=== PATIENT | female | born 1955 | race Caucasian/White ===

== ENCOUNTER 2018-05-25 00:37 | Emergency (ER) | payer OTHER ==
--- OUTSIDE RECORDS SUMMARY | 2018-05-25 00:40 | XMS REPORT | Clinical Summary ---
:1955 Author Organization [facility] Address [address] [place] [address] Care Team Providers Name Role Phone Marguerite Mora MD Primary Care Provider Unavailable Allergies Active Allergy Reactions Severity Noted Date Comments Adhesive Tape-Silicones Other (See Comments) 05/29/2016 Tears off skin Venlafaxine Hives 10/24/2015 Amitriptyline Anaphylaxis, Swelling High 05/30/2016 Erythromycin Base Other (See Comments) 10/24/2015 Face swells Levofloxacin Swelling 10/24/2015 Facial swelling Pregabalin 04/19/2017 Weak muscle. Gabapentin Hives 10/24/2015 Trazodone Hives 10/24/2015 Azithromycin Anaphylaxis, Hives High 10/24/2015 Medications Medication Sig Dispensed Refills Start Date End Date Status DULoxetine (CYMBALTA) Take by mouth. 1 0 Active 60 MG capsule capusle twice a day ziprasidone (GEODON) Take by mouth. 1 0 Active 80 MG capsule tablet in am and 1/2 tablet in noon albuterol (PROVENTIL) Take 2.5 mg by 0 Active 2.5 mg /3 mL (0.083 nebulization every %) nebulizer solution 6 (six) hours as needed for wheezing. dexlansoprazole Take by mouth. 1 0 Active (DEXILANT) 60 mg tablet Twice a capsule day ferrous sulfate 325 Take by mouth. 1 0 Active (65 FE) MG tablet tablet twice a day oxyCODone-acetaminoph Take by mouth. 1 0 Active en (PERCOCET) 7.5-325 tablet three times mg per tablet a day tiZANidine (ZANAFLEX) Take by mouth. 1 0 Active 4 MG tablet tablet once a day memantine-donepezil Take by mouth. 1 0 Active (NAMZARIC) 28-10 mg tablet once a day capsule,sprinkle,ER 24hr topiramate (TOPAMAX) Take by mouth. 1 0 Active 50 MG tablet tablet in am and 2 tablet in pm sodium chloride 1 Take 1 g by mouth 0 Active gram tablet 3 (three) times a day. rOPINIRole (REQUIP) Take by mouth. 1 0 Active 0.25 MG tablet tablet 3 times a day albuterol (PROAIR Inhale 2 puffs 0 Active HFA,PROVENTIL every 6 (six) HFA,VENTOLIN HFA) 90 hours as needed mcg/actuation inhaler for wheezing or shortness of breath. metoprolol succinate Take by mouth. 1 0 Active XL (TOPROL-XL) 25 mg tablet once a day 24 hr tablet levothyroxine Take by mouth. 1 0 Active (SYNTHROID, LEVOXYL) tablet once a day 112 mcg tablet VITAMIN B COMPLEX (B Take 1 capsule by 0 Active COMPLEX ORAL) mouth daily. magnesium oxide 500 Take 1 tablet by 0 Active mg tablet mouth daily. LACTOBACILLUS Take 1 capsule by 0 Active ACIDOPHILUS mouth daily. (PROBIOTIC ORAL) carBAMazepine, mood Take by mouth. 1 0 Active stabiliz, (EQUETRO) capsule 3 times a 300 mg capsule, ER day multiphase 12 hr BUMETanide (BUMEX) 1 Take by mouth 0 Active MG tablet daily. 1 tablet once a day cycloSPORINE Administer 1 drop 180 each 3 04/21/2017 (RESTASIS) 0.05 % to both eyes 2 9 ophthalmic emulsion (two) times a day. 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 IOP stable 16 (mid-teens). 3rd OCT much better timur TI OS region. HVF more unreliable, due to ptosis and dry eye. No evidence of glaucoma. Just follow annually for CE, consider OCT ON annually or less frequent, but defer HVF for now. 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 Last Assessment & Plan: BLL plugs intact. Continue Restasis OU 2-3 x/day. Okay to continue Prolensa OU QD PRN pain. Dryness much better OU. MRx done 12/29 different now, probably due to fact that PEE was much worse then. MRx updated today--N/C. Combined form of senile cataract 11/22/2015 Last Assessment & Plan: Early, not visually significant. Follow. MRx updated. Allergic conjunctivitis 11/22/2015 Last Assessment & Plan: Resume Elestat--rx given. Hypercalcemia 04/07/2011 Nontoxic uninodular goiter 04/07/2011 Primary hyperparathyroidism 04/07/2011 Sarcoidosis 04/07/2011 Encounters Date Type Specialty Care Team Description 08/26/2017 Lab Lab Jules Prince Personal history of colon MD [place] cancer (Primary Dx) 06/23/2017 Office Visit Ophthalmology Jomar Ovalle Optic nerve cupping of both eyes (Primary Dx); MD [place] Glaucoma suspect, bilateral 06/10/2017 Anesthesia Event Gastroenterology Soraya Larson MD 06/10/2017 Surgery Gastroenterology Debbie Prince. COLONOSCOPY MD [place] 06/10/2017 Hospital Encounter Gastroenterology Debbie Prince. Primary MD [place] hyperparathyroidism (Primary Dx) after 05/24/2017 Immunizations Name Dates Previously Given Next Due INFLUENZA QUAD 12/16/2015 Pneumococcal Conjugate 13-Valent 12/16/2015 Family History Medical History Relation Name Comments Heart attack Brother Cancer Father Glaucoma Mother Glaucoma Paternal Grandmother Blindness Sister Ovarian cancer Sister Breast cancer Sister Relation Name Status Comments Brother Father Maternal Grandfather Maternal Grandmother Mother Paternal Grandfather Paternal Grandmother Sister Alive Sister Social History Tobacco Use Types Packs/Day Years Used Date Former Smoker Cigarettes Quit: 1971 Smokeless Tobacco: Never Used Alcohol Use Drinks/Week oz/Week Comments Yes 1 Standard drinks or equivalent 0.6 weekly Sex Assigned at Date Recorded Not on file Job Start Date Occupation Industry Not on file Not on file Not on file Travel History Travel Start Travel End No recent travel history available. Last Filed Vital Signs Vital Sign Reading Time Taken Blood Pressure 153/76 06/10/2017 11:55 AM CDT Pulse 66 06/10/2017 11:52 AM CDT Temperature 36.5 C (97.7 F) 06/10/2017 11:52 AM CDT Respiratory Rate 18 06/10/2017 11:52 AM CDT Oxygen Saturation 97% 06/10/2017 11:52 AM CDT Inhaled Oxygen Concentration - - Weight 77.6 kg (171 lb) 06/10/2017 9:38 AM CDT Height 165.1 cm (5' 5") 06/10/2017 9:38 AM CDT Body Mass Index 28.46 06/10/2017 9:38 AM CDT Plan of Treatment Date Type Specialty Care Team Description 06/22/2018 Office Visit Ophthalmology Jomar Ovalle MD [address] [address] Health Maintenance Due Date Last Done Comments CERVICAL CANCER SCREENING 10/12/1975 SHINGLES VACCINES (#1) 2004 INFLUENZA VACCINE 10/13/2017 12/22/2016, 12/16/2015 BREAST CANCER SCREENING 04/16/2018 04/16/2016 COLON CANCER SCREENING 03/15/2026 03/15/2016 Procedures Procedure Name Priority Date/Time Associated Comments Diagnosis CARCINOEMBRYONIC ANTIGEN Routine 08/26/2017 11:49 Personal history Results for this (CEA) AM CDT of colon cancer procedure are in the results section. AUTOMATED VISUAL FIELD, Routine 06/23/2017 11:50 Glaucoma suspect, Results for this EXTENDED - OU - BOTH AM CDT bilateral procedure are in EYES the results section. OCT, OPTIC NERVE - OU - Routine 06/23/2017 11:49 Glaucoma suspect, Results for this BOTH EYES AM CDT bilateral procedure are in the results section. COLONOSCOPY 06/10/2017 10:00 Personal history AM CDT of colon cancer after 05/24/2017 Results Carcinoembryonic antigen (CEA) (08/26/2017 11:49 AM CDT) CEA 2.6 0.0 - 3.8 ng/mL [facility] DEPARTMENT OF PATHOLOGY Comment: AND GENOMIC MEDICINE Reference range for heavy smokers:0.0 - 5.5 ng/mL The ALEX Marcie 8000 CEA immunoassay was used. Results obtained with different assay methods or kits should not be used interchangeably and may be different. Specimen Serum Performing Organization Address City/State/Zipcode Phone Number [facility] DEPARTMENT OF PATHOLOGY AND [address] [place] [address] [employer] Automated Visual Field, Extended - OU - Both Eyes (06/23/2017 11:50 AM CDT) Narrative Performed At Right Eye Threshold was 24-2. Strategy was [place]. Reliability was poor. Foveal threshold was reduced. -6.5. Findings include superior altitudinal defect. Left Eye Threshold was 24-2. Strategy was [place]IL[place]. Reliability was poor. Foveal threshold was reduced. -8.64. Findings include superior altitudinal defect, inferior altitudinal defect. OCT, Optic Nerve - OU - Both Eyes (06/23/2017 11:49 AM CDT) Narrative Performed At G 88; T 52 thin T 88; T 48 thin (TI 122, much better than past low 100s) after 05/24/2017 Insurance Payer Benefit Plan / Group Subscriber ID Type Phone Address A[employer]NA MEDICARE AETNA MEDICARE HMO/PPO [facility] xxxxxxxx HMO
--- OUTSIDE RECORDS SUMMARY | 2018-05-25 00:40 | XMS REPORT | Continuity of Care Document ---
:1955 Author Organization Interface Problems Problem Status Onset Classification Date Comments Source Date Reported Discharge 09/22/19 09/23/2016 [facility] Diagnosis: Pain 17 in right wrist Fracture Active 03/15/19 Problem 09/23/2016 [facility] dislocation of 15 wrist joint Cancer of colon Resolved 03/15/19 Problem 09/23/2016 [facility] 00 Uterine Resolved 03/15/18 Problem 09/23/2016 CHEMO and [facility] cancer<sup>4</s 98 hysterectomy in up> 1997 Alzheimer Active Problem 09/23/2016 early stage- dx [facility] disease<sup>1</ x 1 year ago sup> Arthritis Active Problem 09/23/2016 [facility] Asthma Active Problem 09/23/2016 [facility] Bipolar Active Problem 09/23/2016 [facility] disorder Chronic pain Active Problem 09/23/2016 [facility] COPD - Chronic Active Problem 09/23/2016 home O2 3L [place] [facility] obstructive since 2011. pulmonary last visit with disease<sup>2</ conference planner, sup> Dec 2015 for pre op clearance. pulmonary stress test report (6 minute walk without o2) done at that time, per conference planner no need for home O2. Pt states she is able to stay off her oxygen for around 3 hours. At [facility] appt on 09-15-16 , O2 was removed for 15 minutes and O2 sats were 99% percent during that period. Hypertension Active Problem 09/23/2016 [facility] Hyponatremia Active Problem 09/23/2016 [facility] Hypothyroid Active Problem 09/23/2016 [facility] IBS - Irritable Active Problem 09/23/2016 [facility] bowel syndrome Migraine Active Problem 09/23/2016 [facility] Pain in wrist Active Problem 09/23/2016 [facility] Sarcoidosis of Inactive Problem 09/23/2016 per pulmonary [facility] lung<sup>3</sup note- CT of > chest shows no acute changes since 2008, no evidence of sarcoidosis Medications Medication Details Route Status Patient Ordering Order Source Instructions Provider Date Misc Medication 400 mL, Inactive 09/21/ [facility] Soln-IV, IV, 2017 Once, first dose 09/21/16 15:55:00 CDT, stop date 09/21/16 15:55:00 CDT fentaNYL 25 mcg=0.5 mL, Inactive 09/21/ [facility] Injection, IV, 2017 Once, first dose 09/21/16 15:30:00 CDT, stop date 09/21/16 15:30:00 CDT ondansetron 4 mg=2 mL, Inactive 09/21/ [facility] Injection, IV, 2016 Once, first dose 09/21/16 15:30:00 CDT, stop date 09/21/16 15:30:00 CDT fentaNYL 25 mcg=0.5 mL, Inactive [facility] Injection, IV, 2016 Once, first dose 09/21/16 15:06:00 CDT, stop date 09/21/16 15:06:00 CDT Levalbuterol 0.21 0.63 mg=3 mL, Inactive 09/21/ [facility] MG/ML Inhalant Soln, NEB, 2017 Solution Once, first [Xopenex] dose 09/21/16 15:00:00 CDT, stop date 09/21/16 15:00:00 CDT Levalbuterol 0.21 0.63 mg=3 mL, Inactive [facility] MG/ML Inhalant Soln, [facility], 2017 Solution Once PRN for [Xopenex] wheezing, first dose 09/21/16 14:49:00 CDT Ondansetron 4 mg=2 mL, Inactive [facility] Injection, IV 2016 Push, q15min PRN for nausea/vomitin g, order duration: 2 doses, first dose 09/21/16 14:49:00 CDT, stop date Limited # of times Promethazine 12.5 mg=0.5 Inactive 09/21/ [facility] mL, Injection, 2017 IM, Once PRN for severe nausea, first dose 09/21/16 14:49:00 CDT Dilaudid 0.5 mg=0.5 mL, Inactive 09/21/ [facility] Injection, IV 2016 Push, q10min PRN for pain severe (7-10), first dose 09/21/16 14:49:00 CDT Demerol HCl 12.5 mg=0.25 Inactive 09/21/ [facility] mL, Injection, 2017 IV Push, Once PRN for shivers, first dose 09/21/16 14:49:00 CDT Albuterol 0.83 2.5 mg=3 mL, Inactive [facility] MG/ML Inhalant Soln, NEB, 2017 Solution Once PRN for wheezing, first dose 09/21/16 14:49:00 CDT Hydralazine 10 mg=0.5 mL, Inactive [facility] Injection, IV 2017 Push, As Indicated PRN for hypertension, first dose 09/21/16 14:49:00 CDT Diphenhydramine 25 mg=0.5 mL, Inactive [facility] Injection, IV 2017 Push, Once PRN for itching, first dose 09/21/16 14:49:00 CDT Bupivacaine 0.25% 300 mL, Nerve Inactive [facility] 300 mL pump 300 Block, 5 2017 mL mL/hr, start date 09/21/16 14:49:00 CDT Saline Lock Flush 10 mL, Soln, Inactive [facility] IV Push, As 2017 Indicated PRN for flush, first dose 09/21/16 14:49:00 CDT LR 1,000 mL 1,000 mL, IV, Inactive 09/21/ [facility] 75 mL/hr, 2017 start date 09/21/16 14:49:00 CDT ceFAZolin 2 gm, Soln-IV, Inactive [facility] IV Piggyback, 2017 Once, first dose 09/21/16 14:44:00 CDT, stop date 09/21/16 14:44:00 CDT dexamethasone 8 mg=2 mL, Inactive [facility] Injection, IV, 2016 Once, first dose 09/21/16 14:42:00 CDT, stop date 09/21/16 14:42:00 CDT Misc Medication 1,000 mL, Inactive [facility] Soln-IV, IV, 2017 Once, first dose 09/21/16 14:37:00 CDT, stop date 09/21/16 14:37:00 CDT propofol 100 mg=10 mL, Inactive [facility] Emulsion, IV, 2017 Once, first dose 09/21/16 14:32:00 CDT, stop date 09/21/16 14:32:00 CDT lidocaine 3 mL, Inactive 09/21/ [facility] Injection, IV, 2016 Once, first dose 09/21/16 14:32:00 CDT, stop date 09/21/16 14:32:00 CDT fentaNYL 50 mcg=1 mL, Inactive 09/21/ [facility] Injection, IV, 2016 Once, first dose 09/21/16 14:11:00 CDT, stop date 09/21/16 14:11:00 CDT midazolam 1 mg=1 mL, Inactive [facility] Injection, IV, 2016 Once, first dose 09/21/16 14:11:00 CDT, stop date 09/21/16 14:11:00 CDT midazolam 1 mg=1 mL, Inactive 09/21/ [facility] Injection, IV, 2016 Once, first dose 09/21/16 13:55:00 CDT, stop date 09/21/16 13:55:00 CDT fentaNYL 50 mcg=1 mL, Inactive [facility] Injection, IV, 2016 Once, first dose 09/21/16 13:54:00 CDT, stop date 09/21/16 13:54:00 CDT Cefazolin 2 gm, Soln-IV, Inactive 09/21/ [facility] IV Piggyback, 2016 Once, infuse over 30 minutes, first dose 09/21/16 12:00:00 CDT, stop date 09/21/16 12:00:00 CDT, patient weight 50-120 kg, Prophylaxis Lidocaine 2% 0.2 0.2 mL, Inactive 09/21/ [facility] mL IV Start Injection, 2016 [[facility]] Subcutaneous, Once PRN for other (see comment), first dose 09/21/16 11:24:00 CDT LR 1,000 mL 1,000 mL, IV, Inactive 09/21/ [facility] 30 mL/hr, 2017 start date 09/21/16 11:24:00 CDT Breo Ellipta INH, Daily, 0 Active [facility] Refill(s), 2016 COPD magnesium 500 mg=1 tabs, Active [facility] gluconate 500 mg Oral, Daily, 0 2016 oral tablet Refill(s) cetirizine 10 mg=1 tabs, Active [facility] hydrochloride 10 Oral, Daily, 0 2017 MG Oral Tablet Refill(s) [Zyrtec] Probiotic Formula 1 caps, Oral, Active 09/16/ [facility] oral capsule Daily, 0 2016 Refill(s), supplement Super B Complex 1 tabs, Oral, Active 09/16/ [facility] oral tablet Daily, 0 2016 Refill(s), supplement Centrum Silver 1 tabs, Oral, Active 09/16/ [facility] Women's Daily, 0 2016 Refill(s), supplemetn topiramate 50 MG 50 mg=1 tabs, Active 09/16/ [facility] Oral Tablet Oral, BID, 0 2016 Refill(s), mgiraines furosemide 20 mg 20 mg=1 tabs, Active 09/16/ [facility] oral tablet Oral, BID, 0 2016 Refill(s), COPD spironolactone 25 25 mg=1 tabs, Active 05/ [facility] mg oral tablet Oral, qNoon, 0 2016 Refill(s) Acetaminophen 325 1 tabs, Oral, Active 09/16/ [facility] MG / Oxycodone q6hr, 0 2016 Hydrochloride 7.5 Refill(s), MG Oral Tablet chronic pain Omeprazole 40 MG 40 mg=1 caps, Active 09/16/ [facility] Enteric Coated Oral, BID, 0 2016 Capsule Refill(s), GERDb 24 HR Donepezil 1 caps, Oral, Active 09/16/ [facility] hydrochloride 10 Daily, 0 2017 MG / Memantine Refill(s), hydrochloride 28 alzheimer MG Extended Release Oral Capsule [Namzaric] lubiprostone 8 mcg=1 caps, No Longer 09/16/ [facility] 0.008 MG Oral Oral, qPM, # Active 2017 Capsule [Amitiza] 60 tabs, 0 Refill(s), IBS tiZANidine 4 mg 4 mg=1 tabs, Active 05/ [facility] oral tablet Oral, q8hr, 0 2016 Refill(s) ferrous sulfate 325 mg=1 tabs, No Longer 09/16/ [facility] 325 MG Oral Oral, Daily, 0 Active 2017 Tablet Refill(s), anemia ropinirole 0.25 0.25 mg=1 Active 05/ [facility] MG Oral Tablet tabs, Oral, 2017 TID, 0 Refill(s) 24 HR Metoprolol 25 mg=1 tabs, Active 09/16/ [facility] Tartrate 25 MG Oral, qPM, 0 2016 Extended Release Refill(s) Tablet raNITIdine 150 mg 150 mg=1 tabs, Active 09/16/ [facility] oral tablet Oral, BID, 0 2017 Refill(s), GERD ProAir HFA 2 puffs, INH, Active 09/16/ [facility] QID, PRN as 2017 needed for wheezing, 0 Refill(s), COPD Levothyroxine 125 mcg=1 Active 09/16/ [facility] Sodium 0.125 MG tabs, Oral, 2017 Oral Tablet Daily, 0 [Levothroid] Refill(s), hypothyroid DULoxetine 60 mg 60 mg=1 caps, Active 09/16/ [facility] oral delayed Oral, Daily, 0 2017 release capsule Refill(s), bipolar 12 HR 300 mg=1 caps, Active 09/16/ [facility] Carbamazepine 300 Oral, TID, 0 2017 MG Extended Refill(s), Release Capsule bipolar [Equetro] Dulcolax Stool 100 mg, Oral, Active 09/16/ [facility] Softener Daily, 0 2017 Refill(s) Sodium Chloride See Active 09/16/ [facility] Instructions, 2017 1 gm PO BID, 0 Refill(s), hyponatremia ziprasidone 80 mg 80 mg=1 caps, Active 09/16/ [facility] oral capsule Oral, As 2017 Indicated, 1 tab PO QAM , 1/2 tab PO Qnoon, 0 Refill(s), bipolar Allergies, Adverse Reactions, Alerts Substance Category Reaction Severity Reaction Status Date Comments Source type Reported azithromycin Assertion Hives Drug Active [facility] allergy Effexor Assertion Weal Drug Active [facility] (disorder) allergy Elavil Assertion hives Drug Active [facility] allergy erythromycin Assertion Weal Drug Active [facility] (disorder) allergy Levaquin Assertion Weal Drug Active [facility] (disorder) allergy Neurontin Assertion Weal Drug Active [facility] (disorder) allergy Tape<sup>1</hughes Assertion Drug Active use paper [facility] p> allergy tape traZODone Assertion Hives Drug Active [facility] allergy Immunizations Immunization Date Given Site Status Last Updated Comments Source Results Order Results Value Reference Date Interpretation Comments Source Name Range Vital Signs Vital Sign Value Date Comments Source Respitory Rate 18 09/21/2016 [facility] Systolic (mm Hg) 146 09/21/2016 [facility] Diastolic (mm Hg) 82 09/21/2016 [facility] Peripheral Pulse Rate 69 09/21/2016 [facility] Systolic (mm Hg) 142 09/21/2016 [facility] Diastolic (mm Hg) 78 09/21/2016 [facility] Heart Rate 78 09/21/2016 [facility] Respitory Rate 18 09/21/2016 [facility] Heart Rate 66 09/21/2016 [facility] Respitory Rate 18 09/21/2016 [facility] Systolic (mm Hg) 146 09/21/2016 [facility] Diastolic (mm Hg) 82 09/21/2016 [facility] Heart Rate 66 09/21/2016 [facility] Temperature Oral (F) 36.5 Daysi 09/21/2016 [facility] Weight Measured 78.01 09/21/2016 [facility] Height 165.10 cm 09/21/2016 [facility] Peripheral Pulse Rate 62 09/21/2016 [facility] Temperature Oral (F) 36.6 Daysi 09/21/2016 [facility] Peripheral Pulse Rate 65 09/16/2016 [facility] Weight Measured 78.01 09/16/2016 [facility] Height 165.10 cm 09/16/2016 [facility] Encounters Location Location Encounter Encounter Reason Attending ADM DC Status Source Details Type Number For Provider Date Date Visit [facility] Outpatient [id number] JESENIA 09/21 09/21 Active Surgical TITUS HAILE /2016 [facility] Outpatient [id number] JESENIA 09/21 09/21 [facility] Gerardo QURESHI [facility] Procedures Procedure Code Date Perfomer Comments Source ARTHRODESIS DISTAL 09/21/2016 auto-populated [facility] RADIOULNAR JT from documented W/SEGMENTAL RESEC. surgical case ULNA [id number] (Right)<sup>1</sup> EXCISION DISTAL 09/21/2016 auto-populated [facility] ULNA [id number] from documented (Right)<sup>2</sup> surgical case colon 05/29/2016 2nd dx- no chemo or radiation. [facility] resection<sup>3</hughes No post op complications, Did not require stay in ICU or ventilator post op. p> Corrective right 07/14/2015 [facility] hand surgery Colon 03/15/1999 DX COLON CANCER> [facility] resection<sup>4</hughes NO CHemo or p> radiation Hysterectomy [id number] 03/15/1997 [facility] tonsillectomy 03/15/1971 [facility] Back multiple; denies [facility] surgery<sup>5</sup> hardware. most recent 2008
--- OUTSIDE RECORDS SUMMARY | 2018-05-25 00:41 | XMS REPORT ---
:1955 Author Organization e[employer]Works Care Team Providers Name Role Phone Gonzalez, Na Provider Role Unavailable Allergies, Adverse Reactions, Alerts Substance Reaction Event Type erthromycin Info Not Available Drug Allergy NEUROTIN Info Not Available Drug Allergy amitriptyline Info Not Available Drug Allergy Trazodone HCl Info Not Available Drug Allergy Levaquin Info Not Available Drug Allergy Effexor Info Not Available Drug Allergy Problems Problem Type Condition Code Onset Dates Condition Status Assessment Age-related osteoporosis without M81.0 Active current pathological fracture Assessment Restless leg syndrome G25.81 Active Assessment GERD (gastroesophageal reflux K21.9 Active disease) Assessment Seasonal allergies J30.2 Active Problem Chronic back pain M54.9 Active Assessment Cough R05 Active Problem Migraine G43.909 Active Assessment Other specified bacterial agents as B96.89 Active the cause of diseases classified elsewhere Problem Hypertension, uncontrolled I10 Active Problem Hypokalemia E87.6 Active Problem Restless leg syndrome G25.81 Active Problem Right foot pain M79.671 Active Problem Other specified bacterial agents as B96.89 Active the cause of diseases classified elsewhere Assessment COPD (chronic obstructive pulmonary J44.1 Active disease) with acute bronchitis Assessment Hypothyroidism E03.9 Active Problem Hyponatremia E87.1 Active Assessment Acute sinusitis, unspecified J01.90 Active Problem Seasonal allergies J30.2 Active Problem Cough R05 Active Problem Age-related osteoporosis without M81.0 Active current pathological fracture Problem Acute sinusitis, unspecified J01.90 Active Problem GERD (gastroesophageal reflux K21.9 Active disease) Problem Hypothyroidism E03.9 Active Problem Edema R60.9 Active Problem Bipolar disorder F31.9 Active Problem Memory deficit R41.3 Active Problem COPD (chronic obstructive pulmonary J44.9 Active disease) Problem COPD (chronic obstructive pulmonary J44.1 Active disease) with acute bronchitis Medications Medication Code Code Instructions Start End Status Dosage System Date Date Klor-Con M10 [facility] 23356534752 10 MEQ Orally Active 1 tablet Twice a day with food Tessalon Perles [facility] 65888077298 100 MG Orally August 02August Active 1 capsule Three times a 2018 10, as needed day 2017 Geodon [facility] 34854244766 80 MG Orally Active 1 capsule Twice a day with food Cymbalta [facility] 14725899830 60 MG Orally Active 1 capsule Once a day Breo Ellipta [facility] 89761732963 100-25 MCG/INH Active 1 puff Inhalation Once a day Metoprolol [facility] 51938051615 25 MG Active TAKE 1 Succinate ER TABLET BY MOUTH EVERY DAY Ferrous Sulfate [facility] 40511643438 325 (65 Fe) MG Active TAKE ONE TABLET THREE TIMES DAILY Lasix [facility] 92626364661 40 MG Orally Active 1 tablet Once a day Amitiza [facility] 24727908251 24 MCG Orally Active 1 capsule Twice a day with food Flonase [facility] 08114743715 50 MCG/ACT Active 2 spray in Nasally Once a each day nostril ProAir HFA [facility] 32495972815 108 (90 Base) Active 2 puffs as MCG/ACT needed Inhalation every 6 hrs Zantac [facility] 92517530377 150 MG Orally Active 1 tablet Once a day at bedtime Requip [facility] 51851896007 0.5 MG Orally Inactive 1 tablet 1 Once a day to 3 hours before bedtime Pramipexole [facility] 04151228623 0.25 MG Orally Active 1 tablet Dihydrochloride Once a day before bedtime Topamax [facility] 24151774049 50 MG Orally Active 1 tablet Twice a day Levothyroxine [facility] 02034930848 125 MCG Orally Active 1 tablet Sodium Once a day on an empty stomach in the morning DuoNeb ND 0 Inhalation Active as every 6 hrs directed Dexilant [facility] 31186086478 60 MG Orally Inactive 1 capsule Once a day Aspirin Adult Low [facility] 26592225967 81 MG Orally Active 1 tablet Dose Once a day Equetro [facility] 74141682223 300 MG Orally Active 1 capsule Twice a day Soma [facility] 63461534049 350 MG Orally Active 1 tablet Four times a as needed day Nucynta [facility] 77821500958 50 MG Orally Active 1 tablet every 6 hrs Amlodipine [facility] 99030442576 5 MG Orally June Active 1 tablet Besylate Once a day 2017 Singulair [facility] 65519556017 10 MG Orally Active 1 tablet Once a day in the evening Milton [facility] 11856864922 10-325 MG Active 1 tablet Orally every 6 as needed hrs Augmentin [facility] 80436040268 875-125 MG July Active 1 tablet Orally every 31, 12 hrs 2017 Zyrtec Allergy [facility] 21726604315 10 MG Orally Active 1 tablet Once a day Results No Known Results Summary Purpose eClinicalWorks Submission
--- OUTSIDE RECORDS SUMMARY | 2018-05-25 00:41 | XMS REPORT ---
:1955 Author Organization [employer]Works Care Team Providers Name Role Phone Gonzalez, Na Provider Role Unavailable Allergies No Known Allergies Problems Problem Type Condition Code Onset Dates Condition Status Problem Hypertension, uncontrolled I10 Active Problem Hypokalemia E87.6 Active Problem Restless leg syndrome G25.81 Active Problem Right foot pain M79.671 Active Problem Other specified bacterial agents as B96.89 Active the cause of diseases classified elsewhere Problem Hyponatremia E87.1 Active Problem Seasonal allergies J30.2 Active Problem Cough R05 Active Problem Age-related osteoporosis without M81.0 Active current pathological fracture Problem Acute sinusitis, unspecified J01.90 Active Problem GERD (gastroesophageal reflux K21.9 Active disease) Problem Hypothyroidism E03.9 Active Problem Edema R60.9 Active Problem Bipolar disorder F31.9 Active Problem Memory deficit R41.3 Active Problem COPD (chronic obstructive pulmonary J44.9 Active disease) Problem Chronic back pain M54.9 Active Problem COPD (chronic obstructive pulmonary J44.1 Active disease) with acute bronchitis Problem Migraine G43.909 Active Medications Medication Code System Code Instructions Start End Date Status Dosage Date Metoprolol [facility] 20229517654 25 MG Active TAKE 1 Succinate ER TABLET BY MOUTH EVERY DAY Results No Known Results Summary Purpose eClinicalWorks Submission
--- OUTSIDE RECORDS SUMMARY | 2018-05-25 00:41 | XMS REPORT ---
[...] Problem Migraine G43.909 Active Medications Medication Code Code Instructions Start End Date Status Dosage System Date Metoprolol [facility] 12115290093 25 MG Orally Active TAKE 1 Succinate ER Once a day TABLET BY MOUTH EVERY DAY Results No Known Results Summary Purpose eClinicalWorks Submission
--- OUTSIDE RECORDS SUMMARY | 2018-05-25 00:41 | XMS REPORT ---
:1955 Author Organization [employer]Works Care Team Providers Name Role Phone Gonzalez, Na Provider Role Unavailable Allergies No Known Allergies Problems Problem Type Condition Code Onset Dates Condition Status Problem Hypertension, uncontrolled I10 Active Problem Hypokalemia E87.6 Active Problem Restless leg syndrome G25.81 Active Problem Right foot pain M79.671 Active Assessment COPD (chronic obstructive pulmonary J44.1 Active disease) with acute bronchitis Problem Other specified bacterial agents as B96.89 [...] acute bronchitis Problem Migraine G43.909 Active Medications No Known Medications Results No Known Results Summary Purpose eClinicalWorks Submission
--- OUTSIDE RECORDS SUMMARY | 2018-05-25 00:41 | XMS REPORT ---
[...] Active disease) Assessment Seasonal allergies J30.2 Active Assessment Urinary incontinence, unspecified R32 Active type Assessment COPD (chronic obstructive pulmonary J44.9 Active disease) Problem Restless leg syndrome G25.81 Active Assessment Hypothyroidism E03.9 Active Problem Hypokalemia E87.6 Active Assessment Hypertension, uncontrolled I10 Active Problem Cough R05 Active Problem Acute sinusitis, unspecified J01.90 Active Problem Seasonal allergies J30.2 Active Problem Urinary incontinence, unspecified R32 Active type Problem Screening mammogram, encounter for Z12.31 Active Problem GERD (gastroesophageal reflux K21.9 Active disease) Problem Edema R60.9 Active Problem Influenza vaccine needed Z23 Active Problem Other specified bacterial agents as B96.89 Active the cause of diseases classified elsewhere Problem Age-related osteoporosis without M81.0 Active current pathological fracture Problem Right foot pain M79.671 Active Problem Hyponatremia E87.1 Active Problem COPD (chronic obstructive pulmonary J44.1 Active disease) with acute bronchitis Problem Bipolar disorder F31.9 Active Problem Hypothyroidism E03.9 Active Problem COPD (chronic obstructive pulmonary J44.9 Active disease) Problem Migraine G43.909 Active Problem Hypertension, uncontrolled I10 Active Problem Memory deficit R41.3 Active Problem Chronic back pain M54.9 Active Medications Medication Code Code Instructions Start End Status Dosage System Date Date Geodon [facility] 08445146400 80 MG Orally Active 1 capsule Twice a day with food Topamax [facility] 98595816015 50 MG Orally Active 1 tablet Twice a day Bumetanide [facility] 36084886000 1 MG Active TAKE 1 TABLET BY MOUTH EVERY DAY Ferrous Sulfate [facility] 14215938030 325 (65 Fe) MG Active TAKE ONE TABLET THREE TIMES DAILY Soma [facility] 48092624369 350 MG Orally Active 1 tablet Four times a as needed day Pramipexole [facility] 48477345462 0.25 MG Orally Active 1 tablet Dihydrochloride Once a day before bedtime Levothyroxine [facility] 80126707114 125 MCG Orally Active 1 tablet Sodium Once a day on an empty stomach in the morning Cymbalta [facility] 66606315798 60 MG Orally Active 1 capsule Once a day Myrbetriq [facility] 25096452200 25 MG Orally Jan 06Mar Active 1 tablet Once a day 2017 Amlodipine [facility] 37487088862 5 MG Orally Inactive 1 tablet Besylate Once a day Singulair [facility] 70475426956 10 MG Orally Active 1 tablet Once a day in the evening ProAir HFA [facility] 24488198548 108 (90 Base) Active 2 puffs as MCG/ACT needed Inhalation every 6 hrs Flonase [facility] 39433573804 50 MCG/ACT Active 2 spray in Nasally Once a each day nostril Breo Ellipta [facility] 20774612807 100-25 MCG/INH Active 1 puff Inhalation Once a day Equetro [facility] 34965538214 300 MG Orally Active 1 capsule Twice a day Aspirin Adult Low [facility] 98998309422 81 MG Orally Active 1 tablet Dose Once a day Fosamax Plus D [facility] 34825937624 702800 Mar 24July Active 1 tablet MG-UNIT Orally 2018 12, once a week 2018 Zantac [facility] 13246797603 150 MG Orally Active 1 tablet Once a day at bedtime Amitiza [facility] 56999776112 24 MCG Orally Active 1 capsule Twice a day with food Levothyroxine [facility] 48294445511 125 MCG Orally Active 1 tablet Sodium Once a day on an empty stomach in the morning Metoprolol ND 71271476846 50 MG Orally Active take 1 Succinate ER Once a day tablet by mouth every day Klor-Con M10 [facility] 06304174873 10 MEQ Orally Active 1 tablet Twice a day with food DuoNeb NDC 0 Inhalation Active as every 6 hrs directed Zyrtec Allergy [facility] 58255911508 10 MG Orally Active 1 tablet Once a day Nucynta [facility] 00354777940 50 MG Orally Active 1 tablet every 6 hrs Lasix [facility] 66790513430 40 MG Orally Active 1 tablet Once a day [place] [facility] 30791846125 10-325 MG Active 1 tablet Orally every 6 as needed hrs Results No Known Results Summary Purpose eClinicalWorks Submission
--- OUTSIDE RECORDS SUMMARY | 2018-05-25 00:41 | XMS REPORT ---
:1955 [facility] Address [address] [place] [address] [address] [place] [address] Care Team Providers Name Role Phone Unavailable Unavailable Unavailable Problems This patient has no known problems. Allergies, Adverse Reactions, Alerts This patient has no known allergies or adverse reactions. Medications This patient has no known medications.
--- OUTSIDE RECORDS SUMMARY | 2018-05-25 00:41 | XMS REPORT ---
:1955 Author Organization eClinicalWorks Care Team Providers Name Role Phone Gonzalez, Na Provider Role Unavailable Allergies No Known Allergies Problems Problem Type Condition Code Onset Dates Condition Status Problem Cough R05 Active Problem Acute sinusitis, unspecified J01.90 Active Problem Seasonal allergies J30.2 Active Problem Urinary incontinence, unspecified R32 Active type Problem GERD (gastroesophageal reflux K21.9 Active disease) Problem Screening mammogram, encounter for Z12.31 Active Problem Edema R60.9 Active Problem Influenza vaccine [...] Active Problem Memory deficit R41.3 Active Problem Restless leg syndrome G25.81 Active Problem Chronic back pain M54.9 Active Problem Hypokalemia E87.6 Active Medications Medication Code System Code Instructions Start End Date Status Dosage Date Alendronate-Cho [facility] 05618-399 70-2800 MG-UNIT Mar 25, Active 1 tablet lecalciferol 0-44 Orally once a 2019 week Results No Known Results Summary Purpose eClinicalWorks Submission
--- OUTSIDE RECORDS SUMMARY | 2018-05-25 00:42 | XMS REPORT ---
:1955 Author Organization eClinicalWorks Care Team Providers Name Role Phone Gonzalez, Sandy Provider Role Unavailable Allergies No Known Allergies [...] M54.9 Active Problem Hypokalemia E87.6 Active Medications No Known Medications Results No Known Results Summary Purpose eClinicalWorks Submission
[2018-05-25] MEDS ORDERED: predniSONE 10 MG TAB ONE (02:18)
[2018-05-25] MEDS ORDERED: ALBUTEROL 2.5 MG/3 ML NEB SOL ONE (02:18)
[2018-05-25] MEDS ORDERED: IPRATROPIUM BROM 0.5MG/2.5ML ONE (02:18)
--- NOTE | 2018-05-25 03:01 | EDPHYS ---
Physician Documentation [facility] Name: Domitila Huertas Age: 62 yrs Sex: Female : 1955 Arrival Date: 05/25/2018 Time: 00:42 Bed 6 Private MD: Sandy Gonzalez ED Physician Jose Morin HPI: 05/25 02:52 This 62 yrs old Female presents to ER via Wheelchair with complaints of Flu gs Symptoms. 02:52 The patient or guardian reports flu symptoms, arthralgias, low-grade fever, myalgias. gs Onset: The symptoms/episode began/occurred acutely. Severity of symptoms: At their worst the symptoms were moderate, in the emergency department the symptoms are unchanged. Modifying factors: The symptoms are alleviated by nothing, the symptoms are aggravated by nothing. Associated signs and symptoms: Pertinent positives: fever. The patient has experienced similar episodes in the past, a few times. The patient has not recently seen a physician. Historical: - Allergies: 01:05 adhesive tape; ea 01:05 amitriptyline HCl; ea 01:05 Erythromycin; ea 01:05 Levofloxacin; ea 01:05 venlafaxine HCl; ea 01:05 Azithromycin; ea 01:05 GABAPENTIN; ea 01:05 Trazodone; ea 01:05 erythromycin base; ea 01:05 Demerol; ea - Home Meds: 01:05 Centrum Silver 400-250 mcg Oral chew [Active]; Dexilant 60 mg Oral CpDB 1 cap once ea daily [Active]; duloxetine 60 mg Oral cpDR 1 cap 2 times a day [Active]; Equetro 300 mg Oral CM12 1 cap 3 times per day [Active]; Zyrtec 10 mg Oral chew 1 tab once daily [Active]; ziprasidone HCl 80 mg Oral cap 1 cap 1 time per day [Active]; ziprasidone HCl 40 mg Oral cap 1 cap 1 time per day [Active]; Topamax 50 mg Oral tab 1 tab 2 times per day [Active]; tizanidine 8 mg cap Oral tab 1 tab AT NIGHT [Active]; Super B Complex-Vitamin C Oral tab [Active]; spironolactone 25 mg Oral tab 1 tab once daily [Active]; furosemide 20 mg Oral tab 1 tab 2 times per day [Active]; levothyroxine 112 mcg tab 1 tab once daily [Active]; magnesium oxide 500 mg Oral tab [Active]; metoprolol succinate 25 mg Oral Tb24 1 tab once daily [Active]; Namzaric 28-10 mg Oral CSpX 1 cap once daily [Active]; oxycodone-acetaminophen 7.5-325 mg Oral tab 1 tab every 8 hours [Active]; sodium chloride 1 gram Oral tab [Active]; ropinirole 0.25 mg Oral tab 1 tab 3 times per day [Active]; ranitidine HCl 150 mg Oral cap 1 cap 2 times per day [Active]; Probiotic 10 billion cell Oral cap [Active]; ProAir HFA 90 mcg/actuation inhalation HFAA 1 puff every 4 hours [Active]; profemin [Active]; - PMHx: 01:05 corrective hand sx; Hypertension; ea - PSHx: 01:05 Tonsillectomy; Hysterectomy; Back surgery; ea - Immunization history:: Adult Immunizations up to date. - Social history:: Smoking status: Patient/guardian denies using tobacco, but has a distant history of tobacco abuse. - Ebola Screening: : No symptoms or risks identified at this time. ROS: 02:52 All other systems are negative. gs Exam: 02:52 Head/Face: Normocephalic, atraumatic. Eyes: Pupils equal round and reactive to light, gs extra-ocular motions intact. Lids and lashes normal. Conjunctiva and sclera are non-icteric and not injected. Cornea within normal limits. Periorbital areas with no swelling, redness, or edema. ENT: Nares patent. No nasal discharge, no septal abnormalities noted. Tympanic membranes are normal and external auditory canals are clear. Oropharynx with no redness, swelling, or masses, exudates, or evidence of obstruction, uvula midline. Mucous membranes moist. Neck: Trachea midline, no thyromegaly or masses palpated, and no cervical lymphadenopathy. Supple, full range of motion without nuchal rigidity, or vertebral point tenderness. No Meningismus. Chest/axilla: Normal chest wall appearance and motion. Nontender with no deformity. No lesions are appreciated. Cardiovascular: Regular rate and rhythm with a normal S1 and S2. No gallops, murmurs, or rubs. Normal PMI, no JVD. No pulse deficits. 02:52 Abdomen/GI: Soft, non-tender, with normal bowel sounds. No distension or tympany. No guarding or rebound. No evidence of tenderness throughout. Back: No spinal tenderness. No costovertebral tenderness. Full range of motion. Skin: Warm, dry with normal turgor. Normal color with no rashes, no lesions, and no evidence of cellulitis. 02:52 Constitutional: The patient appears alert, awake. 02:52 Respiratory: the patient does not display signs of respiratory distress, Respirations: normal, symetrical, no use of accessory muscles, Breath sounds: rhonchi, that are mild, are scattered. 02:52 Musculoskeletal/extremity: Circulation is intact in all extremities. 02:52 Neuro: Exam negative for acute changes. Vital Signs: 00:58 BP 143 / 89; Pulse 84; Resp 23; Temp 100.3; Pulse Ox 95% on 3 lpm NC; Weight 89.36 kg; ea Height 5 ft. 5 in. (165.10 cm); 01:30 BP 140 / 80; Pulse 83; Resp 23; Pulse Ox 98% on Nebulizer Mask; ea 02:56 BP 123 / 70; Pulse 85; Resp 22; Pulse Ox 99% ; ea 00:58 Body Mass Index 32.78 (89.36 kg, 165.10 cm) ea MDM: 01:11 Patient medically screened. 02:52 Differential Diagnosis: Bronchitis Influenza Upper Respiratory Infection Pneumonia. Data reviewed: vital signs, nurses notes. Response to treatment: the patient's symptoms have markedly improved after treatment, and as a result, I will discharge patient. 05/25 01:12 Order name: Influenza Screen (a \T\ B); Complete Time: 02:48 05/25 01:12 Order name: XRAY Chest Pa And Lat (2 Views) Administered Medications: 02:11 Drug: Albuterol 2.5 mg Route: Inhalation; ea 02:11 Drug: AtroVENT Aerosol 0.5 mg Route: Inhalation; ea 02:11 Drug: predniSONE 20 mg Route: PO; ea 02:59 Follow up: Response: No adverse reaction ea Disposition: 05/25/18 02:59 Discharged to Home. Impression: Influenza due to identified novel influenza A virus. - Condition is Stable. - Discharge Instructions: Influenza, Adult. - Prescriptions for Tamiflu 75 mg Oral Capsule - take 1 tablet by ORAL route every 12 hours for 5 days; 10 tablet. Albuterol Sulfate 2.5 mg /3 mL (0.083 %) Inhalation Solution for Nebulization - inhale 1 unit by NEBULIZATION route every 8 hours As needed; 1 box. - Medication Reconciliation Form, Thank You Letter, Antibiotic Education, Prescription Opioid Use form. - Follow up: Private Physician; When: 1 - 2 days; Reason: Re-evaluation by your physician. Signatures: Dispatcher [employer] Miya Rogers RN RN ea Starr, Gregory, MD MD gs Corrections: (The following items were deleted from the chart) 03:16 02:59 05/25/2018 02:59 Discharged to Home. Impression: Influenza due to identified ea novel influenza A virus. Condition is Stable. Forms are Medication Reconciliation Form, Thank You Letter, Antibiotic Education, Prescription Opioid Use. Follow up: Private Physician; When: 1 - 2 days; Reason: Re-evaluation by your physician. gs
--- NOTE | 2018-05-25 03:01 | ER ---
Nurse's Notes [facility] Name: Domitila Huertas Age: 62 yrs Sex: Female : 1955 Arrival Date: 05/25/2018 Time: 00:42 Bed 6 Private MD: Sandy Gonzalez Diagnosis: Influenza due to identified novel influenza A virus Presentation: 05/25 00:55 Presenting complaint: Patient states: Reports she started having a cough three days ago ea that progressively got worse. Pt reports feeling achy and congested. Denies fever. Transition of care: patient was not received from another setting of care. Onset of symptoms was May 25, 2018. Risk Assessment: Do you want to hurt yourself or someone else? Patient reports no desire to harm self or others. Initial Sepsis Screen: Does the patient meet any 2 criteria? RR > 20 per min. Yes Does the patient have a suspected source of infection? No. Patient's initial sepsis screen is negative. Care prior to arrival: Medication(s) given: Robitussin DM and Tylenol 2 hours ago. 00:55 Method Of Arrival: Wheelchair ea 00:55 Acuity: IRENE 3 ea Triage Assessment: 01:05 General: Appears in no apparent distress. Behavior is calm, cooperative, appropriate ea for age. Pain: Complains of pain in body aches. Neuro: Level of Consciousness is awake, alert, obeys commands, Oriented to person, place. Cardiovascular: Patient's skin is warm and dry. Respiratory: Airway is patent Respiratory effort is even, unlabored, Respiratory pattern is regular, tachypnea Breath sounds are diminished bilaterally. Derm: Skin is pink, warm \T\ dry. Historical: - Allergies: 01:05 adhesive tape; ea 01:05 amitriptyline HCl; ea 01:05 Erythromycin; ea 01:05 Levofloxacin; ea 01:05 venlafaxine HCl; ea 01:05 Azithromycin; ea 01:05 GABAPENTIN; ea 01:05 Trazodone; ea 01:05 erythromycin base; ea 01:05 Demerol; ea - Home Meds: 01:05 Centrum Silver 400-250 mcg Oral chew [Active]; Dexilant 60 mg Oral CpDB 1 cap once ea daily [Active]; duloxetine 60 mg Oral cpDR 1 cap 2 times a day [Active]; Equetro 300 mg Oral CM12 1 cap 3 times per day [Active]; Zyrtec 10 mg Oral chew 1 tab once daily [Active]; ziprasidone HCl 80 mg Oral cap 1 cap 1 time per day [Active]; ziprasidone HCl 40 mg Oral cap 1 cap 1 time per day [Active]; Topamax 50 mg Oral tab 1 tab 2 times per day [Active]; tizanidine 8 mg cap Oral tab 1 tab AT NIGHT [Active]; Super B Complex-Vitamin C Oral tab [Active]; spironolactone 25 mg Oral tab 1 tab once daily [Active]; furosemide 20 mg Oral tab 1 tab 2 times per day [Active]; levothyroxine 112 mcg tab 1 tab once daily [Active]; magnesium oxide 500 mg Oral tab [Active]; metoprolol succinate 25 mg Oral Tb24 1 tab once daily [Active]; Namzaric 28-10 mg Oral CSpX 1 cap once daily [Active]; oxycodone-acetaminophen 7.5-325 mg Oral tab 1 tab every 8 hours [Active]; sodium chloride 1 gram Oral tab [Active]; ropinirole 0.25 mg Oral tab 1 tab 3 times per day [Active]; ranitidine HCl 150 mg Oral cap 1 cap 2 times per day [Active]; Probiotic 10 billion cell Oral cap [Active]; ProAir HFA 90 mcg/actuation inhalation HFAA 1 puff every 4 hours [Active]; profemin [Active]; - PMHx: 01:05 corrective hand sx; Hypertension; ea - PSHx: 01:05 Tonsillectomy; Hysterectomy; Back surgery; ea - Immunization history:: Adult Immunizations up to date. - Social history:: Smoking status: Patient/guardian denies using tobacco, but has a distant history of tobacco abuse. - Ebola Screening: : No symptoms or risks identified at this time. Screenin:59 Abuse screen: Denies threats or abuse. Nutritional screening: No deficits noted. ea Tuberculosis screening: No symptoms or risk factors identified. Fall Risk Gait- Impaired (20 pts.). Assessment: 02:58 Reassessment: Patient and/or family updated on plan of care and expected duration. Pain ea level reassessed. Patient is alert, oriented x 3, equal unlabored respirations, skin warm/dry/pink. Awaiting on flu swab results. 03:15 Reassessment: Patient and/or family updated on plan of care and expected duration. Pain ea level reassessed. Patient is alert, oriented x 3, equal unlabored respirations, skin warm/dry/pink. Discharge instructions given to patient, verbalized the understanding of instruction. Vital Signs: 00:58 BP 143 / 89; Pulse 84; Resp 23; Temp 100.3; Pulse Ox 95% on 3 lpm NC; Weight 89.36 kg; ea Height 5 ft. 5 in. (165.10 cm); 01:30 BP 140 / 80; Pulse 83; Resp 23; Pulse Ox 98% on Nebulizer Mask; ea 02:56 BP 123 / 70; Pulse 85; Resp 22; Pulse Ox 99% ; ea 00:58 Body Mass Index 32.78 (89.36 kg, 165.10 cm) ea ED Course: 00:42 Patient arrived in ED. mr 00:42 Sandy Gonzalez MD is Private Physician. mr 00:55 Arm band placed on right wrist. Patient placed in an exam room, on a stretcher, on ea pulse oximetry. 00:57 Jose Morin MD is Attending Physician. 00:58 Triage completed. ea 01:07 Patient has correct armband on for positive identification. Call light in reach. Pt ea refused to lay in bed, reports she rather sit in the wheelchair. 01:30 X-ray completed. Patient tolerated procedure well. Patient moved back from radiology. ls3 01:30 XRAY Chest Pa And Lat (2 Views) In Process Unspecified. EDMS 02:56 Miya Croft RN is Primary Nurse. ea 03:15 No provider procedures requiring assistance completed. Patient did not have IV access ea during this emergency room visit. Administered Medications: 02:11 Drug: Albuterol 2.5 mg Route: Inhalation; ea 02:11 Drug: AtroVENT Aerosol 0.5 mg Route: Inhalation; ea 02:11 Drug: predniSONE 20 mg Route: PO; ea 02:59 Follow up: Response: No adverse reaction ea Outcome: 02:59 Discharge ordered by . gs 03:15 Discharged to home via wheelchair, with family. ea 03:15 Condition: good 03:15 Discharge instructions given to patient, family, Instructed on discharge instructions, follow up and referral plans. medication usage, Demonstrated understanding of instructions, follow-up care, medications, Prescriptions given X 2. 03:16 Patient left the ED. ea Signatures: Dispatcher [employer] EDLisette Roman Elena, RN RN ea Starr, Gregory, MD MD gs Siler, Lynzie ls3
[2018-05-25 03:35] VITALS: TEMP 100.3
[2018-05-25 03:37] VITALS: BP 123/70; O2SAT 99
--- NOTE | 2018-05-25 08:10 | RAD REPORT ---
EXAM DESCRIPTION: RAD - Chest Pa And Lat (2 Views) - 05/25/2018 1:32 am CLINICAL HISTORY: COUGH Chest pain. COMPARISON: Chest Pa And Lat (2 Views) dated 10/07/2017; Chest Pa And Lat (2 Views) dated 09/08/2016; Chest Pa And Lat (2 Views) dated 11/05/2015; Chest Pa And Lat (2 Views) dated 07/31/2015 FINDINGS: The lungs are clear. The heart is mildly prominent in size. No displaced fractures. IMPRESSION: No acute infiltrate detected.
== END 2018-05-25 03:16 | disposition home or self-care (01) ==
LOC: ER 00:37
DX: J09.X2 Influenza due to identified novel influenza A virus with other respiratory manifestations (principal); Z88.6 Allergy status to analgesic agent; Z88.3 Allergy status to other anti-infective agents; I10 Essential (primary) hypertension
CPT/HCPCS: 71046; 87804; 99284; J7512

== ENCOUNTER 2018-05-27 06:52 | Emergency (ER) | payer OTHER ==
--- OUTSIDE RECORDS SUMMARY | 2018-05-27 06:54 | XMS REPORT | Clinical Summary ---
:1955 Author Organization [facility] Address [address] [place] [address] Care Team Providers Name Role Phone Marguerite [...] Primary MD Henry hyperparathyroidism (Primary Dx) after 05/26/2017 Immunizations Name Dates Previously Given Next Due [...] 06/22/2018 Office Visit Ophthalmology Jomar Ovalle MD [address] [address] Health Maintenance Due Date Last [...] history AM CDT of colon cancer after 05/26/2017 Results Carcinoembryonic antigen (CEA) (08/26/2017 11:49 AM CDT) CEA 2.6 0.0 - 3.8 ng/mL [facility] DEPARTMENT OF PATHOLOGY Comment: AND GENOMIC MEDICINE Reference range for heavy smokers:0.0 - 5.5 ng/mL The ALEX Marcie 8000 CEA immunoassay was used. Results obtained with different assay methods or kits should not be used interchangeably and may be different. Specimen Serum Performing Organization Address City/State/Zipcode Phone Number [facility] DEPARTMENT OF PATHOLOGY AND [address] [place] [address] [employer] Automated Visual Field, Extended - OU - [...] much better than past low 100s) after 05/26/2017 Insurance Payer Benefit Plan / Group Subscriber ID Type Phone Address AETNA MEDICARE AETNA MEDICARE HMO/PPO [facility] xxxxxxxx HMO
--- OUTSIDE RECORDS SUMMARY | 2018-05-27 06:55 | XMS REPORT | Continuity of Care Document ---
[...] since 2011. 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 pulmonary stress test report (6 minute walk without o2) done at that time, per commercial airplane pilot no need for home O2. Pt states she is able to stay off her oxygen for around 3 hours. At [facility] appt on 09-15-16 , O2 was removed [...] mg=3 mL, Inactive [facility] MG/ML Inhalant Soln, [facility], 2017 Solution Once PRN for [Xopenex] wheezing, [...] 09/21/ [facility] mL IV Start Injection, 2016 [[facility]] Subcutaneous, Once PRN for other (see comment), [...] For Provider Date Date Visit [facility] Outpatient [id number] JESENIA 09/21 09/21 Active Surgical TITUS HAILE /2016 [facility] Outpatient [id number] JESENIA 09/21 09/21 [facility] Gerardo QURESHI MD /[facility] Procedures Procedure Code Date Perfomer Comments Source ARTHRODESIS DISTAL 09/21/2016 auto-populated [facility] RADIOULNAR JT from documented W/SEGMENTAL RESEC. surgical case ULNA [id number] (Right)<sup>1</sup> EXCISION DISTAL 09/21/2016 auto-populated [facility] ULNA [id number] from documented (Right)<sup>2</sup> surgical case colon 05/29/2016 2nd dx- no chemo or radiation. [facility] resection<sup>3</hughes No post op complications, Did not require stay in ICU or ventilator post op. p> Corrective right 07/14/2015 [facility] hand surgery Colon 03/15/1999 DX COLON CANCER> [facility] resection<sup>4</hughes NO CHemo or p> radiation Hysterectomy [id number] 03/15/1997 [facility] tonsillectomy 03/15/1971 [facility] Back multiple; denies [facility] surgery<sup>5</sup> hardware. most recent 2008
--- OUTSIDE RECORDS SUMMARY | 2018-05-27 06:55 | XMS REPORT ---
[...] Status Dosage System Date Date Klor-Con M10 [facility] 86784262239 10 MEQ Orally Active 1 tablet Twice a day with food Tessalon Perles [facility] 92352624370 100 MG Orally August 02August Active 1 capsule Three times a 2018 10, as needed day [address] [facility] 55079022309 80 MG Orally Active 1 capsule Twice a day with food Cymbalta [facility] 27620041737 60 MG Orally Active 1 capsule Once a day Breo Ellipta [facility] 40423295408 100-25 MCG/INH Active 1 puff Inhalation Once a day Metoprolol [facility] 06754314210 25 MG Active TAKE 1 Succinate ER TABLET BY MOUTH EVERY DAY Ferrous Sulfate [facility] 38108969055 325 (65 Fe) MG Active TAKE ONE TABLET THREE TIMES DAILY Lasix [facility] 38719649082 40 MG Orally Active 1 tablet Once a day Amitiza [facility] 31146064046 24 MCG Orally Active 1 capsule Twice a day with food Flonase [facility] 93063040980 50 MCG/ACT Active 2 spray in Nasally Once a each day nostril ProAir HFA [facility] 35420451078 108 (90 Base) Active 2 puffs as MCG/ACT needed Inhalation every [address] [facility] 87532012423 150 MG Orally Active 1 tablet Once a day at bedtime Requip [facility] 96859341433 0.5 MG Orally Inactive 1 tablet 1 Once a day to 3 hours before bedtime Pramipexole [facility] 58137277477 0.25 MG Orally Active 1 tablet Dihydrochloride Once a day before bedtime Topamax [facility] 17796160944 50 MG Orally Active 1 tablet Twice a day Levothyroxine [facility] 31278995769 125 MCG Orally Active 1 tablet Sodium Once a day on an empty stomach in the morning DuoNeb ND 0 Inhalation Active as every 6 hrs directed Dexilant [facility] 43941966121 60 MG Orally Inactive 1 capsule Once a day Aspirin Adult Low [facility] 07086391224 81 MG Orally Active 1 tablet Dose Once a day Equetro [facility] 79185699186 300 MG Orally Active 1 capsule Twice a day Soma [facility] 11678256345 350 MG Orally Active 1 tablet Four times a as needed day Nucynta [facility] 61752487635 50 MG Orally Active 1 tablet every [address] [facility] 62768445066 5 MG Orally June Active 1 tablet Besylate Once a day [address] [facility] 84613687470 10 MG Orally Active 1 tablet Once a day in the evening Alliance [facility] 15600376860 10-325 MG Active 1 tablet Orally every 6 as needed hrs Augmentin [facility] 26346565658 875-125 MG July Active 1 tablet Orally every 31, 12 hrs [address] [facility] 68003073730 10 MG Orally Active 1 tablet Once a day Results No Known Results Summary Purpose eClinicalWorks Submission
--- OUTSIDE RECORDS SUMMARY | 2018-05-27 06:55 | XMS REPORT ---
:1955 [facility] Address [address] [place] [address] [address] [place] [address] Care Team Providers Name Role Phone Unavailable Unavailable Unavailable Problems This patient has no known problems. Allergies, Adverse Reactions, Alerts This patient has no known allergies or adverse reactions. Medications This patient has no known medications.
--- OUTSIDE RECORDS SUMMARY | 2018-05-27 06:56 | XMS REPORT ---
[...] End Status Dosage System Date Date Geodon [facility] 09504126112 80 MG Orally Active 1 capsule Twice a day with food Topamax [facility] 90849980121 50 MG Orally Active 1 tablet Twice a day Bumetanide [facility] 96749545041 1 MG Active TAKE 1 TABLET BY MOUTH EVERY DAY Ferrous Sulfate [facility] 58052276498 325 (65 Fe) MG Active TAKE ONE TABLET THREE TIMES DAILY Soma [facility] 05363665065 350 MG Orally Active 1 tablet Four times a as needed day Pramipexole [facility] 24853150908 0.25 MG Orally Active 1 tablet Dihydrochloride Once a day before bedtime Levothyroxine [facility] 70966428887 125 MCG Orally Active 1 tablet Sodium Once a day on an empty stomach in the morning Cymbalta [facility] 61903402480 60 MG Orally Active 1 capsule Once a day Myrbetriq [facility] 01822295682 25 MG Orally Jan 06Mar Active 1 tablet Once a day 2017 Amlodipine [facility] 63151689419 5 MG Orally Inactive 1 tablet Besylate Once a day Singulair [facility] 69917318281 10 MG Orally Active 1 tablet Once a day in the evening ProAir HFA [facility] 81388340258 108 (90 Base) Active 2 puffs as MCG/ACT needed Inhalation every 6 hrs Flonase [facility] 49876896376 50 MCG/ACT Active 2 spray in Nasally Once a each day nostril Breo Ellipta [facility] 43042133991 100-25 MCG/INH Active 1 puff Inhalation Once a day Equetro [facility] 05319488724 300 MG Orally Active 1 capsule Twice a day Aspirin Adult Low [facility] 09228837202 81 MG Orally Active 1 tablet Dose Once a day Fosamax Plus D [facility] 75724165120 702800 Mar 24July Active 1 tablet MG-UNIT Orally 2018 12, once a week 2018 Zantac [facility] 97780358490 150 MG Orally Active 1 tablet Once a day at bedtime Amitiza [facility] 92228479851 24 MCG Orally Active 1 capsule Twice a day with food Levothyroxine [facility] 19023477035 125 MCG Orally Active 1 tablet Sodium Once a day on an empty stomach in the morning Metoprolol ND 16908658919 50 MG Orally Active take 1 Succinate ER Once a day tablet by mouth every day Klor-Con M10 [facility] 67412798169 10 MEQ Orally Active 1 tablet Twice a day with food DuoNeb NDC 0 Inhalation Active as every 6 hrs directed Zyrtec Allergy [facility] 75028843545 10 MG Orally Active 1 tablet Once a day Nucynta [facility] 97814119342 50 MG Orally Active 1 tablet every 6 hrs Lasix [facility] 15193324201 40 MG Orally Active 1 tablet Once a day [employer] [facility] 85695298305 10-325 MG Active 1 tablet Orally every 6 as needed hrs Results No Known Results Summary Purpose eClinicalWorks Submission
--- OUTSIDE RECORDS SUMMARY | 2018-05-27 06:56 | XMS REPORT ---
[...] Start End Date Status Dosage Date Metoprolol [facility] 89962486779 25 MG Active TAKE 1 Succinate ER TABLET BY MOUTH EVERY DAY Results No Known Results Summary Purpose eClinicalWorks Submission
--- OUTSIDE RECORDS SUMMARY | 2018-05-27 06:56 | XMS REPORT ---
[...] Start End Date Status Dosage Date Alendronate-Cho [facility] 92263-167 70-2800 MG-UNIT Mar 25, Active 1 tablet lecalciferol 0-44 Orally once a 2019 week Results No Known Results Summary Purpose eClinicalWorks Submission
--- OUTSIDE RECORDS SUMMARY | 2018-05-27 06:56 | XMS REPORT ---
[...] End Date Status Dosage System Date Metoprolol [facility] 85309800717 25 MG Orally Active TAKE 1 Succinate ER Once a day TABLET BY MOUTH EVERY DAY Results No Known Results Summary Purpose eClinicalWorks Submission
[2018-05-27] MEDS ORDERED: IPRATROPIUM BROM 0.5MG/2.5ML ONE (07:45)
[2018-05-27] MEDS ORDERED: ALBUTEROL 2.5 MG/3 ML NEB SOL ONE (07:45)
--- NOTE | 2018-05-27 08:44 | RAD REPORT ---
EXAM DESCRIPTION: RAD - Foot Right 3 View - 05/27/2018 7:53 am CLINICAL HISTORY: Fall, right foot pain COMPARISON: June 2017 FINDINGS: No fracture, dislocation or periosteal reaction. No acute or destructive bone process. Pat ient has very minimal calcification of the Achilles tendon near the insertion. No plantar spur. No air or foreign body in the soft tissues. IMPRESSION: Negative right foot examination for fracture or acute finding.
--- NOTE | 2018-05-27 08:46 | RAD REPORT ---
EXAM DESCRIPTION: RAD - Chest Pa And Lat (2 Views) - 05/27/2018 7:53 am CLINICAL HISTORY: Cough COMPARISON: May 25 TECHNIQUE: PA and lateral views of the chest were obtained. FINDINGS: The lungs are clear of a new mass, consolidation or failure finding. Interstitial markings are prominent but not clearly different from the short interval May 25 imaging. Heart size is no rmal and central vasculature is within normal limits. No pleural effusion or pneumothorax seen. No acute bony finding noted. No aortic abnormality. IMPRESSION: No acute cardiopulmonary process. No changes from May 25 imaging.
--- NOTE | 2018-05-27 08:58 | EDPHYS ---
Physician Documentation [facility] Name: Domitila Huertas Age: 62 yrs Sex: Female : 1955 Arrival Date: 05/27/2018 Time: 06:56 Bed 13 Private MD: Sandy Gonzalez ED Physician Jose Morin HPI: 05/27 07:30 This 62 yrs old Female presents to ER via Wheelchair with complaints of Flu cp Symptoms, Diarrhea, Foot Pain. 07:30 The patient or guardian reports cough, that is constant. cp 07:30 Onset: The symptoms/episode began/occurred this week. Patient reports she was diagnosed cp with influenza 2 days ago after being seen in this ED and started on tamiflu. Patient reports she started having diarrhea yesterday so she stopped taking the tamiflu with last dose yesterday. Patient reports cough is worse. Denies fever. Reports history of COPD. 07:30 The patient presents with an injury, pain, that is acute. The complaints affect the cp right foot. Context: resulted from a mis-step by the patient, the patient can partially bear weight, the patient is able to ambulate, with moderate difficulty. Onset: The symptoms/episode began/occurred last night. Historical: - Allergies: 07:10 adhesive tape; aa5 07:10 amitriptyline HCl; aa5 07:10 Azithromycin; aa5 07:10 Demerol; aa5 07:10 Erythromycin; aa5 07:10 erythromycin base; aa5 07:10 GABAPENTIN; aa5 07:10 Levofloxacin; aa5 07:10 Trazodone; aa5 07:10 venlafaxine HCl; aa5 - Home Meds: 07:43 Equetro 300 mg Oral CM12 1 cap 3 times per day [Active]; duloxetine 60 mg Oral cpDR 1 aa5 cap 2 times a day [Active]; ziprasidone HCl 40 mg Oral cap 1 cap 1 time per day [Active]; ziprasidone HCl 80 mg Oral cap 1 cap 1 time per day [Active]; Ingrezza 80mg daily [Active]; quetiapine 25 mg oral tab daily [Active]; levothyroxine 112 mcg tab 1 tab once daily [Active]; metoprolol succinate 25 mg Oral Tb24 1 tab once daily [Active]; fosimax D every wednesday [Active]; Myrbetriq 25 mg oral Tb24 1 tab once daily [Active]; Tamiflu Oral 2 times per day [Active]; oxycodone-acetaminophen 7.5-325 mg Oral tab TID [Active]; tizanidine 4 mg oral tab nightly [Active]; gabapentin 400 mg oral cap once a day [Active]; Topamax 50 mg Oral tab in the morning and 100mg nightly [Active]; sodium chloride 1,000 mg miscellaneous TbSO twice a day [Active]; Vitamin D3 5,000 unit oral tab daily [Active]; Centrum Silver 400-250 mcg Oral chew [Active]; Super B Complex-Vitamin C Oral tab [Active]; magnesium oxide 500 mg Oral tab [Active]; profemin twice a day [Active]; - PMHx: 07:10 corrective hand sx; Hypertension; aa5 07:31 COPD; sv - PSHx: 07:10 Tonsillectomy; Hysterectomy; Back surgery; aa5 - Immunization history:: Pneumococcal vaccine is up to date, Flu vaccine is up to date. - Social history:: Smoking status: Patient/guardian denies using tobacco. - Ebola Screening: : No symptoms or risks identified at this time. ROS: 07:40 Constitutional: Negative for fever, poor PO intake. cp 07:40 Eyes: Negative for injury, pain, redness, and discharge. cp 07:40 ENT: Negative for sore throat, difficulty swallowing, difficulty handling secretions. 07:40 Cardiovascular: Negative for chest pain, edema, palpitations. 07:40 Respiratory: Positive for cough, "sounds productive", shortness of breath. 07:40 Abdomen/GI: Positive for diarrhea, Negative for abdominal pain, vomiting, constipation. 07:40 : Negative for urinary symptoms. 07:40 MS/extremity: Positive for pain, of the right foot, Negative for decreased range of motion, deformity. 07:40 Skin: Negative for rash. 07:40 Neuro: Negative for altered mental status, dizziness, headache, weakness. 07:40 All other systems are negative. Exam: 07:45 Constitutional: The patient appears in no acute distress, alert, awake, cp non-diaphoretic, non-toxic, well developed, well nourished. 07:45 Head/Face: Normocephalic, atraumatic. Eyes: Pupils equal round and reactive to light, cp extra-ocular motions intact. Lids and lashes normal. Conjunctiva and sclera are non-icteric and not injected. Cornea within normal limits. Periorbital areas with no swelling, redness, or edema. ENT: Nares patent. No nasal discharge, no septal abnormalities noted. Tympanic membranes are normal and external auditory canals are clear. Oropharynx with no redness, swelling, or masses, exudates, or evidence of obstruction, uvula midline. Mucous membranes moist. Neck: Trachea midline, no thyromegaly or masses palpated, and no cervical lymphadenopathy. Supple, full range of motion without nuchal rigidity, or vertebral point tenderness. No Meningismus. 07:45 Cardiovascular: Rate: normal, Rhythm: regular, Edema: is not appreciated, JVD: is not appreciated. 07:45 Respiratory: the patient does not display signs of respiratory distress, Respirations: labored breathing, is not present, accessory muscle usage, is absent, intercostal retractions, are absent, splinting, is not noted, tachypnea, is not appreciated, Breath sounds: bronchial sounds, that are mild, are heard diffusely, decreased breath sounds, are not appreciated, rhonchi, are not appreciated, stridor, is not appreciated, + upper airway congestion. wheezing: that is mild, is heard diffusely. 07:45 Abdomen/GI: Inspection: abdomen appears normal, Bowel sounds: active, all quadrants, Palpation: abdomen is soft and non-tender, in all quadrants. 07:45 Back: pain, is absent, ROM is normal. 07:45 Musculoskeletal/extremity: Extremities: grossly normal except: noted in the medial aspect right foot: tenderness, There is no evidence of deformity, swelling. 07:45 Skin: cellulitis, is not appreciated, no rash present. Vital Signs: 07:11 BP 134 / 92; Pulse 70; Resp 16 S; Temp 98.8(O); Pulse Ox 99% on R/A; Weight 87.54 kg aa5 (R); Height 5 ft. 5 in. (165.10 cm) (R); Pain 5/10; 09:13 BP 131 / 74; Pulse 79; Resp 18; Pulse Ox 99% on R/A; sv 07:11 Body Mass Index 32.12 (87.54 kg, 165.10 cm) aa5 MDM: 07:24 Patient medically screened. cp 08:00 Differential diagnosis: fracture, sprain, pneumonia, respiratory distress bronchitis, cp flu. 08:55 Data reviewed: vital signs, nurses notes, lab test result(s), radiologic studies, plain cp films. 08:55 Test interpretation: by ED physician or midlevel provider: plain radiologic studies. cp Counseling: I had a detailed discussion with the patient and/or guardian regarding: the historical points, exam findings, and any diagnostic results supporting the discharge/admit diagnosis, lab results, radiology results, the need for outpatient follow up, a family practitioner, to return to the emergency department if symptoms worsen or persist or if there are any questions or concerns that arise at home. Response to treatment: the patient's symptoms have markedly improved after treatment. ED course: VSS. Symptoms improved after breathing treatment. Will discharge to home for continued monitoring. 05/27 07:32 Order name: XRAY Foot RIGHT 3 View; Complete Time: 08:49 cp 05/27 07:32 Order name: XRAY Chest Pa And Lat (2 Views); Complete Time: 08:49 cp Administered Medications: 07:38 Drug: Albuterol - atroVENT (3:1) (2.5 mg - 0.5 mg) 3 ml Route: Nebulizer; sv 08:30 Follow up: Response: No adverse reaction sv Disposition: 05/27/18 08:57 Discharged to Home. Impression: Influenza due to identified novel influenza A virus with other respiratory manifestations, Pain in right foot. - Condition is Stable. - Discharge Instructions: Influenza, Adult. - Prescriptions for Ibuprofen 800 mg Oral Tablet - take 1 tablet by ORAL route every 8 hours As needed take with food; 30 tablet. Guaifenesin AC 10- 100 mg/5 mL Oral Liquid - take 10 milliliters by ORAL route every 6 hours As needed; 180 milliliter. Albuterol Sulfate 90 mcg/actuation - inhale 1-2 puff by INHALATION route every 4-6 hours; 1 Inhaler. - Medication Reconciliation Form, Thank You Letter, Antibiotic Education, Prescription Opioid Use form. - Follow up: Private Physician; When: 2 - 3 days; Reason: Worsening of condition. - Problem is new. - Symptoms have improved. Addendum: 05/29/2018 19:40 Co-signature as Attending Physician, Jose Morin MD. g s Signatures: Dispatcher [employer] Tequila Eason RN RN sv Calderon, Audri, RN RN aa5 Dallas Mace PA PA cp Starr, Gregory, MD MD gs Corrections: (The following items were deleted from the chart) 05/27 09:00 08:57 05/27/2018 08:57 Discharged to Home. Impression: Acute bronchitis. Condition is cp Stable. Forms are Medication Reconciliation Form, Thank You Letter, Antibiotic Education, Prescription Opioid Use. Follow up: Private Physician; When: 2 - 3 days; Reason: Worsening of condition. Problem is new. Symptoms have improved. cp 09:00 09:00 05/27/2018 08:57 Discharged to Home. Impression: Influenza due to identified cp novel influenza A virus with other respiratory manifestations. Condition is Stable. Discharge Instructions: Influenza, Adult. Prescriptions for Ibuprofen 800 mg Oral Tablet - take 1 tablet by ORAL route every 8 hours As needed take with food; 30 tablet, Guaifenesin AC 10-100 mg/5 mL Oral Liquid - take 10 milliliters by ORAL route every 6 hours As needed; 180 milliliter, Albuterol Sulfate 90 mcg/actuation - inhale 1-2 puff by INHALATION route every 4-6 hours; 1 Inhaler. and Forms are Medication Reconciliation Form, Thank You Letter, Antibiotic Education, Prescription Opioid Use. Follow up: Private Physician; When: 2 - 3 days; Reason: Worsening of condition. Problem is new. Symptoms have improved. cp 09:14 09:00 05/27/2018 08:57 Discharged to Home. Impression: Influenza due to identified sv novel influenza A virus with other respiratory manifestations; Pain in right foot. Condition is Stable. Discharge Instructions: Influenza, Adult. Prescriptions for Ibuprofen 800 mg Oral Tablet - take 1 tablet by ORAL route every 8 hours As needed take with food; 30 tablet, Guaifenesin AC 10-100 mg/5 mL Oral Liquid - take 10 milliliters by ORAL route every 6 hours As needed; 180 milliliter, Albuterol Sulfate 90 mcg/actuation - inhale 1-2 puff by INHALATION route every 4-6 hours; 1 Inhaler. and Forms are Medication Reconciliation Form, Thank You Letter, Antibiotic Education, Prescription Opioid Use. Follow up: Private Physician; When: 2 - 3 days; Reason: Worsening of condition. Problem is new. Symptoms have improved. cp
--- NOTE | 2018-05-27 08:58 | ER ---
Nurse's Notes [facility] Name: Domitila Huertas Age: 62 yrs Sex: Female : 1955 Arrival Date: 05/27/2018 Time: 06:56 Bed 13 Private MD: Sandy Gonzalez Diagnosis: Influenza due to identified novel influenza A virus with other respiratory manifestations;Pain in right foot Presentation: 05/27 07:09 Presenting complaint: Patient states: "I was diagnosed with the flu a couple of days aa5 ago and the cough is getting worse". Pt reports diarrhea since last night, also reports she fell out of bed last night and c/o right leg pain. Denies LOC, denies head injury. Transition of care: patient was not received from another setting of care. Onset of symptoms was May 2018. Risk Assessment: Do you want to hurt yourself or someone else? Patient reports no desire to harm self or others. Initial Sepsis Screen: Does the patient meet any 2 criteria? No. Patient's initial sepsis screen is negative. Does the patient have a suspected source of infection? No. Patient's initial sepsis screen is negative. Care prior to arrival: None. 07:09 Method Of Arrival: Wheelchair aa5 07:09 Acuity: IRENE 3 aa5 Historical: - Allergies: 07:10 adhesive tape; aa5 07:10 amitriptyline HCl; aa5 07:10 Azithromycin; aa5 07:10 Demerol; aa5 07:10 Erythromycin; aa5 07:10 erythromycin base; aa5 07:10 GABAPENTIN; aa5 07:10 Levofloxacin; aa5 07:10 Trazodone; aa5 07:10 venlafaxine HCl; aa5 - Home Meds: 07:43 Equetro 300 mg Oral CM12 1 cap 3 times per day [Active]; duloxetine 60 mg Oral cpDR 1 aa5 cap 2 times a day [Active]; ziprasidone HCl 40 mg Oral cap 1 cap 1 time per day [Active]; ziprasidone HCl 80 mg Oral cap 1 cap 1 time per day [Active]; Ingrezza 80mg daily [Active]; quetiapine 25 mg oral tab daily [Active]; levothyroxine 112 mcg tab 1 tab once daily [Active]; metoprolol succinate 25 mg Oral Tb24 1 tab once daily [Active]; fosimax D every wednesday [Active]; Myrbetriq 25 mg oral Tb24 1 tab once daily [Active]; Tamiflu Oral 2 times per day [Active]; oxycodone-acetaminophen 7.5-325 mg Oral tab TID [Active]; tizanidine 4 mg oral tab nightly [Active]; gabapentin 400 mg oral cap once a day [Active]; Topamax 50 mg Oral tab in the morning and 100mg nightly [Active]; sodium chloride 1,000 mg miscellaneous TbSO twice a day [Active]; Vitamin D3 5,000 unit oral tab daily [Active]; Centrum Silver 400-250 mcg Oral chew [Active]; Super B Complex-Vitamin C Oral tab [Active]; magnesium oxide 500 mg Oral tab [Active]; profemin twice a day [Active]; - PMHx: 07:10 corrective hand sx; Hypertension; aa5 07:31 COPD; sv - PSHx: 07:10 Tonsillectomy; Hysterectomy; Back surgery; aa5 - Immunization history:: Pneumococcal vaccine is up to date, Flu vaccine is up to date. - Social history:: Smoking status: Patient/guardian denies using tobacco. - Ebola Screening: : No symptoms or risks identified at this time. Screenin:20 Abuse screen: Denies threats or abuse. Denies injuries from another. Nutritional sv screening: No deficits noted. Tuberculosis screening: No symptoms or risk factors identified. Fall Risk None identified. Assessment: 07:20 General: Appears in no apparent distress. uncomfortable, well developed, Behavior is sv calm, cooperative, appropriate for age. Pain: Complains of pain in right leg Pain currently is 5 out of 10 on a pain scale. Pain began 1 day ago. Neuro: Level of Consciousness is awake, alert, obeys commands, Oriented to person, place, time, situation, Moves all extremities. Full function. Cardiovascular: Heart tones S1 S2 present Patient's skin is warm and dry. Respiratory: Reports cough that is non-productive, hacking, persistent Airway is patent Respiratory effort is even, unlabored, Respiratory pattern is regular, symmetrical, Breath sounds with wheezes bilaterally. GI: Reports diarrhea. Derm: Skin is pink, warm \\T\\ dry. Musculoskeletal: Range of motion: intact in all extremities. 08:00 Reassessment: Patient appears in no apparent distress at this time. Patient and/or sv family updated on plan of care and expected duration. Pain level reassessed. Patient is alert, oriented x 3, equal unlabored respirations, skin warm/dry/pink. 09:13 Reassessment: Patient appears in no apparent distress at this time. Patient and/or sv family updated on plan of care and expected duration. Pain level reassessed. Patient is alert, oriented x 3, equal unlabored respirations, skin warm/dry/pink. Vital Signs: 07:11 BP 134 / 92; Pulse 70; Resp 16 S; Temp 98.8(O); Pulse Ox 99% on R/A; Weight 87.54 kg aa5 (R); Height 5 ft. 5 in. (165.10 cm) (R); Pain 5/10; 09:13 BP 131 / 74; Pulse 79; Resp 18; Pulse Ox 99% on R/A; sv 07:11 Body Mass Index 32.12 (87.54 kg, 165.10 cm) aa5 ED Course: 06:56 Patient arrived in ED. es 06:56 Sandy Gonzalez MD is Private Physician. es 07:08 Arm band placed on. aa5 07:10 Triage completed. aa5 07:20 Patient has correct armband on for positive identification. Bed in low position. Call sv light in reach. Adult w/ patient. Pulse ox on. NIBP on. Door closed. Head of bed elevated. 07:22 Tequila Aceves, VALENTINO is Primary Nurse. sv 07:23 Dallas Mace PA is PHCP. cp 07:23 Jose Morin MD is Attending Physician. cp 07:49 X-ray completed. Patient tolerated procedure well. Patient moved to radiology via jb2 wheelchair. Patient moved back from radiology. 07:52 XRAY Foot RIGHT 3 View In Process Unspecified. EDMS 07:52 XRAY Chest Pa And Lat (2 Views) In Process Unspecified. EDMS 09:13 No provider procedures requiring assistance completed. Patient did not have IV access sv during this emergency room visit. Administered Medications: 07:38 Drug: Albuterol - atroVENT (3:1) (2.5 mg - 0.5 mg) 3 ml Route: Nebulizer; sv 08:30 Follow up: Response: No adverse reaction sv Outcome: 08:57 Discharge ordered by . cp 09:13 Discharged to home via wheelchair, with family. sv 09:13 Condition: stable 09:13 Discharge instructions given to patient, family, Instructed on discharge instructions, follow up and referral plans. medication usage, Demonstrated understanding of instructions, follow-up care, medications, Prescriptions given X 3. 09:14 Patient left the ED. sv Signatures: Dispatcher [employer] Tequila Eason RN RN sv Salyer, Edna es Buechter, Jesse jb2 Deysi Lambert RN RN aa5 Dallas Mace, PA PA cp
[2018-05-27 09:19] VITALS: TEMP 98.8; O2SAT 99
[2018-05-27 09:21] VITALS: BP 131/74
== END 2018-05-27 09:14 | disposition home or self-care (01) ==
LOC: ER 06:52
DX: J10.1 Influenza due to other identified influenza virus with other respiratory manifestations (principal); M79.671 Pain in right foot; I10 Essential (primary) hypertension; Z88.1 Allergy status to other antibiotic agents; Z88.5 Allergy status to narcotic agent; Z88.8 Allergy status to other drugs, medicaments and biological substances
CPT/HCPCS: 71046; 94640; 99284

== ENCOUNTER 2019-08-11 07:43 | Day surgery (SDC) | payer OTHER ==
[2019-08-08 17:27] LABS: Bilirubin Total 0.3 mg/dL (0.2-1.0); Potassium 4.4 mmol/L (3.5-5.1); Protein, Total 6.8 g/dL (6.4-8.2)
--- OUTSIDE RECORDS SUMMARY | 2019-08-11 07:47 | XMS REPORT | Clinical Summary ---
:1955 Author Organization [facility] Address [address] [place] [address] Care Team Providers Name Role Phone MD Abby Primary Care Provider Allergies Active Allergy Reactions Severity Noted Date Comments Adhesive Tape-Silicones Other (See Comments) 7 Tears off skin Venlafaxine Hives 10/24/2015 Amitriptyline Anaphylaxis, Swelling High 05/30/2016 Erythromycin Base Other (See Comments) 10/24/2015 Fa ce swells Levofloxacin Swelling 10/24/2015 Facial swelling Pregabalin 04/19/2017 Weak muscle. Gabapentin Hives 10/24/2015 Trazodone Hives 10/24/2015 Azithromycin Anaphylaxis, Hives High 10/24/2015 Medications Medication Sig Dispensed Refills Start End Date Status Date DULoxetine Take by mouth. 1 0 Ac tive (CYMBALTA) 60 MG capusle twice a capsule day ziprasidone (GEODON) Take by mouth. 1 0 Active 80 MG capsule tablet in am and 1/2 tablet in noon albuterol Take 2.5 mg by 0 Activ e (PROVENTIL) 2.5 mg nebulization /3 mL (0.083 %) every 6 (six) nebulizer solution hours as needed for wheezing. dexlansoprazole Take by mouth. 1 0 Active (DEXILANT) 60 mg tablet Twice a capsule day ferrous sulfate 325 Take by mouth. 1 0 Active (65 FE) MG tablet tablet twice a day oxyCODone-acetaminop Take by mouth. 1 0 Active hen (PERCOCET) tablet three 7.5-325 mg per times a day tablet tiZANidine Take by mouth. 1 0 Ac tive (ZANAFLEX) 4 MG tablet once a day tablet memantine-donepezil Take by mouth. 1 0 Active [...] HFA,VENTOLIN HFA) 90 hours as needed mcg/actuation for wheezing or inhaler shortness of breath. metoprolol succinate Take by [...] tablet daily. 1 tablet once a day Restasis 0.05 % INSTILL 1 DROP 180 mL 3 Active ophthalmic emulsion INTO BOTH EYES 0 TWICE A DAY valbenazine Take 80 mg by 0 Acti ve (Ingrezza) 40 mg mouth daily. capsule aspirin (ECOTRIN) 81 Take 81 mg by 0 Active MG enteric coated mouth daily. tablet alendronate Take 10 mg by 0 Acti ve (FOSAMAX) 10 MG mouth daily tablet before breakfast. Take in the morning with a full glass of water on an empty stomach, do NOT take anything else by mouth or lie down for the next 30 min. donepeziL (ARICEPT) Take 10 mg by 0 Active 10 MG tablet mouth nightly. bromfenac (PROLENSA) Administer 1 drop 3 mL 1 0 08/27/19 Active 0.07 % ophthalmic to both eyes 0 20 solution daily for 30 days. epinastine (Elestat) Administer 1 drop 15 mL 3 0 20 Active 0.05 % ophthalmic to both eyes 2 0 21 solution (two) times a day. cycloSPORINE Administer 1 drop 180 each 3 0520 Discontinued (RESTASIS) 0.05 % to both eyes 2 9 20 ophthalmic emulsion (two) times a day. epinastine (ELESTAT) Administer 1 drop 15 mL 3 0 06/22/19 0.05 % ophthalmic to both eyes 2 9 20 solution (two) times a day. 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 CH >10. Baseline OCT 85 OU. IOP stable low-mid teens. Continue annual exam, consider OCT ON if worsens or changes. 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 Last Assessment & Plan: BLL plugs intact. Dryness worse, possibly due to allergies . Continue Restasis OU BID+. Okay to continue Prolensa OU QD PRN pain . Combined forms of age-related cataract of both eyes Last Assessment & Plan: Progressive, causing glare, timur OD. Visu ally significant. The risks/benefits/alternatives of cataract surgery were discussed with the patient, including refractive error, need for add itional surgery, loss of vision, loss of eye. Additional risks of persistent dry eye a nd ptosis were discussed. She understands and will consider if NI. If so, OD, then OS. Allergic conjunctivitis 11/22/2015 Last Assessment & Plan: Continue Elestat OU BID. Hypercalcemia 04/07/2011 Nontoxic uninodular goiter 04/07/2011 Primary hyperparathyroidism 04/07/2011 Sarcoidosis 04/07/2011 Encounters Date Type Specialty Care Team Description 07/28/2019 Office Visit Ophthalmology Jomar Ovalle, Chat[place] ner ve cupping of both eyes (Primary Dx); Dry eye syndrom e; Combined forms of age-related cataract of both eyes; Allergic conjun ctivitis of both eyes 07/28/2019 Refill Ophthalmology Jomar Ovalle MD 07/27/2019 Travel after 08/10/2018 Immunizations Name Administration Dates Next Due FLUZONE QUAD 12/16/2015 Pneumococcal Conjugate 13-Valent 12/16/2015 Family [...] Comments Yes 1 Standard drinks or equivalent 1.0 weekly Sex Assigned at Date Recorded Not on file Job Start Date Occupation Industry Not on file Not on file Not on file Travel History Travel Start Travel End No recent travel history available. COVID-19 Exposure Response Date Recorded In the last month, have you been in contact with No / Unsure 07/27/2019 9:10 AM CDT someone who was confirmed or suspected to have Coronavirus / COVID-19? Last Filed Vital Signs Not on file Plan of Treatment Date Type Specialty Care Team Description 07/29/2020 Office Visit Ophthalmology Jomar Ovalle MD [address] [phone] Health Maintenance Due Date Last Done Comments CERVICAL CANCER SCREENING 10/12/1975 SHINGLES VACCINES (#1) 2004 BREAST CANCER SCREENING 04/16/2018 04/16/2016 INFLUENZA VACCINE 10/14/2019 12/22/2016, 12/16/2015 COLONOSCOPY SCREENING 03/15/2026 03/15/2016 Results Not on fileafter 08/10/2018
--- OUTSIDE RECORDS SUMMARY | 2019-08-11 07:51 | XMS REPORT | Continuity of Care Document ---
:1955 Author Organization [employer] [facility] Care Team Providers Name Role Phone [employer] [facility] Unavailable Un available Problems Problem Status Onset Classification Date Comments Sourc e Date Reported E83.52 - Active MH OPID HYPERCALCEMIA 019 Dimitri n E21.0 - PRIMARY H CVA Active [address] [facility] ALEXANDERBILLING/ Active [facility] FLIGHT#[id number] [facility] ACUTE EMBOLIC CVA Active [address] Pain in right 09/23/2016 [facility] wrist 017 Fracture Active Problem 09/23/2016 [facility] dislocation of 015 wrist joint (disorder) Cervico-occipital Active Problem 04/08/2019 Data migrat ed OPID neuralgia 010 from [place] (finding) [facility] on 08/14/14. 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 disease last visit with (disorder) forming machine adjuster, Dec 2015 for pre op clearance. pulmonary stress test report (6 minute walk without o2) done at that time, per forming machine adjuster no need for home O2. Pt states she is able to stay off her oxygen for around 3 hours. At [facility] appt on 09-15-16 , O2 was removed for 15 minutes and O2 sats were 99% percent during that period. Hypertensive Active Problem 09/23/2016 [facility] disorder, systemic arterial (disorder) Hyponatremia Active Problem 09/23/2016 [facility] (disorder) Irritable colon Active Problem 09/23/2016 [facility] I (disorder) Migraine Active Problem 09/23/2016 [facility] (disorder) Pain in wrist Active Problem 09/23/2016 [facility] (finding) Pulmonary Inactive Problem 09/23/2016 per pulmonary [facility] sarcoidosis note- CT of (disorder) chest shows no acute changes since 2008, no evidence of sarcoidosis CEREBRAL Active [facility] INFARCTION, Medical UNSPECIFIED Center Medications Medication Details Route Status Patient Ordering Order Source Instructions Provider Date Speech Therapy See Active 07/16/ [place] Instructions, 2019 [facility] Evaluate and Treat 3 times per week for 6 weeks Dx: tardive dyskinesia G24.01, # 1 unit, 0 Refill(s) Occupational See Active 07/16/ [place] Therapy Instructions, 2019 [facility] Evaluate and Treat 3 times per week for 6 weeks. Dx TIA G45.9, # 1 unit, 0 Refill(s) Physical Therapy See Active [place] Inst[place], [place] [facility] Evaluate and Treat 3 times per week for 6 weeks Dx TIA G45.9, # 1 unit, 0 Refill(s) Ondansetron 4 MG 4 mg = 1 tab, Active 07/16/ [facility] Oral Tablet PO, Q6H, PRN 2019 Medical [Zofran] Nausea/Vomitin Center g, # 24 tab, 1 Refill(s), Pharmacy: [facility]/pharmacy #[id number] Amoxicillin 875 875 mg = 1 [place] / Clavulanate tab, PO, Q12H, 2019 Medical 125 MG Oral X 5 day, # 10 Center Tablet [Augmentin tab, 0 875-mg] Refill(s), Pharmacy: [facility]/pharmacy #[id number] simethicone 80 mg 80 mg = 1 tab, Active [facility] oral tablet, CHEW, QID, PRN 2019 Medi dane chewable Gas, X 5 day, Center # 12 tab, 0 Refill(s), Pharmacy: [facility]/pharmacy #[id number] Acetaminophen 325 100.4 F, 0 Active [place] MG Oral Tablet Refill(s) 2019 [facility] clopidogrel 75 mg 75 mg = 1 tab, Active [place] oral tablet PO, Daily, # 2019 Medical 19 tab, 0 Center Refill(s), Pharmacy: [facility]/pharmacy #[id number] atorvastatin 10 10 mg = 1 tab, Active H [place] mg oral tablet PO, Bedtime, # 2019 Me dical 30 tab, 0 Center Refill(s), Pharmacy: [facility]/pharmacy #[id number] Aspirin 81 MG 81 mg = 1 tab, Active [facility] Chewable Tablet PO, Daily, 0 2019 Med ical Refill(s) Center Fosamax 70 mg, Route: No Longer [place] PO, Drug form: Active 2019 Medical TAB, Q7D, Center Dosing Weight 87.727, kg, Start date: 07/16/18 12:00:00 CDT, Duration: 30 day, Stop date: 08/13/18 9:00:00 CDT Simethicone Notes: (Same Inactive [place] as: Mylicon) 2019 [facility] Enoxaparin Notes: (Same No Longer [place] as: Lovenox) Active 2019 [facility] 24 HR Metoprolol Notes: (Same No Longer [place] Tartrate 50 MG as: Toprol XL) Active 2019 Nv dical Extended Release May split Cent er Tablet [Toprol] tab, but do not crush. Aspirin 81 MG Notes: Take No Longer [place] Chewable Tablet with food. Active 2019 Medic al Center Ingrezza 80 mg Ingrezza 80 mg No Longer [facility] oral capsule oral capsule, Active 2019 Medic al 80 mg, Route: Center PO, Daily, 07/15/18 9:00:00 CDT, Duration: 30 day, Stop date: 08/13/18 9:00:00 CDT Topamax Notes: (Same No Longer [facility] As: Topamax) Active 2019 Medical "Do Not Crush" Center Ibuprofen 400 MG Notes: (Same No Longer [facility] Oral Tablet as: Motrin) Active 2019 Medical "Do Not Crush" Center Take with food. Hydralazine Notes: (Same [place] Long[place] as: Active 2018 Medical Apresoline) Center Push over 5 minutes Ceftriaxone Notes: (Same [place] Longer [place] As: Rocephin). Active 2018 Medical Use with 100 Center mL NS and infuse over 30 min MEDICATION WASTE Product Size: 1000 mg Product Wasted: ___ mg quetiapine Notes: (Same No Longer [place] as: SEROquel) Active 2019 Medical 12.5 mg = 1/2 Center x 25 mg tab Magnesium Oxide Notes: (Same No Longer [facility] as: Mag-Ox Active 2018 Medical 400) Magnesium Center oxide [id number] elemental magnesium Dose=____mg magnesium oxide (___mg elemental magnesium) Topamax Notes: (Same No Longer [facility] As: Topamax) Active 2019 Medical "Do Not Crush" Center Sodium Chloride 1 gm, 1 tab, No Longer [place] [facility] 1000 MG Oral Route: PO, Active 2019 Medical Tablet Drug form: Center TAB, BID, Dosing Weight 87.727, kg, Start date: 07/14/18 17:00:00 CDT, Duration: 30 day, Stop date: 08/13/18 9:00:00 CDT Acetaminophen 325 Notes: Do not No Longer [facility] MG / Oxycodone exceed 4gm/day Active 2018 Me dical Hydrochloride 5 of Center MG Oral Tablet acetaminophen. (Same as: Percocet-5/325 ) valbenazine 80 MG 80 mg = 1 cap, Inactive [facility] Oral Capsule PO, Daily, 0 2018 Medica l [Ingrezza] Refill(s) [place] magnesium oxide 500 mg = 1 [place] mg oral tab, PO, QPM, 2019 Medica l tablet # 7 tab, 0 [place] Refill(s) ziprasidone Notes: (Same [place] Longer [place] As: Geodon) Active 2019 Medical Give with Food Center Tegretol Notes: With No Longer [facility] food. (Same Active 2019 Medical As: Tegretol) [place] Thyroxine Notes: Take 1 No Longer [place] hour before or Active 2019 Medical 2 hours after Center meal; Enteral feeds may interefere with the absorption of this medication. (Same as:Levothroid) ziprasidone Notes: (Same [place] Longer [place] As: Geodon) Active 2018 Medical Give with Food Center K-Dur 20 Notes: (Same Inactive [facility] as: K-Dur 20) 2019 Medical "Do Not Crush" Center Give with food and full glass of water For patients unable to swallow tablet, dissolve in one half glass of water. Allow about 2 minutes for the tablets to disintegrate. Stir before giving to prepare slurry and administer. Please exclude Patient’ s with feeding tube less than 14 Norwegian (Dobhoff, J-tube etc) and pediatric and patients. potassium 40 mEq, 2 tab, Inactive [place] chloride 20 mEq Route: PO, 2019 Medic al oral tablet, Drug form: [place] extended release ERTAB, Q2H, Dosing Weight 87.727, kg, Start date: 07/14/18 5:56:00 CDT, Duration: 2 doses or times, Stop date: 07/14/18 6:00:00 CDT NS (Bolus) IV 500 mL, 500 Inactive [place] ml/hr, Infuse 2019 Medical Over: 1 hr, [place] Route: IV, 500, Drug form: INJ, ONCE, Priority: STAT, kg, Start date: 07/14/18 5:12:00 CDT, Stop date: 07/14/18 5:12:00 CDT Sodium Chloride 1,000 mL, No Longer [place] 0.9% IV 1,000 mL Rate: 100 Active 2018 Medic al ml/hr, Infuse Center over: 10 hr, Route: IV, Total Volume: 1,000, Start date: 07/13/18 23:30:00 CDT, Duration: 30 day, Stop date: 08/12/18 23:29:00 CDT Tylenol Notes: Do not No Longer [place] exceed 4 Active 2019 Medical gm/day. (Same Center as: Tylenol) Roxicodone Notes: (Same No Longer [place] as: Active 2019 Medical Roxicodone) Center Docusate Sodium Notes: (Same No Longer [facility] 50 MG / as Senokot-S) Active 2019 Medical sennosides, SKILL[facility] NURSING Equiv. to Center 8.6 MG Oral Guillermina-Colace. Tablet Saline Flush 0.9% Notes: (Same No Longer [place] as: BD Active 2019 Medical Posiflush) Center atorvastatin Notes: (Same No Longer [place] As: Lipitor) Active 2019 Medical Center Saline Flush 0.9% Notes: (Same No Longer [place] as: BD Active 2019 Medical Posiflush) Center Isolyte S PH-7.4 1,000 mL, Inactive [place] (Bolus) IV Infuse Over: 2018 Medica l hr, Route: IV, Center ONCE, Priority: STAT, kg, Start date: 07/13/18 18:37:00 CDT, Stop date: 07/13/18 18:37:00 CDT Vitamin D3 5000 5,000 IntlUnit Active [facility] intl units oral = 1 tab, PO, 2019 Med ical tablet Daily Center topiramate 100 MG 100 mg = 1 Active [facility] Oral Tablet tab, PO, QPM 2019 Medical [Topamax] Center Ceftriaxone 1 gm, Route: Inactive [place] IVPB, Drug 2019 Medical form: PDR/INJ, Center ONCE, kg, Priority: STAT, Start date: 07/13/18 17:12:00 CDT, Stop date: 07/13/18 17:12:00 CDT, ABX Indication: Urinary Tract Infection Sodium Chloride 1 gm = 1 tab, Active [place] 1000 MG Oral PO, BID 2019 Medical Tablet [place] topiramate 50 MG 50 mg = 1 tab, Active [place] Oral Tablet PO, QAM [facility] [Topamax] [place] 12 HR 1 tab, PO, Active [facility] Acetaminophen 325 BID, 0 2019 Medica l MG / Oxycodone Refill(s) [place] Hydrochloride 7.5 MG Extended Release Oral Tablet Alendronic acid 70 mg = 1 tab, Active H [place] 70 MG Oral Tablet PO, Q7D, every 2019 [facility] [Fosamax] Derek [place] metoprolol 50 mg = 1 cap, Active [place] succinate 50 mg PO, Daily 2019 Medica l oral capsule, [place] extended release levothyroxine 125 125 microgram Active [facility] mcg (0.125 mg) = 1 tab, PO, 2019 [facility] dane oral tablet Daily [place] duloxetine Notes: (Same No Longer [place] as: Cymbalta) Active [facility] (Do Not Center Crush) oxyCODONE 10 mg 7.5 mg, Route: Inactive [facility] extended release PO, Drug form: 2019 Medical ERTAB, TID, Center Start date: 07/13/18 17:00:00 CDT, Duration: 30 day, Stop date: 08/12/18 13:00:00 CDT heparin sodium, Notes: porcine No Longer [facility] porcine 2500 heparin Active 2019 [facility] UNT/ML Injectable Center Solution QUEtiapine 25 mg 12.5 mg = 0.5 Active H [place] oral tablet tab, PO, QPM 2019 [facility] QUEtiapine 25 mg 25 mg = 1 tab, No Longer [place] oral tablet PO, QAM Active 2019 [facility] valbenazine 80 MG 80 mg = 1 cap, Active [place] Oral Capsule PO, Daily 2019 [facility] [Ingrezza] [place] ziprasidone 40 mg 40 mg = 1 cap, Active [place] oral capsule PO, QNoon 2019 [facility] ziprasidone 80 mg 80 mg = 1 cap, Active [place] oral capsule PO, QAM 2019 [facility] DULoxetine 60 mg 60 mg = 1 cap, Active [facility] oral delayed PO, BID 2019 Medical release capsule [place] 12 HR 300 mg = 1 Active [facility] Carbamazepine 300 cap, PO, TID 2019 M edical MG Extended Center Release Capsule [Equetro] Plavix Notes: (Same No Longer [facility] As: Plavix) Active 2019 Medical Center iodixanol 100 mL, Route: Inactive [place] IVP, Drug 2018 Medical Form: SOLN, Center kg, ONCALL, STAT, Start date: 07/13/18 15:23:00 CDT, Duration: 1 doses or times, Dose = 2.2ml/kg, Max dose = 100ml -- "To be infused by Radiology Staff ONLY" Equetro Notes: Do not Inactive [facility] open, chew or 2019 Medical crush. (Same Center As: Carbatrol) Saline Flush 0.9% Notes: (Same No Longer [facility] as: BD Active 2019 Medical Posiflush) Center Acetaminophen Notes: Do not No Longer [facility] exceed 4 Active 2019 Medical gm/day. (Same Center as: Tylenol) Sodium Chloride 1,000 mL, Inactive [place] 0.9% IV 1,000 mL Rate: 75 2019 Medica l ml/hr, Infuse Center over: 13.3 hr, Route: IV, Total Volume: 1,000, Start date: 07/13/18 15:18:00 CDT, Duration: 30 day, Stop date: 08/12/18 15:17:00 CDT Aspirin 324 mg, Route: Inactive [place] CHEW, Drug 2018 Medical form: CHEWTAB, [place] ONCE, kg, Priority: STAT, Start date: 07/13/18 15:03:00 CDT, Stop date: 07/13/18 15:03:00 CDT Saline Flush 0.9% Notes: (Same No Longer [facility] as: BD Active 2019 Medical Posiflush) Center Misc Medication 400 mL, Inactive 09/21/ [facility] Soln-IV, IV, 2016 Once, first dose 09/21/16 15:55:00 CDT, stop date 09/21/16 15:55:00 CDT fentaNYL 25 mcg = 0.5 Inactive 09/21/ [facility] mL, Injection, 2016 IV, Once, first dose 09/21/16 15:30:00 CDT, stop date 09/21/16 15:30:00 CDT ondansetron 4 mg = 2 mL, Inactive 09/21/ [facility] Injection, IV, 2017 Once, first dose 09/21/16 15:30:00 CDT, stop date 09/21/16 15:30:00 CDT fentaNYL 25 mcg = 0.5 Inactive 09/21/ [facility] mL, Injection, 2016 IV, Once, first dose 09/21/16 15:06:00 CDT, stop date 09/21/16 15:06:00 CDT Levalbuterol 0.21 0.63 mg = 3 Inactive 09/21/ [facility] MG/ML Inhalant mL, MILLY Willingham, 2016 Solution Once, first [Xopenex] dose 09/21/16 15:00:00 CDT, stop date 09/21/16 15:00:00 CDT Levalbuterol 0.21 0.63 mg = 3 Inactive 09/21/ [facility] MG/ML Inhalant mL, MILLY [place]illingham, 2016 Solution Once PRN for [Xopenex] wheezing, first dose 09/21/16 14:49:00 CDT Ondansetron 4 mg = 2 mL, Inactive 09/21/ [facility] Injection, IV 2017 Push, q15min PRN for nausea/vomitin g, order duration: 2 doses, first dose 09/21/16 14:49:00 CDT, stop date Limited # of times Promethazine 12.5 mg = 0.5 Inactive 09/21/ [facility] mL, Injection, 2016 IM, Once PRN for severe nausea, first dose 09/21/16 14:49:00 CDT Dilaudid 0.5 mg = 0.5 Inactive 09/21/ [facility] mL, Injection, 2016 IV Push, q10min PRN for pain severe (7-10), first dose 09/21/16 14:49:00 CDT Demerol HCl 12.5 mg = 0.25 Inactive 10/ [facility] mL, Injection, 2017 IV Push, Once PRN for shivers, first dose 09/21/16 14:49:00 CDT Albuterol 0.83 2.5 mg = 3 mL, Inactive 10/ [facility] MG/ML Inhalant Soln, NEB, 2017 Solution Once PRN for wheezing, first dose 09/21/16 14:49:00 CDT Hydralazine 10 mg = 0.5 Inactive 09/21/ [facility] mL, Injection, 2017 IV Push, As Indicated PRN for hypertension, first dose 09/21/16 14:49:00 CDT Diphenhydramine 25 mg = 0.5 Inactive 09/21/ SKILL[facility] NURSING I mL, Injection, 2017 IV Push, Once PRN for itching, first dose 09/21/16 14:49:00 CDT Bupivacaine 0.25% 300 mL, Nerve Inactive 09/21/ [facility] 300 mL pump 300 Block, 5 2017 mL mL/hr, start date 09/21/16 14:49:00 CDT Saline Lock Flush 10 mL, Soln, Inactive [facility] IV Push, As 2017 Indicated PRN for flush, first dose 09/21/16 14:49:00 CDT LR 1,000 mL 1,000 mL, IV, Inactive 09/21/ [facility] 75 mL/hr, 2016 start date 09/21/16 14:49:00 CDT ceFAZolin 2 gm, Soln-IV, Inactive 09/21/ [facility] IV Piggyback, 2016 Once, first dose 09/21/16 14:44:00 CDT, stop date 09/21/16 14:44:00 CDT dexamethasone 8 mg = 2 mL, Inactive [facility] Injection, IV, 2016 Once, first dose 09/21/16 14:42:00 CDT, stop date 09/21/16 14:42:00 CDT Misc Medication 1,000 mL, Inactive [facility] Soln-IV, IV, 2016 Once, first dose 09/21/16 14:37:00 CDT, stop date 09/21/16 14:37:00 CDT propofol 100 mg = 10 Inactive 09/21/ [facility] mL, Emulsion, 2016 IV, Once, first dose 09/21/16 14:32:00 CDT, stop date 09/21/16 14:32:00 CDT lidocaine 3 mL, Inactive 09/21/ [facility] Injection, IV, 2016 Once, first dose 09/21/16 14:32:00 CDT, stop date 09/21/16 14:32:00 CDT fentaNYL 50 mcg = 1 mL, Inactive 09/21/ [facility] Injection, IV, 2016 Once, first dose 09/21/16 14:11:00 CDT, stop date 09/21/16 14:11:00 CDT midazolam 1 mg = 1 mL, Inactive 09/21/ [facility] Injection, IV, 2016 Once, first dose 09/21/16 14:11:00 CDT, stop date 09/21/16 14:11:00 CDT midazolam 1 mg = 1 mL, Inactive [facility] Injection, IV, 2016 Once, first dose 09/21/16 13:55:00 CDT, stop date 09/21/16 13:55:00 CDT fentaNYL 50 mcg = 1 mL, Inactive [facility] Injection, IV, 2016 Once, first dose 09/21/16 13:54:00 CDT, stop date 09/21/16 13:54:00 CDT Cefazolin 2 gm, Soln-IV, Inactive [facility] IV Piggyback, 2016 Once, infuse over 30 minutes, first dose 09/21/16 12:00:00 CDT, stop date 09/21/16 12:00:00 CDT, patient weight 50-120 kg, Prophylaxis Lidocaine 2% 0.2 0.2 mL, Inactive 09/21/ [facility] mL IV Start Injection, 2016 [[facility]] Subcutaneous, Once PRN for other (see comment), first dose 09/21/16 11:24:00 CDT LR 1,000 mL 1,000 mL, IV, Inactive 09/21/ [facility] 30 mL/hr, 2016 start date 09/21/16 11:24:00 CDT Breo Ellipta INH, Daily, 0 Active [facility] Refill(s), 2017 COPD magnesium 500 mg = 1 Active [facility] gluconate 500 mg tabs, Oral, 2017 oral tablet Daily, 0 Refill(s) cetirizine 10 mg = 1 Active [facility] hydrochloride 10 tabs, Oral, 2017 MG Oral Tablet Daily, 0 [Zyrtec] Refill(s) Probiotic Formula 1 caps, Oral, Active [facility] oral capsule Daily, 0 2016 Refill(s), supplement Super B Complex 1 tabs, Oral, Active 09/16/ [facility] oral tablet Daily, 0 2017 Refill(s), supplement Centrum Silver 1 tabs, Oral, Active 09/16/ SKILL[facility] NURSING I Women's Daily, 0 2017 Refill(s), supplemetn topiramate 50 MG 50 mg = 1 Active 09/16/ [facility] Oral Tablet tabs, Oral, 2016 BID, 0 Refill(s), mgiraines furosemide 20 mg 20 mg = 1 Active 09/16/ [facility] oral tablet tabs, Oral, 2016 BID, 0 Refill(s), COPD spironolactone 25 25 mg = 1 Active 09/16/ [facility] mg oral tablet tabs, Oral, 2016 qNoon, 0 Refill(s) Acetaminophen 325 1 tabs, Oral, Active 09/16/ [facility] MG / Oxycodone q6hr, 0 2016 Hydrochloride 7.5 Refill(s), MG Oral Tablet chronic pain Omeprazole 40 MG 40 mg = 1 Active 09/16/ [facility] Enteric Coated caps, Oral, 2017 Capsule BID, 0 Refill(s), GERDb 24 HR Donepezil 1 caps, Oral, Active 09/16/ [facility] hydrochloride 10 Daily, 0 2017 MG / Memantine Refill(s), hydrochloride 28 alzheimer MG Extended Release Oral Capsule [Namzaric] lubiprostone 8 mcg = 1 No Longer 09/16/ [facility] 0.008 MG Oral caps, Oral, Active 2016 Capsule [Amitiza] qPM, # 60 tabs, 0 Refill(s), IBS tiZANidine 4 mg 4 mg = 1 tabs, Active 09/16/ [facility] oral tablet Oral, q8hr, 0 2016 Refill(s) ferrous sulfate 325 mg = 1 No Longer 09/16/ SKILLED NURSING I 325 MG Oral tabs, Oral, Active 2017 Tablet Daily, 0 Refill(s), anemia ropinirole 0.25 0.25 mg = 1 Active 09/16/ [facility] MG Oral Tablet tabs, Oral, 2016 TID, 0 Refill(s) 24 HR Metoprolol 25 mg = 1 Active 09/16/ [facility] Tartrate 25 MG tabs, Oral, 2017 Extended Release qPM, 0 Tablet Refill(s) raNITIdine 150 mg 150 mg = 1 Active 09/16/ SKILL[facility] NURSING I oral tablet tabs, Oral, 2016 BID, 0 Refill(s), GERD ProAir HFA 2 puffs, INH, Active [facility] QID, PRN as 2017 needed for wheezing, 0 Refill(s), COPD Levothyroxine 125 mcg = 1 Active I Sodium 0.125 MG tabs, Oral, 2017 Oral Tablet Daily, 0 [Levothroid] Refill(s), hypothyroid DULoxetine 60 mg 60 mg = 1 Active [facility] oral delayed caps, Oral, 2017 release capsule Daily, 0 Refill(s), bipolar 12 HR 300 mg = 1 Active [facility] Carbamazepine 300 caps, Oral, 2017 MG Extended TID, 0 Release Capsule Refill(s), [Equetro] bipolar Dulcolax Stool 100 mg, Oral, Active [facility]UR[facility] I Softener Daily, 0 2016 Refill(s) Sodium Chloride See Active [facility] Instructions, 2017 1 gm PO BID, 0 Refill(s), hyponatremia ziprasidone 80 mg 80 mg = 1 Active [facility] oral capsule caps, Oral, As 2017 Indicated, 1 tab PO QAM , 1/2 tab PO Qnoon, 0 Refill(s), bipolar Allergies, Adverse Reactions, Alerts Substance Category Reaction Severity Reaction Status Date Comments S ource type Reported erythromycin Assertion Drug Active Data OPID <sup>1</sup> allergy 0 migrated He rmann from [employer] on 07/12/14. Originally documented as E-MYCIN. Dermatologi dane problems, e.g., rash, hives gabapentin<s Assertion Drug Active Data OPID up>2</sup> allergy 0 migrated Herm julianna from [email or web address] on 07/12/14. Originally documented as NEURONTIN. levofloxacin Assertion Drug Active Data OPID <sup>3</sup> allergy 0 migrated He rmann from [email or web address] on 07/12/14. Originally documented as LEVAQUIN. Dermatologi dane problems, e.g., rash, hives Tape<sup>4</ Assertion Drug Active Data OPID sup> allergy 0 migrated Gerardo from [employer] on 05/15/15. Originally documented as REGULAR TAPE. Dermatologi dane problems, e.g., rash, hives azithromycin Assertion Drug Active M H OPID allergy [place] Effexor Assertion Drug Active [facility]PI D allergy [place] Levaquin Assertion Drug Active MH OP ID allergy [place] E-Mycin Assertion Drug Active [facility]PI D allergy [place] Lyrica Assertion Drug Active [facility]PI D allergy [place] Plastic Tape Assertion Allergy to Active MH OPID substance Dimitri n traZODone Assertion Drug Active [place] [facility] Neurontin Assertion Drug Active MH O PID allergy [place] Elavil Assertion Drug Active [facility] D allergy [place] Zithromax Assertion Drug Active MH O PID Z-Marcos allergy [place] traZODone<hughes Assertion Drug Active Data M H OPID p>5</sup> allergy migrated Caitlin nn from [facility] on 07/12/14. Originally documented as TRAZADONE. Dermatologi dane problems, e.g., rash, hives erythromycin Assertion Weal Drug Active [facility] (disorder allergy ) Tape<sup>1</ Assertion Drug Active use paper [facility] sup> allergy tape Immunizations No Data Provided for This Section Results Order Name Results Value Reference Date Interpretation Comments Aleida rce Range CHEM PANEL Calcium Lvl 10.3 8.5 - 10.5 07/16 [facility] CHEM PANEL eGFR 65 07/16 Result Comment: The Medical eGFR is Center calculated using the CKD-EPI formula. In most young, healthy individuals the eGFR will be >90 mL/min/1.73m2 . The eGFR declines with age. An eGFR of 60-89 may be normal in some populations, particularly the elderly, for whom the CKD-EPI formula has not been extensively validated. Use of the eGFR is not recommended in the following populations:< br/>
Deborah viduals with unstable creatinine concentration s, including patients and those with serious co-morbid conditions.<b r/>
Patie nts with extremes in muscle mass or diet.

The data above are obtained from the National Kidney Disease Education Program (NKDEP) which additionally recommends that when the eGFR is used in patients with extremes of body mass index for purposes of drug dosing, the eGFR should be multiplied by the estimated BMI. CHEM PANEL CO2 23 24 - 32 07/16 [facility] CHEM PANEL AGAP 12.6 10.0 - 07/16 [facility] 20.0 [facility] CHEM PANEL Chloride Lvl 109 95 - 109 07[facility] CHEM PANEL Creatinine 0.94 0.50 - 05 [place] Lvl 1.40 /2018 [facility] CHEM PANEL Potassium Lvl 3.6 3.5 - 5.1 07/16 [facility] CHEM PANEL Sodium Lvl 141 135 - 145 07/16 [facility] CHEM PANEL Glucose Lvl 143 70 - 99 07/16 [facility] CHEM PANEL BUN 16 7 - 22 07/16 [facility]2018 [facility] CHEM PANEL Magnesium Lvl 1.9 1.8 - 2.4 07/15 [facility] CHEM PANEL Procalcitonin 3.95 0.00 - 07/15 Result [facility] Lvl 0.10 Comment: [facility] Result(s) called to _Ken Vargas at 07/15/2018 05:35 by . Read back OK. ELECTROLYTE AGAP 8.0 10.0 - 07/15 [facility] S 20.0 [facility] ELECTROLYTE Calcium Lvl 9.3 8.5 - 10.5 07/15 [facility] ELECTROLYTE CO2 22 24 - 32 07/15 [facility] ELECTROLYTE eGFR 64 07/15 Result [facility] Comment: The Medical eGFR is Center calculated using the CKD-EPI formula. In most young, healthy individuals the eGFR will be >90 mL/min/1.73m2 . The eGFR declines with age. An eGFR of 60-89 may be normal in some populations, particularly the elderly, for whom the CKD-EPI formula has not been extensively validated. Use of the eGFR is not recommended in the following populations:< br/>
Deborah viduals with unstable creatinine concentration s, including patients and those with serious co-morbid conditions.<b r/>
Patie nts with extremes in muscle mass or diet.

The data above are obtained from the National Kidney Disease Education Program (NKDEP) which additionally recommends that when the eGFR is used in patients with extremes of body mass index for purposes of drug dosing, the eGFR should be multiplied by the estimated BMI. ELECTROLYTE Glucose Lvl 137 70 - 99 05/ [facility] S [facility] ELECTROLYTE Sodium Lvl 139 135 - 145 05 [facility] S [facility] ELECTROLYTE Creatinine 0.95 0.50 - 05 [facility] S Lvl 1.40 [facility] ELECTROLYTE BUN 14 7 - 22 05 [facility] S [facility] ELECTROLYTE Chloride Lvl 113 95 - 109 05 [facility] S [facility] ELECTROLYTE Potassium Lvl 4.0 3.5 - 5.1 07/15 [place] [facility] HEMATOLOGY Platelet 110 133 - 450 05 2018 [facility] HEMATOLOGY MCH 34.7 27.0 - 05 [facility] 31.0 2019 [facility] HEMATOLOGY MCV 100.4 80.0 - 07/15 [facility] 98.0 [facility] HEMATOLOGY RDW 13.7 11.5 - 07/15 [facility] 14.5 [facility] HEMATOLOGY MCHC 34.6 32.0 - 05 [facility] 36.0 [facility] HEMATOLOGY MPV 8.0 7.4 - 10.4 07/15 2018 [facility] HEMATOLOGY Hct 29.8 36.0 - 05 [facility] 48.0 [facility] HEMATOLOGY RBC 2.96 4.20 - 05 [facility] 5.40 [facility] HEMATOLOGY Hgb 10.3 12.0 - 07/15 [facility] 16.0 [facility] HEMATOLOGY WBC 10.0 3.7 - 10.4 07/15 [facility]2018 [facility] HEMATOLOGY Monocytes # 1.0 0.0 - 0.8 07/15 [facility] HEMATOLOGY Lymphocytes # 0.6 1.0 - 5.5 07/15 [place] [facility] HEMATOLOGY Macrocyte 1+ None Seen 07/15 [facility] *ABN* /2018 [facility]07[facility]15[facility]18 4:32 AM[facility] [place] HEMATOLOGY Lymphocytes 5.5 20.0 - 05 [facility] 40.0 2019 [facility] HEMATOLOGY Monocytes 9.6 2.0 - 12.0 07/15 [facility]2018 [facility] HEMATOLOGY Eosinophils 0.3 0.0 - 4.0 05 [facility] HEMATOLOGY Basophils 0.3 0.0 - 1.0 07/[address] HEMATOLOGY Neutrophils # 8.4 1.5 - 8.1 05 [facility]2018 [facility] HEMATOLOGY Segs 84.3 45.0 - 05 [facility] 75.0 [facility] CHEM PANEL Total Protein 5.9 6.4 - 8.4 07/[address] CHEM PANEL B/C Ratio 13 6 - 25 07/[address] CHEM PANEL Globulin 2.8 2.7 - 4.2 07/[address] CHEM PANEL Albumin Lvl 3.1 3.5 - 5.0 05 [facility]2018 [facility] CHEM PANEL A/G Ratio 1.1 0.7 - 1.6 07/[address] CHEM PANEL AST 30 0 - [address] CHEM PANEL ALT 38 0 - 65 07/[address] CHEM PANEL Bili Total 1.2 0.2 - 1.3 07/[address] CHEM PANEL Alk Phos 79 39 - [address] CHEM PANEL BUN 17 7 - [address] CHEM PANEL Glucose Lvl 106 70 - [address] CHEM PANEL Sodium Lvl 138 135 - [address] CHEM PANEL Creatinine 1.28 0.50 - 05 [facility] Lvl 1.40 [facility] CHEM PANEL CO2 20 24 - [address] CHEM PANEL Chloride Lvl 108 95 - 109 07/[address] CHEM PANEL Calcium Lvl 9.4 8.5 - 10.5 07/14 [facility] CHEM PANEL AGAP 13.2 10.0 - 05 [place] 20.0 [facility] CHEM PANEL Potassium Lvl 3.2 3.5 - 5.1 07/[address] CHEM PANEL eGFR 45 05/ [facility] Comment: The Medical eGFR is Center calculated using the CKD-EPI formula. In most young, healthy individuals the eGFR will be >90 mL/min/1.73m2 . The eGFR declines with age. An eGFR of 60-89 may be normal in some populations, particularly the elderly, for whom the CKD-EPI formula has not been extensively validated. Use of the eGFR is not recommended in the following populations:< br/>
Deborah viduals with unstable creatinine concentration s, including patients and those with serious co-morbid conditions.<b r/>
Patie nts with extremes in muscle mass or diet.

The data above are obtained from the National Kidney Disease Education Program (NKDEP) which additionally recommends that when the eGFR is used in patients with extremes of body mass index for purposes of drug dosing, the eGFR should be multiplied by the estimated BMI. HEMATOLOGY Segs 89.3 45.0 - 07/14 [facility] 75.0 [facility] HEMATOLOGY Lymphocytes 2.0 20.0 - 07/14 40.0 [facility] HEMATOLOGY Monocytes 8.5 2.0 - 12.0 07/14 [facility] HEMATOLOGY Lymphocytes # 0.4 1.0 - 5.5 07/14 [facility] HEMATOLOGY Monocytes # 1.7 0.0 - 0.8 07/14 [place] [facility] HEMATOLOGY Basophils 0.2 0.0 - 1.0 07/14 [facility] HEMATOLOGY Neutrophils # 17.7 1.5 - 8.1 07/14 [facility] HEMATOLOGY Macrocyte 1+ None Seen 07/14 [facility] *ABN* /2018 [facility] (07/14/18 3:07 AM) [place] HEMATOLOGY Hgb 11.7 12.0 - 07/14 16.0 [facility] HEMATOLOGY Hct 34.0 36.0 - 07/14 48.0 [facility] HEMATOLOGY MCH 34.6 27.0 - 05 31.0 [facility] HEMATOLOGY MCHC 34.6 32.0 - 07/14 [place] 36.0 [facility] HEMATOLOGY MCV 100.2 80.0 - 07/14 98.0 [facility] HEMATOLOGY RDW 14.0 11.5 - 05 14.5 [facility] HEMATOLOGY Platelet 128 133 - 450 05 [facility] HEMATOLOGY MPV 7.5 7.4 - 10.4 07/14 [facility] HEMATOLOGY WBC 19.9 3.7 - 10.4 07/14 [facility] HEMATOLOGY RBC 3.39 4.20 - 05 [facility] 5.40 /2019 Medical Center CHEM PANEL Lactic Acid 1.5 0.5 - 2.2 07/14 [place] [facility] CHEM PANEL Lactic Acid 1.0 0.5 - 2.2 07/14 [place] [facility] CHEM PANEL Procalcitonin 5.97 0.00 - 07/14 Result [facility] 0.10 Comment: Medical Critical Center Result(s) called to fahad godwin at 07/13/2018 22:17 by JT. Read back OK. NITROFURANT Culture: 50,000 - 07/13 [facility] OIN:SUSC:PT Urine 100,000 /2018 Medical :ISOLATE:OR CFU/mL Center DQN:YOLANDA Escherichi a coli NITROFURANT Escherichia Escherichi 07/13 [facility] OIN:SUSC:PT coli a coli /2018 Medical :ISOLATE:OR Center DQN:YOLANDA DRUG SCREEN U Negative Negative 07/13 [facility] Phencyclidine *NA Medical Scr (07/13/18 4:18 PM) Center DRUG SCREEN UDS Note See Note 07/13 [facility] (07/13/18 4:18 PM) Medical Center DRUG SCREEN U Cocaine Scr Negative Negative 07/13 [place] * Medical (07/13/18 4:18 PM) Center DRUG SCREEN U Opiate Scr Negative Negative 07/13 [facility] [place] *[place] Medical (07/13/18 4:18 PM) Center DRUG SCREEN U Cannab Scr Negative Negative 07/13 [place] *[place] Medical (07/13/18 4:18 PM) Center DRUG SCREEN U Amph [place] Negative Negative 07[place]13 [place] *[place]* Medical (07/13/18 4:18 PM) Center DRUG SCREEN U Amber Scr Negative Negative 07/13 [place] Medical (07/13/18 4:18 PM) Center DRUG SCREEN U Benzodiaz Negative Negative 07/13 [place] *NA Medical (07/13/18 4:18 PM) Center URINE AND UA Bili Negative Negative 07/13 [facility] STOOL *NA Medical (07/13/18 4:18 PM) Center URINE AND UA Ketones Negative Negative 07/13 [facility] [place] [facility] *NA* /2018 [facility] (07[facility]13/18 4:18 PM) Center URINE AND UA Protein 30 mg/dL Negative 07/13 [facility] [place] [facility] mg/dL /2018 [facility] URINE AND UA Glucose Negative Negative 07/13 [facility] [place] [facility] (07/13/18 4:18 PM) [facility] URINE AND UA pH 7.0 5.0 - 8.0 07/13 [facility] STOOL /2018 [facility] URINE AND UA 0.2 0.1 - 1.0 07/13 [facility] [place] [facility] Urobilinogen /2018 [facility] URINE AND UA Nitrite Negative Negative 07/13 [facility] [place] [facility] (07/13/18 4:18 PM) [facility] URINE AND UA Blood Small Negative 07/13 [facility] [place] [facility] *ABN* [facility] (07/13/18 4:18 PM) [place] URINE AND UA Spec Grav <=1.005 <=1.030 07/13 [facility] [place] [facility] *NA* /2018 [facility] (07/13/18 4:18 PM) [place] URINE AND UA Leuk Est Moderate Negative 07/13 [facility] *ABN* /2018 [facility] (07/13/18 4:18 PM) [place] URINE AND UA Color Yellow Yellow 07/13 [facility] [place] [facility] *NA* /2018 [facility] (07/13/18 4:18 PM) [place] URINE AND UA Turbidity Clear Clear 07/13 [facility] [place] [facility] (07/13/18 4:18 PM) [facility] URINE AND UA Bacteria Few /HPF None Seen 07/13 [facility] STOOL /HPF [facility] URINE AND UA WBC 11-20 /HPF None Seen 07/13 [facility] STOOL /HPF /2018 [facility] URINE AND UA RBC 3-5 /HPF 0 - 2 07/13 [facility] [place] [facility] URINE AND UA Sq Epi Rare /LPF Few /LPF 07/13 [facility] [place] [facility] LIPIDS CHD Risk 2.25 3.90 - 07/13 [facility] 5.80 [facility] LIPIDS LDL 74 <=99 mg/dL 07/13 [facility] (Calculated) [facility] LIPIDS VLDL 17 07/13 [facility] [address] [place] [address] LIPIDS Chol 164 <=199 07/13 [facility] mg/dL [facility] LIPIDS HDL 73 >=61 mg/dL 07/13 [facility] LIPIDS Trig 85 <=149 05/ [place] mg/dL /2019 [facility] SPECIAL Hgb A1C 4.6 <=5.6 % 05 [facility] CHEMISTRY /2018 [facility] CHEM PANEL POC 1.2 0.5 - 1.4 05 [facility] Creatinine /2019 [facility] CARDIAC Total CK 135 12 - 191 05 [facility] ENZYMES /2018 [facility] CARDIAC Troponin-I <0.02 0.00 - 05 [facility] ENZYMES 0.40 /2019 [facility] HEMATOLOGY RDW 13.7 11.5 - 05 [place] 14.5 /2019 [facility] HEMATOLOGY Platelet 140 133 - 450 05 [place] [facility] HEMATOLOGY WBC 13.9 3.7 - 10.4 05 [place] [facility] HEMATOLOGY RBC 3.76 4.20 - 05 [place] 5.40 /2019 [facility] HEMATOLOGY MPV 7.5 7.4 - 10.4 05 [place] /2018 [facility] HEMATOLOGY MCH 33.6 27.0 - 05 [place] 31.0 /2019 [facility] HEMATOLOGY MCV 98.4 80.0 - 05 [place] 98.0 /2019 [facility] HEMATOLOGY MCHC 34.1 32.0 - 05/ [place] 36.0 /2019 [facility] HEMATOLOGY Hct 37.0 36.0 - 05/ [place] 48.0 /2019 [facility] HEMATOLOGY Hgb 12.6 12.0 - 05/ [place] 16.0 /2019 [facility] HEMATOLOGY PT 13.3 12.0 - 05/ [place] 14.7 /2019 [facility] HEMATOLOGY INR 1.03 0.85 - 05 [place] 1.17 /2019 [facility] HEMATOLOGY PTT 29.9 22.9 - 05/ [place] 35.8 /2019 [facility] HEMATOLOGY Lymphocytes 2.3 20.0 - 05/ [place] 40.0 /2019 [facility] HEMATOLOGY Basophils 0.5 0.0 - 1.0 05/ [place] 2019 [facility] HEMATOLOGY Eosinophils 0.2 0.0 - 4.0 05 [place] /2019 [facility] HEMATOLOGY Monocytes 6.9 2.0 - 12.0 05/ [place] /2019 [facility] HEMATOLOGY Monocytes # 1.0 0.0 - 0.8 05 [place] /2019 [facility] HEMATOLOGY Neutrophils # 12.6 1.5 - 8.1 05 [place] [facility] HEMATOLOGY Lymphocytes # 0.3 1.0 - 5.5 07/13 [place] [facility] HEMATOLOGY Basophils # 0.1 0.0 - 0.2 07/13 [place] [facility] HEMATOLOGY Macrocyte 1+ None Seen 07/13 [facility] *ABN* [facility] (07/13/18 2:30 PM) [place] HEMATOLOGY Plt Morph Normal Normal 07/13 [facility] (07/13/18 2:30 PM) [facility] HEMATOLOGY Segs 90.1 45.0 - 07/13 [facility] 75.0 [facility] Pathology Reports No Data Provided for This Section Diagnostic Reports Report Value Date Source Neck soft tissue w 04/06/2019 JESSICA Tucker nn contrast CT EXAMINATION: CT neck with and without contrast DATE: 04/06/2019 INDICATION: Hyperparathyroidism. FINDINGS: CT images of the soft tissue s of neck are obtained without contrast, and then, subsequently, in arterial and venous phases of enhancement following intravenous administration of 100 mL Visipaque 320 con trast material. Images from a CT of the neck dated 07/13/2018 are referenced for comparison. There are no nuclear medicine studies available for reference at this time. The thyroid gland is small, and portions of the gland may be surgically absent, particularly the left lobe. There is a calcified 6 mm nodule in the right lobe of the thyroid gland. Postcontrast imaging, a 6.6 mm diameter enhancing mass can be identified just inferior to the lower pole of the left thyroid lobe, series 6 image 73. This finding is not well identified on the venous ph ase due to motion artifact. There is a 2nd smaller mass more inferiorly in the superior mediastinum measuring about 4 mm in diameter. This is more difficult to characterize. There is a 3rd mass in the l eft tracheoesophageal groove, again, along the inferior margin of the left thyroid which measures 3 mm in diameter. Best seen on series 6 image 70 .This does not exhibit the exuberant enhancement of the other mass in the a rterial phase. IMPRESSION: There are at least 3 subcent imeter masses associated with the inferior margin of the left thyroid lobe. Arterial enhancement is most prominent in the mass demonstrated on series 6 image 73. Brain wo contrast MRI EXAM: MRI BRAIN WITHOUT CONTRAST 9 [facility] DATE: 07/13/2018 1921 hours Center INDICATION: -Right-sided we akness, right facial droop and dysarthria out of proportion to weakness ADDITIONAL INFORMATION: None COMPARISON: None. TECHNIQUE: Limited Axial DWI , ADC, GRE, T2 FLAIR MRI of the brain without intravenous contrast. IV contrast: None. FINDINGS: No acute infarct, recent hemorrhage or mass lesi on. Slightly age advanced cortic al volume loss and passive enlargement of the subarachnoid spaces are present. There is no hydrocephalus midline shift or transtentorial herniation. Punctate foci of T2/FLAIR hy perintensity within the bilateral periventricular matter may represent migraine related changes. IMPRESSION: No acute infarct. Brain Stroke wo EXAM: CT BRAIN WITHOUT CONTRAST 07/13/2018 [facility] contrast CT DATE: 07/13/2018 at 1420 hours. Ce nter INDICATION: 62-year-old fema le brought in by life-flight for altered mental status, slurred speech and right-sided weakness. COMPARISON: None. TECHNIQUE: Routine axial CT images of the brain were obtained. Reformatted images in the sagittal and coronal plane were included. IV contrast: None. DLP: 767 mGy-cm FINDINGS: There are no signs of acute cortical infarct or parenchymal hemorrhage. Streak artifact in the midbrain and darius limits the assessment of these anatomical structures. The ventricles and sulci are prominent as are result of volume loss. ASPECTS: 10 Laterality: none Caudate: normal Internal capsule: normal Lenticular: normal Insula: normal M1: normal M2: normal M3: normal M4: normal M5: normal M6: normal The sinuses and skull base are unremarkable. IMPRESSION: 1. There are no signs of ac reynaldo cortical infarct infarct or parenchymal hemorrhage. 2. There is limitation in t he assessment of the brainstem. MRI is recommended for further assessment. Brain/Neck Stroke EXAM: CTA BRAIN 07/13/[address] [facility] al perfusion CTA EXAM: CTA NECK Center EXAM: CT PERFUSION BRAIN DATE: 07/13/2018 14:42 CDT INDICATION: - R sided weakness COMPARISON: Brain CT obtained the same date TECHNIQUE: - Dynamic CT perfusion image s on a limited area of the brain parenchyma are performed during bolus injection of iodinated contrast material. Color maps of relative cerebral blood flow, relative cerebral blood volume, time to peak, and mean transit time are created on an independent workstation and are submitted along with the source image data. -Rapid acquisition spiral CT images of the brain and neck were obtained between the aortic arch and the cranial vertex during intravenous infusion of iodinated contrast for the purposes of CT angiograph y. 3-D CT angiographic image s are created using MIP technique at the acquisition workstation. The source images are also presented for interpretation. IV contrast: 100 mL Visipaque DLP: 3446 mGy-cm FINDINGS: NECK CTA: Aortic arch: The great vesse ls originate from the aortic arch in the standard configuration. No origin stenosis is identified. The vertebral artery origins are patent bilaterally. Carotid arteries: There are atherosclerotic changes at the carotid siphons, without flow-limiting stenosis by NASCETcriteria. Vertebral arteries: The vert ebral arteries have a normal course, caliber and contour. The soft tissues of the neck and other incidenta l structures are normal. BRAIN CTA: Anterior circulation: Normal appearance and a standard branching pattern. No branch occlusion, vascular injury, arteritis, vascular malformation or aneurysm is identified. Posterior circulation: Ather osclerotic plaques are present in the V4 segment of the left vertebral artery. The basilar artery, cerebellar branches, and posterior cerebral arteries are patent. Irregulari ty in the P1 and P2 segments of the right posterior cerebral artery and in the P2 segment of the left posterior cerebral artery are identified, consistent with intracranial atherosclerosis. There is no major intracranial branch occlusion. Right posterior communicatin g artery is patent. The left posterior communicating artery is not visualized. Collateral score is not applicable. The deep cerebral veins and major venous sinuses are normal. The brain parenchyma and other incidental struct ures are unremarkable. CT PERFUSION: There is no regional abnorma lity in cerebral blood flow, cerebral blood volume, or transit time in the imaged areas of the brain to suggest active oligemia or infarction. RAPID Software Analysis: CBF (<30%) volume: 0 ml Perfusion (Tmax>6.0s) : 0 ml Mismatch volume: 0 ml Mismatch ratio: none IMPRESSION: 1. Atherosclerosis in the c arotid siphons, the V4 segment of the left vertebral artery and in the P1 and P2 segments of the posterior cerebral arteries. 2. No major intracranial branch occlusion. 3. No focal perfusion deficit. (All qualitative and quantit ative assessments of carotid bifurcation and proximal internal carotid artery stenosis are made referencing the distal internal carotid artery {NASCET criteria}.) Chest 1view DX EXAM: XR CHEST AP 1 VIEW 07/13/2018 [facility] [place] DATE: 07/13/2018 1513 hours CDT C enter INDICATION: - R sided weakness COMPARISON: None TECHNIQUE: Chest AP -- 1 View FINDINGS: Cardiac silhouette size is normal. Central pulmonary vascularity is within normal l imits. Mediastinal and hilar contours are normal. No airspace consolidation, pleural effusion, or pneumothorax present. Skeletal structures demonstrate no acute finding s. Diffuse osteopenia noted. IMPRESSION: No acute cardiopulmonary abnormality is observed . Consultation Notes No Data Provided for This Section Discharge Summaries No Data Provided for This Section History and Physicals No Data Provided for This Section Vital Signs Vital Sign Value Date Comments Source Systolic (mm Hg) 143 07/16/2018 [facility] Diastolic (mm Hg) 85 07/16/2018 [facility] Respitory Rate 18 07/16/2018 [facility] Heart Rate 63 07/16/2018 [facility] Temperature Oral (F) 97.3 F 07/16/2018 [facility] Respitory Rate 18 07/16/2018 [facility] Heart Rate 68 07/16/2018 [facility] Systolic (mm Hg) 142 07/16/2018 [facility] Center Diastolic (mm Hg) 86 07/16/2018 [facility] Temperature Oral (F) 98.8 F 07/16/2018 [facility] Heart Rate 73 07/16/2018 [facility] Respitory Rate 18 07/16/2018 [facility] Systolic (mm Hg) 104 07/16/2018 [facility] [place] Diastolic (mm Hg) 71 07/16/2018 [facility] [facility] Temperature Oral (F) 98.3 F 07/16/2018 [facility] BMI Calculated 32.18 07/14/2018 [facility] Weight 87.727 07/14/2018 [facility] Height 165.1 cm 07/14/2018 [facility] Respitory Rate 18 09/21/2016 [facility] Systolic (mm [...] Location Encounter Encounter Reason Attending ADM DC Stat us Source Details Type Number For Provider Date Date Visit [facility] Outpatient [id number] JESENIA 09/21 09/21 Active Surgi dane QURESHI MD /2016 [facility] Outpatient [id number] JESENIA 09/21 09/21 SKILLED NURSING I Gerardo QURESHI MD /2016 [facility] Inpatient [id number] Speedy 07/13 07/16 Jack Carrillo Mouser /2018 [facility] Outpt Diag [id number] Tequila 04/06 04/07 [facility] Saldaña /2019 [facility] Imaging [place] Procedures Procedure Code Date Perfomer Comments Source ARTHRODESIS DISTAL 09/21/2016 auto-populated [facility] RADIOULNAR JT from documented W/SEGMENTAL RESEC. surgical case ULNA [id number] (Right)<sup>1</sup> EXCISION DISTAL 09/21/2016 auto-populated [facility] ULNA [id number] from documented (Right)<sup>2</sup> surgical case colon 05/29/2016 2nd dx- no chemo or radia tion. [facility] resection<sup>3</hughes No post op complications, Did not require stay in ICU or ventilator post op. p> Corrective right 07/14/2015 [facility] hand surgery Colon 03/15/1999 DX COLON [facility] resection<sup>4</hughes CANCER> NO p> CHemo or radiation tonsillectomy 03/15/1971 [facility] Carpal tunnel [id number] [facility] release [place] Hysterectomy [id number] [facility] Gerardo Laminectomy [id number] [facility] Gerardo Partial resection [id number] [facility] of colon Gerardo Rotator cuff [id number] right [facility] repair<sup>1</sup> Dimitri n Spinal fusion [id number] [facility] Gerardo Thoracic discectomy [id number] OP ID Gerardo Transposition of [id number] [facility] ulnar nerve at [place] elbow Back multiple; [facility] surgery<sup>5</sup> denies hardware. most recent 2007 Assessment and Plan Assessment and Plan Date Source Extracted from:Title: Patient Letter 07/16/2018 [facility] Author: Speedy Alvarez MD Date: 07/16/18 July 16, 2018 To whom it may concern: Patient Odalys Orozco (date of ) was admitted to [facility] from 07/13/18 to 07/16/2018 and was under my care. She has been cleared to return to normal functi oning including physical therapy, occupa tional therapy and speech therapy as needed. She was provided a wheelchair due to fall risk and should continue to strive to ambulate with a walker and assistanc e to maintain her independence. Please contact my office if you have any questions. Sincerely, Speedy Alvarez MD Hospitalist, Internal Medicine [phone] Extracted from:Title: Hospitalist Consult Note Author: Speedy Alvarez MD Date: 07/14/18 Pt is a 62 y/o F with PMH of BP d/o c/b tardive dyskinesia, TIA, HTN, colon CA s/p resection, uterine cancer s/p hysterectomy and XRT, pulmonary sarcoidosis on 2-3L home O2 who presents with rigors and altered mental status at home 2 days ago . She was evaluated by the stroke team and not found to have an acute CVA. There is however concern for sepsis with hypotensionand a urinary tract infection. 1.Sepsis, unspecified organism(A41.9) Monitor blood pressures ContinueIMU level of care Goal maps greater than 65 If decompensationor recurrent fevers, wi ll expand antibiotic coverage to vancomycinand cefepime. Continue ceftriaxone for now If recurrent hypotension, transfer to ICU Urinary tract is the most likely source based on herevaluation thus far. However, the patient does endorse some back pain and has hadmultiple interventions and hardware placed. We will consider evaluati ng for spinal pathology if her right lower extremity weaknes scontinues Trend procal in AM ESR/CRP 2.Urinary tract infection(N39.0) Follow-up urine culture Continue ceftriaxone 3.Carotid artery syndrome (hemispheric)(G45.1) Stroke team following. No evidence ofstroke. Continue aspirin and statinwith Plavix until other recommend ations provided 4.Essential (primary) hypertension(I10) Now with hypotension Continue metoprolol withholding parameters 5.Acute hyponatremia(E87.1) Improved with IV fluid Likely hypovolemic 6.Pulmonary sarcoidosis (3L home O2)(D86.0) Continue oxygenwith 3 L as needed Follow-up final MRI report for anyneuro manifestations 7.Bipolar disorder, unspecified(F31.9) Patient is on several anti-psychotic medications. We will continue these per her home regimen Will consider serotonin syndrome as a po ssible etiology of her findings as well; however, infection is most likely 8.Dyskinesia, tardive(G24.01) Continue ingrezza 9.Chronic migraines(G43.709) Continue topiramate Proph: SQH Dispo: Home w/ family pending improvement in infxn sxs. [facility] IM hospitalist team is now primary .. Please use [employer] to contact Dr. SPEEDY ALVAREZ with any questions. Addendum by Speedy Alvarez MD on 07/14/2018 20:11 CDT Urine culture growing E. coli. We will follow-up susceptibil ities. Extracted from:Title: Stroke Team H&P Author: Lucita Yo NP Date: 07/13/18 Stroke History and Physical Chief Complaint: dysarthria History of Present Illness: 62 yo female with PMH Colon Cancer sp resection, HTN, Bipolar, migraines, TIA pw 1 week of fluctuating RSW, RFD, dysarthria. First eposide lasted about 3 days and resolved e xcept for mild dysarthria. At 1230 toda y, there was an acute worsening of her dysarthria and RSW again. In the ED, BPs 110s, dysarthria fluctuating. She is not a tPA candidate due to presentation outside the window. Review of Systems: GEN: no fever, chills, weight loss, fatigue EYES: no blurred vision, double vision CARDIO: no chest pain, palpitations PULM: no shortness of breath, cough GI: no nausea, vomiting, diarrhea, no abd pain : no frequency, dysuria, hematuria NEURO: see HPI SKIN: no rash or lesion MSK: no pain, swelling, redness, heat in muscles, no limited ROM, weakness, or atrophy, no cramps LYMPH/IMMUNO: No lymph node enlargement/tenderness, no heat/ cold intolerance Past Medical History: as above Past Surgical History: numerous orthoped ic surgeries including R wrist and back, hysterectomy, colon resection Family Medical History: unknown Social History: Denies alcohol and illicit drug use. Denies smoking. Medications: see list in chart Allergies: trazdeone, levaquin, e-mycin, neurontin, lyrica, z pac, elavil Physical Exam: GENERAL: Awake, alert in NAD HEENT: - Normocephalic and atraumatic, dry mm, no LN++, no T hyromegally LUNGS - Regular, unlabored CV - RRR, equal pulses bilaterally. ABDOMEN - Soft, nontender, nondistended NEURO: Mental Status: AA&Ox3 Language: speech is dysarthric. Naming, repitition, fluency, and comprehension intact. Cranial Nerves: PERRL mm/brisk. EOMI, vi sual panda full, mild RFD, facial sensation intact, hearing intact, tongue/uvula/soft palate midline, normal sternocleidomastoid and trapezius muscle strength. No evidence of tongue atrophy or fibrillations Motor: Drift in RU and RLE Tone: is normal and bulk is normal Sensation- Intact to light touch bilaterally Coordination: FTN intact bilaterally, no ataxia in BLE. Gait- deferred MRS 0-Completely asymptomatic and back to baseline post-stroke NIH Stroke Scale (NIHSS) 1a. Level of Consciousness; 0-alert 1-drowsy 2-stupor 3-co ma 1b. LOC Questions month and age; 0-both 1-one 2-neithe r 1c. LOC Commands open/close eyes, ice cream server /release non-paretic hand; 0-both 1-one 2-neither 2. Best Gaze; 0-nl 1-partial 2-forced gaze 3. Visual Panda; 0-No visual loss. 1-Partial hemianop ia 2-Complete 3-Bilateral 1 4. Facial Palsy; 0-none 1-minor 2-partial 3-complete 1 5. Motor - R arm; 0-No drift 1-Drift 2 -Some antigravity 3-No antigravity 4- No movement 1 6. Motor - R leg; 0-No drift 1-Drift 2 -Some antigravity 3-No antigravity 4- No movement 7. Motor - L arm; 0-No drift 1-Drift 2 -Some antigravity 3-No antigravity 4- No movement 8. Motor - L leg; 0-No drift 1-Drift 2 -Some antigravity 3-No antigravity 4- No movement 9. Limb Ataxia; 0 absent 1 - 1limb 2 - 2 limbs 10. Sensory; 0-nl 1-partial loss 2-dense loss 11. Best Language; 0-nl 1-mild/mod 2-severe 3-mute 1 12. Dysarthria; 0-nl 1-mild/mod 2-severe x-untest able 13. Extinction and Inattention (formerly Neglect); 0-none 1-partial 2-complete TOTAL SCORE 4 Labs (Last four charted values) WBC H 13.9 (JULY 13) Hgb 12.6 (JULY 13) Hct 37.0 (JULY 13) Plt 140 (JULY 13) Na L 132 (JULY 13) K 4.1 (JULY 13) CO2 24 (JULY 13) Cl 99 (JULY 13) Cr 1.13 (JULY 13) BUN 18 (JULY 13) Glucose Random H 102 (JULY 13) Ca 9.8 (JULY 13) PT 13.3 (JULY 13) INR 1.03 (JULY 13) PTT 29.9 (JULY 13) Troponin <0.02 (JULY 13) Total CK 135 (JULY 13) EKG: SR Imaging Studies (last 36 hours) Brain/Neck Stroke perfusion CTA 07/13/2018 14:59 Impression: 1. Atherosclerosis in the carotid sipho ns, the V4 segment of the left vertebral artery and in the P1 and P2 segments of the posterior cerebral arteries. 2. No major intracranial branch occlusion. 3. No focal perfusion deficit. (All qualitative and quantitative assess ments of carotid bifurcation and proximal internal carotid artery stenosis are made referencing the distal internal carotid artery ET criteria].) Brain Stroke wo contrast CT 07/13/2018 14:35 Impression: 1. There are no signs of acute cortical infarct infarct or parenchymal hemorrhage. 2. There is limitation in the assessmen t of the brainstem. MRI is recommended for further assessment. Assessment: 62 yo female with HTN, Bipo lar and hx of Colon Ca presenting with fluctuating RSW and dysarthria. Dysarthria is out of proportion to RFD, would localize this to the posterior circulation until cleared with MRI. Plan: I63.49 Cerebral infarction due to embolism of other cerebral artery I67.2 Cerebral atherosclerosis Acuity: Acute Current Suspected Etiology: likely small vessel Continue Evaluation: Pending neuroimagin g evaluations, lab tests, monitor telemetry events, follow-up neuro imaging reports. Treatments: -Admit to: -Start Aspirin/ Statin- DAP x 3 weeks -Blood pressure control, goal of SYS < 200 -MRI/ECHO/A1C/Lipid panel. -Hyperglycemia management per SSI to maintain glucose 140-18 0mg/dL. -PT/OT/ST therapies and recommendations when able -Case discussed with DR. 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 Clarence thibodeaux, I have discussed the case with and reviewed the resident's note and agree with the history, exam, assessment and plan. See note below for additi ons and/or exceptions and my findings. I have personally viewed the patient's radiographic studies and laboratory tests. Notable Exam findings: no focal findings/deficits now. Notable Labs: Coags: LDL: 74 HgbA1c: 4.6 UA: + infection. WBC: 20K Imaging: Initial CTH/A: essentially negative. No flow-limiting sten oses. MRI brain: negative. 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 Continue evaluation: TTE to evaluate c ardiac function and possible source of emboli. If negative, will order 30-d LTEM. Treatment/Plan: Antiplatelet (ASA) + (P lavix) for stroke prevention x 21 days and then ASA monotherapy. Low-dose statin, may need 30 day event monitor if no etiology elicited during admission. PT/OT/Speech therapy evaluations. I10 Essential (primary) hypertension Treatment: BP meds for goals: normalize; SBP goal: 110-14 0. UTI - with fevers cultures pending. Antibiotics started. Consult internal me dicine. Physical Therapy/Occupational Therapy Evaluation Disposition recommendation: pending evaluation Psych history (Bipolar disorder): home meds. Speech and Language Recommendations: pending evaluation DVT Prophylaxis Treatment: EVA hoses and SCDs. SQ Heparin ======== CORE MEASURES: 1) Antithrombotics have been ordered an d given before the end of hospital day 2 and continued on discharge. 2) Statins have been ordered for LDL > 100 and will be hossein nued on discharge. 3) Rehab assessment has been ordered 4) Stroke education: I have discussed wi th the patient and/or family in detail about 1. the signs and symptoms of stroke; 2. the importance of their early recognition and activation of EMS via 911; 3. s troke risk factors have been clearly shayna ntified and communicated to the patient; 4. The importance of taking prescribed medication to treat these risk factors for secondary stroke prevention; and 5. th e importance of regular follow- up appoi ntments to prevent stroke has also been emphasized. Andre Person MD MS Vascular Neurology [employer]ware Defect Repairer - [facility] Pager: [phone] Addendum by Alexia Gallegos MD on 07/14/2018 16:36 Please include the following information in the pt's dischar ge instruction: You were evaluated by stroke team in [facility] , with diagnosis of TIA. You need to take ASA and Plavix for three weeks and after that continue ASA 81 mg alone. Call to schedule an appoi ntment in stroke clinic within 2 - 4 weeks to follow up on management of your TIA. - You will need to wear an event monitor for the next 30 days to look for any signs of abnormal heart rhythm. -You also can have a follow up with [facility] movement clinic. Please call and make an appointment in 1-2 months. Stroke clinic address: [address], [address] [place] [address] Alexia Gallegos, Neurology PGY3 Plan of Care No Data Provided for This Section Social History Social History Date Source Social History TypeResponse 07/14/2018 [facility] Alcohol Current, Type Wine. Smoking Status Never smoker; Exposure to Tobacco Smoke None; Cigarette Smoking Last 365 Days No; Reg Smoking Cessation Counseling No entered on: 07/14/18 Social History TypeResponse 07/14/2018 JESSICA levine Alcohol Current, Type Wine. Smoking Status Never smoker; Exposure to Tobacco Smoke None; Cigarette Smoking Last 365 Days No; Reg Smoking Cessation Counseling No entered on: 07/14/18 No data available for this 09/21/2016 [facility] section Family History No Data Provided for This Section Advance Directives No Data Provided for This Section Functional Status No Data Provided for This Section
[2019-08-11] MEDS ORDERED: Ringers Lactate 1,000 ML IV ONE ×2 (07:55→09:48)
[2019-08-11] MEDS ORDERED: CEFAZOLIN/SWI 1gm 1 GM/10 ML SYR ONE (07:56)
--- OUTSIDE RECORDS SUMMARY | 2019-08-11 07:57 | XMS REPORT ---
[...] Problem Type Condition Code Onset Dates Condition Statu s Assessment Hyperparathyroidism E21.3 Active Problem Chronic back pain M54.9 Active Problem Memory deficit R41.3 Active Problem COPD (chronic obstructive pulmonary J44.1 Active disease) with acute bronchitis Problem Bipolar disorder F31.9 Active Problem Edema R60.9 Active Problem GERD (gastroesophageal reflux K21.9 Active disease) Problem Hypothyroidism E03.9 Active Problem COPD (chronic obstructive pulmonary J44.9 Active disease) Problem Urinary incontinence, unspecified R32 Active type Problem Screening mammogram, encounter for Z12.31 Active Problem Migraine G43.909 Active Problem Supplemental oxygen dependent Z99.81 Active Problem TIA (transient ischemic attack) G45.9 Active Problem Hospital discharge follow-up Z09 Active Problem Hypercalcemia E83.52 Active Problem Hyperparathyroidism E21.3 Active Problem Age-related osteoporosis without M81.0 Active current pathological fracture Problem Restless leg syndrome G25.81 Active Assessment Mixed hyperlipidemia E78.2 Active Problem Essential hypertension I10 Activ e Problem Hypertension, uncontrolled I10 A ctive Assessment Age-related osteoporosis without M81.0 Active current pathological fracture Problem Sarcoidosis, lung D86.0 Active Assessment CKD (chronic kidney disease), stage N18.3 Active III Problem Mixed stress and urge urinary N39.46 Active incontinence Assessment Hypoxia R09.02 Active Problem Mixed hyperlipidemia E78.2 Active Problem CKD (chronic kidney disease), stage N18.3 Active III Assessment Hypothyroidism E03.9 Active Problem Seasonal allergies J30.2 Active Assessment Essential hypertension I10 Activ e Problem Acute sinusitis, unspecified J01.90 Active Assessment Hyponatremia E87.1 Active Problem Other specified bacterial agents as B96.89 Active the cause of diseases classified elsewhere Assessment Hypercalcemia E83.52 Active Problem Hypokalemia E87.6 Active Assessment Supplemental oxygen dependent Z99.81 Active Problem Right foot pain M79.671 Active Assessment Sarcoidosis, lung D86.0 Active Problem Influenza vaccine needed Z23 Act sb Problem Cough R05 Active Problem Hyponatremia E87.1 Active Medications Medication Code Code Instructions Start End Status Dosage System Date Date Vitamin D-3 [facility] 86193061240 5000 UNIT Active as Orally directed Amitiza [facility] 77605460134 24 MCG Orally Active 1 caps ule Twice a day with food Ferrous Sulfate [facility] 31180700869 325 (65 Fe) MG Activ e TAKE ONE TABLET THREE TIMES DAILY Levothyroxine [facility] 91231740546 150 MCG Orally Active 1 tablet Sodium Once a day on an empty stomach in the morning DuoNeb ND 0 Inhalation Active as every 6 hrs directed Quetiapine [facility] 14210541101 25 MG Orally Active 1 ta blet Fumarate Once a day Geodon [facility] 63959880193 80 MG Orally Active 1 capsu le Twice a day with food Augmentin [facility] 08709537436 875-125 MG Active 1 table t Orally every 12 hrs Topamax [facility] 55916775518 50 MG Orally Active 1 table t Once a day Nucynta [facility] 57820245810 50 MG Orally Active 1 table t every 6 hrs Losartan Potassium [facility] 16855089810 50 MG Orally Acti ve 1 tablet Once a day Acetaminophen [facility] [address]-09 325 MG Orally Active 2 capsule every 6 hrs as needed Sodium Chloride ND 25436134747 1 GM Orally Active as directed Soma [facility] 07059929461 350 MG Orally Active 1 tabl et Four times a as needed day Ingrezza [facility] 09390943253 80 MG Orally Active 1 caps ule Once a day Equetro [facility] 94781488793 300 MG Orally Active 1 caps ule three times a day Topamax [facility] 87746455956 100 MG Orally Active 1 tabl et Once a day Ziprasidone HCl ND 49134604468 40 MG Orally a Activ e 1 capsule day with food Flonase [facility] 81329023591 50 MCG/ACT Active 2 spray i n Nasally Once a each day nostril Lasix [facility] 69308264441 40 MG Orally Active 1 table t Once a day Klor-Con M10 [facility] 63621944257 10 MEQ Orally Active 1 tablet Twice a day with food Zofran [facility] 89474846521 4 MG Orally Active 1 tablet Once a day Pramipexole [facility] 62364448006 0.25 MG Orally Active 1 tablet Dihydrochloride Once a day befor e bedtime Metoprolol [facility] 67892243169 50 MG Orally Active take 1 Succinate ER Once a day tablet b y mouth every day Ashby [facility] 82115819268 7.5-325 MG Active 1 tablet Orally every as needed 12 hrs Alendronate-Cholec [facility] [address]-26 70-2800 Active 1 tablet alciferol MG-UNIT Orally once a week Myrbetriq [facility] 35564028687 25 MG Orally Active 1 tab let Once a day Simethicone [facility] 34343360238 80 MG Orally Active 1 t ablet Four times a after day meals and at bedtime as needed Levothyroxine [facility] 78202454700 125 MCG Orally Active 1 tablet Sodium Once a day on an empty stomach in the morning Breo Ellipta [facility] 36580033632 100-25 MCG/INH Active 1 puff Inhalation Once a day Aspirin Adult Low [facility] 91795924347 81 MG Orally Activ e 1 tablet Dose Once a day Bumetanide [facility] 95772626518 1 MG Active TAKE 1 TABLET BY MOUTH EVERY DAY Zyrtec Allergy [facility] 27926855270 10 MG Orally Active 1 tablet Once a day Clopidogrel [facility] 46153437799 75 MG Orally Active 1 t ablet Bisulfate Once a day Fosamax Plus D [facility] 49980458315 70-2800 Active 1 tab let MG-UNIT Orally once a week Magnesium Oxide [facility] 00819868631 500 MG Orally Active as directed Alendronate Sodium [facility] 35438848953 70 MG Active T CARLA 1 TABLET BY MOUTH ONCE A WEEK Atorvastatin [facility] 23188797198 10 MG Orally Active 1 tablet Calcium Once a day Cymbalta [facility] 03798680706 60 MG Orally Active 1 caps ule Once a day ProAir HFA [facility] 49708443129 108 (90 Base) Active 2 p uffs as MCG/ACT needed Inhalation every 6 hrs Singulair [facility] 37525423688 10 MG Orally Active 1 tab let Once a day in the evening Zantac [facility] 21858690978 150 MG Orally Active 1 tabl et Once a day at bedtime Results Name Result Date Reference Range Unit Abnormali ty Flag CBC (H/H, RBC, INDICES, WBC, PLT) ----MPV 10.4 74350057 7.5-12.5 fL N ----HEMOGLOBIN 13.1 68164536 11.7-15.5 g/dL N ----HEMATOCRIT 37.2 43249287 35.0-45.0 % N ----MCV 97.9 62980407 80.0-100.0 fL N ----MCH 34.5 77675416 27.0-33.0 pg H ----MCHC 35.2 91427107 32.0-36.0 g/dL N ----RDW 12.3 60887880 11.0-15.0 % N ----PLATELET COUNT 190 28020304 140-400 Thousand/u N L ----WHITE BLOOD 7.6 48206965 3.8-10.8 Thousand/u N CELL COUNT L ----RED BLOOD CELL 3.80 27574056 3.80-5.10 Million/uL N COUNT TSH W/REFLEX TO FT4 ----TSH W/REFLEX TO 0.06 [id number] 0.40-4.50 mIU/L L FT4 ----T4, FREE 0.9 79291535 0.8-1.8 ng/dL N COMPREHENSIVE METABOLIC PANEL(CMP) ----ALBUMIN/GLOBULI 2.2 04239234 1.0-2.5 (calc) N N RATIO ----GLOBULIN 1.9 26497055 1.9-3.7 g/dL N (calc) ----ALKALINE 88 81555237 37-153 U/L N PHOSPHATASE ----BILIRUBIN, 0.4 27277009 0.2-1.2 mg/dL N TOTAL ----CHLORIDE 102 21791959 98-110 mmol/L N ----ALT 22 51812766 6-29 U/L N ----POTASSIUM 4.4 73828257 3.5-5.3 mmol/L N ----AST 26 40251282 10-35 U/L N ----SODIUM 134 71764846 135-146 mmol/L L ----BUN/CREATININE NOT APPLICABLE 20885298 6-22 (calc) RATIO ----eGFR 71 12916623 > OR = 60 mL/min/1.7 [place] [address] ----CALCIUM 10.3 60923488 8.6-10.4 mg/dL N ----CARBON DIOXIDE 23 66111860 20-32 mmol/L N ----ALBUMIN 4.2 94589632 3.6-5.1 g/dL N ----PROTEIN, TOTAL 6.1 43824560 6.1-8.1 g/dL N ----GLUCOSE 92 03876919 65-99 mg/dL N ----UREA NITROGEN 19 20190623 7-25 mg/dL N (BUN) ----CREATININE 0.98 02933704 0.50-0.99 mg/dL N ----eGFR NON-AFR. 61 11890037 > OR = 60 mL/min/1.7 [place] [address] LIPID PANEL WITH REFLEX TO DIRECT LDL ----NON HDL 109 75316433 <130 mg/dL N CHOLESTEROL (calc) ----LDL-CHOLESTEROL 85 62784872 mg/dL N (calc) ----CHOL/HDLC RATIO 2.7 99941229 <5.0 (calc) N ----HDL CHOLESTEROL 64 43222823 > OR = 50 mg/dL N ----TRIGLYCERIDES 138 33283471 <150 mg/dL N ----CHOLESTEROL, 173 08623266 <200 mg/dL N TOTAL Summary Purpose eClinicalWorks Submission
--- OUTSIDE RECORDS SUMMARY | 2019-08-11 07:57 | XMS REPORT ---
:1955 Author Organization [facility] t Address [facility] Gerardo Kaplan. [address] [place] [address] Care Team Providers Name Role Phone Abby HAILE Primary Care Physician Vasquez HAILE, T. Attending Clinician Shona Saldaña Attending Clinician DEL Attending Clinician Unavailable Arnold Alvarez Attending Clinician PAUL Attending Clinician Unavailable TITUS Attending Clinician Unavailable TITUS HAILE Attending Clinician Arnold Alvarez Admitting Clinician TITUS HAILE Admitting Clinician Payers Payer Name Policy Type Policy Number Effective Date Expiration Date S dougie AETNA xxxxxxxx 2016 [place] MEDICAREAETNA 00:00:00 Hinduism MEDICARE HMO/PPO [facility] [id number] Problems Condition Condition Condition Status Onset Resolution Last Treating Co mments Source Name Details Category Date Date Treatment Clinician Date E83.52 - Diagnosis Active 2018-032019-04-06 M H OPID HYPERCALCE 2-03 14:27:00 Herm julianna JESE E21.0 E83.52 - 00:01: - PRIMARY HYPERCALCE 00 H JESE E21.0 - PRIMARY H Active 02/14/2019 JESSICA Carrillo CVA Diagnosis Active 2018-07-13 07-13 15:40:00 [place] CVA [facility] Active 07/13/2018 [facility] ALEXANDERB Diagnosis Active 2018-07-14 ILL[place]/FLI 07-13 09:52:00 [place] T#[id number] [place] Medical ALEXANDERB [address] [place] [address] ILLING/FLI T#[id number] Active 07/13/2018 [facility] ACUTE Diagnosis Active 2018-07-15 EMBOLIC 07-13 19:45:00 [place] CVA ACUTE 00:00: Medical EMBOLIC [address] [place] [address] CVA Active 07/13/2018 [facility] Optic Optic Disease Active 2016-03 Last [place] nerve nerve 0-26 Assessmen Methodi cupping of cupping of 00:00: t & Plan: st both eyes both eyes 00 Pachy 568/557. CH >10. Baseline OCT 85 OU.IOP stable low-mid teens.Con tinue annual exam, consider OCT ON if worsens or changes. 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-02 Methodi syndrome syndrome 00:00: st 00 Hypo-osmol Hypo-osmol Disease Active [place] ality and ality and 06-02 Meth chester or or 00:00: st hyponatrem hyponatrem 00 ia ia Migraine Migraine Disease Active [place] variant variant 06-02 Methodi 00:00: st 00 Acute Acute Disease Active [place] neurolepti neurolepti 06-02 Me thodi c-induced c-induced 00:00: st akathisia akathisia 00 Transient Transient Disease Active Larissa ston ischemia ischemia 06-02 Method i 00:00: st 00 Dry eye Dry eye Disease Active Overview: [place] syndrome syndrome 11-21 BLL Method i 00:00: plugs.Las st 00 t Assessmen t & Plan: BLL plugs intact.Dr dumont worse, possibly due to allergies .Continue Restasis OU BID+.Okay to continue Prolensa OU QD PRN pain. 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 Visually significa nt. The risks/sara efits/alt ernatives of cataract surgery were discussed with the patient, including refractiv e error, need for additiona l surgery, loss of vision, loss of eye. Additiona l risks of persisten t dry eye and ptosis were discussed . She understan ds and will consider if NI. If so, OD, then OS. Allergic Allergic Disease Active Last [place] conjunctiv conjunctiv 11-21 Assessmen Methodi itis itis 00:00: t & Plan: st 00 Continue Elestat OU BID. 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 on 08/14/14. OPID Gerardo History of History of Problem Resolve Univers hyperlipid hyperlipid d it y of emia emia [place] [facility] Hypertensi Hypertensi Problem Active U nivers on on [facility]y of [place] [facility] Brain TIA Brain TIA Problem Active Uni vers [facility] [place] [facility] Hyperlipid Hyperlipid Problem Active U nivers emia emia [facility]y [facility] [place] [facility] Encounter Encounter Problem Active Uni vers for for ity of screening screening [place] examin[place] examinatio Ph ysici n for n for ans other other mental mental health and health and behavioral behavioral disorders disorders Age-relate Age-relate Problem Active [facility] - osteoporos osteoporos Me moria is without is without l current current [facility] pathologic pathologic en t al al Clinics fracture fracture Restless Restless Problem Active [facility] - syndrome syndrome Memori a l [facility] ent Clinics GERD GERD Problem Active [facility] (gastroeso (gastroeso Danielle kes - phageal phageal Memoria reflux reflux l disease) disease) Outpat i ent Clinics Seasonal Seasonal Problem Active [facility] t allergies allergies Luke s - Memoria l [facility] ent Clinics Chronic Chronic Problem Active [facility] back pain back pain Luke s - Memoria l [facility] ent Clinics Cough Cough Problem Active [facility] Mem[facility] Clinics Migraine Migraine Problem Active [facility] Mem[facility] l [facility] ent Clinics Other Other Problem Active [facility] specified specified Luke s - bacterial bacterial [place] reagan agents as agents as l the cause the cause Outp ati of of ent diseases diseases Clinic s classified classified elsewhere elsewhere Essential Essential Problem Active [facility] hypertensi hypertensi Danielle kes - on on Memoria l [facility] ent Clinics Hypokalemi Hypokalemi Problem Active [facility] - Memoria l [facility] ent Clinics Right foot Right foot Problem Active [facility] pain pain [facility] - Memoria l [facility] Clinics COPD COPD Problem Active [facility] (chronic (chronic [facility] - obstructiv obstructiv Me moria e e l pulmonary pulmonary Outp ati disease) disease) ent with acute with acute Cl inics bronchitis bronchitis Hypothyroi Hypothyroi Problem Active [facility] dism dism [facility] - Memoria l [facility] ent Clinics Hyponatrem Hyponatrem Problem Active [facility] ia ia [facility] - Memoria l [facility] ent Clinics Acute Acute Problem Active [facility] sinusitis, sinusitis, Danielle kes - unspecifie unspecifie Me moria d d l [facility] ent Clinics Edema Edema Problem Active [facility] Clinics Bipolar Bipolar Problem Active [facility] disorder disorder [facility] - Memoria l [facility] Clinics Memory Memory Problem Active [facility] deficit deficit [facility] - Memoria l [facility]ics COPD COPD Problem Active [facility] (chronic (chronic [facility] - obstructiv obstructiv Me moria e e l pulmonary pulmonary Outp ati disease) disease) ent Clinics Urinary Urinary Problem Active [facility] incontinen incontinen Danielle kes - ce, ce, Memoria unspecifie unspecifie l d type d type [facility] ent Clinics Screening Screening Problem Active [facility] mammogram, mammogram, Danielle kes - encounter encounter [place] reagan for for l [facility] ent Clinics Influenza Influenza Problem Active [facility] vaccine vaccine [facility] - needed needed Memoria l [facility] Clinics Supplement Supplement Problem Active C [facility] al oxygen al oxygen Luke s - dependent dependent [place] reagan l [facility] ent Clinics TIA TIA Problem Active [facility] (transient (transient Danielle kes - ischemic ischemic Memori a attack) attack) l [facility] ent Clinics Mixed Mixed Diagnosis Active [facility] stress and stress and Danielle kes - urge urge Memoria urinary urinary l incontinen incontinen Ou tpati ce ce ent Clinics [facility] Problem Active [facility] t discharge discharge Luke s - follow-up follow-up [place] reagan l [facility] ent Clinics Sarcoidosi Sarcoidosi Problem Active [facility] s, lung s, lung [facility] - Memoria l [facility] Clinics Hypercalce Hypercalce Problem Active [facility] jese jese [facility] - Memoria l [facility] Clinics Hyperparat Hyperparat Problem Active C [facility] hyroidism hyroidism Luke s - Memoria l [facility] Clinics Mixed Mixed Problem Active [facility] hyperlipid hyperlipid Danielle kes - emia emia Memoria l [facility] ent Clin[facility] CKD CKD Problem Active [facility] (chronic (chronic [facility] - kidney kidney Memoria disease), disease), l stage III stage III Outp ati ent Clinics Yeast Yeast Diagnosis Active [facility] vaginitis vaginitis Luke s - Memoria l [facility] Clinics Acute Acute Diagnosis Active [facility] cystitis cystitis [facility]ukes - without without Memoria hematuria hematuria l [facility] Clinics Dysuria Dysuria Problem Active [facility] Acute Problem Resolve 2019-04-08 O PID bronchitis d 23:48:09 Herm julianna (disorder) Acute bronchitis (disorder) Resolved Problem 04/08/2019 OPID [place] Asthma Problem Active 2019-04-08 [facility], (disorder) 23:48:09 O PID Asthma [place] (disorder) Active Problem 04/08/2019 [facility], OPID [place] Malignant Problem Active 2019-04-08 PI, neoplasm 23:48:09 OPI D of uterus Gerardo (disorder) Malignant neoplasm of uterus (disorder) Active Problem 04/08/2019 [facility], OPID Gerardo Malignant Problem Resolve 2019-04-08 U SPI, tumor of d 23:48:09 OPI D colon Gerardo (disorder) Malignant tumor of colon (disorder) Resolved Problem 04/08/2019 [facility], OPID Gerardo Transforme Problem Active 2019-04-08 M H OPID d migraine 23:48:09 Herm julianna (disorder) Transforme d migraine (disorder) Active Problem 04/08/2019 OPID Gerardo Dependence Problem Active 2019-04-08 M H OPID on 23:48:09 Gerardo supplement al oxygen Dependence (finding) on supplement al oxygen (finding) Active Problem 04/08/2019 OPID Gerardo Headache Problem Active 2019-04-08 OPID (finding) 23:48:09 Caitlin nn Headache (finding) Active Problem 04/08/2019 Data migrated from [facility] on 08/14/14. OPID [place] Hypothyroi Problem Active 2019-04-08 U SPI, dism 23:48:09 OPID (disorder) Dimitri n Hypothyroi dism (disorder) Active Problem 04/08/2019 [facility], OPID Gerardo Low back Problem Active 2019-04-08 OPID pain 23:48:09 [place] (disorder) Low back pain (disorder) Active Problem 04/08/2019 OPID [place] Neck pain Problem Active 2019-04-08 OPID (finding) 23:48:09 Caitlin nn Neck pain (finding) Active Problem 04/08/2019 OPID [place] Sarcoidosi Problem Resolve 2019-04-08 OPID s d 23:48:09 [place] (disorder) Sarcoidosi s (disorder) Resolved Problem 04/08/2019 OPID [place] Dyspnea on Problem Active 2019-04-08 M H OPID exertion 23:48:09 Dimitri n (finding) Dyspnea on exertion (finding) Active Problem 04/08/2019 OPID Gerardo Alzheimer' Problem Active 2016-09-23 U SPI s disease 04:01:02 (disorder) Alzheimer' s disease (disorder) Active Problem 09/23/2016 early stage- dx x 1 year ago [facility] Arthritis Problem Active 2016-09-23 PI (disorder) 04:01:02 Arthritis (disorder) Active Problem 09/23/2016 [facility] Bipolar Problem Active 2016-09-23 [facility] disorder 04:01:02 (disorder) Bipolar disorder (disorder) Active Problem 09/23/2016 [facility] Chronic Problem Active 2016-09-23 [facility] pain 04:01:02 (finding) Chronic pain (finding) Active Problem 09/23/2016 [facility] Chronic Problem Active 2016-09-23 [facility] obstructiv 04:01:02 e lung Chronic disease obstructiv (disorder) e lung disease (disorder) Active Problem 09/23/2016 home O2 3L NC since 2011. last visit with pulmonolog ist, Dec 2015 for pre op clearance. pulmonary stress test report (6 minute walk without o2) done at that time, per pulmonolog ist no need for home O2. Pt states she is able to stay off her oxygen for around 3 hours. At [facility] appt on 09-15-16 , O2 was removed for 15 minutes and O2 sats were 99% percent during that period. [facility] Hyponatrem Problem Active 2016-09-23 U SPI ia 04:01:02 (disorder) Hyponatrem ia (disorder) Active Problem 09/23/2016 [facility] Irritable Problem Active 2016-09-23 [facility] colon 04:01:02 (disorder) Irritable colon (disorder) Active Problem 09/23/2016 [facility] Migraine Problem Active 2016-09-23 [facility] I (disorder) 04:01:02 Migraine (disorder) Active Problem 09/23/2016 [facility] Pain in Problem Active 2016-09-23 [facility] wrist 04:01:02 (finding) Pain in wrist (finding) Active Problem 09/23/2016 [facility] Pulmonary Problem Inactiv 2016-09-23 U SPI sarcoidosi e 04:01:02 s (disorder) Pulmonary sarcoidosi s (disorder) Inactive Problem 09/23/2016 per pulmonary note- CT of chest shows no acute changes since 2008, no evidence of sarcoidosi s [facility] CEREBRAL Diagnosis Active 2018-07-15 M H INFARCTION 19:45:00 [place] , CEREBRAL Medica l UNSPECIFIE INFARCTION Ce nter D , UNSPECIFIE D Active [facility] Pain in Problem 2017-0 2016-09-23 2016-09-23 [facility] right 7-10 04:01:02 04:01:02 wrist Pain in 05:00: right 00 wrist 09/21/2016 09/23/2016 [facility] Allergies, Adverse Reactions, Alerts Allergy Allergy Status Severity Reaction(s) Onset Inactive Treating Comm ents Source Name Type Date Date Clinician [place] Propensi Active Weak [place] in ty to 2-05 muscle. Methodi adverse 00:00: st reaction 00 s to drug Amitript Propensi Active Anaphylaxis, Marie yline ty to Swelling 05-30 Methodi adverse 00:00: st reaction 00 s to drug Adhesive Propensi Active Other (See Tears off [place] Tape-Rosalia ty to Comments) 05-29 skin Metho di icones adverse 00:00: st reaction 00 s to drug Venlafax Propensi Active Hives [place] ine ty to 10-23 Methodi adverse 00:00: st reaction 00 s to drug Erythrom Propensi Active Other (See Face [place] ycin ty to Comments) 10-23 swells Methodi Base adverse 00:00: st reaction 00 s to drug Levoflox Propensi Active Swelling Facial [place] acin ty to 10-23 swelling Methodi adverse 00:00: st reaction 00 s to drug Gabapent Propensi Active Hives [place] in ty to 10-23 Methodi adverse 00:00: st reaction 00 s to drug Trazodon Propensi Active Hives [place] e ty to 10-23 Methodi adverse 00:00: st reaction 00 s to drug Azithrom Propensi Active Anaphylaxis, [place] ycin ty to Hives 10-23 Methodi adverse 00:00: st reaction 00 s to drug Tape<sup Tape<sup Active Memori a >4</sup> >4</sup> 2-01 l 06:00: Gerardo [address] [facility] l Adhesive drug Active Univers Tape allergy ity of [facility] Physici ans amitript drug Active Univers yline allergy ity [facility] [place] [facility] E-Mycin drug Active Univers allergy [facility] [place] [facility] Effexor drug Active Univers allergy [facility] [place] [facility] Levaquin drug Active Univers allergy [facility] [place] [facility] Lyrica drug Active Univers CAPS allergy [facility] [place] [facility] Neuronti drug Active Univers n allergy [facility] [place] [facility] trazodon drug Active Univers e allergy [facility]y [facility] [place] [facility] Zithroma drug Active Univers x PACK allergy [facility]y [place] [facility] erthromy Adverse Active Info Not [facility]I S t estella Reaction Available [facility] NEUROTIN Adverse Active Info Not [facility] t Reaction Available [facility] amitript Adverse Active Info Not CHI S t yline Reaction Available [facility] Effexor Adverse Active Info Not [facility] Reaction Available [facility] Trazodon Adverse Active Info Not [facility]I S t e HCl Reaction Available [facility] Levaquin Adverse Active Info Not CHI S t Reaction Available [facility] Effexor Effexor Active Memoria l [facility] Levaquin Levaquin Active Memori a l [facility] l Lyrica Lyrica Active Memoria l [facility] Plastic Plastic Active Memoria Tape Tape l [facility] Neuronti Neuronti Active Memori a n n l [facility] l Elavil Elavil Active Memoria l [facility] l Zithroma Zithroma Active Memori a x Z-Marcos x Z-Marcos l [facility] l traZODon traZODon Active Memori a e<sup>5< e<sup>5< l /sup> /sup> [facility] l erythrom erythrom Active Weal Memori a ycin ycin (disorder) l [facility] l Tape<sup Tape<sup Active Memori a >1</sup> >1</sup> l [facility] l Family History Family Member Diagnosis Comments Start Date Stop Date Source Natural brother Heart attack [place] Hindu[place] Natural father Cancer [place] [facility] thodist Natural mother Glaucoma [place] [facility] Paternal grandmother Glaucoma [place] Natural sister Blindness [place] [facility] Natural sister Ovarian cancer [place] Natural sister Breast cancer [place] Hindu[place] Social History Social Habit Start Date Stop Date Quantity Comments Source History of Current smoker [place] [facility] tobacco use Sex Assigned At [place] M ethodist Exposure to Not sure [place] Metho dist SARS-CoV-2 (event) Alcohol intake 2019-07-28 2019-07-28 Current drinker [place] on Hinduism 00:00:00 00:00:00 of alcohol (finding) Social History 2016-09-21 2016-09-21 Edison dang 22:15:00 22:15:00 [facility] Alcohol Comment 2016-05-22 2016-05-22 weekly Frank Zarate ethodist 00:00:00 00:00:00 Smoking Status Start Date Stop Date Source Former smoker 2019-07-28 00:00:00 2019-07-28 00:00:00 Marie Hinduism Medications Ordered Filled Start Stop Current Ordering Indication Dosage Frequency Signature Comments Components Source Medication Medication Date Date Medication? Clinician (SIG) Name Name Bactrim DS Bactrim DS 2019- 2020- Yes Na Gonzalez [address] [facility] - 00:00: 00:00 Memoria 00 :00 l [facility] Clin[facility] Fluconazole Fluconazole 2019-0 2020- Yes Na Gonzalez [address] [facility] - 00:00: 00:00 Memoria 00 :00 l [facility] ent Clinics DULoxetine 2020-0 Yes Take by Randi foster (CYMBALTA) 5-15 mouth. 1 Metho di 60 MG 14:14: capusle st capsule 50 twice a day ziprasidone 2020-0 Yes Take by Larissa bell (GEODON) 80 5-15 mouth. 1 Meth chester MG capsule 14:14: tablet in st 50 am and 1/2 tablet in noon albuterol 2020-0 Yes 2.5mg Q6H Take 2.5 Larissa penelopen (PROVENTIL) 5-15 mg by Yon 2.5 mg /3 14:14: nebulizati st mL (0.083 50 on every 6 %) (six) nebulizer hours as solution needed for wheezing. dexlansopra 2020-0 Yes Take by Larissa bell zole 5-15 mouth. 1 Methodi (DEXILANT) 14:14: tablet st 60 mg 50 Twice a capsule day ferrous 2020-0 Yes Take by Frank sulfate 325 5-15 mouth. 1 Meth [place]ster (65 FE) MG 14:14: tablet st tablet 50 twice a day oxyCODone-a 2020-0 Yes Take by Larissa bell cetaminophe 5-15 mouth. 1 Meth chester n 14:14: tablet st (PERCOCET) 50 three 7.5-325 mg times a per tablet day tiZANidine 2020-0 Yes Take by Randi ton (ZANAFLEX) 5-15 mouth. 1 Metho di 4 MG tablet 14:14: tablet st 50 once a day memantine-d 2020-0 Yes Take by Larissa bell onepezil 5-15 mouth. 1 Methodi (NAMZARIC) 14:14: tablet st 28-10 mg 50 once a day capsule,spr inkle,ER 24hr topiramate 2020-0 Yes Take by Randi ton (TOPAMAX) 5-15 mouth. 1 Method i 50 MG 14:14: tablet in st tablet 50 am and 2 tablet in pm sodium 2020-0 Yes 1g [id number] Take 1 g [place] chloride 1 5-15 [id number] by mouth 3 Methodi gram tablet 14:14: 3D (three) st 50 times a day. rOPINIRole 2020-0 Yes Take by Randi foster (REQUIP) 5-15 mouth. 1 Methodi 0.25 MG 14:14: tablet 3 st tablet 50 times a day albuterol 2020-0 Yes 2{puff} Q6H Inhale 2 [place] (PROAIR 5-15 puffs Methodi HFA,PROVENT 14:14: every 6 st [place] 50 (six) HFA,VENTOLI hours as N HFA) 90 needed for mcg/actuati wheezing on inhaler or shortness of breath. metoprolol 2020-0 Yes Take by Randi foster succinate 5-15 mouth. 1 Method i XL 14:14: tablet st (TOPROL-XL) 50 once a day 25 mg 24 hr tablet levothyroxi 2020-0 Yes Take by Larissa bell ne 5-15 mouth. 1 Methodi (SYNTHROID, 14:14: tablet st LEVOXYL) 50 once a day 112 mcg tablet VITAMIN B 2020-0 Yes 1{capsu QD Take 1 Larissa ston COMPLEX (B 5-15 le} capsule by Met hodi COMPLEX 14:14: mouth st ORAL) 50 daily. magnesium 2020-0 Yes 1{tbl} QD Take 1 Randi ton oxide 500 5-15 tablet by Metho di mg tablet 14:14: mouth st 50 daily. LACTOBACILL 2020-0 Yes 1{capsu QD Take 1 [place] 5-15 le} capsule by Methodi ACIDOPHILUS 14:14: mouth st (PROBIOTIC 50 daily. ORAL) carBAMazepi 2020-0 Yes Take by Larissa michelle, mood 5-15 mouth. 1 Methodi stabiliz, 14:14: capsule 3 st (EQUETRO) 50 times a 300 mg day capsule, ER multiphase 12 hr BUMETanide 2020-0 Yes QD Take by Randi ton (BUMEX) 1 5-15 mouth Methodi MG tablet 14:14: daily. 1 st 50 tablet once a day valbenazine 2020-0 Yes 80mg QD Take 80 mg Marie (Ingrezza) 5-15 by mouth Metho di 40 mg 14:14: daily. st capsule 50 aspirin 2020-0 Yes 81mg QD Take 81 mg Randi ton (ECOTRIN) 5-15 by mouth Method i 81 MG 14:14: daily. st enteric 50 coated tablet alendronate 2020-0 Yes 10mg QD Take 10 mg Marie (FOSAMAX) 5-15 by mouth Method i 10 MG 14:14: daily st tablet 50 before breakfast. Take in the morning with a full glass of water on an empty stomach, do NOT take anything else by mouth or lie down for the next 30 min. donepeziL 2020-0 Yes 10mg QD Take 10 mg Franklin collier (ARICEPT) 5-15 by mouth Method i 10 MG 14:14: nightly. st tablet 50 Restasis 2019-0 Yes INSTILL 1 [place] 0.05 % 5-15 DROP INTO Methodi ophthalmic 00:00: BOTH EYES st emulsion 00 TWICE A DAY epinastine 2019-0 2020- Yes 1[drp] Q.5D Administer Marie (Elestat) -15 05-15 1 drop to Meth chester 0.05 % 00:00: 23:[address] ophthalmic 00 :00 2 (two) solution times a day. bromfenac 2019-0 2019- Yes 1[drp] QD Administer Marie (PROLENSA) 5-15 06-14 1 drop to Met hodi 0.07 % 00:00: 23:[address] ophthalmic 00 :00 daily for solution 30 days. Equetro 300 Equetro 300 2018-0 Yes 1 Q0.3333D TAKE 1 Univers MG Oral MG Oral 6-07 CAPSULE 3 ity of Capsule Capsule 00:00: TIMES [place] Extended Extended 00 DAILY Physic i Release 12 Release 12 ans Hour Hour DULoxetine DULoxetine 2018- Yes 1 Q0.5D TAKE 1 Univers HCl - 60 MG HCl - 60 MG 6-07 CAPSULE ity of Oral Oral 00:00: TWICE [place] Capsule Capsule 00 DAILY. Physici Delayed Delayed ans Release Release Particles Particles Ziprasidone Ziprasidone Yes 1 QD TAKE 1 Univers HCl - 80 MG HCl - 80 MG 6-07 CAPSULE ity of Oral Oral 00:00: DAILY [place] Capsule Capsule 00 Physici ans Ziprasidone Ziprasidone Yes 1 QD TAKE 1 Univers HCl - 40 MG HCl - 40 MG 6-07 CAPSULE ity of Oral Oral 00:00: DAILY [place] Capsule Capsule 00 Physici ans Ingrezza 40 Ingrezza 40 Yes 2 QD TAKE 2 Univers MG Oral MG Oral 6-07 CAPSULE ity of Capsule Capsule 00:00: DAILY [place] Physici ans QUEtiapine QUEtiapine Yes .5 QD TAKE 0.5 Univers Fumarate 25 Fumarate 25 6-07 TABLET ity of MG Oral MG Oral 00:00: DAILY [place] Tablet Tablet 00 Physici ans Levothyroxi Levothyroxi Yes QD TAKE 1 Univers ne Sodium ne Sodium 08-19 TABLET ity of 125 MCG 125 MCG 00:00: DAILY [place] Oral Tablet Oral Tablet 00 DIRECTED. Physici ans Metoprolol Metoprolol Yes 1 QD TAKE 1 Univers Succinate Succinate 6-07 TABLET ity of ER 50 MG ER 50 MG 00:00: DAILY. [place] Oral Tablet Oral Tablet 00 P hysici Extended Extended ans Release 24 Release 24 Hour Hour oxyCODONE-A oxyCODONE-A Yes 1 Q0.3333D TAKE 1 Univers cetaminophe cetaminophe 6-07 TABLET 3 ity of n 7.5-325 n 7.5-325 00:00[place] MG Oral MG Oral 00 DAILY Physici Tablet Tablet ans Gabapentin Gabapentin 2018- Yes 1 QD TAKE 1 Univers 400 MG Oral 400 MG Oral 6-07 CAPSULE ity of Capsule Capsule 00:00: DAILY [place] Physici ans Topiramate Topiramate Yes 3 QD TAKE 3 Univers 50 MG Oral 50 MG Oral 6-07 TABLET i ty of Tablet Tablet 00:00: DAILY [place] Physici ans Sodium Sodium 2019-0 Yes 2 QD TAKE 2 Univers Chloride 1 Chloride 1 08-19 TABLET i ty of GM Oral GM Oral 00:00: DAILY [place] Tablet Tablet 00 Physici ans Vitamin D3 Vitamin D3 Yes U nivers 5000 UNIT 5000 UNIT 08-19 ity o f Oral Tablet Oral Tablet 00:00: Physici ans Centrum Centrum Yes 1 QD TAKE 1 Unive rs Silver Oral Silver Oral 08-19 TABLET ity of Tablet Tablet 00:00: DAILY. Physici ans Magnesium Magnesium Yes Uni vers 500 MG Oral 500 MG Oral 08-19 i ty of Tablet Tablet 00:00: Physici ans Aspirin 325 Aspirin 325 Yes MUNACHI 1 QD TAKE 1 Univers MG Oral MG Oral 08-19 [place]PAL[place] TABLET ity o f Tablet Tablet 00:00: N.P. DAILY. Physici ans Atorvastati Atorvastati Yes PANDA TAKE 1 Univers n Calcium n Calcium 08-19 OKPALA TABLET i ty of 10 MG Oral 10 MG Oral 00:00: N.P. DAILY [place] Tablet Tablet 00 DIRECTED Physi ci ans Speech Yes See Therapy 07-16 Instruct [place] 18:54: ns, [facility] [place] [place] [address] [facility] per week for 6 weeks Dx: tardive dyskinesia G24.01, # 1 unit, 0 Refill(s) Occupationa Yes See l Therapy 07-16 [place] 18[place], [facility] [place] [place] [address] [facility] 3 times per week for 6 weeks. Dx TIA G45.9, # 1 unit, 0 Refill(s) Physical Yes See Therapy 07-16 Instructio [place] 18:54: ns, [facility] [place] [address] [facility] times per week for 6 weeks Dx TIA G45.9, # 1 unit, 0 Refill(s) Ondansetron Yes 4 mg = 1 4 MG Oral 5-04 tab, PO, [place] Tablet 18:50: Q6H, PRN Medical [Zofran] 00 Nausea/Vom Maicole r castro, # 24 tab, 1 Refill(s), [id number] Amoxicillin Yes 875 mg = 1 MH 875 MG / 5-04 tab, PO, [place] Clavulanate 18:50: Q12H, X 5 M edical 125 MG Oral 00 day, # [address] Tablet tab, 0 [Augmentin Refill(s), 875-mg] Pharmacy: [id number] simethicone Yes 80 mg = 1 M H 80 mg oral 5-04 tab, CHEW, [place] tablet, 18:50: QID, PRN Medica l chewable 00 Gas, X 5 Center day, # 12 tab, 0 Refill(s), Pharmacy: [facility] #[id number] Acetaminoph Yes 100.4 F, M H en 325 MG 5-04 0 [place] Oral Tablet 18:50: Refill(s) edical 00 [place] clopidogrel Yes 75 mg = 1 M H 75 mg oral 5-04 tab, PO, [place] tablet 18:50: Daily, # Medical 00 19 tab, 0 Center Refill(s), Pharmacy: [facility] #[id number] atorvastati Yes 10 mg = 1 M H n 10 mg 5-04 tab, PO, [place] oral tablet 18:50: Bedtime, # Medical 00 30 tab, 0 Center Refill(s), Pharmacy: [facility] #[id number] Aspirin 81 Yes 81 mg = 1 MH MG Chewable 5-04 tab, PO, [place] Tablet 18:50: Daily, 0 Medical 00 Refill(s) [place] Fosamax No 70 mg, 07-16 Route: PO, [place] 17:00: Drug form: Medical 00 TAB, Q7D, Center Dosing Weight 87.727, kg, Start date: 07/16/18 12:00:00 CDT, Duration: 30 day, Stop date: 08/13/18 9:00:00 CDT Simethicone No Notes: 07-16 (Same as: [place] 16:32: Mylicon) Medical [address] [place] [address] Enoxaparin No Notes: 07-15 (Same as: [place] 14:00: Lovenox) Medical 00 Center 24 HR No Notes: Metoprolol 07-15 (Same as: [place] Tartrate 50 14:00: Toprol XL) Medical MG Extended 00 May split Ce nter Release tab, but Tablet do not [Toprol] crush. Aspirin 81 No Notes: MH MG Chewable 5-03 Take with [place] Tablet 14:00: food. Medical 00 Center Ingrezza 80 No [facility] MH mg oral 5-03 80 mg oral [place] capsule 14:00: capsule, Medica l 00 80 mg, Center Route: PO, Daily, 07/15/18 9:00:00 CDT, Duration: 30 day, Stop date: 08/13/18 9:00:00 CDT Topamax No Notes: MH 5-03 (Same As: [place] 14:00: Topamax) Medical 00 "Do Not Center Crush" Ibuprofen No Notes: MH 400 MG Oral - (Same as: [place] Tablet 13:57: Motrin) Medical 00 "Do Not Center Crush" Take with food. Hydralazine No Notes: - (Same as: [place] 13:55: [facility] Medical ) Push Center over 5 minutes Ceftriaxone No Notes: - (Same As: [place] 23:00: Rocephin). Medical 00 Use with Center 100 mL NS and infuse over 30 min MEDICATION WASTE Product Size: 1000 mg Product Wasted: ___ mg quetiapine No Notes: - (Same as: [place] 22:00: SEROquel) Medical 12.5 mg = Center 1/2 x 25 mg tab Magnesium No Notes: Oxide 07-14 (Same as: [place] 22:00: Mag-Ox Medical 00 400) Center Magnesium oxide 473pn=[id number] g elemental magnesium Dose=____m g magnesium oxide (___mg elemental magnesium) Topamax No Notes: MH - (Same As: [place] 22:00: Topamax) Medical 00 "Do Not Center Crush" Sodium No 1 gm, 1 Chloride 07-14 tab, [place] 1000 MG 22:00: Route: PO, Medi dane Oral Tablet 00 Drug form: Ce nter TAB, BID, Dosing Weight 87.727, kg, Start date: 07/14/18 17:00:00 CDT, Duration: 30 day, Stop date: 08/13/18 9:00:00 CDT Acetaminoph No Notes: Do M H en 325 MG / 07-14 [place] Oxycodone 17:26: 4gm/day of Me dical Hydrochlori 00 acetaminop Ce nter de 5 MG hen. Oral Tablet (Same as: Percocet-5 325) valbenazine No 80 mg = 1 M H 80 MG Oral 07-14 cap, PO, [place] Capsule 17:18: Daily, 0 Medica l [Ingrezza] 00 Refill(s) Cent er magnesium Yes 500 mg = 1 MH oxide 500 07-14 tab, PO, [place] mg oral 17:18: QPM, # 7 Medica l tablet 00 tab, 0 Center Refill(s) ziprasidone No Notes: 07-14 (Same As: [place] 17:00: [facility]) Medical 00 Give with Center Food Tegretol No Notes: 07-14 With food. [place] 14:00: (Same As: Medical 00 Tegretol) Center Thyroxine No Notes: 07-14 Take 1 [place] 14:00: hour Medical 00 before or Center 2 hours after meal; Enteral feeds may interefere with the absorption of this medication . (Same as:Levothr oid) ziprasidone No Notes: 07-14 (Same As: [place] 14:00: [facility]) Medical 00 Give with Center Food K-Dur 20 No Notes: 07-14 (Same as: [place] 13:00: K-Dur 20) Medical 00 "Do Not Center Crush" Give with food and full glass of water For patients unable to swallow tablet, dissolve in one half glass of water. Allow about 2 minutes for the tablets to disintegra te. Stir before giving to prepare slurry and administer . Please exclude Patient s with feeding tube less than 14 Omani (Dobhoff, J-tube etc) and pediatric and patients. potassium No 40 mEq, 2 MH chloride 20 02 tab, [place] mEq oral 10:56: Route: PO, Med ical tablet, 00 Drug form: [place] extended ERTAB, release Q2H, Dosing Weight 87.727, kg, Start date: 07/14/18 5:56:00 CDT, Duration: 2 doses or times, Stop date: 07/14/18 6:00:00 CDT NS (Bolus) No 500 mL, IV 5-02 500 ml/hr, [place] 10:12: Infuse Medical 00 Over: 1 Center hr, Route: IV, 500, Drug form: INJ, ONCE, Priority: STAT, kg, Start date: 07/14/18 5:12:00 CDT, Stop date: 07/14/18 5:12:00 CDT Sodium No 1,000 mL, Chloride 07-14 Rate: 100 [place] 0.9% IV 04:30: ml/hr, Medical 1,000 mL 00 Infuse Center over: 10 hr, Route: IV, Total Volume: 1,000, Start date: 07/13/18 23:30:00 CDT, Duration: 30 day, Stop date: 08/12/18 23:29:00 CDT Tylenol No Notes: Do -02 not exceed [place] 04:28: 4 gm/day. Medical 00 (Same as: [place] Tylenol) Roxicodone No Notes: 5-02 (Same as: [place] 03:30: Roxicodone Medical 00 ) [place] Docusate No Notes: Sodium 50 07-14 (Same as [place] MG / 02:00: Senokot-S) [facility] sennosides, 00 Equiv. to Ce nter PENITENTIARY 8.6 MG Guillermina-Colac Oral Tablet e. Saline No Notes: Flush 0.9% -02 (Same as: [place] 02:00: BD Medical 00 Posiflush) [place] atorvastati No Notes: n -02 (Same As: [place] 02:00: Lipitor) Medical 00 [place] Saline No Notes: Flush 0.9% -02 (Same as: [place] 00:58: BD Medical 00 Posiflush) [place] Isolyte S No 1,000 mL, PH-7.4 07-13 Infuse [place] (Bolus) IV 23:37: Over: 1 Medi dane 00 hr, Route: Center IV, ONCE, Priority: STAT, kg, Start date: 07/13/18 18:37:00 CDT, Stop date: 07/13/18 18:37:00 CDT Vitamin D3 Yes 5,000 MH 5000 intl 07-13 IntlUnit = [place] units oral 22:13: 1 tab, PO, M edical tablet 00 Daily [place] topiramate Yes 100 mg = 1 M H 100 MG Oral 07-13 tab, PO, [place] Tablet 22:12: QPM Medical [Topamax] 00 [place] Ceftriaxone No 1 gm, MH 07-13 Route: [place] 22:12: IVPB, Drug Medical 00 form: [place] PDR/INJ, ONCE, kg, Priority: STAT, Start date: 07/13/18 17:12:00 CDT, Stop date: 07/13/18 17:12:00 CDT, ABX Indication : Urinary Tract Infection Sodium Yes 1 gm = 1 MH Chloride - tab, PO, [place] 1000 MG 22:12: BID Medical Oral Tablet 00 [place] topiramate Yes 50 mg = 1 MH 50 MG Oral 07-13 tab, PO, [place] Tablet 22:11: QAM Medical [Topamax] [address] [place] [address] 12 HR Yes 1 tab, PO, MH Acetaminoph 07-13 BID, 0 [place] en 325 MG / 22:07: Refill(s) M edical Oxycodone 00 [place] Hydrochlori de 7.5 MG Extended Release Oral Tablet Alendronic Yes 70 mg = 1 acid 70 MG - tab, PO, [place] Oral Tablet 22:03: Q7D, every Medical [Fosamax] 00 Wednesday [place] metoprolol Yes 50 mg = 1 succinate 07-13 cap, PO, [place] 50 mg oral 22:02: Daily Medica l capsule, [address] [place] [address] extended release levothyroxi Yes 125 MH ne 125 mcg - microgram [place] (0.125 mg) 22:01: = 1 tab, Med ical oral tablet 00 PO, Daily Eddie ter duloxetine No Notes: MH 07-13 (Same as: [place] 22:00: Cymbalta) Medical 00 (Do Not Center Crush) oxyCODONE No 7.5 mg, MH 10 mg 07-13 Route: PO, [place] extended 22:00: Drug form: Med ical release 00 ERTAB, [place] TID, Start date: 07/13/18 17:00:00 CDT, Duration: 30 day, Stop date: 08/12/18 13:00:00 CDT heparin No Notes: sodium, 07-13 porcine [place] porcine 22:00: heparin Medical 2500 UNT/ML 00 [place] Injectable Solution QUEtiapine Yes 12.5 mg = MH 25 mg oral 5-01 0.5 tab, [place] tablet 21:53: PO, QPM Medical 00 [place] QUEtiapine No 25 mg = 1 MH 25 mg oral 5-01 tab, PO, [place] tablet 21:51: QAM Medical 00 [place] valbenazine Yes 80 mg = 1 M H 80 MG Oral 5-01 cap, PO, [place] Capsule 21:51: Daily Medical [Ingrezza] 00 [place] ziprasidone Yes 40 mg = 1 M H 40 mg oral 5-01 cap, PO, [place] capsule 21:50: QNoon Medical [place] ziprasidone Yes 80 mg = 1 M H 80 mg oral 5-01 cap, PO, [place] capsule 21:49: QAM Medical 00 [place] DULoxetine Yes 60 mg = 1 60 mg oral 5-01 cap, PO, [place] delayed 21:49: BID Medical release 00 [place] capsule 12 HR Yes 300 mg = 1 Carbamazepi 5-01 cap, PO, [place] ne 300 MG 21:43: TID Medical Extended 00 Center Release Capsule [Equetro] Plavix No Notes: 07-13 (Same As: [place] 20:36: Plavix) Medical 00 [place] iodixanol No 100 mL, 07-13 Route: [place] 20:23: IVP, Drug Medical 00 Form: [place] SOLN, kg, ONCALL, STAT, Start date: 07/13/18 15:23:00 CDT, Duration: 1 doses or times, Dose = 2.2ml/kg, Max dose = 100ml -- "To be infused by Radiology Staff ONLY" Equetro No Notes: Do 07-13 not open, [place] 20:20: chew or Medical 00 crush. [place] (Same As: Carbatrol) Saline No Notes: Flush 0.9% 07-13 (Same as: [place] 20:18: BD Medical 00 Posiflush) [place] Acetaminoph No Notes: Do M H en 07-13 not exceed [place] 20:18: 4 gm/day. Medical 00 (Same as: [place] Tylenol) Sodium No 1,000 mL, Chloride 07-13 Rate: 75 [place] 0.9% IV 20:18: ml/hr, Medical 1,000 mL 00 Infuse Center over: 13.3 hr, Route: IV, Total Volume: 1,000, Start date: 07/13/18 15:18:00 CDT, Duration: 30 day, Stop date: 08/12/18 15:17:00 CDT Aspirin No 324 mg, 07-13 Route: [place] 20:03: CHEW, Drug Medical form: [place] CHEWTAB, ONCE, kg, Priority: STAT, Start date: 07/13/18 15:03:00 CDT, Stop date: 07/13/18 15:03:00 CDT Saline No Notes: Flush 0.9% 07-13 (Same as: [place] 19:24: Medical 00 Posiflush) [place] cycloSPORIN 2020- No 1[drp] Q.5D Administer [place] E 06-2215 1 drop to Methodi (RESTASIS) 00:00: 00:00 both eyes s t 0.05 % 00 :00 2 (two) ophthalmic times a emulsion day. epinastine 2020- No 1[drp] Q.5D Administer [place] (ELESTAT) 06-22-09 1 drop to Meth [place] 0.05 % 00:00: 23:[address] ophthalmic 00 :00 2 (two) solution times a day. Misc No 400 mL, USPI Medication 7-10 Soln-IV, 20:55: IV, Once, 00 first dose 09/21/16 15:55:00 CDT, stop date 09/21/16 15:55:00 CDT fentaNYL No 25 mcg = USPI 7-10 0.5 mL, 20:30: Injection, 00 IV, Once, first dose 09/21/16 15:30:00 CDT, stop date 09/21/16 15:30:00 CDT ondansetron 2017-0 No 4 mg = 2 US PI 7-10 mL, 20:30: Injection, 00 IV, Once, first dose 09/21/16 15:30:00 CDT, stop date 09/21/16 15:30:00 CDT fentaNYL 2016- No 25 mcg = USPI 7-10 0.5 mL, 20:06: Injection, 00 IV, Once, first dose 09/21/16 15:06:00 CDT, stop date 09/21/16 15:06:00 CDT Levalbutero Yes 0.63 mg = U SPI l 0.21 7-10 3 mL, MG/ML 20:00: Soln, NEB, Inhalant 00 Once, Solution first dose [Xopenex] 09/21/16 15:00:00 CDT, stop date 09/21/16 15:00:00 CDT Levalbutero 2016- No 0.63 mg = U SPI l 0.21 7-10 3 mL, MG/ML 19:49: Soln, NEB, Inhalant 00 Once PRN Solution for [Xopenex] wheezing, first dose 09/21/16 14:49:00 CDT Ondansetron No 4 mg = 2 US PI 7-10 mL, 19:49: Injection, 00 IV Push, q15min PRN for nausea/vom iting, order duration: 2 doses, first dose 09/21/16 14:49:00 CDT, stop date Limited # of times Promethazin No 12.5 mg = U SPI e 7-10 0.5 mL, 19:49: Injection, 00 IM, Once PRN for severe nausea, first dose 09/21/16 14:49:00 CDT Dilaudid No 0.5 mg = USPI 7-10 0.5 mL, 19:49: Injection, 00 IV Push, q10min PRN for pain severe (7-10), first dose 09/21/16 14:49:00 CDT Demerol HCl No 12.5 mg = U SPI 7-10 0.25 mL, 19:49: Injection, 00 IV Push, Once PRN for shivers, first dose 09/21/16 14:49:00 CDT Albuterol No 2.5 mg = 3 US PI 0.83 MG/ML 7-10 mL, Soln, Inhalant 19:49: NEB, Once Solution 00 PRN for wheezing, first dose 09/21/16 14:49:00 CDT Hydralazine No 10 mg = PENITENTIARY I 7-10 0.5 mL, 19:49: Injection, 00 IV Push, As Indicated PRN for hypertensi on, first dose 09/21/16 14:49:00 CDT Diphenhydra No 25 mg = PENITENTIARY I mine 7-10 0.5 mL, 19:49: Injection, 00 IV Push, Once PRN for itching, first dose 09/21/16 14:49:00 CDT Bupivacaine No 300 mL, PENITENTIARY I 0.25% 300 7-10 Nerve mL pump 300 19:49: Block, 5 mL 00 mL/hr, start date 09/21/16 14:49:00 CDT Saline Lock No 10 mL, USPI Flush 7-10 Soln, IV 19:49: Push, As 00 Indicated PRN for flush, first dose 09/21/16 14:49:00 CDT LR 1,000 mL No 1,000 mL, U SPI 7-10 IV, 75 19:49: mL/hr, 00 start date 09/21/16 14:49:00 CDT ceFAZolin No 2 gm, USPI 7-10 Soln-IV, 19:44: IV 00 Piggyback, Once, first dose 09/21/16 14:44:00 CDT, stop date 09/21/16 14:44:00 CDT dexamethaso No 8 mg = 2 US PI ne 7-10 mL, 19:42: Injection, 00 IV, Once, first dose 09/21/16 14:42:00 CDT, stop date 09/21/16 14:42:00 CDT Misc No 1,000 mL, USPI Medication 7-10 Soln-IV, 19:37: IV, Once, 00 first dose 09/21/16 14:37:00 CDT, stop date 09/21/16 14:37:00 CDT propofol No 100 mg = USPI 7-10 10 mL, 19:32: Emulsion, 00 IV, Once, first dose 09/21/16 14:32:00 CDT, stop date 09/21/16 14:32:00 CDT lidocaine 2017-0 No 3 mL, USPI 7-10 Injection, 19:32: IV, Once, 00 first dose 09/21/16 14:32:00 CDT, stop date 09/21/16 14:32:00 CDT fentaNYL 2017-0 No 50 mcg = 1 PENITENTIARY I 7-10 mL, 19:11: Injection, 00 IV, Once, first dose 09/21/16 14:11:00 CDT, stop date 09/21/16 14:11:00 CDT midazolam 2017-0 No 1 mg = 1 USPI 7-10 mL, 19:11: Injection, 00 IV, Once, first dose 09/21/16 14:11:00 CDT, stop date 09/21/16 14:11:00 CDT midazolam 2016-0 No 1 mg = 1 USPI 7-10 mL, 18:55: Injection, 00 IV, Once, first dose 09/21/16 13:55:00 CDT, stop date 09/21/16 13:55:00 CDT fentaNYL 2016- No 50 mcg = 1 PENITENTIARY I 7-10 mL, 18:54: Injection, 00 IV, Once, first dose 09/21/16 13:54:00 CDT, stop date 09/21/16 13:54:00 CDT Cefazolin 2016-0 No 2 gm, USPI 7-10 Soln-IV, 17:00: IV 00 Piggyback, Once, infuse over 30 minutes, first dose 09/21/16 12:00:00 CDT, stop date 09/21/16 12:00:00 CDT, patient weight 50-120 kg, Prophylaxi s Lidocaine 2017-0 No 0.2 mL, USPI 2% 0.2 mL 7-10 Injection, IV Start 16:24: Subcutaneo [[place]] 00 us, Once PRN for other (see comment), first dose 09/21/16 11:24:00 CDT LR 1,000 mL 2017-0 No 1,000 mL, U SPI 7-10 IV, 30 16:24: mL/hr, 00 start date 09/21/16 11:24:00 CDT Breo 2017-0 Yes INH, USPI Ellipta 7-07 Daily, 0 15:21: Refill(s), 00 COPD magnesium Yes 500 mg = 1 US PI gluconate 7-05 tabs, 500 mg oral 21:58: Oral, tablet 00 Daily, 0 Refill(s) cetirizine Yes 10 mg = 1 US PI hydrochlori 7-05 tabs, de 10 MG 21:58: Oral, Oral Tablet 00 Daily, 0 [Zyrtec] Refill(s) Probiotic 2017 Yes 1 caps, USPI Formula 7-05 Oral, oral 21:58: Daily, 0 capsule 00 Refill(s), supplement Super B Yes 1 tabs, USPI Complex 7-05 Oral, oral tablet 21:58: Daily, 0 00 Refill(s), supplement Centrum Yes 1 tabs, USPI Silver 7-05 Oral, Women's 21:58: Daily, 0 00 Refill(s), supplemetn topiramate Yes 50 mg = 1 US PI 50 MG Oral 7-05 tabs, Tablet 21:58: Oral, BID, 00 0 Refill(s), mgiraines furosemide Yes 20 mg = 1 US PI 20 mg oral 7-05 tabs, tablet 21:58: Oral, BID, 00 0 Refill(s), COPD spironolact Yes 25 mg = 1 U SPI one 25 mg -05 tabs, oral tablet 21:58: Oral, 00 qNoon, 0 Refill(s) Acetaminoph 2017 Yes 1 tabs, PENITENTIARY I en 325 MG / 05 Oral, Oxycodone 21:58: q6hr, 0 Hydrochlori 00 Refill(s), de 7.5 MG chronic Oral Tablet pain Omeprazole 2017 Yes 40 mg = 1 US PI 40 MG -05 caps, Enteric 21:58: Oral, BID, Coated 00 0 Capsule Refill(s), GERDb 24 HR Yes 1 caps, USPI Donepezil -05 Oral, hydrochlori 21:58: Daily, 0 de 10 MG / 00 Refill(s), Memantine alzheimer hydrochlori de 28 MG Extended Release Oral Capsule [Namzaric] lubiproston 2017-0 No 8 mcg = 1 U SPI e 0.008 MG 7-05 caps, Oral 21:58: Oral, qPM, Capsule 00 # 60 tabs, [Amitiza] 0 Refill(s), IBS tiZANidine Yes 4 mg = 1 PENITENTIARY I 4 mg oral 7-05 tabs, tablet 21:58: Oral, 00 q8hr, 0 Refill(s) ferrous No 325 mg = 1 USPI sulfate 325 -05 tabs, MG Oral 21:58: Oral, Tablet 00 Daily, 0 Refill(s), anemia ropinirole Yes 0.25 mg = US PI 0.25 MG -05 1 tabs, Oral Tablet 21:58: Oral, TID, 00 0 Refill(s) 24 HR Yes 25 mg = 1 USPI Metoprolol 7-05 tabs, Tartrate 25 21:58: Oral, qPM, MG Extended 00 0 Release Refill(s) Tablet raNITIdine Yes 150 mg = 1 U SPI 150 mg oral 7-05 tabs, tablet 21:58: Oral, BID, 00 0 Refill(s), GERD ProAir HFA Yes 2 puffs, PENITENTIARY I -05 INH, QID, 21:58: PRN as 00 needed for wheezing, 0 Refill(s), COPD Levothyroxi Yes 125 mcg = U SPI ne Sodium 05 1 tabs, 0.125 MG 21:58: Oral, Oral Tablet 00 Daily, 0 [Levothroid Refill(s), ] hypothyroi d DULoxetine Yes 60 mg = 1 US PI 60 mg oral -05 caps, delayed 21:58: Oral, release 00 Daily, 0 capsule Refill(s), bipolar 12 HR Yes 300 mg = 1 [facility]PI Carbamazepi 05 caps, ne 300 MG 21:58: Oral, TID, Extended 00 0 Release Refill(s), Capsule bipolar [Equetro] Dulcolax Yes 100 mg, USPI Stool -05 Oral, Softener 21:51: Daily, 0 00 Refill(s) Sodium Yes See USPI Chloride 05 Instructio 21:51: ns, 1 gm 00 PO BID, 0 Refill(s), hyponatrem ia ziprasidone 2017-0 Yes 80 mg = 1 U SPI 80 mg oral 7-05 caps, capsule 21:49: Oral, As 00 Indicated, 1 tab PO QAM , 1/2 tab PO Qnoon, 0 Refill(s), bipolar Levothyroxi Levothyroxi Yes Na Gonzalez [address] [facility] ne Sodium ne Sodium on an [facility] - empty [facility] stomach in l the Outpat[facility] morning ent Clinics Vitamin D-3 Vitamin D-3 Yes Na Gonzalez as [facility] directed [facility] Amitiza Amitiza Yes Na Gonzalez [address] with food [facility]ics Ferrous Ferrous Yes Na Gonzalez TAKE ONE [facility] Sulfate Sulfate TABLET [facility] TIMES l DAILY Outpati ent Clinics DuoNeb DuoNeb Yes Na Gonzalez as [facility] directed [facility] Quetiapine Quetiapine Yes Na Gonzalez [address] [facility] Fumarate Fumarate [facility] Geodon Geodon Yes Na Gonzalez [address] [facility] with food [facility] Augmentin Augmentin Yes Na Gonzalez [address] [facility] Topamax Topamax Yes Na Gonzalez [address] [facility] Nucynta Nucynta Yes Na Gonzalez [address] [facility] Losartan Losartan Yes Na Gonzalez [address] [facility] Potassium Potassium [facility] Acetaminoph Acetaminoph Yes Na Gonzalez [address] [facility] en en as needed [facility] Sodium Sodium Yes Na Gonzalez as [facility] Chloride Chloride directed [place] Soma Soma Yes Na Gonzalez [address] [facility] as needed [facility] Ingrezza Ingrezza Yes Na Gonzalez [address] [facility] Equetro Equetro Yes Na Gonzalez [address] [facility] Topamax Topamax Yes Na Gonzalez [address] [facility] Ziprasidone Ziprasidone Yes Na Gonzalez [address] [facility] HCl HCl with food [facility] Flonase Flonase Yes Na Gonzalez [address] [facility] each [facility] nostril [facility] Lasix Lasix Yes Na Gonzalez [address] [facility] Klor-Con Klor-Con Yes Na Gonzalez [address] [facility] M10 M10 with food [facility] Zofran Zofran Yes Na Gonzalez [address] [facility] Pramipexole Pramipexole Yes Na Gonzalez [address] [facility] Dihydrochlo Dihydrochlo before [facility] ride ride bedtime [facility] Metoprolol Metoprolol Yes Na Gonzalez take [address] [facility] Succinate Succinate tablet by [facility] ER ER mouth [facility] every day [facility] [place] Yes Na Gonzalez [address] [facility] as needed [facility] Fosamax Fosamax Yes Na Gonzalez [address] Plus D Plus D [facility] Myrbetriq Myrbetriq Yes Na Gonzalez [address] [facility] Simethicone Simethicone Yes Na Gonzalez [address] [facility] after [facility] - meals and [facility] at bedtime l as needed Outpati ent Clinics Breo Breo Yes Na Gonzalez [address] [facility] Ellipta Ellipta [facility] Aspirin Aspirin Yes Na Gonzalez [address] Adult Low Adult Low [facility] Dose Dose [facility] Bumetanide Bumetanide Yes Na Gonzalez TAKE [address] [facility] TABLET BY [facility] MOUTH [facility] EVERY DAY l Outpati ent Clinics Zyrtec Zyrtec Yes Na Gonzalez [address] [facility] Allergy Allergy [facility] Clopidogrel Clopidogrel Yes Na Gonzalez [address] [facility] Bisulfate Bisulfate [facility] Magnesium Magnesium Yes Na Gonzalez as [facility] Oxide Oxide directed [facility] Alendronate Alendronate Yes Na Gonzalez TAKE [address] [facility] Sodium Sodium TABLET BY [facility] Atorvastati Atorvastati Yes Na Gonzalez [address] [facility] n Calcium n Calcium [facility] Cymbalta Cymbalta Yes Na Gonzalez [address] [facility] ProAir HFA ProAir HFA Yes Na Gonzalez [address] [facility] needed [facility] Singulair Singulair Yes Na Gonzalez [address] [facility] Zantac Zantac Yes Na Gonzalez 1 [facility] ent [facility] Macrobid Macrobid Yes Na Gonzalez [address] [facility] [facility] with food [facility] [place] [facility] [place] Immunizations Ordered Filled Immunization Date Status Comments Sourc e Immunization Name Name Afluria single dose Afluria single dose 2018-12-[address] [facility] 00[facility]00 [facility] FLUZONE QUAD 2015-12-16 Completed [place] [facility] 00:00:00 Pneumococcal 2015-12-16 Completed [place] [facility] Conjugate 13-Valent 00:00:00 Vital Signs Vital Name Observation Time Observation Value Comments Source BP Systolic 2018-08-19 146 mm[Hg] Location: [facility] 08:50:00 Position: [place] [facility] BP Diastolic 2018-08-19 91 mm[Hg] Location: [facility] 08:50:00 Position: [place] [facility] Height 2018-08-19 64 [in_us] [facility] 08:50:00 [place] [facility] Weight 2018-08-19 201 [lb_av] [facility] 08:50:00 [place] [facility] Body Mass Index 2018-08-19 34.5 kg/m2 [facility] Calculated 08:50:00 [place] [facility] Heart Rate 2018-08-19 73 /min Location: L [facility] 08:50:00 Brachial [place] [facility] Artery; Systolic (mm Hg) 2018-07-16 [facility] Me [facility] 17:12:00 Center Diastolic (mm Hg) 2018-07-16 [facility] 17:12:00 Center Respitory Rate 2018-07-16 [facility] Medi dane 17:12:00 Center Heart Rate 2018-07-16 [facility] l 17:12:00 Center Temperature Oral 2018-07-16 97.3 F [facility] [place] [facility] (F) 17:12:00 Center Respitory Rate 2018-07-16 [facility] [place] [facility] 13:39:00 Center Heart Rate 2018-07-16 [facility] [place] [facility] 13:39:00 Center Systolic (mm Hg) 2018-07-16 [facility] [place] [facility] 13:39:00 Center Diastolic (mm Hg) 2018-07-16 [facility] [place] [facility] 13:39:00 Center Temperature Oral 2018-07-16 98.8 F [facility] [place] [facility] (F) 08:34:00 Center Heart Rate 2018-07-16 [facility] [place] [facility] 08:34:00 Center Respitory Rate 2018-07-16 [facility] [place] [facility] 08:34:00 Center Systolic (mm Hg) 2018-07-16 [facility] [place] [facility] 08:34:00 Center Diastolic (mm Hg) 2018-07-16 [facility] [place] [facility] 08:34:00 Center Temperature Oral 2018-07-16 98.3 F [facility] [place] [facility] (F) 00:27:00 Center BMI Calculated 2018-07-14 [facility] [place] [facility] 10:29:00 Center Weight 2018-07-14 [facility] [place] [facility] 10:29:00 Center Height 2018-07-14 165.1 cm [facility] [place] [facility] 10:29:00 Center Respitory Rate 2016-09-21 [facility] 22:20:00 Systolic (mm Hg) 2016-09-21 [facility] 22:20:00 Diastolic (mm Hg) 2016-09-21 [facility] 22:20:00 Systolic (mm Hg) 2016-09-21 [facility] 21:20:00 Diastolic (mm Hg) 2016-09-21 [facility] 21:20:00 Heart Rate 2016-09-21 [facility] 21:20:00 Respitory Rate 2016-09-21 [facility] 21:20:00 Heart Rate 2016-09-21 [facility] 21:10:00 Respitory Rate 2016-09-21 [facility] 21:10:00 Systolic (mm Hg) 2016-09-21 [facility] 21:10:00 Diastolic (mm Hg) 2016-09-21 [facility] 21:10:00 Heart Rate 2016-09-21 [facility] 21:00:00 Temperature Oral 2016-09-21 36.5 Daysi [facility] (F) 20:50:00 Height 2016-09-21 165.10 cm [facility] 16:29:00 Temperature Oral 2016-09-21 36.6 Daysi [facility] (F) 16:29:00 Height 2016-09-16 165.10 cm [facility] 21:43:00 Procedures Procedure Date / Time Performing Clinician Source Performed [N] 30 Day Event Monitor 2018-08-19 00:00:00 [facility] Recording Physicians ARTHRODESIS DISTAL 2016-09-21 19:47:00 [facility] RADIOULNAR JT W/SEGMENTAL RESEC. ULNA 05214 (Right)<sup>1</sup> EXCISION DISTAL ULNA 2016-09-21 19:47:00 [facility] [id number] (Right)<sup>2</sup> colon 2016-05-29 05:00:00 [facility] resection<sup>3</sup> Corrective right hand 2015-07-14 00:00:00 [facility] surgery Colon 1999-03-15 00:00:00 [facility] resection<sup>4</sup> tonsillectomy 1971-03-15 00:00:00 [facility] History of Back Surgery [facility] History of Foot Surgery [facility] Carpal tunnel release OPID He rmann Hysterectomy [facility], OPID Egrardo Laminectomy OPID Gerardo Partial resection of MH OPID Her mccabe colon Rotator cuff OPID Gerardo repair<sup>1</sup> Spinal fusion OPID Gerardo Thoracic discectomy OPID Herm julianna Transposition of ulnar OPID H ermann nerve at elbow Back surgery<sup>5</sup> [facility] Plan of Care Planned Activity Planned Date Details Comments Source Future Scheduled 2026-03-15 COLONOSCOPY [place] [facility] Test 00:00:00 SCREENING [code = COLONOSCOPY SCREENING] Future Scheduled 2019-10-14 INFLUENZA VACCINE [facility] 00:00:00 [code = INFLUENZA VACCINE] Diagnostic Test 2018-08-19 [N] 30 Day Event [facility] Pending 00:00:00 Monitor Recording Physicians [code = [N] 30 Day Event Monitor Recording] Future Scheduled 2018-04-16 BREAST CANCER [facility] thodist Test 00:00:00 SCREENING [code = BREAST CANCER SCREENING] Future Scheduled 2004 SHINGLES VACCINES [facility] Test 00:00:00 (#1) [code = SHINGLES VACCINES (#1)] Future Scheduled 1975-10-12 Screening for [place] [facility] Test 00:00:00 malignant neoplasm of cervix (procedure) [code = 925696547] Encounters Start End Encounter Admission Attending Care Care Encounter Source Date/Time Date/Time Type Type Clinicians Facility Department ID 2019-08-02 2019-08-02 [facility] [id number] [facility] 13:00:00 13:00:00 activ8 Intelligence [facility] l Medicine Outpati ent Clinics 2019-07-28 2019-07-28 [facility] [id number] [facility] 12:02:00 12:02:00 t Nosopharm [facility] Medicine Outpati ent Clinics 2019-07-28 2019-07-28 Outpatient VASQUEZ, [facility] [id number] [address] [place] [address] 00:00:00 00:00:00 KEENAN [address] 2019-07-10 2019-07-10 [facility] [id number] 08:17:00 08:17:00 t Nosopharm [facility] Medicine Outpati ent Clinics 2019-07-07 2019-07-07 [facility] [id number] 16:00:00 16:00:00 t Nosopharm [facility] l Medicine Outpati ent Clinics 2019-06-28 2019-06-28 [facility] [id number] 09:00:00 09:00:00 activ8 Intelligence [facility] Medicine l Medicine Outpati ent Clinics 2019-06-13 2019-06-13 [facility] [id number] 10:36:00 10:36:00 t Nosopharm [facility] Medicine l Medicine Outpati ent Clinics 2019-05-25 2019-05-25 [facility] [id number] 09:40:00 09:40:00 t Nosopharm [facility] Medicine l Medicine Outpati ent Clinics 2019-04-27 2019-04-27 [facility] [id number] 13:17:00 13:17:00 t Nosopharm [facility] Medicine Outpati ent Clinics 2019-04-06 2019-04-07 Outpt Diag [facility] [id number] MH OPID 20:17:00 05:59:00 Services Outpatient Jose Rawls Gerardo 2019-04-06 2019-04-06 Outpatient UZMA SaldañaH [facility] [id number] 14:17:00 23:59:00 Tequila J 00 2019-01-19 2019-01-19 [facility] [id number] 17:19:00 17:19:00 t Averail s Discourse [facility] Medicine Outpati ent Clinics 2018-12-09 2018-12-09 [facility] [id number] 09:30:00 09:30:00 t Averail s Discourse [facility] Medicine Outpati ent Clinics 2018-12-08 2018-12-08 [facility] [id number] 15:00:00 15:00:00 t Nosopharm [facility] Medicine Outpati ent Clinics 2018-11-18 2018-11-18 [facility] [id number] [facility] 15:26:00 15:26:00 t Nosopharm [facility] Medicine Outpati ent Clinics 2018-08-19 2018-08-19 Appointmen JIMMIE MATHIS Neurology - [id number] [facility] 09:30:00 09:30:00 t; PANDA [facility]ATH[facility], [facility] Physici ans 2018-07-13 2018-07-16 Inpatient MHIEALT [facility] [id number] MH 19:17:00 21:11:00 Gerardo Young [facility] 2018-07-13 2018-07-16 Outpatient Mouser, [facility] [id number] 14:17:00 16:11:00 Speedy Young 2018-06-28 2018-06-28 [facility] [id number] [facility] 09:14:00 09:14:00 t Nosopharm [facility] Medicine Outpati ent Clinics 2018-06-24 2018-06-24 [facility] [id number] [facility] 13:20:00 13:20:00 t Wallace Wallace [employer] Luke s - Drive [facility] Medicine Outpati ent Clinics 2018-04-21 2018-04-21 [facility] [id number] 10:06:00 10:06:00 t Wallace Wallace [employer] LuRapt s - Drive [facility] Medicine Outpati ent Clinics 2018-03-24 2018-03-24 [facility] [id number] 16:36:00 16:36:00 t Wallace Wallace [employer] Luke s - Drive [facility] Medicine Outpati ent Clinics 2018-03-24 2018-03-24 [facility] [id number] 10:30:00 10:30:00 t Wallace Wallace [employer] LuRapt s - Drive [facility] Medicine Outpati ent Clinics 2017-12-20 2017-12-20 [facility] [id number] 16:12:00 16:12:00 t Wallace Wallace [employer] s - Drive [facility] Medicine Outpati ent Clinics 2017-12-16 2017-12-16 [facility] [id number] 15:01:00 15:01:00 t Wallace Wallace [employer] s - Drive [facility] Medicine Outpati ent Clinics 2017-10-01 2017-10-01 [facility] [id number] [facility] 10:09:00 10:09:00 t Wallace Twitter s - Drive [facility] Medicine Outpati ent Clinics 2017-08-26 2017-08-26 JIMMIE Vale UTP [id number] Univers 11:00:00 11:00:00 t; JENI MILLER [facility] [place] [facility] Physici ans 2017-08-02 2017-08-02 [facility] [id number] [facility] 09:45:00 09:45:00 t Wallace Twitter s - Drive [facility] Outpati ent Clinics 2017-06-10 2017-06-10 JIMMIE Vale [id number] Univers 10:00:00 10:00:00 t; JENI MILLER [facility] Physici ans 2017-04-01 2017-04-01 Appointmen TITUS, JIMMIE UTP [id number] Univers 10:15:00 10:15:00 t; JESENIA QURESHI it y [facility] [place] M[place]. [place] M[facility] Physic ans 2017-02-15 2017-02-15 Appointmen PAUL, JIMMIE UTP [id number] Univers 14:30:00 14:30:00 t; JENI MILLER [facility] [place] [facility] Physic ans 2016-12-17 2016-12-17 Appointmen TITUS, JIMMIE UTP [id number] Univers 10:00:00 10:00:00 t; JESENIA QURESHI it y of [place] M.D. [place] M[facility]. Physici ans 2016-10-22 2016-10-22 Appointmen TITUS, JIMMIE UTP [id number] Univers 09:00:00 09:00:00 t; JESENIA QURESHI it y [facility] [place], M.D. [place] M[facility]. Physici ans 2016-10-05 2016-10-05 Appointmen TITUS, JIMMIE UTP [id number] Univers 11:00:00 11:00:00 t; JESENIA QURESHI it y [facility] [place], M.D. [place] M[facility]. Physic ans 2016-10-01 2016-10-01 Appointina MILLER, JIMMIE UTP [id number] Univers 11:45:00 11:45:00 t; JENI MILLER [facility] 2016-09-21 2016-09-21 Outpatient [facility]ALT [facility] [id number] [facility] 15:41:22 22:15:00 [facility] 2016-09-21 2016-09-21 Outpatient [facility]ALT [facility] [id number] Surgica 10:41:22 17:15:00 [facility] 2016-09-21 2016-09-21 Outpatient TITUS HAILE, [id number] 10:41:22 17:15:00 JESENIA 8 2016-09-21 2016-09-21 Appointmen TITUS, JIMMIE UTP [id number] Univers 13:00:00 13:00:00 t; JESENIA QURESHI it y of [place] M.D. [place] M[facility]. Physici ans 2016-09-03 2016-09-03 Appointina QURESHI JIMMIE [facility] [id number] Univers 11:15:00 11:15:00 t; JESENIA QURESHI it y of [place], M.D. [place] M[facility]. Physici ans Results Test Description Test Time Test Comments Results Result Comments Source CHEM PANEL 2018-07-16 10.3 [facility] [place] [facility] 08:23:00 Center CHEM PANEL 2018-07-16 65 [facility] [place] [facility] 08:23:00 Center CHEM PANEL 2018-07-16 23 [facility] [place] [facility] 08:23:00 Center CHEM PANEL 2018-07-16 12.6 [facility] [place] [facility] 08:23:00 Center CHEM PANEL 2018-07-16 109 [facility] [place] [facility] 08:23:00 Center CHEM PANEL 2018-07-16 0.94 [facility] [place] [facility] 08:23:00 Center CHEM PANEL 2018-07-16 3.6 [facility] [place] [facility] 08:23:00 Center CHEM PANEL 2018-07-16 141 [facility] [place] [facility] 08:23:00 Center CHEM PANEL 2018-07-16 143 [facility] [place] [facility] 08:23:00 Center CHEM PANEL 2018-07-16 16 [facility] [place] [facility] 08:23:00 Center CHEM PANEL 2018-07-15 1.9 [facility] [place] [facility] 09:32:00 Center CHEM PANEL 2018-07-15 3.95 [facility] [place] [facility] 09:32:00 [place] ELECTROLYTES 2018-07-15 8.0 [facility] [place] [facility] 09:32:00 [place] ELECTROLYTES 2018-07-15 9.3 [facility] [place] [facility] 09:32:00 [place] ELECTROLYTES 2018-07-15 22 [facility] [place] [facility] 09:32:00 [place] ELECTROLYTES 2018-07-15 64 [facility] [place] [facility] 09:32:00 [place] ELECTROLYTES 2018-07-15 137 [facility] [place] [facility] 09:32:00 [place] ELECTROLYTES 2018-07-15 139 [facility] [place] [facility] 09:32:00 [place] ELECTROLYTES 2018-07-15 0.95 [facility] [place] [facility] 09:32:00 [place] ELECTROLYTES 2018-07-15 14 [facility] [place] [facility] 09:32:00 [place] ELECTROLYTES 2018-07-15 113 [facility] [place] [facility] 09:32:00 [place] ELECTROLYTES 2018-07-15 4.0 [facility] [place] [facility] 09:32:00 [place] HEMATOLOGY 2018-07-15 110 [facility] [place] [facility] 09:32:00 [place] HEMATOLOGY 2018-07-15 09:32:00 Test Item Value Reference Range Interpretation Comme nts MCH (test code = MCH) 34.7 pg 27.0-31.0 [facility] LancasterFhgbikNLJCRKSEQG5547-93-00 09:32:50010.4[facility] LQIMBZAUIF2984-96-02 09:32:0013.7[facility] LancasterQpticiTKXYNUSCLM2443-28-82 09:32:0034.6M[facility] CampusCtlrrlBVEGSOEPNP1353-17-39 09:32:008.0[facility] LancasterKqawoqIXFMXTLCCJ7056-10-82 09:32:0029.8[facility] 2018-07-15 09:32:002.96[facility] LancasterTgunpzICKGIJDVWH7582-41-30 09:32:0010.3 [facility] LancasterZzdzkeZCGOUZGHRJ3587-63-70 09:32:0010.0[facility] DRZSZUPRMY2430-68-04 09:32:001.0[facility] LancasterJoobkxVOMQGOALBG6227-51-06 09:32:000.[address] [place], [place] [address]NfxarpMKSVYNIZCJ9653-60-37 09:32:001+ *ABN*(07/15/18 4:32 AM)[facility] LancasterScnjvxVSTKRWAHFX9296-45-60 09:32:005.5[facility] LancasterTbpsepZXPVMUAEMM2570-25-99 09:32:009.[address] [place], [place] [address]ATOLOGY 2018-07-15 09:32:000.[address] [place], [place] [address]VvwnseSVWGMWYWHO0238-94-14 09:32:[address] [place], [place] [address]IfyxywQBSFRJNIHY5767-78-16 09:32:008.4[facility] WLIQAKXMCD9459-62-82 09:32:[address] [place], [place] [address]CHEM NDFNB6610-54-41 08:07:005.9[facility] LancasterCHEM XNZIG9119-89-32 08:07:00 Test Item Value Reference Range Interpretation Comments B/C Ratio (test code = B/C Ratio) 13 1 6-25 [facility] LancasterCHEM HVEJL1346-00-22 08:07:002.8[facility] CHEM MKLNP9231-75-72 08:07:003.[address] [place], [place] [address]CHEM TYQEJ7813-91-23 08:07:00 Test Item Value Reference Range Interpretation Comments A/G Ratio (test code = A/G Ratio) 1.1 1 0.7-1.6 [facility] LancasterCHEM JGTUY7517-33-46 08:07:0030[facility] CHEM REZWE8399-71-44 08:07:0038[facility] LancasterCHEM ATETN7669-23-28 08:07:001.2MThe [facility]als [facility] CampusCHEM WJALI8341-53-50 08:07:0079[facility] LancasterCHEM DDUEZ5442-79-44 08:07:0017[facility] LancasterCHEM PANEL 2018-07-14 08:07:64165QFCrescent Medical Center LancasterCHEM QDELC7337-68-26 08:07:74786NGCrescent Medical Center LancasterCHEM YGNDY5897-19-95 08:07:001.28[facility] LancasterCHEM PZIWK8523-60-77 08:07:0020[facility] LancasterCHEM TUMFY7729-22-59 08:07:00 108[facility] LancasterCHEM QYJFD9677-72-99 08:07:009.4[facility] LancasterCHEM OXKJM4674-24-32 08:07:0013[address] [place], [place] [address]CHEM PANEL 2018-07-14 08:07:003.[address] [place], [place] [address]CHEM NJAXK0984-36-22 08:07:0045[facility] LancasterAoteymOKMLXPGCZM9371-85-80 08:07:[address] [place] [address] RLKTNGYFUO7526-07-68 08:07:002.0[facility] LancasterSrktioOPXIEXOSYT4864-01-16 08:07:008.5[facility] LancasterPghsfgDTWNBLOQBY7405-84-27 08:07:000.4[facility] LancasterRvozkhYJZVYGQMKT5196-66-39 08:07:001.7[facility] LancasterHEMATOLOGY 2018-07-14 08:07:000.[address] [place], [place] [address]UeorbaXEAMGUJTCI4357-94-44 08:07:[address] [place], [place] [address]YouhlnYFMUWWWOPC2064-67-89 08:07:001+ *ABN*(07/14/18 3:07 AM)[facility] LancasterAjrbtwWIPXUVIAOV8294-41-44 08:07:0011.7[facility] ZNRZAUIJYR9317-66-26 08:07:0034.0[facility] LancasterZexsegOYOFZFUIRC6697-06-57 08:07:00 Test Item Value Reference Range Interpretation Comments MCH (test code = MCH) 34.6 pg 27.0-31.0 [facility] LancasterQlgywwJCWJCTFOHN5414-94-45 08:07:0034.6M[facility] ZPKPEGCGCE2922-84-35 08:07:53219.2MThe [facility] CampusBzalhxENOFNPLSXM8812-22-03 08:07:0014.0[facility] LancasterDwhqdnCMPEJAOVGF1298-10-31 08:07:74817ESCrescent Medical Center LancasterXzyhkoRCXVGANUZX5962-13-26 08:07:007.5[facility] LancasterHEMATOLOGY 2018-07-14 08:07:0019.9[facility] LancasterHivvmaCTEWJCZDRK9030-01-28 08:07:003.39 [facility] LancasterCHEM HOVTK1219-84-77 05:41:001.[address] [place] [address] CHEM WDUWT5561-18-54 01:17:001.0[facility] LancasterCHEM BGVNI5128-65-19 00:23:005.97[facility] LancasterNITROFURANTOIN:SUSC:PT:ISOLATE:ORDQN:YOLANDA 2018-07-13 22:10:00Escherichia coliCrescent Medical Center LancasterDRUG RVEFWG0277-43-29 21:18:00Negative *NA*(07/13/18 4:18 PM)[facility] LancasterDRUG SCREEN 2018-07-13 21:18:00See Note (07/13/18 4:18 PM)[facility] LancasterDRUG SCREEN 2018-07-13 21:18:00Negative *NA*(07/13/18 4:18 PM)[facility] LancasterDRUG VVPDIK4225-61-78 21:18:00Negative *NA*(07/13/18 4:18 PM)[facility] DRUG XVEFJS2445-69-43 21:18:00Negative *NA*(07/13/18 4:18 PM)[facility] LancasterDRUG JEYACF1345-12-28 21:18:00Negative *NA*(07/13/18 4:18 PM)[facility] LancasterDRUG TRHCVN3785-04-97 21:18:00Negative *NA*(07/13/18 4:18 PM)[facility] LancasterDRUG IZUCPD5214-61-62 21:18:00Negative *NA*(07/13/18 4:18 PM) [facility] AND JCMYC9941-98-84 21:18:00Negative *NA*(07/13/18 4:18 PM)[facility] AND FWTUQ2304-41-47 21:18:00Negative *NA*(07/13/18 4:18 PM)[facility] AND FMDSK2101-72-24 21:18:00 Negative (07/13/18 4:18 PM)[facility] AND [id number] 21:18:00 Test Item Value Reference Range Interpretation Comments UA pH (test code = UA pH) 7.0 1 5.0-8.0 [facility] AND FVDEE6960-43-38 21:18:000.2[facility] YEQOQ4893-13-77 21:18:00Negative (07/13/18 4:18 PM)[facility] AND HALDN3940-61-11 21:18:00Small *ABN*(07/13/18 4:18 PM)[facility] AND JFOTJ3219-01-80 21:18:00<=1.005 *NA*(07/13/18 4:18 PM)[facility] AND EUSZG5719-54-03 21:18:00Moderate *ABN*(07/13/18 4:18 PM)[facility] AND GMGYT6713-30-84 21:18:00 Yellow *NA*(07/13/18 4:18 PM)[facility] AND QMPSZ1031-83-06 21:18:00Clear (07/13/18 4:18 PM)[facility] 20:48:00 Test Item Value Reference Range Interpretation Comments CHD Risk (test code = CHD Risk) 2.25 1 3.90-5.80 [facility] 20:48:0074[facility] 2018-07-13 20:48:00 Test Item Value Reference Range Interpretation Comments VLDL (test code = VLDL) 17 1 [facility]IDS2019-05-01 20:48:84138NQCrescent Medical Center LancasterLIPIDS 2018-07-13 20:48:0073[facility] LancasterLIPIDS2019-05-01 20:48:0085[facility] GERCTPYDO5997-44-95 20:48:004.6MThe Hospitals [facility] CampusCHEM BIHNQ0910-58-51 19:45:001.2M[facility] Memorial CampusCARDIAC DIEWNXP9759-08-32 19:30:20800FYCrescent Medical Center LancasterCARDIAC OIBIOYW9065-71-99 19:30:00<0.02[facility] LancasterXuxldkXODAEKUFMI1703-90-14 19:30:0013.7[facility] BGFFHQZITS3899-53-20 19:30:29785RXCrescent Medical Center LancasterBnopdrTMHRUBXSPM2996-37-17 19:30:0013.9[facility] LancasterWjprumLECVDEZKAP9901-07-57 19:30:003.76[facility] LancasterIytikjUWSNXMHXFQ8769-98-14 19:30:007.5[facility] LancasterHEMATOLOGY 2018-07-13 19:30:00 Test Item Value Reference Range Interpretation Comments MCH (test code = MCH) 33.6 pg 27.0-31.0 [facility] LancasterOjhlziMJTSGQKRNB9663-85-22 19:30:0098.4[facility] MHODNRCBLT6043-83-68 19:30:[address] [place], [place] [address]LhltwhVGAHMHBVWD1603-21-20 19:30:0037.0[facility] LancasterHoyxdgIRINPDTORJ4590-60-36 19:30:[address] [place], [place] [address]CesswfPFNDRLQGXX9882-45-23 19:30:00 Test Item Value Reference Range Interpretation Comments PT (test code = PT) 13.3 s 12.0-14.7 [facility] LancasterPjnqcdCXSXRQKMNZ7395-03-54 19:30:00 Test Item Value Reference Range Interpretation Comments INR (test code = INR) 1.03 1 0.85-1.17 [facility] LancasterVvsuwnBWYKAGIJXS8580-50-26 19:30:00 Test Item Value Reference Range Interpretation Comments PTT (test code = PTT) 29.9 s 22.9-35.8 [facility] LancasterZdcchpCZYQDUKYVY2686-18-59 19:30:[address] [place] [address] FXLBMDUORD4229-45-07 19:30:000.5[facility] LancasterNyiozgBNAWMPRUTH6622-94-68 19:30:000.2MThe Hospitals [facility] Memorial CampusLslccoRTLEXXFONQ7442-25-53 19:30:006.9[facility] LancasterFgtjppNWBKSDINKK4478-68-08 19:30:001.0[facility] LancasterHEMATOLOGY 2018-07-13 19:30:0012.6MThe Hospitals Of [facility] Memorial CampusYubemfCPBQECPNPN0454-00-28 19:30:000.3MThe [facility] Memorial CampusNvqjliXCZGEZTERU7847-82-26 19:30:[address] [place] [address] GHGXVKIIAJ5847-32-99 19:30:001+ *ABN*(07/13/18 2:30 PM)[facility] NTOOTBQLTV1118-42-93 19:30:00Normal (07/13/18 2:30 PM)[facility] HDSRGLBAFK3736-43-48 19:30:[address] [place] [address]
--- OUTSIDE RECORDS SUMMARY | 2019-08-11 07:57 | XMS REPORT ---
:1955 Author Organization [employer] Care Team Providers Name Role Phone Gonzalez, Sandy Provider Role Unavailable Allergies No Known Allergies Problems Problem Type Condition Code Onset Dates Condition Statu s Problem Chronic back pain M54.9 Active Problem [...] fracture Problem Restless leg syndrome G25.81 Active Problem Essential hypertension I10 Activ e Problem Hypertension, uncontrolled I10 A ctive Problem Sarcoidosis, lung D86.0 Active Problem Mixed stress and urge urinary N39.46 Active incontinence Problem Mixed hyperlipidemia E78.2 Active Problem CKD (chronic kidney disease), stage N18.3 Active III Problem Seasonal allergies J30.2 Active Problem Acute sinusitis, unspecified J01.90 Active Problem Other specified bacterial agents as B96.89 Active the cause of diseases classified elsewhere Problem Hypokalemia E87.6 Active Problem Right foot pain M79.671 Active Problem Influenza vaccine needed Z23 Act sb Problem Cough R05 Active Problem Hyponatremia E87.1 Active Medications Medication Code Code Instructions Start End Status Dosage System Date Date Levothyroxine [facility] [id number] 150 MCG Orally Active 1 tablet Sodium Once a day on an empty stomach in the morning Results No Known Results Summary Purpose [employer]Works Submission
--- OUTSIDE RECORDS SUMMARY | 2019-08-11 07:57 | XMS REPORT ---
[...] Start End Status Dosage System Date Date Ferrous Sulfate [facility] 42202519407 325 (65 Fe) MG Activ e TAKE ONE TABLET THREE TIMES DAILY [place] 60609426706 7.5-325 MG Active 1 tablet Orally every as needed 12 hrs Ziprasidone HCl ND 70778888392 40 MG Orally a Activ e 1 capsule day with food Topamax [facility] 34577766568 50 MG Orally Active 1 table t Once a day Equetro [facility] 59591402782 300 MG Orally Active 1 caps ule three times a day Flonase [facility] 62989076395 50 MCG/ACT Active 2 spray i n Nasally Once a each day nostril Aspirin Adult Low [facility] 67444950720 81 MG Orally Activ e 1 tablet Dose Once a day Alendronate Sodium [facility] 24305939505 70 MG Active T CARLA 1 TABLET BY MOUTH ONCE A WEEK Myrbetriq [facility] 70380902624 25 MG Orally Active 1 tab let Once a day Metoprolol [facility] 80251403276 50 MG Orally Active take 1 Succinate ER Once a day tablet b y mouth every day Acetaminophen [facility] [address]-37 325 MG Orally Active 2 capsule every 6 hrs as needed Geodon [facility] 20483756276 80 MG Orally Active 1 capsu le Twice a day with food Levothyroxine [facility] 18924438155 150 MCG Orally Active 1 tablet Sodium Once a day on an empty stomach in the morning Amitiza [facility] 55321053045 24 MCG Orally Active 1 caps ule Twice a day with food Atorvastatin [facility] 47533903967 10 MG Orally Active 1 tablet Calcium Once a day Simethicone [facility] 46803431073 80 MG Orally Active 1 t ablet Four times a after day meals and at bedtime as needed Clopidogrel [facility] 18205986678 75 MG Orally Active 1 t ablet Bisulfate Once a day Levothyroxine [facility] 71804806659 150 MCG Orally Active 1 tablet Sodium Once a day on an empty stomach in the morning Alendronate-Cholec [facility] [address]-64 70-2800 Active 1 tablet alciferol MG-UNIT Orally once a week Breo Ellipta [facility] 94877026013 100-25 MCG/INH Active 1 puff Inhalation Once a day Topamax [facility] 57235136717 100 MG Orally Active 1 tabl et Once a day Bactrim DS [facility] 66594598310 800-160 MG June Active 1 tabl et Orally Twice a 27, 04, day 2019 2019 Singulair [facility] 29240756731 10 MG Orally Active 1 tab let Once a day in the evening Macrobid [facility] 04445533775 100 MG Orally Active 1 cap jimmie every 12 hrs with food Klor-Con M10 [facility] 56077754303 10 MEQ Orally Active 1 tablet Twice a day with food Losartan Potassium ND 46489797758 50 MG Orally Acti ve 1 tablet Once a day Cymbalta ND 65826496327 60 MG Orally Active 1 caps ule Once a day Quetiapine ND 27206871829 25 MG Orally Active 1 ta blet Fumarate Once a day Nucynta [facility] 14859224533 50 MG Orally Active 1 table t every 6 hrs Ingrezza [facility] 28823849897 80 MG Orally Active 1 caps ule Once a day Sodium Chloride ND 39381662221 1 GM Orally Active as directed Zyrtec Allergy [facility] 91113557092 10 MG Orally Active 1 tablet Once a day ProAir HFA [facility] 63389821868 108 (90 Base) Active 2 p uffs as MCG/ACT needed Inhalation every 6 hrs Augmentin [facility] 77135287862 875-125 MG Active 1 table t Orally every 12 hrs DuoNeb ND 0 Inhalation Active as every 6 hrs directed Soma ND 44850802067 350 MG Orally Active 1 tabl et Four times a as needed day Pramipexole [facility] 51464141178 0.25 MG Orally Active 1 tablet Dihydrochloride Once a day befor e bedtime Zantac [facility] 42500402869 150 MG Orally Active 1 tabl et Once a day at bedtime Lasix ND 49741458800 40 MG Orally Active 1 table t Once a day Zofran [facility] 26527182538 4 MG Orally Active 1 tablet Once a day Magnesium Oxide ND 34949535583 500 MG Orally Active as directed Vitamin D-3 [facility] 46179888167 5000 UNIT Active as Orally directed Bumetanide [facility] 39922045672 1 MG Active TAKE 1 TABLET BY MOUTH EVERY DAY Fosamax Plus D [facility] 38747460268 70-2800 Active 1 tab let MG-UNIT Orally once a week Results No Known Results Summary Purpose eClinicalWorks Submission
--- OUTSIDE RECORDS SUMMARY | 2019-08-11 07:59 | XMS REPORT ---
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
--- OUTSIDE RECORDS SUMMARY | 2019-08-11 07:59 | XMS REPORT ---
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 Problem Mixed hyperlipidemia E78.2 Active Problem CKD (chronic kidney disease), stage N18.3 Active III Assessment Hypothyroidism E03.9 Active Problem Seasonal allergies J30.2 Active Assessment Hyperparathyroidism E21.3 Active Problem Acute sinusitis, unspecified J01.90 Active Assessment Sarcoidosis, lung D86.0 Active Problem Other specified bacterial agents as B96.89 Active the cause of diseases classified elsewhere Assessment Hyponatremia E87.1 Active Problem Hypokalemia E87.6 Active Assessment Mixed hyperlipidemia E78.2 Active Problem Right foot pain M79.671 Active Assessment Supplemental oxygen dependent Z99.81 Active Problem Influenza vaccine needed Z23 Act sb Problem Cough R05 Active Problem Hyponatremia E87.1 Active Medications Medication Code Code Instructions Start End Status Dosage System Date Date Topamax [facility] 38441622013 50 MG Orally Active 1 table t Once a day Myrbetriq [facility] 89772814949 25 MG Orally Active 1 tab let Once a day DuoNeb NDC 0 Inhalation Active as every 6 hrs directed Metoprolol [facility] 11694096662 50 MG Orally Active take 1 Succinate ER Once a day tablet b y mouth every day Aspirin Adult Low [facility] 17297136387 81 MG Orally Activ e 1 tablet Dose Once a day Breo Ellipta [facility] 52167847769 100-25 MCG/INH Active 1 puff Inhalation Once a day Zantac [facility] 47035785819 150 MG Orally Active 1 tabl et Once a day at bedtime Cymbalta [facility] 04578261944 60 MG Orally Active 1 caps ule Once a day Levothyroxine [facility] 21747097052 150 MCG Orally Active 1 tablet Sodium Once a day on an empty stomach in the morning Bumetanide [facility] 38253270450 1 MG Active TAKE 1 TABLET BY MOUTH EVERY DAY Fosamax Plus D [facility] 06160598352 70-2800 Active 1 tab let MG-UNIT Orally once a week Ingrezza [facility] 83121846119 80 MG Orally Active 1 caps ule Once a day [place] [facility] 92640077393 7.5-325 MG Active 1 tablet Orally every as needed 12 hrs Nucynta [facility] 63991393948 50 MG Orally Active 1 table t every 6 hrs ProAir HFA [facility] 44585418571 108 (90 Base) Active 2 p uffs as MCG/ACT needed Inhalation every 6 hrs Singulair [facility] 08174674390 10 MG Orally Active 1 tab let Once a day in the evening Losartan Potassium ND 46655131327 50 MG Orally Acti ve 1 tablet Once a day Alendronate-Cholec [facility] [address]-81 70-2800 Active 1 tablet alciferol MG-UNIT Orally once a week Vitamin D-3 [facility] 61067397969 5000 UNIT Active as Orally directed Pramipexole [facility] 87516865922 0.25 MG Orally Active 1 tablet Dihydrochloride Once a day befor e bedtime Flonase [facility] 85172378794 50 MCG/ACT Active 2 spray i n Nasally Once a each day nostril Ziprasidone HCl [facility] 68570898506 40 MG Orally a Activ e 1 capsule day with food Levothyroxine [facility] 25786442900 150 MCG Orally Active 1 tablet Sodium Once a day on an empty stomach in the morning Acetaminophen [facility] [address]-72 325 MG Orally Active 2 capsule every 6 hrs as needed Alendronate Sodium [facility] 84903960538 70 MG Active T CARLA 1 TABLET BY MOUTH ONCE A WEEK Zofran [facility] 48304585333 4 MG Orally Active 1 tablet Once a day Simethicone [facility] 64182374820 80 MG Orally Active 1 t ablet Four times a after day meals and at bedtime as needed Topamax [facility] 94847667708 100 MG Orally Active 1 tabl et Once a day Clopidogrel ND 52134061100 75 MG Orally Active 1 t ablet Bisulfate Once a day Klor-Con M10 [facility] 42700376980 10 MEQ Orally Active 1 tablet Twice a day with food Magnesium Oxide [facility] 53881330400 500 MG Orally Active as directed Augmentin [facility] 93882987845 875-125 MG Active 1 table t Orally every 12 hrs Ferrous Sulfate [facility] 27314260339 325 (65 Fe) MG Activ e TAKE ONE TABLET THREE TIMES DAILY Geodon [facility] 23172261508 80 MG Orally Active 1 capsu le Twice a day with food Sodium Chloride [facility] 07004518343 1 GM Orally Active as directed Quetiapine [facility] 71189685874 25 MG Orally Active 1 ta blet Fumarate Once a day Atorvastatin [facility] 27698334252 10 MG Orally Active 1 tablet Calcium Once a day Equetro [facility] 73370788903 300 MG Orally Active 1 caps ule three times a day Zyrtec Allergy [facility] 82145138489 10 MG Orally Active 1 tablet Once a day Lasix ND 89543753485 40 MG Orally Active 1 table t Once a day Amitiza ND 98652539224 24 MCG Orally Active 1 caps ule Twice a day with food Soma [facility] 38199652292 350 MG Orally Active 1 tabl et Four times a as needed day Results No Known Results Summary Purpose eClinicalWorks Submission
--- OUTSIDE RECORDS SUMMARY | 2019-08-11 07:59 | XMS REPORT ---
[...] Code Onset Dates Condition Statu s Assessment Acute urinary tract infection N39.0 Active Problem Chronic back pain M54.9 Active [...] Start End Status Dosage System Date Date Cymbalta [facility] 71145875119 60 MG Orally Active 1 caps ule Once a day Levothyroxine [facility] 95581655151 150 MCG Orally Active 1 tablet Sodium Once a day on an empty stomach in the morning Pramipexole [facility] 12095500658 0.25 MG Orally Active 1 tablet Dihydrochloride Once a day befor e bedtime Metoprolol [facility] 55755140361 50 MG Orally Active take 1 Succinate ER Once a day tablet b y mouth every day Aspirin Adult Low [facility] 62546287790 81 MG Orally Activ e 1 tablet Dose Once a day Equetro [facility] 48838062479 300 MG Orally Active 1 caps ule three times a day Amitiza [facility] 83366618578 24 MCG Orally Active 1 caps ule Twice a day with food Zantac [facility] 40653702168 150 MG Orally Active 1 tabl et Once a day at bedtime [place] [facility] 27909990304 7.5-325 MG Active 1 tablet Orally every as needed 12 hrs Breo Ellipta [facility] 92033636984 100-25 MCG/INH Active 1 puff Inhalation Once a day Alendronate-Cholec [facility] [address]-16 70-2800 Active 1 tablet alciferol MG-UNIT Orally once a week Levothyroxine [facility] 82282305773 150 MCG Orally Active 1 tablet Sodium Once a day on an empty stomach in the morning Ingrezza [facility] 30757915422 80 MG Orally Active 1 caps ule Once a day Geodon [facility] 48609566668 80 MG Orally Active 1 capsu le Twice a day with food Ferrous Sulfate [facility] 20848586572 325 (65 Fe) MG Activ e TAKE ONE TABLET THREE TIMES DAILY Soma [facility] 14434627311 350 MG Orally Active 1 tabl et Four times a as needed day Nucynta [facility] 78765247155 50 MG Orally Active 1 table t every 6 hrs Singulair [facility] 07384885132 10 MG Orally Active 1 tab let Once a day in the evening Zyrtec Allergy [facility] 59496386120 10 MG Orally Active 1 tablet Once a day Vitamin D-3 [facility] 33283623743 5000 UNIT Active as Orally directed Losartan Potassium [facility] 88890145611 50 MG Orally Acti ve 1 tablet Once a day Alendronate Sodium [facility] 16317088764 70 MG Active T CARLA 1 TABLET BY MOUTH ONCE A WEEK Magnesium Oxide ND 89740926423 500 MG Orally Active as directed Clopidogrel ND 39276900827 75 MG Orally Active 1 t ablet Bisulfate Once a day Topamax [facility] 06817474980 100 MG Orally Active 1 tabl et Once a day ProAir HFA [facility] 73283766807 108 (90 Base) Active 2 p uffs as MCG/ACT needed Inhalation every 6 hrs Zofran ND 86268195163 4 MG Orally Active 1 tablet Once a day Fosamax Plus D [facility] 56981922567 70-2800 Active 1 tab let MG-UNIT Orally once a week Sodium Chloride ND 31041585348 1 GM Orally Active as directed Simethicone ND 78292910053 80 MG Orally Active 1 t ablet Four times a after day meals and at bedtime as needed Bumetanide [facility] 58608101841 1 MG Active TAKE 1 TABLET BY MOUTH EVERY DAY Acetaminophen [facility] [address]-97 325 MG Orally Active 2 capsule every 6 hrs as needed Augmentin [facility] 30954004053 875-125 MG Active 1 table t Orally every 12 hrs Myrbetriq ND 43982417233 25 MG Orally Active 1 tab let Once a day Ziprasidone HCl ND 93623460096 40 MG Orally a Activ e 1 capsule day with food Atorvastatin [facility] 26528676313 10 MG Orally Active 1 tablet Calcium Once a day Quetiapine [facility] 04252316582 25 MG Orally Active 1 ta blet Fumarate Once a day Macrobid [facility] 21035693239 100 MG Orally Active 1 cap ijmmie every 12 hrs with food Topamax [facility] 64985087643 50 MG Orally Active 1 table t Once a day Klor-Con M10 [facility] 11224120241 10 MEQ Orally Active 1 tablet Twice a day with food Flonase ND 17243557459 50 MCG/ACT Active 2 spray i n Nasally Once a each day nostril DuoNeb NDC 0 Inhalation Active as every 6 hrs directed Lasix ND 79855983233 40 MG Orally Active 1 table t Once a day Results Name Result Date Reference Range Unit Abnormali ty Flag Urine Culture,Comprehensi ve ----Urine Final report [id number] A Culture,Comprehensi ve ----Result 1 Serratia marcescens [id number] A URINALYSIS AUTO W/O SCOPE (91691) ----NIT neg [id number] ----PROTEIN neg [id number] ----ONE 1+ [id number] ----BLO neg [id number] ----pH 5.5 20190710 ----KETONES neg [id number] ----SPECIFIC 1.020 [id number] GRAVITY ----GLUCOSE neg [id number] Summary Purpose eClinicalWorks Submission
--- OUTSIDE RECORDS SUMMARY | 2019-08-11 08:00 | XMS REPORT ---
[...] Code Onset Dates Condition Statu s Problem COPD (chronic obstructive pulmonary J44.1 Active disease) with acute bronchitis Problem Chronic back pain M54.9 Active Problem Edema R60.9 Active Problem Bipolar disorder F31.9 Active Problem GERD (gastroesophageal reflux K21.9 Active disease) Problem Hypothyroidism E03.9 Active Problem COPD (chronic obstructive pulmonary J44.9 Active disease) Problem Migraine G43.909 Active Problem Hypertension, uncontrolled I10 A ctive Problem Restless leg syndrome G25.81 Active Problem Mixed stress and urge urinary N39.46 Active incontinence Problem Sarcoidosis, lung D86.0 Active Problem Age-related osteoporosis without M81.0 Active current pathological fracture Problem Hospital discharge follow-up Z09 Active Problem Hypercalcemia E83.52 Active Problem TIA (transient ischemic attack) G45.9 Active Problem Yeast vaginitis B37.3 Active Problem Acute cystitis without hematuria N30.00 Active Problem Seasonal allergies J30.2 Active Problem Hypokalemia E87.6 Active Problem Dysuria 788.1 Active Problem Other specified bacterial agents as B96.89 Active the cause of diseases classified elsewhere Problem CKD (chronic kidney disease), stage N18.3 Active III Problem Essential hypertension I10 Activ e Problem Hyperparathyroidism E21.3 Active Problem Mixed hyperlipidemia E78.2 Active Problem Hyponatremia E87.1 Active Problem Memory deficit R41.3 Active Problem Right foot pain M79.671 Active Assessment Yeast vaginitis B37.3 Active Problem Acute sinusitis, unspecified J01.90 Active Assessment Acute cystitis without hematuria N30.00 Active Problem Cough R05 Active Problem Influenza vaccine needed Z23 Act sb Assessment Mixed stress and urge urinary N39.46 Active incontinence Problem Supplemental oxygen dependent Z99.81 Active Problem Urinary incontinence, unspecified R32 Active type Problem Screening mammogram, encounter for Z12.31 Active Medications Medication Code Code Instructions Start End Status Dosage System Date Date Vitamin D-3 [facility] 36512212985 5000 UNIT Active as Orally directed Amitiza [facility] 79082052661 24 MCG Orally Active 1 caps ule Twice a day with food Fluconazole [facility] 15521064004 150 MG Orally August 01July Active 1 tablet 1 dose today, 2019 repeat 2019 dose in 1 week Ferrous Sulfate [facility] 83230045421 325 (65 Fe) MG Activ e TAKE ONE TABLET THREE TIMES DAILY Myrbetriq [facility] 46291736583 25 MG Orally Active 1 tab let Once a day Sodium Chloride ND 61784973077 1 GM Orally Active as directed Zantac [facility] 11461484565 150 MG Orally Active 1 tabl et Once a day at bedtime Topamax [facility] 03928366325 100 MG Orally Active 1 tabl et Once a day Simethicone [facility] 01274056626 80 MG Orally Active 1 t ablet Four times a after day meals and at bedtime as needed Ziprasidone HCl ND 15403093154 40 MG Orally a Activ e 1 capsule day with food Lasix [facility] 71716692757 40 MG Orally Active 1 table t Once a day Bactrim DS [facility] 83272353786 800-160 MG August 01July Active 1 tabl et Orally Twice a 2019 Augmentin [facility] 05404080344 875-125 MG Active 1 table t Orally every 12 hrs Aspirin Adult Low [facility] 92367990014 81 MG Orally Activ e 1 tablet Dose Once a day Zyrtec Allergy [facility] 38097162500 10 MG Orally Active 1 tablet Once a day Ingrezza [facility] 89047242325 80 MG Orally Active 1 caps ule Once a day Cymbalta [facility] 28579336847 60 MG Orally Active 1 caps ule Once a day Topamax [facility] 34200521352 50 MG Orally Active 1 table t Once a day [place] [facility] 27448102390 7.5-325 MG Active 1 tablet Orally every as needed 12 hrs Levothyroxine [facility] 20145959647 150 MCG Orally Active 1 tablet Sodium Once a day on an empty stomach in the morning Klor-Con M10 [facility] 69983043787 10 MEQ Orally Active 1 tablet Twice a day with food Nucynta [facility] 54834173617 50 MG Orally Active 1 table t every 6 hrs Levothyroxine [facility] 03137670974 150 MCG Orally Active 1 tablet Sodium Once a day on an empty stomach in the morning Pramipexole [facility] 56551335288 0.25 MG Orally Active 1 tablet Dihydrochloride Once a day befor e bedtime Acetaminophen [facility] [address]-19 325 MG Orally Active 2 capsule every 6 hrs as needed Losartan Potassium [facility] 26774218825 50 MG Orally Acti ve 1 tablet Once a day Geodon [facility] 85565148298 80 MG Orally Active 1 capsu le Twice a day with food DuoNeb ND 0 Inhalation Active as every 6 hrs directed Bumetanide [facility] 99587317872 1 MG Active TAKE 1 TABLET BY MOUTH EVERY DAY Metoprolol [facility] 36104236114 50 MG Orally Active take 1 Succinate ER Once a day tablet b y mouth every day Alendronate-Cholec [facility] [address]-35 70-2800 Active 1 tablet alciferol MG-UNIT Orally once a week Singulair [facility] 65082294185 10 MG Orally Active 1 tab let Once a day in the evening Alendronate Sodium [facility] 75544637715 70 MG Active T CARLA 1 TABLET BY MOUTH ONCE A WEEK Macrobid [facility] 90486826023 100 MG Orally Active 1 cap jimmie every 12 hrs with food Soma [facility] 93404679192 350 MG Orally Active 1 tabl et Four times a as needed day Clopidogrel [facility] 71432133257 75 MG Orally Active 1 t ablet Bisulfate Once a day Fosamax Plus D [facility] 99151814049 70-2800 Active 1 tab let MG-UNIT Orally once a week Atorvastatin [facility] 94967742088 10 MG Orally Active 1 tablet Calcium Once a day Flonase [facility] 32515652361 50 MCG/ACT Active 2 spray i n Nasally Once a each day nostril Zofran [facility] 17923081507 4 MG Orally Active 1 tablet Once a day Quetiapine [facility] 79546170111 25 MG Orally Active 1 ta blet Fumarate Once a day ProAir HFA [facility] 33784975778 108 (90 Base) Active 2 p uffs as MCG/ACT needed Inhalation every 6 hrs Breo Ellipta [facility] 10472729464 100-25 MCG/INH Active 1 puff Inhalation Once a day Magnesium Oxide [facility] 53384595185 500 MG Orally Active as directed Equetro [facility] 92210331937 300 MG Orally Active 1 caps ule three times a day Results Name Result Date Reference Range Unit Abnormali ty Flag URINALYSIS AUTO W/O SCOPE (00280) ----NOE 1+ [id number] ----NIT neg [id number] ----PROTEIN neg [id number] ----pH 6.5 20190802 ----GLUCOSE neg [id number] ----KETONES neg [id number] ----SPECIFIC GRAVITY 1.015 [id number] ----BLO neg [id number] Summary Purpose eClinicalWorks Submission
[2019-08-11] MEDS ORDERED: propofoL 200 MG/20 ML VIAL IV ONE (08:45)
[2019-08-11] MEDS ORDERED: LIDOCAINE 2% MPF 5 ML VIAL ONE (08:45)
[2019-08-11] MEDS ORDERED: MIDAZOLAM HCL 2 MG/2 ML INJ ONE (08:45)
[2019-08-11] MEDS ORDERED: FENTANYL CITR 250 MCG/5 ML ONE (08:45)
[2019-08-11] MEDS ORDERED: dexAMETHasone 10 MG/ML VIAL ONE (08:45)
[2019-08-11] MEDS ORDERED: ROCURONIUM 50 MG/5 ML VIAL IV ONE (08:45)
[2019-08-11] MEDS ORDERED: LIDOCAINE 1% W/EPI 1:100,000 MDV 20 ML VIAL ONE (08:51)
[2019-08-11] MEDS ORDERED: Phenylephrine HCl 10 MG/ML 1 ML VIAL ONE (09:31)
--- NOTE | 2019-08-11 09:48 | P.BOP ---
Preoperative diagnosis: hyperparathyroidism, hypercalcemia Postoperative diagnosis: same Primary procedure: left inferior parathyroidectomy Family Practice Medical Doctor: NONE,NONE Estimated blood loss: <5ml Specimen: parathyroid Anesthesia: General Complications: None Implants: none Fluids & blood products: 1L crystalloid Transferred to: Recovery Room Condition: Good
[2019-08-11] MEDS ORDERED: KETOROLAC 30 MG/ML INJ ONE (09:50)
[2019-08-11 12:57] VITALS: BP 150/85; TEMP 97.5; O2SAT 99
--- NOTE | 2019-08-11 22:43 | OP ---
Date of Procedure: 08/11/2019 Surgeon: Tequila Saldaña MD Preoperative Diagnoses: Hyperparathyroidism, hypercalcemia. Postoperative Diagnoses: Hyperparathyroidism, hypercalcemia. Procedure: Left inferior parathyroidectomy. Indication For Procedure: Domitila Huertas presented to the ENT clinic with hypercalcemia. She has been diagnosed with significant osteoporosis resulting in a pathologic fracture of the wrist, which required surgery. Her hypercalcemia has been present for at least 3 years. She has had elevated calciums ranging from 10.1 to 10.9 with a PTH of 133. Her initial evaluation including a sestamibi scan was negative for localization. She subsequently underwent a 4D CT scan of the neck with localization to the left side. She was scheduled for surgery earlier in the spring. The surgery was canceled and delayed due to the COVID health pandemic. She presents today for her elective surgery. Her nasopharyngeal swab prior to surgery was negative for COVID. On the day of surgery, the PTH analyzer was nonfunctional. I discussed the risks and benefits with the patient in terms of intraoperative PTH management. Due to the good localization and symptoms with prior significant delays, the patient opted to proceed with surgery accepting that preoperative, intraoperative, and postoperative PTH measurements would not be feasible. Description Of Procedure: The patient was brought to the operating room. She was placed under general anesthetic via oral endotracheal tube. The shoulder roll was placed. The neck was extended, but supported. The planned incision site on the low left neck was injected with 1% lidocaine with epinephrine to aid in postoperative pain control. The neck was prepped with Betadine and draped in a sterile fashion. A 2.5 cm incision was made through the skin and subcutaneous tissues. The platysma was identified and divided. The fatty tissue was lightly debrided and the anterior border of the left sternocleidomastoid muscle was identified. This was retracted laterally and additional fatty tissue was dissected. The strap muscles were then identified and retracted. After retraction of the strap muscle, careful dissection revealed an obvious nodular lesion, which was consistent with parathyroid tissue. The mass was completely removed and was sent to pathology for frozen section. After carefully considering the preoperative imaging with localization to this spot, the surgical bed was evaluated by visual inspection and palpation. The lesion was lying between the trachea and the carotid artery and the inferior pole of the thyroid was easily visualized in the superior portion of the surgical field. Careful inspection of this area revealed no other lesions that were felt to be likely candidates for parathyroid tissue and the decision was made to proceed with closure with the frozen section results still pending. The deep tissues were approximated using a 4-0 Vicryl suture. The skin was then closed with a subcuticular 5-0 Monocryl. Due to patient's listed allergy to adhesives, no Dermabond or other dressing was applied to the skin. The patient was then returned to care of anesthesia for awakening in the operating room, which proceeded without difficulty. The patient was extubated and transported to the recovery room without difficulty. Intravenous Fluids: 1 L crystalloid. Estimated Blood Loss: Less than 5 mm. Specimen: Left inferior parathyroid, frozen section diagnosis later confirmed a hypercellular parathyroid tissue with a small amount of adjacent thyroid tissue. Disposition: The patient will be discharged home later today in the care of her spouse. TOSHIA/JOHNNY Voice ID: [id number] Report ID: [id number]
--- NOTE | 2019-08-13 14:07 | EKG ---
Test Date: 2019-08-08 Test Time: 15:12:07 Programmer Analyst: AMAURY MEASUREMENT RESULTS: Intervals: Rate: 72 WV: 170 QRSD: 86 QT: 406 QTc: 444 Ararat: P: 58 WV: 170 QRS: -14 T: 53 INTERPRETIVE STATEMENTS: Normal sinus rhythm Normal ECG Compared to ECG 09/08/2016 13:02:29 No significant changes Electronically Signed On 08-13-19 14:06:19 CDT by Perry Guzman
== END 2019-08-11 12:29 | disposition home or self-care (01) ==
LOC: OR 07:43
PROVIDERS: ATTEND Otolaryngology
PROC: 0GBP0ZZ Excision of Left Inferior Parathyroid Gland, Open Approach (ICD-10-PCS; principal; 2019-08-11 08:45)
DX: E21.0 Primary hyperparathyroidism (principal); Z11.59 Encounter for screening for other viral diseases
CPT/HCPCS: 60500; 93005; 36415 ×2; 88331; 88305; 88333; 80053; J2704; J2370; J2250; J3010; J1100; J0690; J7120 ×2

== ENCOUNTER 2021-01-03 10:38 | Emergency (ER) | payer OTHER ==
[2021-01-03 11:51] LABS: Absolute Lymphocytes (CBC) 0.8 K/uL (0.7-4.9); Basophils % 0.8 % (0-1.3); Hematocrit 35.3 % (36.0-45.0); Lymphocytes % 14.6 % (15.3-44.8); MPV 7.6 fL (7.6-11.3); RBC Red Blood Cell Count 3.58 M/uL (3.86-4.86)
[2021-01-03] MEDS ORDERED: NA CHLORIDE 0.9% 500 ML ONE (11:56)
[2021-01-03 12:21] LABS: ALT/SGPT 40 U/L (12-78); AST/SGOT 28 U/L (15-37); Albumin 3.4 g/dL (3.4-5.0); Alkaline Phosphatase 93 U/L (45-117); BUN Blood Urea Nitrogen 22 mg/dL (7-18); Bicarbonate 28 mmol/L (21-32); Bilirubin Total 0.5 mg/dL (0.2-1.0); Glucose Level 94 mg/dL (74-106); Protein, Total 6.3 g/dL (6.4-8.2); Sodium Level 139 mmol/L (136-145); Troponin (Emerg Dept Use Only) < 0.02 ng/mL (0.0-0.045)
[2021-01-03 12:27] LABS: Urine Blood Negative (Negative); Urine Glucose Negative (Negative); Urine Protein Negative (Negative); Urine Specific Gravity 1.015 (1.005-1.030)
--- NOTE | 2021-01-03 12:44 | EDPHYS ---
Physician Documentation [facility] Name: Domitila Huertas Age: 65 yrs Sex: Female : 1955 Arrival Date: 01/03/2021 Time: 10:40 Bed 16 Private MD: Perry Guzman S; Vang, Na ED Physician Dallas Meyer HPI: 01/03 12:10 This 65 yrs old Female presents to ER via Ambulatory with complaints of took toni wrong meds. 12:10 TOOK HUSBANDS MEDS. Onset: The symptoms/episode began/occurred today. Severity of toni symptoms: At their worst the symptoms were NONE , in the emergency department the symptoms NONE , AT BASELINE. The patient has not experienced similar symptoms in the past. Historical: - Allergies: 11:02 adhesive tape; ss 11:02 amitriptyline HCl; ss 11:02 Azithromycin; ss 11:02 Demerol; ss 11:02 Erythromycin; ss 11:02 erythromycin base; ss 11:02 GABAPENTIN; ss 11:02 Levofloxacin; ss 11:02 Trazodone; ss 11:02 venlafaxine HCl; ss - PMHx: 11:02 COPD; corrective hand sx; Hypertension; ss - Immunization history:: Adult Immunizations up to date, Client reports receiving the 2nd dose of the Covid vaccine. - Social history:: Smoking status: Patient/guardian denies using tobacco, the patient reports quitting approximately 35 years ago. ROS: 12:10 Constitutional: Negative for fever, chills, and weight loss, Eyes: Negative for injury, toni pain, redness, and discharge, ENT: Negative for injury, pain, and discharge, Neck: Negative for injury, pain, and swelling, Cardiovascular: Negative for chest pain, palpitations, and edema, Respiratory: Negative for shortness of breath, cough, wheezing, and pleuritic chest pain, Abdomen/GI: Negative for abdominal pain, nausea, vomiting, diarrhea, and constipation, Back: Negative for injury and pain, : Negative for injury, bleeding, discharge, and swelling, MS/Extremity: Negative for injury and deformity, Skin: Negative for injury, rash, and discoloration, Neuro: Negative for headache, weakness, numbness, tingling, and seizure, Psych: Negative for depression, anxiety, suicide ideation, homicidal ideation, and hallucinations, Allergy/Immunology: Negative for hives, rash, and allergies, Endocrine: Negative for neck swelling, polydipsia, polyuria, polyphagia, and marked weight changes. Exam: 12:10 Constitutional: This is a well developed, well nourished patient who is awake, alert, toni and in no acute distress. Head/Face: Normocephalic, atraumatic. Eyes: Pupils equal round and reactive to light, extra-ocular motions intact. Lids and lashes normal. Conjunctiva and sclera are non-icteric and not injected. Cornea within normal limits. Periorbital areas with no swelling, redness, or edema. ENT: Nares patent. No nasal discharge, no septal abnormalities noted. Tympanic membranes are normal and external auditory canals are clear. Oropharynx with no redness, swelling, or masses, exudates, or evidence of obstruction, uvula midline. Mucous membranes moist. Neck: Trachea midline, no thyromegaly or masses palpated, and no cervical lymphadenopathy. Supple, full range of motion without nuchal rigidity, or vertebral point tenderness. No Meningismus. Chest/axilla: Normal chest wall appearance and motion. Nontender with no deformity. No lesions are appreciated. Cardiovascular: Regular rate and rhythm with a normal S1 and S2. No gallops, murmurs, or rubs. Normal PMI, no JVD. No pulse deficits. Respiratory: Lungs have equal breath sounds bilaterally, clear to auscultation and percussion. No rales, rhonchi or wheezes noted. No increased work of breathing, no retractions or nasal flaring. Abdomen/GI: Soft, non-tender, with normal bowel sounds. No distension or tympany. No guarding or rebound. No evidence of tenderness throughout. Back: No spinal tenderness. No costovertebral tenderness. Full range of motion. Skin: Warm, dry with normal turgor. Normal color with no rashes, no lesions, and no evidence of cellulitis. MS/ Extremity: Pulses equal, no cyanosis. Neurovascular intact. Full, normal range of motion. Neuro: Awake and alert, GCS 15, oriented to person, place, time, and situation. Cranial nerves II-XII grossly intact. Motor strength 5/5 in all extremities. Sensory grossly intact. Cerebellar exam normal. Normal gait. Psych: Awake, alert, with orientation to person, place and time. Behavior, mood, and affect are within normal limits. Vital Signs: 10:55 BP 131 / 97; Pulse 82; Resp 18; Temp 97.6(TE); Pulse Ox 100% on 2 lpm NC; Weight 69.85 ss kg; Height 5 ft. 4 in. (162.56 cm); Pain 0/10; 11:36 BP 137 / 77; Pulse 70; Resp 18; Pulse Ox 100% on 2 lpm NC; vg1 12:15 BP 125 / 77; Pulse 67; Resp 20; Pulse Ox 100% on 2 lpm NC; vg1 13:15 BP 134 / 79; Pulse 62; Resp 18; Pulse Ox 100% on 2 lpm NC; vg1 10:55 Body Mass Index 26.43 (69.85 kg, 162.56 cm) ss MDM: 11:10 Patient medically screened. [facility] 12:13 Data reviewed: vital signs, nurses notes, lab test result(s), EKG. Data interpreted: [facility] monitor technician: rate is 70 beats/min, rhythm is regular, Pulse oximetry: on room air is 100 %. Test interpretation: by ED physician or midlevel provider: ECG. Counseling: I had a detailed discussion with the patient and/or guardian regarding: the historical points, exam findings, and any diagnostic results supporting the discharge/admit diagnosis, lab results, radiology results, the need for outpatient follow up, for definitive care, a family practitioner. 01/03 11:11 Order name: CBC with Diff [facility] 01/03 11:11 Order name: Comprehensive Metabolic Panel [facility] 01/03 11:11 Order name: Troponin (emerg Dept Use Only); Complete Time: 12:44 [facility] 01/03 11:12 Order name: CBC with Automated Diff; Complete Time: 12:44 ED[facility] 01/03 11:12 Order name: Comprehensive Metabolic Panel; Complete Time: 12:44 ED[facility] 01/03 12:26 Order name: Urine Dipstick-Ancillary; Complete Time: 12:44 EDOR 01/03 11:11 Order name: EKG; Complete Time: 11:12 [facility] 01/03 11:11 Order name: EKG - Nurse/Tech; Complete Time: 11:37 [facility] 01/03 11:11 Order name: Urine Dipstick-Ancillary (obtain specimen); Complete Time: 12:27 toni Administered Medications: 11:40 Drug: NS 0.9% 500 ml Route: IV; Rate: bolus; Site: left antecubital; vg1 12:54 Follow up: IV Status: Completed infusion; IV Intake: 500ml vg1 Disposition Summary: 01/03/21 12:44 Discharge Ordered Location: Home toni Problem: new toni Symptoms: have improved toni Condition: Stable toni Diagnosis - Poisoning by other drugs, medicaments and biological substances, accidental toni (unintentional) Followup: toni - With: - When: 2 - 3 days - Reason: Recheck today's complaints, Continuance of care, Re-evaluation by your physician Discharge Instructions: - Discharge Summary Sheet toni - Chronic Obstructive Pulmonary Disease toni - Accidental Drug Poisoning, Adult toni - Hypertension, Adult toni - Hypertension, Adult, [id number] toni Forms: - Medication Reconciliation Form toni - Thank You Letter toni - Antibiotic Education toni - Prescription Opioid Use toni Signatures: Dispatcher [employer] Dallas Green MD MD cha Smirch, Shelby, RN RN Martha Nassar RN RN vg1
--- NOTE | 2021-01-03 12:44 | ER ---
Nurse's Notes [facility] Name: Domitila Huertas Age: 65 yrs Sex: Female : 1955 Arrival Date: 01/03/2021 Time: 10:40 Bed 16 Private MD: Perry Guzman S; Vang, Na Diagnosis: Poisoning by other drugs, medicaments and biological substances, accidental (unintentional) Presentation: 01/03 10:55 Chief complaint: Patient states: "She accidently took my morning dose of medications ss this morning and I called poison control and they said to come in and get checked out because I take a lot of heart meds." Pt states, "I just feel tired and my heart beating fast." Meds taken by accident include; Eliquis 5 mg, Entresto 49/51 mg, Amiodarone 200 mg, Carvedilol 12.5 mg, Fenofibrate 145 mg, Magnesium Oxide 400 mg, Digoxin 0.125 mcg, Furosemide 40 mg and ASA 81 mg. Chief complaint:. Coronavirus screen: Client denies travel out of the [place] in the last 14 days. Ebola Screen: Patient denies exposure to infectious person. Patient denies travel to an Ebola-affected area in the 21 days before illness onset. Initial Sepsis Screen: Does the patient meet any 2 criteria? No. Patient's initial sepsis screen is negative. Does the patient have a suspected source of infection? No. Patient's initial sepsis screen is negative. Risk Assessment: Do you want to hurt yourself or someone else? Patient reports no desire to harm self or others. Onset of symptoms was January 03, 2021. 10:55 Method Of Arrival: Ambulatory 10:55 Acuity: IRENE 2 ss Historical: - Allergies: 11:02 adhesive tape; ss 11:02 amitriptyline HCl; ss 11:02 Azithromycin; ss 11:02 Demerol; ss 11:02 Erythromycin; ss 11:02 erythromycin base; ss 11:02 GABAPENTIN; ss 11:02 Levofloxacin; ss 11:02 Trazodone; ss 11:02 venlafaxine HCl; ss - PMHx: 11:02 COPD; corrective hand sx; Hypertension; ss - Immunization history:: Adult Immunizations up to date, Client reports receiving the 2nd dose of the Covid vaccine. - Social history:: Smoking status: Patient/guardian denies using tobacco, the patient reports quitting approximately 35 years ago. Screenin:17 Abuse screen: Denies threats or abuse. Denies injuries from another. Nutritional ss screening: No deficits noted. Tuberculosis screening: Never had TB. 11:36 Fall Risk No fall in past 12 months (0 pts). No secondary diagnosis (0 pts). IV access vg1 (20 points). Ambulatory Aid- None/Bed Rest/Nurse Assist (0 pts). Gait- Normal/Bed Rest/Wheelchair (0 pts) Mental Status- Oriented to own ability (0 pts). Total Padron Fall Scale indicates No Risk (0-24 pts). Assessment: 11:17 Reassessment: Time of ingestion was 0730. Poison control recommends to monitor patient ss from 6 hours of ingestion and if patient does not have any decline in vitals signs and/or mental status than she may be discharged around 1330. 11:35 General: Appears in no apparent distress. comfortable, Behavior is calm, cooperative. vg1 Pain: Denies pain. Neuro: Level of Consciousness is awake, alert, obeys commands, Oriented to person, place, time, situation. Cardiovascular: Patient's skin is warm and dry. Respiratory: Airway is patent Respiratory effort is even, unlabored. GI: Abdomen is round non-distended, Reports nausea, Patient currently denies diarrhea, vomiting. : No signs and/or symptoms were reported regarding the genitourinary system. EENT: No signs and/or symptoms were reported regarding the EENT system. Derm: Skin is intact, is healthy with good turgor, Skin is pink, warm \\T\\ dry. Musculoskeletal: Circulation, motion, and sensation intact. 12:28 Reassessment: Patient appears in no apparent distress at this time. No changes from vg1 previously documented assessment. Patient and/or family updated on plan of care and expected duration. Pain level reassessed. Patient is alert, oriented x 3, equal unlabored respirations, skin warm/dry/pink. Vital Signs: 10:55 BP 131 / 97; Pulse 82; Resp 18; Temp 97.6(TE); Pulse Ox 100% on 2 lpm NC; Weight 69.85 ss kg; Height 5 ft. 4 in. (162.56 cm); Pain 0/10; 11:36 BP 137 / 77; Pulse 70; Resp 18; Pulse Ox 100% on 2 lpm NC; vg1 12:15 BP 125 / 77; Pulse 67; Resp 20; Pulse Ox 100% on 2 lpm NC; vg1 13:15 BP 134 / 79; Pulse 62; Resp 18; Pulse Ox 100% on 2 lpm NC; vg1 10:55 Body Mass Index 26.43 (69.85 kg, 162.56 cm) ss ED Course: 10:40 Patient arrived in ED. as 10:40 Sandy Gonzalez MD is Private Physician. as 10:40 Perry Guzman MD is Private Physician. as 11:02 Triage completed. ss 11:02 Arm band placed on right wrist. ss 11:10 Dallas Meyer MD is Attending Physician. toni 11:17 Patient has correct armband on for positive identification. Placed in gown. Bed in low ss position. Call light in reach. Side rails up X 1. 11:31 Martha Adams, RN is Primary Nurse. vg1 11:36 No provider procedures requiring assistance completed. vg1 11:37 CBC with Automated Diff Sent. 5 11:37 Comprehensive Metabolic Panel Sent. mh5 11:37 Troponin (emerg Dept Use Only) Sent. mh5 11:37 Comprehensive Metabolic Panel Sent. 5 11:37 CBC with Diff Sent. 5 11:37 Initial lab(s) drawn, by mo, sent to lab. Inserted saline lock: 20 gauge in right mh5 antecubital area, using aseptic technique. Blood collected. 11:38 Warm blanket given. panel monitor on. Pulse ox on. NIBP on. 5 11:38 EKG done, by ED staff, reviewed by Dallas Meyer MD. 5 12:44 Sandy Gonzalez MD is Referral Physician. toni 13:15 IV discontinued, intact, bleeding controlled, No redness/swelling at site. Pressure vg1 dressing applied. Administered Medications: 11:40 Drug: NS 0.9% 500 ml Route: IV; Rate: bolus; Site: left antecubital; vg1 12:54 Follow up: IV Status: Completed infusion; IV Intake: 500ml vg1 Intake: 12:54 IV: 500ml; Total: 500ml. vg1 Outcome: 12:44 Discharge ordered by . toni 13:14 Discharged to home ambulatory, with family. vg1 13:14 Condition: stable 13:14 Discharge instructions given to patient, family, Instructed on discharge instructions, follow up and referral plans. Demonstrated understanding of instructions, follow-up care. 13:15 Patient left the ED. vg1 Signatures: Dallas Meyer MD MD cha Martinez, Amelia as Smirch, Shelby, RN RN Lizzie Juan [facility] Martha Adams RN RN vg1 Corrections: (The following items were deleted from the chart) 11:17 10:55 BP 131 / 97; Pulse 82bpm; Resp 18bpm; Pulse Ox 100% RA; Temp 97.6F Temporal; ss 69.85 kg; Height 5 ft. 4 in.; BMI: 26.4; Pain 0/10; ss
[2021-01-03 13:23] VITALS: TEMP 97.6; O2SAT 100
[2021-01-03 13:27] VITALS: BP 134/79
== END 2021-01-03 13:15 | disposition home or self-care (01) ==
LOC: ER 10:38
DX: T50.991A Poisoning by other drugs, medicaments and biological substances, accidental (unintentional), initial encounter (principal); Z88.3 Allergy status to other anti-infective agents
CPT/HCPCS: 93005; 85025; 36415; 81003; 84484; 80053; 96360; 99284; J7040

== ENCOUNTER 2021-01-15 07:13 | Day surgery (SDC) | payer OTHER ==
[2021-01-15] MEDS ORDERED: Ringers Lactate 1,000 ML IV ONE (07:24)
[2021-01-15] MEDS ORDERED: LIDOCAINE 1% MPF 2 ML AMPULE ONE (08:56)
[2021-01-15] MEDS ORDERED: propofoL 200 MG/20 ML VIAL IV ONE ×4 (08:56→09:30)
--- NOTE | 2021-01-15 10:08 | ENDO RPT ---
[address], [address] EGD WITH DILATION PROCEDURE REPORT EXAM DATE: 01/15/2021 PATIENT NAME: Domitila Huertas MR#: [id number] BIRTHDATE: 1955 ATTENDING: Hayden [address] Dr STATUS: outpatient WIDE LOAD ESCORT: Kelin Paez RN and Judith Vaca CST INDICATIONS: The patient is a 65 yr old Female here for an EGD with dilation due to mid epigastric abdominal pain, periumbilical abdominal pain, nausea and vomiting, bloating, GERD, and dysphagia PROCEDURE PERFORMED: EGD with biopsy and EGD with dilatation over guidewire MEDICATIONS: Per Anesthesia. TOPICAL ANESTHETIC: none CONSENT: The patient understands the risks and benefits of the procedure and understands that these risks include, but are not limited to: sedation, allergic reaction, infection, perforation and/or bleeding. Alternative means of evaluation and treatment include, among others: physical exam, x-rays, and/or surgical intervention. The patient elects to proceed with this endoscopic procedure. DESCRIPTION OF PROCEDURE: During intra-op preparation period all mechanical medical equipment was checked for proper function. Hand hygiene and appropriate measures for infection prevention was taken. After the risks, benefits and alternatives of the procedure were thoroughly explained, Informed consent was verified, confirmed and timeout was successfully executed by the treatment team. The patient was anesthetized with topical anesthesia and the EG-[id number] ([id number]) endoscope was introduced through the mouth and advanced to the second portion of the duodenum. The instrument was slowly withdrawn as the mucosa was fully examined. LA Class A esophagitis was found in the lower esophagus. A Schatzki's ring was found in the lower esophagus. Savary dilation over a guidewire was performed subsequent esophageal biopsies to rule out eosinophilic esophagitis. A small hiatal hernia was found Moderate gastritis was found in the body of the stomach. Multiple biopsies were obtained and sent to pathology. Mild gastritis was found in the antrum. Multiple biopsies were obtained and sent to pathology. The duodenal bulb was normal in appearance, as was the postbulbar duodenum. Multiple biopsies were obtained and sent to pathology. Small bowel biopsies obtained with history of chronic unexplained diarrhea Dilation was performed at lower esophagus. DILATOR: SIZE(S): RESISTANCE: HEME: APPEARANCE: Dilator: Savary over guidewire Size(s): 14, 15 mm Heme: none Appearance: adequate COMMENT: Retroflexed views revealed a small hiatal hernia. ADVERSE EVENTS: There were no complications. IMPRESSIONS: 1. LA class A esophagitis in the lower esophagus 2. Schatzki's ring in the lower esophagus, s/p 14/15 mm Savary dilatations subsequent esophageal biopsies to rule out eosinophilic esophagitis 3. A small hiatal hernia was found 4. Moderate gastritis in the body of the stomach, s/p biopsies 5. Mild gastritis in the antrum, s/p biopsies 6. Small bowel biopsies obtained with history of chronic unexplained diarrhea RECOMMENDATIONS: 1. await biopsy results 2. acid suppression therapy REPEAT EXAM: Hayden Fleming Dr eSigned: Hayden Fleming Dr 01/15/2021 10:07 AM cc: CPT CODES: ICD9 CODES: PATIENT NAME: Domitila Huertas MR#: [id number]
--- NOTE | 2021-01-15 10:22 | ENDO RPT ---
[address], [id number] COLONOSCOPY PROCEDURE REPORT EXAM DATE: 01/15/2021 PATIENT NAME: Domitila Huertas MR #: [id number] BIRTHDATE: 1955 ATTENDING: Hayden [address] STATUS: outpatient AUTOMATIC EDGER: Kelin Paez RN and Judith Vaca CST INDICATIONS: The patient is a 65 yr old Female here for a colonoscopy due to change in bowel habits, unexplained chronic diarrhea, periumbiiical abdominal pain, history of colon cancer twice, personal history of colon polyps, family history of colon cancer - father, and family history of colon polyps - mother PROCEDURE PERFORMED: Colonoscopy with biopsy MEDICATIONS: Per Anesthesia. ESTIMATED BLOOD LOSS: None CONSENT: The patient understands the risks and benefits of the procedure and understands that these risks include, but are not limited to: sedation, allergic reaction, infection, perforation and/or bleeding. Alternative means of evaluation and treatment include, among others: physical exam, x-rays, and/or surgical intervention. The patient elects to proceed with this endoscopic procedure. DESCRIPTION OF PROCEDURE: During intra-op preparation period all mechanical medical equipment was checked for proper function. Hand hygiene and appropriate measures for infection prevention was taken. Procedure, possible complications, alternatives including, but not limited to possibility of bleeding, perforation, tear, infection, sepsis, need for surgery, need for blood transfusion, were explained to the patient. After the risks, benefits and alternatives of the procedure were thoroughly explained, Informed consent was verified, confirmed and timeout was successfully executed by the treatment team. The patient was placed in the left lateral position. A digital rectal exam was performed and revealed no abnormalities of the rectum. After appropriate level of anesthesia, the scope was passed. The EG-[id number] ([id number]) and [id number] ([id number]) endoscope was introduced through the anus and advanced to the ileum. The quality of the prep was good. The instrument was then slowly withdrawn as the colon was fully examined. Scope withdrawal time was 8 minutes. COLON FINDINGS: There was evidence of a prior ovrz-sb-[id number] surgical anastomosis in the proximal transverse colon. Diverticulum was found in the proximal transverse colon. The opening was small. Small internal hemorrhoids were found. Retroflexed views revealed small hemorrhoids. The scope was then completely withdrawn from the patient and the procedure terminated. Random biopsies of the ileum / colon / rectum obtained with history of chronic unexplained diarrhea. ADVERSE EVENTS: There were no complications. IMPRESSIONS: 1. Prior surgical anastomosis in the proximal transverse colon 2. Diverticulum in the proximal transverse colon 3. Small internal hemorrhoids 4. Intubation to terminal ileum 5. Random biopsies of the ileum / colon / rectum obtained with history of chronic unexplained diarrhea 6. History of colon cancer twice 7. Personal history of colon polyps 8. Family history of colon cancer - father 9. Family history of colon polyps - mother RECOMMENDATIONS: 1. await biopsy results 2. avoid NSAIDS RECALL: Return in 1-2 year(s) for Colonoscopy (history of colon cancer twice). Hayden Fleming Dr eSigned: Hayden Fleming Dr 01/15/2021 10:22 AM cc: CPT CODES: ICD9 CODES: 1. V45.3 Postsurgical intestinal bypass or anastomosis status 2. 562.10 Diverticulosis of colon (without mention of hemorrhage) PATIENT NAME: Domitila Huertas MR#: [id number]
[2021-01-15 11:03] VITALS: BP 145/81; TEMP 97.1; O2SAT 93
== END 2021-01-15 11:00 | disposition home or self-care (01) ==
LOC: OR 07:13
PROVIDERS: ATTEND Internal Medicine Gastroenterology
PROC: 0DBP8ZX Excision of Rectum, Via Natural or Artificial Opening Endoscopic, Diagnostic (ICD-10-PCS; 2021-01-15)
PROC: 0DB58ZX Excision of Esophagus, Via Natural or Artificial Opening Endoscopic, Diagnostic (ICD-10-PCS; 2021-01-15)
PROC: 0DB88ZX Excision of Small Intestine, Via Natural or Artificial Opening Endoscopic, Diagnostic (ICD-10-PCS; 2021-01-15)
PROC: 0DB68ZX Excision of Stomach, Via Natural or Artificial Opening Endoscopic, Diagnostic (ICD-10-PCS; 2021-01-15)
PROC: 0D758ZZ Dilation of Esophagus, Via Natural or Artificial Opening Endoscopic (ICD-10-PCS; 2021-01-15)
PROC: 0DBB8ZX Excision of Ileum, Via Natural or Artificial Opening Endoscopic, Diagnostic (ICD-10-PCS; principal; 2021-01-15 08:45)
PROC: 0DBE8ZX Excision of Large Intestine, Via Natural or Artificial Opening Endoscopic, Diagnostic (ICD-10-PCS; 2021-01-15 08:45)
DX: R15.9 Full incontinence of feces (principal); R19.4 Change in bowel habit; R19.7 Diarrhea, unspecified; Z86.010 Personal history of colon polyps; Z80.0 Family history of malignant neoplasm of digestive organs; R14.0 Abdominal distension (gaseous); R10.13 Epigastric pain; R11.2 Nausea with vomiting, unspecified; R13.10 Dysphagia, unspecified; Z20.822 Contact with and (suspected) exposure to COVID-19; K29.50 Unspecified chronic gastritis without bleeding; Z85.038 Personal history of other malignant neoplasm of large intestine; K64.8 Other hemorrhoids; K57.90 Diverticulosis of intestine, part unspecified, without perforation or abscess without bleeding; K44.9 Diaphragmatic hernia without obstruction or gangrene
CPT/HCPCS: 88312; 88313; 88305; 45380; 43239; 43248; U0003; J2704 ×4; J7120

== ENCOUNTER 2021-02-17 10:51 | Emergency (ER) | payer OTHER ==
--- OUTSIDE RECORDS SUMMARY | 2021-02-17 10:57 | XMS REPORT | Continuity of Care Document ---
:1955 Author Organization [facility] t Address [address] [place] [address] Dr. [address] [place] [address] Care Team Providers Name Role Phone SULLIAVN, LEONARD Primary Care Physician Unavailable DENISE Attending Clinician Unavailable PATRICE Attending Clinician Unavailable Noy AVELAR Attending Clinician Luigi TRAN Attending Clinician Monika HAILE Attending Clinician MONIKA Attending Clinician Unavailable DLE Attending Clinician Unavailable PAUL Attending Clinician Unavailable TITUS Attending Clinician Unavailable Monika HAILE Admitting Clinician MONIKA Admitting Clinician Unavailable Payers Payer Name Policy Type Policy Number Effective Date Expiration Date S ource Problems Condition Condition Condition Status Onset Resolution Last Treating Co mments Source Name Details Category Date Date Treatment Clinician Date Obesity Obesity Disease Active 2020-0 Univers (BMI (BMI 6-10 ity of 30-39.9) 30-39.9) 00:00: [place] [address] Medical Branch Urinary Urinary Disease Active 2020- Univers tract tract 6-10 ity of infection, [place] site [place] site not 00 Medica l specified specified Bran ch Stroke Stroke Disease Active 2020-0 Univers 6-09 ity of 00:00: [place] [address] Medical Branch Primary Primary Disease Active Univers hypothyroi hypothyroi 4-11 it y of dism dism 00:00: [place] [address] Medical Branch Distal Distal Disease Active 2014-03 Univers radius radius 1-09 ity of fracture fracture 00:00: [place] 00 [facility] Branch Acute Acute Disease Active 2014-03 Univers chest pain chest pain 0-23 it y of 00:00: [place] 00 Medical Branch Hyponatrem Hyponatrem Disease Active 2014-03 U nivers ia ia 0-23 ity of 00:00: [place] 00 Medical Branch History of History of Problem Resolve Univers hyperlipid hyperlipid d it y of [place] [facility] Hypertensi Hypertensi Problem Active U nivers on on ity of [place] [facility] Brain TIA Brain TIA Problem Active Uni vers [facility] [place] [facility] Hyperlipid Hyperlipid Problem Active U nivers emia emia ity of [place] [facility] Encounter Encounter Problem Active Uni vers for for [place] of [place] examin[place] examin[place] Ph ysici n for n for ans other other mental mental health and health and behavioral behavioral disorders disorders Allergies, Adverse Reactions, Alerts Allergy Allergy Status Severity Reaction(s) Onset Inactive Treating Comm ents Source Name Type Date Date Clinician AZITHROM DRUG Active Unknown-Cmnt 2014-03 [place] YCIN INGREDI 0-23 ity of 00:00: [place] 00 Medical Branch VENLAFAX DRUG Active Unknown-Cmnt 2014-03 [facility] INE INGREDI 0-23 ity of 00:00: [place] 00 Medical Branch ERYTHROM DRUG Active Unknown-Cmnt 2014-03 [facility] YCIN 0-23 ity of 00:00: [place] 00 Medical Branch LEVOFLOX DRUG Active Unknown-Cmnt 2014-03 [facility] ACIN INGREDI 0-23 ity of 00:00: [place] 00 Medical Branch GABAPENT DRUG Active Unknown-Cmnt 2014-03 [facility] IN INGREDI 0-23 ity of 00:00: [place] 00 Medical Branch TRAZODON DRUG Active Rash 2014-03 Univers E INGREDI 0-23 ity of 00:00: [place] 00 Medical Branch Azithrom Propensi Active Unknown - 2014-03 Uni vers ycin ty to See comments 0-23 ity of adverse 00:00: [place] reaction 00 Medical s Branch Venlafax Propensi Active Unknown - 2014-03 Uni vers ine ty to See comments 0-23 ity of adverse 00:00: [place] reaction 00 Medical s Branch Erythrom Propensi Active Unknown - 2014-03 Uni vers ycin ty to See comments 0-23 ity of adverse 00:00: [place] reaction 00 Medical s Branch Levoflox Propensi Active Unknown - 2014-03 Uni vers acin ty to See comments 0-23 ity of adverse 00:00: [place] reaction 00 Medical s Branch Gabapent Propensi Active Unknown - 2014-03 Uni vers in ty to See comments 0-23 ity of adverse 00:00: [place] reaction 00 Medical s Branch Trazodon Propensi Active Rash 2014-03 Univer s e ty to 0-23 ity of adverse 00:00: [place] reaction 00 Medical s Branch Adhesive Propensi Active Other - See 2014-03 U nivers Tape-Aníbal ty to comments 0-22 ity of icones adverse 00:00: [place] reaction 00 Medical s Branch ADHESIVE DRUG Active Other-Cmnt 2014-03 Univ ers TAPE-ANÍBAL 0-22 ity of ICONES 00:00: [place] 00 Medical Branch AMITRIPT DRUG Active Other-Cmnt 2014-03 Univ ers YLINE INGREDI 0-22 ity of HCL 00:00: [place] [facility] Amitript Propensi Active Other - See 2014-03 U nivers yline ty to comments 0-22 ity of Hcl adverse 00:00: [place] reaction 00 Medical s Branch erthromy Adverse Active Info Not [facility] Reaction Available [facility] NEUROTIN Adverse Active Info Not [facility] Reaction Available [facility] amitript Adverse Active Info Not [facility] yline Reaction Available [facility] Effexor Adverse Active Info Not [facility] Reaction Available [facility] Trazodon Adverse Active Info Not [facility] e HCl Reaction Available [facility] Levaquin Adverse Active Info Not [facility] Reaction Available [facility] Adhesive drug Active Univers Tape allergy ity of TAPE [place] [facility] amitript drug Active Univers yline allergy ity of [place] [facility] E-Mycin drug Active Univers allergy ity of [place] [facility] Effexor drug Active Univers allergy ity of [place] [facility] Levaquin drug Active Univers allergy ity of [place] [facility] Lyrica drug Active Univers CAPS allergy ity of [place] [facility] Neuronti drug Active Univers n allergy it[facility] of [place] [facility] trazodon drug Active Univers e allergy ity of [place] [facility] Zithroma drug Active Univers x PACK allergy ity of [place] [facility] Social History Social Habit Start Date Stop Date Quantity Comments Source Sex Assigned At [facility] of [facility] [place] [facility] Exposure to Unable to assess Univers ity of SARS-CoV-2 (event) [facility] [place] [facility] Cigarettes smoked 2018-01-11 2018-01-11 Univers ity of current (pack per 00:00:00 00:00:00 [facility] ) - Reported Branch Cigarette 2018-01-11 2018-01-11 University of pack-years 00:00:00 00:00:00 [facility] [place] [facility] Alcohol Comment 2015-01-04 2015-01-04 social drinker, Univ ersity of 00:00:00 00:00:00 1-2 drinks per [facility] Smoking Status Start Date Stop Date Source Former smoker 2018-01-11 00:00:00 2018-01-11 [facility]:00:[facility] [place] [facility] Medications Ordered Filled Start Stop Current Ordering Indication Dosage Frequency Signature Comments Components Source Medication Medication Date Date Medication? Clinician (SIG) Name Name Trimethopri Trimethopri 2019-0 2020- No Juliana [address] [facility] 8-06 02-01 [facility] - 00:[facility] Omeprazole Omeprazole 2019-0 Yes Juliana [address] [facility] 6-22 [facility] - 00:00: [facility] 00 l [facility] Symbicort Symbicort 2020-0 2020- No Juliana [address] [facility] 6-22 12-18 [place] [facility] - 00:00: 00:00 [facility] 00 [facility] aspirin 81 2020-0 Yes 81mg Take 81 mg U nivers mg chewable 6-12 by mouth ity of tablet 22:08: daily. [address] LACTOBACILL 2020-0 Yes Take by [facility] US 6-12 mouth. ity of ACIDOPHILUS 22:08: [place] (PROBIOTIC 40 Medical ORAL) [place] CETIRIZINE 2019-0 Yes Take by Uni vers HCL (ZYRTEC 6-12 mouth as ity of ORAL) 22:08: needed. [address] metoprolol 2019-0 Yes 25mg Take 25 mg U nivers tartrate 6-12 by mouth. ity of (LOPRESSOR) 22:08: [place] 25 mg 40 Medical tablet Branch DULoxetine 2020-0 Yes 60mg Take 60 mg U nivers (CYMBALTA) 6-12 by mouth. ity of 60 mg 22:08: [place] capsule 40 Medical Branch ferrous 2020-0 Yes 325mg Take 325 Unive rs sulfate 325 6-12 mg by ity of mg (65 mg 22:08: mouth. [place] iron) 40 Medical tablet Branch Dexlansopra 2020-0 Yes 60mg Take 60 mg Univers zole 6-12 by mouth. ity of (DEXILANT) 22:08: [place] 60 mg 40 Medical capsule Branch albuterol 2020-0 Yes 2.5mg Inhale 2.5 U nivers (PROVENTIL) 6-12 mg. ity of 2.5 mg /3 22:08: [place] mL (0.083 40 Medical %) Branch nebulizer solution carBAMazepi 2020-0 Yes 300mg Take 300 U nivers ne 6-12 mg by ity of (EQUETRO) 22:08: mouth. [place] 300 mg 12 40 Medical hr capsule Branch oxyCODONE-a 2020-0 Yes 1{tbl} Take 1 [facility] cetaminophe 6-12 tablet by ity of n 22:08: mouth. [place] (PERCOCET) 40 Medical 7.5-325 mg Branch per tablet memantine-d 2020-0 Yes Take by [facility] onepezil 6-12 mouth. ity of (NAMZARIC) 22:08: [place] 28-10 mg 40 Medical CSpX Branch Magnesium 2020-0 Yes 250mg Take 250 Uni vers Oxide 250 6-12 mg by ity of mg Tab 22:08: mouth. [place] 40 Medical Branch B 2020-0 Yes Take by Univers Complex-Fol 6-12 mouth. ity of ic Acid 22:08: [place] (BALANCED 40 Medical B-100) 0.4 Branch mg Tab aspirin 81 2020-0 Yes 81mg Take 81 mg U nivers mg chewable 6-12 by mouth ity of tablet 22:08: daily. [place] 40 Medical Branch LACTOBACILL 2020-0 Yes Take by [facility] US 6-12 mouth. ity of ACIDOPHILUS 22:08: [place] (PROBIOTIC 40 Medical ORAL) Branch CETIRIZINE 2020-0 Yes Take by Uni vers HCL (ZYRTEC 6-12 mouth as ity of ORAL) 22:08: needed. [place] 40 Medical Branch metoprolol 2020-0 Yes 25mg Take 25 mg U nivers tartrate 6-12 by mouth. ity of (LOPRESSOR) 22:08: [place] 25 mg 40 Medical tablet Branch DULoxetine 2020-0 Yes 60mg Take 60 mg U nivers (CYMBALTA) 6-12 by mouth. ity of 60 mg 22:08: [place] capsule 40 Medical Branch ferrous 2020-0 Yes 325mg Take 325 Unive rs sulfate 325 6-12 mg by ity of mg (65 mg 22:08: mouth. [place] iron) 40 Medical tablet Branch Dexlansopra 2020-0 Yes 60mg Take 60 mg Univers zole 6-12 by mouth. ity of (DEXILANT) 22:08: [place] 60 mg 40 Medical capsule Branch albuterol 2020-0 Yes 2.5mg Inhale 2.5 U nivers (PROVENTIL) 6-12 mg. ity of 2.5 mg /3 22:08: [place] mL (0.083 40 Medical %) Branch nebulizer solution carBAMazepi 2020-0 Yes 300mg Take 300 U nivers ne 6-12 mg by ity of (EQUETRO) 22:08: mouth. [place] 300 mg 12 40 Medical hr capsule Branch oxyCODONE-a 2020-0 Yes 1{tbl} Take 1 [place] cetaminophe 6-12 tablet by ity of n 22:08: mouth. [place] (PERCOCET) 40 Medical 7.5-325 mg Branch per tablet memantine-d 2020-0 Yes Take by [place] onepezil 6-12 mouth. ity of (NAMZARIC) 22:08: [place] 28-10 mg 40 Medical CSpX Branch Magnesium 2020-0 Yes 250mg Take 250 Uni vers Oxide 250 6-12 mg by ity of mg Tab 22:08: mouth. [place] 40 Medical Branch B 2020-0 Yes Take by Univers Complex-Fol 6-12 mouth. ity of ic Acid 22:08: [place] (BALANCED 40 Medical B-100) 0.4 Branch mg Tab aspirin 81 2020-0 Yes 81mg Take 81 mg U nivers mg chewable 6-12 by mouth ity of tablet 22:08: daily. [place] 40 Medical Branch LACTOBACILL 2020-0 Yes Take by [facility] US 6-12 mouth. ity of ACIDOPHILUS 22:08: [place] (PROBIOTIC 40 Medical ORAL) Branch CETIRIZINE 2020-0 Yes Take by Uni vers HCL (ZYRTEC 6-12 mouth as ity of ORAL) 22:08: needed. [place] 40 Medical Branch metoprolol 2020-0 Yes 25mg Take 25 mg U nivers tartrate 6-12 by mouth. ity of (LOPRESSOR) 22:08: [place] 25 mg 40 Medical tablet Branch DULoxetine 2020-0 Yes 60mg Take 60 mg U nivers (CYMBALTA) 6-12 by mouth. ity of 60 mg 22:08: [place] capsule 40 Medical Branch ferrous 2020-0 Yes 325mg Take 325 Unive rs sulfate 325 6-12 mg by ity of mg (65 mg 22:08: mouth. [place] iron) 40 Medical tablet Branch Dexlansopra 2020-0 Yes 60mg Take 60 mg Univers zole 6-12 by mouth. ity of (DEXILANT) 22:08: [place] 60 mg 40 Medical capsule Branch albuterol 2020-0 Yes 2.5mg Inhale 2.5 U nivers (PROVENTIL) 6-12 mg. ity of 2.5 mg /3 22:08: [place] mL (0.083 40 Medical %) Branch nebulizer solution carBAMazepi 2019-0 Yes 300mg Take 300 U nivers ne 6-12 mg by ity of (EQUETRO) 22:08: mouth. [place] 300 mg 12 40 Medical hr capsule Branch oxyCODONE-a 2020-0 Yes 1{tbl} Take 1 [place] cetaminophe 6-12 tablet by ity of n 22:08: mouth. [place] (PERCOCET) 40 Medical 7.5-325 mg Branch per tablet memantine-d 2020-0 Yes Take by [place] onepezil 6-12 mouth. ity of (NAMZARIC) 22:08: [place] 28-10 mg 40 Medical CSpX Branch Magnesium 2020-0 Yes 250mg Take 250 Uni vers Oxide 250 6-12 mg by ity of mg Tab 22:08: mouth. [place] 40 Medical Branch B 2020-0 Yes Take by Univers Complex-Fol 6-12 mouth. ity of ic Acid 22:08: [place] (BALANCED 40 Medical B-100) 0.4 Branch mg Tab FLUTICASONE 2020-0 2020- No Inhale. [facility] /SALMETEROL 08-24 ity of (ADVAIR 18:26: 00:00 [place] DISKUS 24 :00 Medical INHALE) Branch ALBUTEROL 2019-0 2020- No Inhale. Univ ers SULFATE 08-24 ity of (PROAIR HFA 18:26: 00:00 [place] INHALE) 24 :00 Medical Branch FOLIC 2019-0 2020- No Take by Univers ACID/MULTIV 08-24 mouth. ity o f IT-MIN/LUTE 18:26: 00:00 [place] IN (CENTRUM 24 :00 Medical SILVER Branch ORAL) sodium 2020-0 2020- No 1g Take 1 g Univer s chloride 1 08-24 by mouth. ity of gram tablet 18:26: 00:00 [place] 24 :00 Medical Branch ziprasidone 2019-0 Yes 80mg 80 mg, Univ ers (GEODON) - Oral, QAM, ity o f capsule 80 14:00: First dose [place] mg 00 on Wed Medical 08/25/19 at Branch 0900, Until Discontinu ed, Routine topiramate 2020-0 Yes 50mg 50 mg, Unive rs (TOPAMAX) 6-12 Oral, ity of tablet 50 14:00: DAILY, [place] mg 00 First dose Medical on Wed Branch 08/25/19 at 0900, Until Discontinu ed, Routine
film crew member approving Restricted medication : HOSBLUECLC memantine 2020-0 Yes 10mg 10 mg, Univer s (NAMENDA) 6-12 Oral, ity of tablet 10 14:00: DAILY, [place] mg 00 First dose Medical on Fri Branch 08/25/19 at 0900, Until Discontinu ed
Facu lty member approving Restricted medication : HOSBLUECLC DULoxetine 2020-0 Yes 60mg 60 mg, Unive rs (CYMBALTA) 6-12 Oral, ity of capsule 60 14:00: DAILY, [place] mg 00 First dose Medical on Fri Branch 08/25/19 at 0900, Until Discontinu ed, Routine cycloSPORIN 2020-0 Yes 1[drp] 1 Drop, U nivers E 08-24 Both Eyes, ity of (RESTASIS) 01:00: Q12H, [place] 0.05 % 00 First dose Medical drops 1 on [place] Branch Drop 08/24/19 at 1999, Until Discontinu ed, Routine carBAMazepi 2020-0 Yes 200mg 200 mg, [facility] ne 08-24 Oral, ity of (TEGRETOL) 01:00: Q12H, [place] tablet 200 00 First dose Med ical mg on [place] Branch 08/24/19 at 2000, Until Discontinu ed budesonide- 2020-0 Yes 2{puff} 2 Puff, Univers formoteroL 08-24 Inhalation ity of (SYMBICORT) 01:00: , BID, [place] 160-4.5 00 First dose Medica l mcg/actuati on [place] Branch on inhaler 08/24/19 at 2 Puff 1999, Until Discontinu ed, Routine cephALEXin 2020-0 2020- No [id number] 500mg Take 1 Univers 500 mg 08-24 capsule by ity of capsule 00:00: 04:59 mouth 4 [place] 00 :00 ([facility]) Medical times Branch daily for 7 days. cephALEXin 2020-0 2020- No [id number] 500mg Take 1 Univers 500 mg 08-24 capsule by ity of capsule 00:00: 04:59 mouth 4 [place] 00 :00 ([facility]) Medical times Branch daily for 7 days. cephALEXin 2020-0 2020- No [id number] 500mg Take 1 Univers 500 mg 08-24 capsule by ity of capsule 00:00: 04:59 mouth 4 [place] 00 :00 ([facility]) Medical times Branch daily for 7 days. ziprasidone 2020-0 Yes 40mg 40 mg, Univ ers (GEODON) 11 Oral, QPM, ity o f capsule 40 22:00: First dose [place] mg 00 on [place] Medical 08/24/19 at Branch 1700, Until Discontinu ed, Routine lidocaine 2020-0 Yes 1{patch 1 Patch, U nivers (LIDODERM) 08-23 } Topical, ity o f 5 % (700 21:30: Administer [place] mg/patch) 00 over 12 Medical patch 1 Hours, Branch Patch DAILY, First dose on [place] 08/24/19 at 1630, Until Discontinu ed, Routine cyclobenzap 2020-0 Yes 5mg 5 mg, Unive rs rine 08-23 Oral, ity of (FLEXERIL) 21:24: [facility]PRN, [facility] 47 Starting Medi dane [facility] 08/24/19 at 1624, Until Discontinu ed, Routine, Muscle Spasms, q8hrs prn spasm KCL 2020-0 2020- No 40meq 40 mEq, Univers (KLOR-CON 08-23-11 Oral, ity of M20) tablet 20:00: 20:54 ONCE, 1 [place] 40 mEq 00 :00 dose, [facility] Medical 08/24/19 at Branch 1500, Routine oxyCODONE-a 2020-0 Yes 1{tbl} 1 tablet, [facility] cetaminophe 08-23 Oral, ity of n 17:26: Q6HPRN, [place] (PERCOCET) 52 Starting Medic al 5-325 mg [facility] per tablet 08/24/19 at 1 tablet 1226, Until Discontinu ed, Routine, Pain (scale 7-10) acetaminoph 2020-0 Yes 650mg 650 mg, [facility] en 08-22 Oral, ity of (TYLENOL) 21:45: Q4HPRN, [place] tablet 650 00 Starting Medic al mg [facility] 08/23/19 at 1645, Until Discontinu ed, Routine, Pain (scale 1-3), Temp > 38.5 C ipratropium 2019-0 Yes 3mL 3 mL, Unive rs -albuterol 08-22 Inhalation ity of (DUONEB) 17:00: , QID, [place] 0.5 mg-3 00 First dose Medic al mg(2.5 mg on [facility] base)/3 mL 08/23/19 at nebulizer 1200, solution 3 Until mL Discontinu ed, Routine furosemide 2019-0 2020- No 40mg 40 mg, Univ ers (LASIX) 08-22 06-10 Slow IV ity of injection 16:30: 16:29 Push, [place] 40 mg 00 :00 ONCE, 1 Medical dose, [facility] 08/23/19 at 1130, Routine ketorolac 2020-0 2020- No 30mg 30 mg, Unive rs (TORADOL) 08-22 06-10 Intramuscu ity of injection 16:00: 15:33 lar, ONCE, [place] 30 mg 00 :00 1 dose, Medical [facility] 08/23/19 at 1100, Routine
film crew member approving Restricted medication : SAMIR RUVALCABA cefTRIAXone 2020-0 Yes 1000mg 1,000 mg, Univers (ROCEPHIN) 6-10 IV ity of 1,000 mg in 14:00: Piggyback, [place] NaCl 0.9% 00 Q24H ABX, Medic al (NS) 50 mL First dose [facility] MINI-BAG on Wed08/23/19 at 0900, Until Discontinu ed, 50 mL
R negra for Anti-Infec tive: Empiric Therapy for Suspected Infection< br>Empiric Therapy Site: Urine
D uration of therapy: 7 days enoxaparin 2020-0 Yes 40mg 40 mg, Unive rs (LOVENOX) 6-10 Subcutaneo ity of injection 14:00: [place], DAILY, [place] 40 mg 00 First dose Medical on Wed08/23/19 at 0900, Until Discontinu ed, Routine aspirin 2019-0 Yes 81mg 81 mg, Univers chewable 6-10 Oral, ity of tablet 81 14:00: DAILY, [place] mg 00 First dose Medical on Wed Branch 08/23/19 at 0900, Until Discontinu ed, Routine levothyroxi 2019-0 Yes 100ug 100 mcg, U nivers ne 6-10 Oral, ity of (SYNTHROID) 11:00: QAM-0600, [place] tablet 100 00 First dose Med ical mcg on Wed08/23/19 at 0600, Until Discontinu ed, Routine acetaminoph 2019-0 2020- No 650mg 650 mg, U nivers en 6-10 06-10 Oral, ity of (TYLENOL) 08:42: 21:41 Q6HPRN, [place] tablet 650 06 :53 Starting Medic al mg Wed08/23/19 at 0342, Until Wed08/23/19 at 1641, Routine, Pain (scale 1-3), Temp > 38.5 C atorvastati 2019-0 Yes 80mg 80 mg, Univ ers n (LIPITOR) 6-10 Oral, QHS, it y of tablet 80 02:00: First dose [place] mg 00 on [facility] 08/22/19 at Branch 2100, Until Discontinu ed, Routine NaCl 0.9% 2020-0 2020- No 1000mL at 100 Uni vers (NS) IV 08-22 06-10 mL/hr, IV ity of infusion 01:15: 12:54 Infusion, [place] 1,000 mL 00 :46 CONTINUOUS Medic al , Starting Branch [facility] 08/22/19 at 2015, Until Wed08/23/19 at 0754, Routine metoprolol 2020-0 Yes 25mg 25 mg, Unive rs tartrate 6-10 Oral, BID, ity o f (LOPRESSOR) 01:00: First dose [place] tablet 25 00 on [facility] mg 08/22/19 at [place] 1999, Until Discontinu ed, Routine enalapril 2020-0 Yes 5mg 5 mg, Univers (VASOTEC) 6-10 Oral, BID, ity of tablet 5 mg 01:00: First dose [place] 00 on [facility] 08/22/19 at [place] 1999, Until Discontinu ed, Routine aspirin 2020-0 2020- No 325mg 325 mg, Unive rs tablet 325 08-21 06-09 Oral, ity of mg 23:15: 22:31 ONCE, 1 [place] 00 :00 dose, [facility] 08/22/19 at [place] 1815, STAT iohexol 2020-0 2020- No 100mL 100 mL, Unive rs (OMNIPAQUE 08-21 06-09 Intravenou it y of 350 22:00: 21:29 s, ONCE, 1 [place] BULK-100 00 :00 dose, [facility] Medica l mL) 08/22/19 at [place] injection 1700, 100 mL Routine NaCl 0.9% 2020-0 Yes 5mL 5 mL, Slow [facility] (NS) 6-09 IV Push, ity of injection 5 21:39: PRN - SEE [place] mL 24 [facility], Branch Starting [facility] 08/22/19 at 1639, Until Discontinu ed, 10 mL NaCl 0.9% 2020-0 Yes 5mL 5 mL, Slow [facility] [place] (NS) 6-09 IV Push, ity of injection 5 21:31: PRN - SEE [place] mL 20 [facility], Branch Starting [facility] 08/22/19 at 1631, Until Discontinu ed, 10 mL Equetro 300 Equetro 300 2019-0 Yes 1 Q0.3333D TAKE 1 Univers MG Oral MG Oral 6-07 CAPSULE 3 ity of Capsule Capsule 00:00: TIMES [place] Extended Extended 00 DAILY Physic i Release 12 Release 12 ans Hour Hour DULoxetine DULoxetine 2019- Yes 1 Q0.5D TAKE 1 Univers HCl - 60 MG HCl - 60 MG 6-07 CAPSULE ity of Oral Oral 00:00: TWICE [place] Capsule Capsule 00 DAILY. Physici Delayed Delayed ans Release Release Particles Particles Ziprasidone Ziprasidone 2019-0 Yes 1 QD TAKE 1 Univers HCl - 80 MG HCl - 80 MG 6-07 CAPSULE ity of Oral Oral 00:00: DAILY [place] Capsule Capsule 00 Physici ans Ziprasidone Ziprasidone 2018-0 Yes 1 QD TAKE 1 Univers HCl - 40 MG HCl - 40 MG 6-07 CAPSULE ity of Oral Oral 00:00: DAILY [place] Capsule Capsule 00 Physici ans Ingrezza 40 Ingrezza 40 Yes 2 QD TAKE 2 Univers MG Oral MG Oral 6-07 CAPSULE ity of Capsule Capsule 00:00: DAILY [place] Physici ans QUEtiapine QUEtiapine 0 Yes .5 QD TAKE 0.5 Univers Fumarate 25 Fumarate 25 6- TABLET ity of MG Oral MG Oral 00:00: DAILY [place] Tablet Tablet 00 Physici ans Levothyroxi Levothyroxi Yes QD TAKE 1 Univers ne Sodium ne Sodium 6- TABLET ity of 125 MCG 125 MCG 00:00: DAILY [place] Oral Tablet Oral Tablet 00 DIRECTED. Physici ans Metoprolol Metoprolol Yes 1 QD TAKE 1 Univers Succinate Succinate 6-07 TABLET ity of ER 50 MG ER 50 MG 00:00: DAILY. [place] Oral Tablet Oral Tablet 00 P hysici Extended Extended ans Release 24 Release 24 Hour Hour oxyCODONE-A oxyCODONE-A 2018- Yes 1 Q0.3333D TAKE 1 Univers cetaminophe cetaminophe 6-07 TABLET 3 ity of n 7.5-325 n 7.5-325 00:00: TIMES [place] MG Oral MG Oral 00 DAILY Physici Tablet Tablet ans Gabapentin Gabapentin 2019-0 Yes 1 QD TAKE 1 Univers 400 MG Oral 400 MG Oral 6-07 CAPSULE ity of Capsule Capsule 00:00: DAILY [place] Physici ans Topiramate Topiramate 0 Yes 3 QD TAKE 3 Univers 50 MG Oral 50 MG Oral 6-07 TABLET i ty of Tablet Tablet 00:00: DAILY [place] 00 Physici ans Sodium Sodium 2018-0 Yes 2 QD TAKE 2 Univers Chloride 1 Chloride 1 08-19 TABLET i ty of GM Oral GM Oral 00:00: DAILY [place] Tablet Tablet 00 Physici ans Vitamin D3 Vitamin D3 0 Yes U nivers 5000 UNIT 5000 UNIT 08-19 ity o f Oral Tablet Oral Tablet 00:00: 00 Physici ans Centrum Centrum 2019-0 Yes 1 QD TAKE 1 Unive rs Silver Oral Silver Oral 08-19 TABLET ity of Tablet Tablet 00:00: DAILY. Physici ans Magnesium Magnesium 2018-0 Yes Uni vers 500 MG Oral 500 MG Oral 08-19 i ty of Tablet Tablet 00:00: Physici ans Aspirin 325 Aspirin 325 2018-0 Yes MUNACHI 1 QD TAKE 1 Univers MG Oral MG Oral 08-19 [place] TABLET ity o f Tablet Tablet 00:00: N.P. DAILY. Physici ans Atorvastati Atorvastati Yes MUNACHI TAKE 1 Univers n Calcium n Calcium 08-19 [place] TABLET i ty of 10 MG Oral 10 MG Oral 00:00: N.P. DAILY [place] Tablet Tablet 00 DIRECTED Physi ci ans levothyroxi 2015-03 2020- No Unive rs ne 03-23 ity of (SYNTHROID) 00:00: 00:00 [place] 112 mcg 00 :00 Medical tablet Branch ziprasidone 2015-03 Yes TAKE ONE [place] (GEODON) 80 0-27 CAPSULE BY it y of mg capsule 00:00: MOUTH EVERY Medical MORNING Branch ziprasidone 2015-03 Yes TAKE ONE [place] (GEODON) 80 0-27 CAPSULE BY it y of mg capsule 00:00: MOUTH [place] EVERY Medical MORNING Branch ziprasidone 2015-03 Yes TAKE ONE [place] (GEODON) 80 0-27 CAPSULE BY it y of mg capsule 00:00: MOUTH [place] EVERY Medical MORNING Branch oxyCODONE-a 2015-03 2020- No TK 1 T PO Univers cetaminophe 017 -12 Q 8 H ity of n 00:00: 00:00 [place] (PERCOCET) 00 :00 Medical 10-325 mg Branch per tablet EQUETRO 300 2015-03 2020- No TAKE ONE U nivers mg CM12 0-12 CAPSULE BY ity o f 00:00: 00:00 MOUTH 3 [place] 00 :00 TIMES A Medical DAY Branch levothyroxi 2015-03 Yes TAKE 1 TAB Univers ne 0-03 BY MOUTH ity of (SYNTHROID) 00:00: EVERY [place] 100 mcg 00 MORNING. Medical tablet Branch BREO 2015-03 Yes INHALE 1 Univers ELLIPTA 0-03 PUFF BY ity of 200-25 00:00: MOUTH [place] mcg/dose 00 DAILY Medical DsDv Branch levothyroxi 2015-03 Yes TAKE 1 TAB Univers ne 0-03 BY MOUTH ity of (SYNTHROID) 00:00: EVERY [place] 100 mcg 00 MORNING. Medical tablet Branch BREO 2015-03 Yes INHALE 1 Univers ELLIPTA 0-03 PUFF BY ity of 200-25 00:00: MOUTH [place] mcg/dose 00 DAILY Medical DsDv Branch levothyroxi 2015-03 Yes TAKE 1 TAB Univers ne 0-03 BY MOUTH ity of (SYNTHROID) 00:00: EVERY [place] 100 mcg 00 MORNING. Medical tablet Branch [facility] 2015-03 Yes INHALE 1 Univers ELLIPTA 0-03 PUFF BY ity of 200-25 00:00: MOUTH [place] mcg/dose 00 DAILY Medical DsDv Branch NAMZARIC 2020- No Univers 28-10 mg 9-23 06-12 ity of CSpX 00:00: 00:00 [place] 00 :00 Medical Branch topiramate Yes TAKE 2 Unive rs (TOPAMAX) 9-22 TABLETS BY ity of 50 mg 00:00: MOUTH [place] tablet 00 TWICE A Medical DAY Branch diclofenac Yes TAKE 1 Unive rs (VOLTAREN) 9-22 TABLET AT ity of 75 mg EC 00:00: ONSET OF [place] tablet 00 HEADACHE. Medical MAY REPEAT Branch IN 2 HOURS IF NO RELIEF. MAXIMUM OF 2 IN 24 HOURS. topiramate Yes TAKE 2 Unive rs (TOPAMAX) 9-22 TABLETS BY ity of 50 mg 00:00: MOUTH [place] tablet 00 TWICE A Medical DAY Branch diclofenac Yes TAKE 1 Unive rs (VOLTAREN) 9-22 TABLET AT ity of 75 mg EC 00:00: ONSET OF [place] tablet 00 HEADACHE. Medical MAY REPEAT Branch IN 2 HOURS IF NO RELIEF. MAXIMUM OF 2 IN 24 HOURS. topiramate Yes TAKE 2 Unive rs (TOPAMAX) 9-22 TABLETS BY ity of 50 mg 00:00: MOUTH [place] tablet 00 TWICE A Medical DAY Branch diclofenac Yes TAKE 1 Unive rs (VOLTAREN) 12-04 TABLET AT ity of 75 mg EC 00:00: ONSET OF [place] tablet 00 HEADACHE. Medical MAY REPEAT Branch IN 2 HOURS IF NO RELIEF. MAXIMUM OF 2 IN 24 HOURS. AMITIZA 8 Yes TK 1 C PO Uni vers mcg capsule 9-20 D ity of 00:00: 00 Medical Branch AMITIZA 8 Yes TK 1 C PO Uni vers mcg capsule -20 D ity of 00:00: Medical Branch AMITIZA 8 Yes TK 1 C PO Uni vers mcg capsule 9-20 D ity of 00:00: 00 Medical Branch tiZANidine Yes TK 1 T PO Un deisi (ZANAFLEX) - Q 6 H PRN ity of 4 mg tablet 00:00: Medical Branch tiZANidine Yes TK 1 T PO Un deisi (ZANAFLEX) 12-01 Q 6 H PRN ity of 4 mg tablet 00:00: Medical Branch tiZANidine Yes TK 1 T PO Un deisi (ZANAFLEX) 919 Q 6 H PRN ity of 4 mg tablet 00:00: Medical Branch amoxicillin 2020- No TAKE ONE U nivers (TRIMOX) 11-24 CAPSULE BY ity of 500 mg 00:00: 00:00 MOUTH [place] capsule 00 :00 THREE Medical TIMES Branch DAILY RESTASIS Yes INSTILL 1 Univ ers 0.05 % 11-21 DROP TO ity of ophthalmic 00:00: BOTH EYES [place] drops 00 2 (TWO) Medical TIMES A Branch DAY. epinastine Yes INSTILL 1 Un deisi (ELESTAT) 11-21 DROP TO ity of 0.05 % 00:00: EYE 2 [place] ophthalmic 00 (TWO) Medical drops TIMES A Branch DAY. RESTASIS Yes INSTILL 1 Univ ers 0.05 % 11-21 DROP TO ity of ophthalmic 00:00: B[place] E[place] drops 00 2 (TWO) Medical TIMES A Branch DAY. epinastine Yes INSTILL 1 Un deisi (ELESTAT) 11-21 DROP TO ity of 0.05 % 00:00: EYE 2 [place] ophthalmic 00 (TWO) Medical drops TIMES A Branch DAY. RESTASIS Yes INSTILL 1 Univ ers 0.05 % 11-21 DROP TO ity of ophthalmic 00:00: B[place] drops 00 2 (TWO) Medical TIMES A Branch DAY. epinastine Yes INSTILL 1 Un deisi (ELESTAT) 11-21 DROP TO ity of 0.05 % 00:00: EYE 2 [place] ophthalmic 00 (TWO) Medical drops TIMES A Branch DAY. bromfenac 2020- No 1[drp] 1 Drop. Un deisi (XIBROM) 11-21 ity of 0.09 % 00:00: 00:00 [place] ophthalmic 00 :00 Medical solution Branch ranitidine Yes TAKE 1 Unive rs (ZANTAC) 9-08 TABLET BY ity of 150 mg 00:00: MOUTH [place] tablet 00 TWICE A Medical DAY Branch ranitidine Yes TAKE 1 Unive rs (ZANTAC) 9-08 TABLET BY ity of 150 mg 00:00: MOUTH [place] tablet 00 TWICE A Medical DAY Branch ranitidine Yes TAKE 1 Unive rs (ZANTAC) 9-08 TABLET BY ity of 150 mg 00:00: MOUTH [place] tablet 00 TWICE A Medical DAY Branch clindamycin 2020- No TAKE ONE U nivers (CLEOCIN) 11-19 CAPSULE BY ity of 150 mg 00:00: 00:00 MOUTH 3 [place] capsule 00 :00 TIMES A Medical DAY Branch PROAIR HFA Yes INHALE 2 Uni vers 90 8-09 PUFFS BY ity of mcg/actuati 00:00: MOUTH 4 [place] as on inhaler 00 TIMES A Medica l DAY Branch NEEDED PROAIR HFA Yes INHALE 2 Uni vers 90 8-09 PUFFS BY ity of mcg/actuati 00:00: MOUTH 4 [place] on inhaler 00 TIMES A Medica l DAY Branch NEEDED PROAIR HFA Yes INHALE 2 Uni vers 90 8-09 PUFFS BY ity of mcg/actuati 00:00: MOUTH 4 [place] on inhaler 00 TIMES A Medica l DAY Branch NEEDED ziprasidone Yes TAKE ONE Un deisi (GEODON) 40 7-13 CAPSULE BY it y of mg capsule 00:00: MOUTH AT [place] as 00 NO Medical Branch ziprasidone Yes TAKE ONE Un deisi (GEODON) 40 7-13 CAPSULE BY it y of mg capsule 00:00: MOUTH AT [place] 00 NO Medical Branch ziprasidone Yes TAKE ONE Un deisi (GEODON) 40 7-13 CAPSULE BY it y of mg capsule 00:00: MOUTH AT [place] as 00 [facility] Medical Branch bromfenac 2014-03 Yes Univers (BROMDAY) 2-17 ity of 0.09 % 00:00: [place] ophthalmic 00 Medical solution Branch bromfenac 2014-03 Yes Univers (BROMDAY) 2-17 ity of 0.09 % 00:00: [place] ophthalmic 00 Medical solution Branch bromfenac 2014-03 Yes Univers (BROMDAY) 2-17 ity of 0.09 % 00:00: [place] ophthalmic 00 Medical solution Branch nystatin 2014-03 Yes Univers (NILSTAT) 1-24 ity of 100,000 00:00: [place] unit/mL 00 Medical suspension Branch nystatin 2014-03 Yes Univers (NILSTAT) 1-24 ity of 100,000 00:00: [place] unit/mL 00 Medical suspension Branch nystatin 2014-03 Yes Univers (NILSTAT) 1-24 ity of 100,000 00:00: [place] unit/mL 00 Medical suspension Branch NAMENDA XR 2014-03 2020- No 1{capsu Take 1 Cap Univers 28 mg 03-2112 le} by mouth ity of capsule 00:00: 00:00 daily. [place] 00 :00 Medical Branch enalapril 2014-03 Yes 5mg Take 1 Tab Un deisi (VASOTEC) 5 0-24 by mouth 2 it y of mg tablet 00:00: (two) [place] 00 times Medical daily. Branch budesonide- 2014-03 Yes 2{puff} Inhale 2 Univers formoterol 0-24 Puffs 2 ity of (SYMBICORT) 00:00: (two) [place] 160-4.5 00 times Medical mcg/actuati daily. Branch on inhaler furosemide 2014-03 Yes 20mg Take 1 Tab U nivers (LASIX) 20 0-24 by mouth ity o f mg tablet 00:00: every [place] 00 morning Medical and Branch evening. enalapril 2014-03 Yes 5mg Take 1 Tab Un deisi (VASOTEC) 5 0-24 by mouth 2 it y of mg tablet 00:00: (two) [place] 00 times Medical daily. Branch budesonide- 2014-03 Yes 2{puff} Inhale 2 Univers formoterol 0-24 Puffs 2 ity of (SYMBICORT) 00:00: (two) [place] 160-4.5 00 times Medical mcg/actuati daily. Branch on inhaler furosemide 2014-03 Yes 20mg Take 1 Tab U nivers (LASIX) 20 0-24 by mouth ity o f mg tablet 00:00: every [place] 00 morning Medical and Branch evening. enalapril 2014-03 Yes 5mg Take 1 Tab Un deisi (VASOTEC) 5 0-24 by mouth 2 it y of mg tablet 00:00: (two) [place] 00 times Medical daily. Branch budesonide- 2014-03 Yes 2{puff} Inhale 2 Univers formoterol 0-24 Puffs 2 ity of (SYMBICORT) 00:00: (two) [place] 160-4.5 00 times Medical mcg/actuati daily. Branch on inhaler furosemide 2014-03 Yes 20mg Take 1 Tab U nivers (LASIX) 20 0-24 by mouth ity o f mg tablet 00:00: every [place] 00 morning Medical and Branch evening. spironolact Yes Univer s one 9-21 ity of (SPIRONOLAC 00:00: [place] TONE) 25 mg 00 Medical tablet Branch spironolact Yes Univer s one 9-21 ity of (SPIRONOLAC 00:00: [place] TONE) 25 mg 00 Medical tablet Branch spironolact Yes Univer s one 9-21 ity of (SPIRONOLAC 00:00: [place] [facility]) 25 mg 00 Medical tablet Branch Levothyroxi Levothyroxi Yes Juliana [address] [facility] ne Sodium ne Sodium Frank on an [facility] empty [facility] stomach in l the Outpati morning ent Clinics Vitamin D-3 Vitamin D-3 Yes Juliana as [facility] directed [facility] Amitiza Amitiza Yes Juliana [address] [facility] [place] with food [facility] Ferrous Ferrous Yes Juliana TAKE ONE [facility] Sulfate Sulfate Frank TABLET [place] - THREE Memoria TIMES l DAILY Outpati ent Clinics DuoNeb DuoNeb Yes Juliana as [facility] [place] directed [facility] Quetiapine Quetiapine Yes Juliana [address] [facility] Fumarate Fumarate [place] - Memoria l Outpati ent Clinics Geodon Geodon Yes Juliana [facility] with food [facility] Augmentin Augmentin Yes Juliana [address] [facility] Topamax Topamax Yes Juliana [address] [facility] [place] [facility] Nucynta Nucynta Yes Juliana [address] [facility] Acetaminoph Acetaminoph Yes Juliana [address] [facility] en en Frank as needed [facility] Sodium Sodium Yes Juliana as [facility] Chloride Chloride [place] directed [facility] Soma Soma Yes Juliana [address] [facility] Frank as needed [facility]ics Ingrezza Ingrezza Yes Juliana [address] [facility] Topamax Topamax Yes Juliana [address] [facility] Ziprasidone Ziprasidone Yes Juliana [address] [facility] HCl HCl Frank with food [facility] Flonase Flonase Yes Juliana [address] [facility] each [facility] - nostril [facility]oria l Outpati ent Clinics Lasix Lasix Yes Juliana [address] [facility] Klor-Con Klor-Con Yes Juliana [address] M10 M10 Frank with food [facility] Zofran Zofran Yes Juliana [address] [facility] [place] [facility] Pramipexole Pramipexole Yes Juliana [address] [facility] [address] Dihydrochlo Dihydrochlo [place] before [facility] - ride ride bedtime Memoria l Outpati ent Clinics Metoprolol Metoprolol Yes Juliana take [address] [facility] Succinate Succinate [place] tablet by [facility] - ER ER mouth Memoria every day l Outpati ent Clinics Westside Westside Yes Juliana [address] [facility] Frank as needed [facility] Alendronate Alendronate Yes Juliana [address] [facility] -Cholecalci -Cholecalci Frank [facility] - ferol ferol Memoria l [facility] Myrbetriq Myrbetriq Yes Juliana [address] [facility] [place] [facility] Simethicone Simethicone Yes Juliana [address] [facility] [place] after [facility] - meals and Memoria at bedtime l as needed [facility] Breo Breo Yes Juliana [address] [facility] Ellipta Ellipta [place] [facility] Aspirin Aspirin Yes Juliana [address] [facility] Adult Low Adult Low [place] [facility] - Dose Dose Memoria l [facility] Bumetanide Bumetanide Yes Juliana TAKE [address] [facility] Frank TABLET BY [facility] - MOUTH Memoria EVERY DAY l [facility] Zyrtec Zyrtec Yes Juliana [address] [facility] Allergy Allergy Frank [facility] Clopidogrel Clopidogrel Yes Juliana [address] Bisulfate Bisulfate [place] [facility] - [facility] Magnesium Magnesium Yes Juliana as [facility] Oxide Oxide [place] directed [facility]ics Alendronate Alendronate Yes Juliana TAKE [address] [facility] [facility] Sodium Sodium Frank TABLET BY Danielle kes - MOUTH ONCE Memoria A WEEK l [facility] Atorvastati Atorvastati Yes Juliana [address] [facility] [facility] n Calcium n Calcium [place] [facility] Cymbalta Cymbalta Yes Juliana [address] [facility] ProAir HFA ProAir HFA Yes Juliana [address] [facility] [place] needed [facility]ics Singulair Singulair Yes Juliana [address] [facility] [place] in the [facility] evening [facility] Zantac Zantac Yes Juliana [address] [facility] Frank at bedtime [facility] Macrobid Macrobid Yes Juliana [address] [place] with food [facility] Donepezil Donepezil Yes Juliana [address] [facility] HCl HCl [place] at bedtime [facility] Tizanidine Tizanidine Yes Juliana [address] HCl HCl [place] as needed [facility] Memantine Memantine Yes Juliana [address] [facility] [address] HCl HCl [place] [facility] Equetro Equetro Yes Juliana [address] [facility] [place] [facility] Ziprasidone Ziprasidone Yes Juliana [address] HCl HCl [place] with food [facility] Losartan Losartan Yes Juliana TAKE [address] [facility] Potassium Potassium Frank TABLET BY [facility] - MOUTH Memoria EVERY DAY l Outpati ent Clinics Immunizations Ordered Filled Immunization Date Status Comments [facility] e Immunization Name Name Afluria single dose Afluria single dose 2018-12-[address] [facility] Influenza Virus 2015-01-05 Completed Universit y of Vaccine Quad IM 3+ 00:00:00 [facility] Influenza Virus 2015-01-05 Completed Universit y of Vaccine Quad IM 3+ 00:00:00 [facility] Influenza Virus 2015-01-05 Completed Universit y of Vaccine Quad IM 3+ 00:00:00 [facility] Vital Signs Vital Name Observation Time Observation Value Comments Source Heart rate 2019-08-25 78 /min [facility] 21:18:00 [facility] [place] [facility] Respiratory rate 2019-08-25 20 /min [facility] 21:18:00 [facility] [place] [facility] Oxygen saturation 2019-08-25 98 /min [facility] in Arterial blood 21:18:00 [facility] by Pulse oximetry Branch Systolic blood 2019-08-25 126 mm[Hg] University of pressure 19:58:00 [facility] [place] [facility] Diastolic blood 2019-08-25 70 mm[Hg] [place] o f pressure 19:58:00 [facility] [place] [facility] Body temperature 2019-08-25 36.72 Daysi [facility] 19:58:00 [facility] [place] [facility] Body weight 2019-08-24 83.19 kg [facility] 08:00:00 [facility] BMI 2019-08-24 30.52 kg/m2 [facility] 08:00:00 [facility] [place] [facility] Body height 2019-08-22 165.1 cm [facility] 21:30:00 [facility] [place] [facility] BP Systolic 2018-08-19 146 mm[Hg] Location: [facility] 08:50:00 Position: [place] Physician s Sitting BP Diastolic 2018-08-19 91 mm[Hg] Location: [facility] 08:50:00 Position: [place] Physician s Sitting Height 2018-08-19 64 [in_us] [facility] 08:50:00 [place] Physician s Weight 2018-08-19 201 [lb_av] [facility] 08:50:00 [place] Physician s Body Mass Index 2018-08-19 34.5 kg/m2 University o f Calculated 08:50:00 [place] Physician s Heart Rate 2018-08-19 73 /min Location: L [facility] 08:50:00 Brachial [place] Physician s Artery; Procedures Procedure Date / Time Performing Clinician Source Performed BASIC METABOLIC PANEL 2019-08-25 14:14:00 [facility] K, CL, CO2, Medical Branch GLUCOSE, BUN, CREATININE, CA) [place] MODIFIED BARIUM 2019-08-24 15:27:17 Cristiane Emerson [facility] SWALLOW [facility] Branch BASIC METABOLIC PANEL 2019-08-24 08:05:00 [facility] (NA, K, CL, CO2, Medical Branch GLUCOSE, BUN, CREATININE, CA) CBC WITH DIFFERENTIAL 2019-08-24 08:05:00 Cristiane Emerson [facility] MR BRAIN WO CONTRAST 2019-08-23 19:43:18 Samir Ruvalcaba [facility] ECHO ROUTINE W/DOPPLER 2019-08-23 13:25:51 Sara Downey [facility] COLOR [facility] BASIC METABOLIC PANEL 2019-08-23 13:14:00 Cristiane Emerson [facility] (NA, K, CL, CO2, Medical Branch GLUCOSE, BUN, CREATININE, CA) LIPID PANEL 2019-08-23 13:14:00 Sara Downey [place] [facility] ([id number])(TOTAL Medical Branch CHOLESTEROL, TRIGLYCERIDES, HDL) CBC WITH DIFFERENTIAL 2019-08-23 13:13:00 Cristiane Emerson [facility] URINALYSIS 2019-08-22 23:18:00 Taylor Meyers [facility] URINE CULTURE 2019-08-22 23:18:00 [facility] (ID NOW RAPID 2019-08-22 22:23:00 Taylor Meyers [facility] TESTING) Medical Branch XR CHEST 1 VW 2019-08-22 22:00:33 Taylor Meyers [facility] CT STROKE ANGIOGRAM 2019-08-22 21:59:17 Luigi Scchina [facility] HEAD [facility] CT STROKE ANGIOGRAM 2019-08-22 21:59:17 Luigi Scchina [facility] NECK [facility] CT STROKE HEAD WO 2019-08-22 21:49:36 Taylor Meyers [facility] CONTRAST [facility] TROPONIN I 2019-08-22 21:44:00 Taylor Meyers [facility] BASIC METABOLIC PANEL 2019-08-22 21:44:00 Taylor Meyers [facility] (NA, K, CL, CO2, Medical Branch GLUCOSE, BUN, CREATININE, CA) PROFILE / HEMOGRAM 2019-08-22 21:44:00 Taylor Meyers [facility] PROTHROMBIN TIME / INR 2019-08-22 21:44:00 Taylor Meyers [facility] ACTIVATED PARTIAL 2019-08-22 21:44:00 Taylor Meyers [facility] THRMPLAS REBECCA [facility] [N] 30 Day Event 2018-08-19 00:00:00 [facility] Monitor Recording Physicians History of Back Surgery [facility] Physicians History of Foot Surgery [facility] Physicians Plan of Care Planned Activity Planned Date Details Comments Source Diagnostic Test 2018-08-19 [N] 30 Day Event [facility] Pending 00:00:00 Monitor Recording Physicians [code = [N] 30 Day Event Monitor Recording] Encounters Start End Encounter Admission Attending Care Care Encounter Source Date/Time Date/Time Type Type Clinicians Facility Department ID 2021-02-03 2021-02-03 ambulatory [facility] [id number] [facility] 2021-01-24 2021-01-24 ambulatory [facility]ML[facility] [id number] [facility] 2021-01-21 2021-01-21 ambulatory [facility]MLC [facility] [id number] [facility] 2021-01-20 2021-01-20 ambulatory [facility]LMLC [facility] [id number] [facility] 2021-01-15 2021-01-15 ambulatory [facility]LMLC [facility] [id number] [facility] 2020-12-27 2020-12-27 Outpatient [facility]MLC [facility] [id number] [facility] 2020-12-27 2020-12-27 Outpatient [facility]MLC [facility] [id number] [facility] 2020-12-24 2020-12-24 Outpatient [facility]MLC [facility] [id number] [facility] 2020-12-19 2020-12-19 Outpatient [facility]LMLC [facility] [id number] [facility] 2020-12-06 2020-12-06 Outpatient [facility]LMLC [facility] [id number] [facility] 2020-11-28 2020-11-28 Outpatient [facility]LMLC [facility] [id number] [facility] 2020-09-06 2020-09-06 [facility] [id number] [place] 00:00:00 00:00:00 MANUEL [facility] 2020-09-06 2020-09-06 Outpatient DENISE, [facility] [id number] [place] 00:00:00 00:00:00 MANUEL [address] 2020-07-29 2020-07-29 Outpatient PATRICE, [facility] [id number] [place] 00:00:00 00:00:00 KEENAN Bill[facility] 2020-07-10 2020-07-10 Outpatient [facility]LMLC [facility] [id number] [facility] 2020-03-19 2020-03-19 Outpatient [facility]ML[facility] [id number] [facility] 2020-03-04 2020-03-04 Outpatient [facility]ML[facility] [id number] [facility] 2020-02-14 2020-02-14 Outpatient [facility]MLC [facility] [id number] [facility] 2020-02-12 2020-02-12 Outpatient [facility] [id number] [facility] 2020-01-29 2020-01-29 Outpatient [facility]MLC [facility] [id number] [facility] 2020-01-05 2020-01-05 Outpatient [facility]ML[facility] [id number] [facility] 2019-12-05 2019-12-05 Outpatient [facility]ML[facility] [id number] [facility] 2019-10-19 2019-10-19 [facility] [id number] 10:00:00 10:00:00 t Specialty/U Danielle kes - Specialty rology Memori a /Urology Clinic l Clinic Outpati ent Clinics 2019-09-21 2019-09-21 [facility] [id number] 13:30:00 13:30:00 t Specialty/U Danielle kes - Specialty rology [facility] a /Urology Clinic l Clinic Outpati ent Clinics 2019-09-04 2019-09-04 [facility] [id number] 10:00:00 10:00:00 t [email or web address] - [employer] [facility] l Medicine Outpati ent Clinics 2019-08-28 2019-08-28 Transition Daryl Villafuerte [id number] Univers 00:00:00 00:00:00 of Care Janeth Baker [id number] it y [id number] [id number] [facility] 403 Branch 2019-08-28 2019-08-28 Transition Daryl Villafuerte [id number] 00:00:00 00:00:00 of Care Janeth Baker [id number] [place] [id number] [facility] 2019-08-22 2019-08-25 [facility] Taylor Meyers [facility] [id number] Univers 16:30:44 17:08:00 Encounter Sara Downey [facility] [id number] [place]y [id number] [place] [id number] [facility] 110 Branch ([facility]) 2019-08-22 2019-08-25 Outpatient X [facility] [id number] Univers 16:30:44 17:08:00 ity of [facility] 2019-08-02 2019-08-02 [facility] [id number] 13:00:00 13:00:00 t [email or web address] [facility] l Medicine Outpati ent Clinics 2019-07-28 2019-07-28 [facility] [id number] 12:02:00 12:02:00 t [employer] - Drive [facility] l Medicine Outpati ent Clinics 2019-07-28 2019-07-28 Outpatient PATRICE [facility] [id number] [address] [place] [address] 00:00:00 00:00:[address] 2019-07-10 2019-07-10 [facility] [id number] 08:17:00 08:17:00 t Winn [employer] - [employer] [facility] Medicine Outpati ent Clinics 2019-07-07 2019-07-07 [facility] [id number] 16:00:00 16:00:00 t Winn NERI s - Drive [facility] l Medicine Outpati ent Clinics 2019-06-28 2019-06-28 [facility] [id number] 09:00:00 09:00:00 t Winn Winn [employer] [facility] l Medicine Outpati ent Clinics 2019-06-13 2019-06-13 [facility] [id number] 10:36:00 10:36:00 t Winn NERI s Tk20 [facility] l Medicine Outpati ent Clinics 2019-05-25 2019-05-25 [facility] [id number] 09:40:00 09:40:00 t Winn NERI s Tk20 [facility] Medicine Outpati ent Clinics 2019-04-27 2019-04-27 [id number] [facility] St 13:17:00 13:17:00 t Winn NERI s Tk20 [facility] Medicine Outpati ent Clinics 2019-01-19 2019-01-19 [facility] [id number] [facility] [address] 17:19:00 17:19:00 t Winn NERI s Tk20 [facility] Medicine l Medicine Outpati ent Clinics 2018-12-09 2018-12-09 [facility] [id number] 09:30:00 09:30:00 t Winn NERI s Tk20 [facility] Medicine Outpati ent Clinics 2018-12-08 2018-12-08 [facility] [id number] 15:00:00 15:00:00 t Winn NERI s [employer] [address] [facility] l Medicine Outpati ent Clinics 2018-11-18 2018-11-18 [facility] [id number] 15:26:00 15:26:00 t Winn [employer] [facility] Medicine Medicine Outpati ent Clinics 2018-08-19 2018-08-19 Appointmen MAGDIELJIMMIE NUNEZ [facility] - [id number] [facility] 09:30:00 09:30:00 t; PANDA MATHIS, [facility] 2018-06-28 2018-06-28 [facility] [id number] 09:14:00 09:14:00 t Winn NERI s - [employer] [facility] Medicine Medicine Outpati ent Clinics 2018-06-24 2018-06-24 [facility] [id number] 13:20:00 13:20:00 t Winn NERI s - [employer] [facility] l Medicine Outpati ent Clinics 2018-04-21 2018-04-21 [facility] [id number] 10:06:00 10:06:00 t Winn NERI s - [employer] [facility] Medicine l Medicine Outpati ent Clinics 2018-03-24 2018-03-24 [facility] [id number] 16:36:00 16:36:00 t Winn NERI s - [employer] [facility] Medicine l Medicine Outpati ent Clinics 2018-03-24 2018-03-24 [facility] [id number] 10:30:00 10:30:00 t Winn NERI s - [employer] [facility] Medicine l Medicine Outpati ent Clinics 2017-12-23 2017-12-23 Outpatient [facility] [id number] [facility] 00:00:00 00:00:00 [facility] 2017-12-20 2017-12-20 [facility] [id number] 16:12:00 16:12:00 t Winn NERI s - Drive [facility] Medicine l Medicine Outpati ent Clinics 2017-12-16 2017-12-16 [facility] [id number] 15:01:00 15:01:00 t Winn [employer] - Drive [facility] Medicine l Medicine Outpati ent Clinics 2017-10-01 2017-10-01 [facility] [id number] 10:09:00 10:09:00 t Winn [employer] [facility] 2017-08-26 2017-08-26 Patrick MILLER, JIMMIE UTP [id number] Univers 11:00:00 11:00:00 t; JENI MILLER [facility] 2017-08-02 2017-08-02 [facility] [id number] 09:45:00 09:45:00 t [facility] [employer] [facility] ent [facility] 2017-06-10 2017-06-10 Appointina MILLER, JIMMIE UTP [id number] Univers 10:00:00 10:00:00 t; JENI MILLER [facility] ans 2017-04-01 2017-04-01 JIMMIE Alfonso UTP [id number] Univers 10:15:00 10:15:00 t; JESENIA QURESHI it y [facility] [place] [facility] Physici ans 2017-02-15 2017-02-15 Patrick MILLER, JIMMIE UTP [id number] Univers 14:30:00 14:30:00 t; JENI MILLER [facility] ans 2016-12-17 2016-12-17 JIMMIE Alfonso UTP [id number] Univers 10:00:00 10:00:00 t; JESENIA QURESHI, it y of [place] [facility] Physici ans 2016-10-22 2016-10-22 Appointina QURESHI, JIMMIE UTP [id number] Univers 09:00:00 09:00:00 t; JESENIA QURESHI, it y of [place] M.D. Physici ans 2016-10-05 2016-10-05 Appointina QURESHI, JIMMIE UTP [id number] Univers 11:00:00 11:00:00 t; JESENIA QURESHI it y of [place] [facility] Physici ans 2016-10-01 2016-10-01 AppointJIMMIE [place] UTP [id number] Univers 11:45:00 11:45:00 t; JENI MILLER [facility] Physici ans 2016-09-21 2016-09-21 Appointmen [facility] UTP [id number] Univers 13:00:00 13:00:00 t; JESENIA QURESHI it y of [place], M.D. [place] [facility] Physici ans 2016-09-03 2016-09-03 AppointJIMMIE [place] UTP [id number] 5 Univers 11:15:00 11:15:00 t; JESENIA QURESHI it y of [place], M.D. [facility] Phys[facility] ans Results Test Description Test Time Test Comments Results Result Comments Source BASIC METABOLIC PANEL (NA, K, CL, CO2, GLUCOSE, BUN, 2019-08 14:48:00 CREATININE, CA) Test Item Value Reference Range Interpretation Comme nts NA (test code = 1064103432) 135 mmol/L 135-145 K (test code = 8070181764) 3.3 mmol/L 3.5-5 L CL (test code = 4148409654) 109 mmol/L 98-108 H CO2 TOTAL (test code = 9742206566) 17 mmol/L 23-31 L AGAP (test code = 3280686458) 2-16 BUN (test code = 1689485889) 40 mg/dL 7-23 H GLUCOSE (test code = 2375764928) 161 mg/dL 70-110 H CREATININE (test code = 2.11 mg/dL 0.5-1.04 H 6651730059) CALCIUM (test code = 5603970372) 8.5 mg/dL 8.6-10.6 L eGFR Calculation (Non- mL/min/1.73m2 Spanish) (test code = 4597287160) eGFR Calculation ( mL/min/1.73m2 Spanish) (test code = 7752030227) ELIZA (test code = ELIZA) Association of Glomerular Filtration Rate (GFR) and Staging of Kidney Disease* + +-------- + ------+| GFR (mL/min/1.73 m2) ?| With Kidney Damage ?| ?Without Kidney Damage+ +-- + +| ?>90 ?| ?Stage one ?| ? Normal ?+ +------- + -------+| ?60-89 ?| ?Stage two ?| ? Decreased GFR ? + +-------- + ------+| ?30-59 ?| ?Stage three ?| ? Stage three ? + +-------- + ------+| ?15-29 ?| ?Stage four ? | ? Stage four ?+ +------- + -------+| ?<15 (or dialysis) ? ?| ?Stage five ? | ? Stage five ?+ +------- + -------+ *Each stage assumes the associated GFR level has been in effect for at least three months. ?Stages 1 to 5, with or without kidney disease, indicate chronic kidney disease. Notes: Determination of stages one and two (with eGFR >59mL/min/1.73 m2) requires estimation of kidney damage for at least three months as defined by structural or functional abnormalities of the kidney, manifested by either:Pathological abnormalities or Markers of kidney damage (including abnormalities in the composition of the blood or urine or abnormalities in imaging tests). Lab Interpretation (test code = Abnormal 74827-4) [facility] (COOKIE)2019-08-24 16:21:54 There was no aspiration demonstrated. Minor flash penetration noted.Otherwise normal modified barium swallow. ?Please refer to the speechpathology report.MODIFIED BARIUM SWALLOW HISTORY: 63-year-old female with dysphagia TECHNIQUE and FINDINGS: Barium of varying consistencies of from thin through nectar, puree andsolid were administered to the patient during intermittent lateral and APfluoroscopy.The study was performed with the speech pathologist. Minor laryngeal flash penetration to airway demonstrated. The swallowreflex and protective mechanisms are intact. No laryngeal aspirations werenoted. [facility], Radiant Results Inft User - 08/24/2019 11:23 AM CDTMODIFIED BARIUM SWALLOW HISTORY: 63-year-old female with dysphagia TECHNIQUE and FINDINGS: Barium of varying consistencies of from thin through nectar, puree andsolid were administered to the patient during intermittent lateral and APfluoroscopy. The study was performed with the speech pathologist. Minor laryngeal flash penetration to airway demonstrated. The swallowreflex and protective mechanisms are intact. No laryngeal aspirations werenoted. IMPRESSIONThere was no aspiration demonstrated. Minor flash penetration noted.Otherwise normal modified barium swallow. Please refer to the speechpathology report.[facility] WITH DIFFERENTIAL 2019-08-24 08:53:00 Test Item Value Reference Range Interpretation Comments WBC (test code = See_Comment H [Automated 6690-2) message] The system which generated this result transmit matthew reference range : 4.30 - 11.10 10*3/?L. The reference range was not used to interpret this result as normal/abnormal . RBC (test code = See_Comment L [Automated 789-8) message] The system which generated this result transmit matthew reference range : 3.93 - 5.25 10*6/?L. The reference range was not used to interpret this result as normal/abnormal . HGB (test code = 8.8 g/dL 11.6-15 L 718-7) HCT (test code = 25.1 % 35.7-45.2 L 4544-3) MCV (test code = 100.4 fL 80.6-95.5 H 787-2) MCH (test code = 35.2 pg 25.9-32.8 H 785-6) MCHC (test code = 35.1 g/dL 31.6-35.1 786-4) RDW-SD (test code = 49.5 fL 39-49.9 36209-7) RDW-CV (test code = 13.5 % 12-15.5 788-0) PLT (test code = See_Comment L [Automated 777-3) message] The system which generated this result transmit matthew reference range : 166 - 358 10*3/ ?L. The reference range was not u sed to interpret th is result as normal/abnormal . MPV (test code = 9.9 fL 9.5-12.9 41951-0) NRBC/100 WBC (test See_Comment [Automat ed code = 6413277292) message] The system which generated this result transmit matthew reference range : 0.0 - 10.0 /100 WBCs. The reference range was not used to interpret this result as normal/abnormal . NRBC x10^3 (test code <0.01 See_Comment [Auto mated = 4836100868) message] The system which generated this result transmit matthew reference range : 10*3/?L. The reference range was not used to interpret this result as normal/abnormal . GRAN MAT (NEUT) % 90.6 % (test code = 770-8) IMM GRAN % (test code 0.80 % = 8958654034) LYMPH % (test code = 1.8 % 736-9) MONO % (test code = 6.6 % 5905-5) EOS % (test code = 0.0 % 713-8) BASO % (test code = 0.2 % 706-2) GRAN MAT x10^3(ANC) 13.15 10*3/uL 1.88-7.09 H (test code = 4617730728) IMM GRAN x10^3 (test 0.11 10*3/uL 0-0.06 H code = 4364180756) LYMPH x10^3 (test code 0.26 10*3/uL 1.32-3.29 L = 731-0) MONO x10^3 (test code 0.95 10*3/uL 0.33-0.92 H = 742-7) EOS x10^3 (test code = <0.03 0.03-0.39 L 711-2) BASO x10^3 (test code 0.03 10*3/uL 0.01-0.07 = 704-7) TOXIC CHANGES (test Present A code = 803-7) GIANT PLATELETS (test Present See_Comment A [Auto mated code = 5908-9) message] The system which generated this result transmit matthew reference range : (none). The reference range was not used to interpret this result as normal/abnormal . Lab Interpretation Abnormal (test code = 13091-1) [facility] METABOLIC PANEL (NA, K, CL, CO2, GLUCOSE, BUN, CREATININE, CA)2019-08-24 08:31:00 Test Item Value Reference Range Interpretation Comments NA (test code = 132 mmol/L 135-145 L 2959150876) K (test code = 3.4 mmol/L 3.5-5 L 1102153922) CL (test code = 104 mmol/L 98-108 3463429010) CO2 TOTAL (test code = 17 mmol/L 23-31 L 8311659351) AGAP (test code = 2-16 4578573988) BUN (test code = 41 mg/dL 7-23 H 3387548665) GLUCOSE (test code = 124 mg/dL 70-110 H 1078584357) CREATININE (test code = 2.31 mg/dL 0.5-1.04 H 0207794599) CALCIUM (test code = 8.4 mg/dL 8.6-10.6 L 9199046380) eGFR Calculation mL/min/1.73m2 (Non-) (test code = 1334057761) eGFR Calculation mL/min/1.73m2 () (test code = 5567559104) ELIZA (test code = ELIZA) Association of Glomerular Filtration Rate (GFR) and Staging of Kidney Disease* + --+ --+ ------+| GFR (mL/min/1.73 m2) ?| With Kidney Damage ?| ?Without Kidney Damage+ --------+ --------+ +| ?>90 ?| ?Stage one ?| ? Normal ?+ ---+ ---+ -------+| ?60-89 ?| ?Stage two ?| ? Decreased GFR ? + --+ --+ ------+| ?30-59 ?| ?Stage three ?| ? Stage three ? + --+ --+ ------+| ?15-29 ?| ?Stage four ? | ? Stage four ?+ ---+ ---+ -------+| ?<15 (or dialysis) ? ?| ?Stage five ? | ? Stage five ?+ ---+ ---+ -------+ *Each stage assumes the associated GFR level has been in effect for at least three months. ?Stages 1 to 5, with or without kidney disease, indicate chronic kidney disease. Notes: Determination of stages one and two (with eGFR >59mL/min/1.73 m2) requires estimation of kidney damage for at least three months as defined by structural or functional abnormalities of the kidney, manifested by either:Pathological abnormalities or Markers of kidney damage (including abnormalities in the composition of the blood or urine or abnormalities in imaging tests). Lab Interpretation Abnormal (test code = 01511-9) [facility] WO [id number] 21:07:31 No acute intracranial findings such as acute ischemia or intracranialhemorrhage. Preliminary Report Dictated by Resident: Nakul Meredith MD., have reviewed this study and agree with the abovereport.MR BRAIN WO CONTRAST HISTORY: Female 63 years right sided weakness COMPARISON: Reference to noncontrast CT head on 08/22/2019 TECHNIQUE: Multisequence multiplanar MR images the brain were obtainedwithout IV contrast. FINDINGS: The ventricles and sulci are normal in caliber and configuration. Nomidline shift, hydrocephalus or pathologic extra axial fluid collection isidentified. The basal cisterns are patent. No restricted diffusion is present to suggest acute infarct. Small T 2/FLAIRhyperintensity is noted in the deep left frontal white matter. 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 No abnormal gradient blooming. The T2 flow voids for the major intracranial vessels are unremarkable.Trace right mastoid effusion. The remainder of the renal cyst sinuses andleft mastoid air cells are clear. [facility], Radiant Results Inft User - 08/23/2019 4:08 PM CDTMR BRAIN WO CONTRASTHISTORY: Female 63 years right sided weakness COMPARISON: Reference to noncontrast CT head on 08/22/2019TECHNIQUE: Multisequence multiplanar MR images the brain were obtainedwithout IV contrast.FINDINGS:The ventricles and sulci are normal in caliber and configuration. Nomidline shift, hydrocephalus or pathologic extra axial fluid collection isidentified. The basal cisterns are patent. No restricted diffusion is present to suggest acute infarct. 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 No abnormal gradient blooming. The T2 flowvoids for the major intracranial vessels are unremarkable.Trace right mastoid effusion. The remainder of the renal cyst sinuses andleft mastoid air cells are clear.IMPRESSIONNo acute intracranial findings such as acute ischemia or intracranialhemorrhage. Preliminary Report Dictated by Resident: Nakul Snow MD., have reviewed this study and agree with the abovereport.[facility] WITH [id number] 13:56:00 Test Item Value Reference Range Interpretation Comments WBC (test code = See_Comment H [Automated 6690-2) message] The system which generated this result transmit matthew reference range : 4.30 - 11.10 10*3/?L. The reference range was not used to interpret this result as normal/abnormal . RBC (test code = See_Comment L [Automated 789-8) message] The system which generated this result transmit matthew reference range : 3.93 - 5.25 10*6/?L. The reference range was not used to interpret this result as normal/abnormal . HGB (test code = 9.4 g/dL 11.6-15 L 718-7) HCT (test code = 28.0 % 35.7-45.2 L 4544-3) MCV (test code = 104.5 fL 80.6-95.5 H 787-2) MCH (test code = 35.1 pg 25.9-32.8 H 785-6) MCHC (test code = 33.6 g/dL 31.6-35.1 786-4) RDW-SD (test code = 51.8 fL 39-49.9 H 45764-4) RDW-CV (test code = 13.4 % 12-15.5 788-0) PLT (test code = See_Comment L [Automated 777-3) message] The system which generated this result transmit matthwe reference range : 166 - 358 10*3/ ?L. The reference range was not u sed to interpret th is result as normal/abnormal . MPV (test code = 9.5 fL 9.5-12.9 49915-5) NRBC/100 WBC (test See_Comment [Automat ed code = 4739815695) message] The system which generated this result transmit matthew reference range : 0.0 - 10.0 /100 WBCs. The reference range was not used to interpret this result as normal/abnormal . NRBC x10^3 (test code <0.01 See_Comment [Auto mated = 6796767616) message] The system which generated this result transmit matthew reference range : 10*3/?L. The reference range was not used to interpret this result as normal/abnormal . GRAN MAT (NEUT) % 84.9 % (test code = 770-8) IMM GRAN % (test code 6.00 % = 5834968986) LYMPH % (test code = 2.2 % 736-9) MONO % (test code = 5.4 % 5905-5) EOS % (test code = 1.3 % 713-8) BASO % (test code = 0.2 % 706-2) GRAN MAT x10^3(ANC) 14.63 10*3/uL 1.88-7.09 H (test code = 5298663733) IMM GRAN x10^3 (test 1.03 10*3/uL 0-0.06 H code = 2804307984) LYMPH x10^3 (test code 0.38 10*3/uL 1.32-3.29 L = 731-0) MONO x10^3 (test code 0.93 10*3/uL 0.33-0.92 H = 742-7) EOS x10^3 (test code = 0.22 10*3/uL 0.03-0.39 711-2) BASO x10^3 (test code 0.04 10*3/uL 0.01-0.07 = 704-7) BANDS (test code = Increased A 6365030401) DOHLE BODIES (test Present A code = 7792-5) TOXIC CHANGES (test Present A code = 803-7) GIANT PLATELETS (test Present See_Comment A [Auto mated code = 5908-9) message] The system which generated this result transmit matthew reference range : (none). The reference range was not used to interpret this result as normal/abnormal . Lab Interpretation Abnormal (test code = 62750-8) [facility] LIPID PANEL (25520)(TOTAL CHOLESTEROL, TRIGLYCERIDES, HDL)2019-08-23 13:40:00 Test Item Value Reference Range Interpretation Comments CHOL (test code = 84 mg/dL 120-200 L 1747383697) HDL (test code = 24 mg/dL >50 L 8937197709) HDLC RATIO (test code = See_Comment [Au tomated message] 0936440610) The system ic h generated this result transmit matthew reference range : <=4.5. The refe rence range was not u sed to interpret th is result as normal/abnormal . TRIG (test code = 173 mg/dL 30-170 H 8307898986) LDL CHOL (test code = 25 mg/dL See_Comment [Auto mated message] 99968-6) The system Centrl generated this result transmit matthew reference range : <=160. The refe rence range was not u sed to interpret th is result as normal/abnormal . VLDL (test code = 35 mg/dL 5-60 1682310403) Lab Interpretation (test Abnormal code = 49308-1) [facility] METABOLIC PANEL (NA, K, CL, CO2, GLUCOSE, BUN, CREATININE, CA)2019-08-23 13:40:00 Test Item Value Reference Range Interpretation Comments NA (test code = 135 mmol/L 135-145 2303952330) K (test code = 3.6 mmol/L 3.5-5 7990087168) CL (test code = 106 mmol/L 98-108 0221415496) CO2 TOTAL (test code = 19 mmol/L 23-31 L 9259165096) AGAP (test code = 2-16 6612268742) BUN (test code = 29 mg/dL 7-23 H 6887160592) GLUCOSE (test code = 133 mg/dL 70-110 H 0849800816) CREATININE (test code = 2.25 mg/dL 0.5-1.04 H 4341806990) CALCIUM (test code = 8.1 mg/dL 8.6-10.6 L 5722382481) eGFR Calculation mL/min/1.73m2 (Non-) (test code = 9964047972) eGFR Calculation mL/min/1.73m2 () (test code = 8372521547) ELIZA (test code = ELIZA) Association of Glomerular Filtration Rate (GFR) and Staging of Kidney Disease* + --+ --+ ------+| GFR (mL/min/1.73 m2) ?| With Kidney Damage ?| ?Without Kidney Damage+ --------+ --------+ +| ?>90 ?| ?Stage one ?| ? Normal ?+ ---+ ---+ -------+| ?60-89 ?| ?Stage two ?| ? Decreased GFR ? + --+ --+ ------+| ?30-59 ?| ?Stage three ?| ? Stage three ? + --+ --+ ------+| ?15-29 ?| ?Stage four ? | ? Stage four ?+ ---+ ---+ -------+| ?<15 (or dialysis) ? ?| ?Stage five ? | ? Stage five ?+ ---+ ---+ -------+ *Each stage assumes the associated GFR level has been in effect for at least three months. ?Stages 1 to 5, with or without kidney disease, indicate chronic kidney disease. Notes: Determination of stages one and two (with eGFR >59mL/min/1.73 m2) requires estimation of kidney damage for at least three months as defined by structural or functional abnormalities of the kidney, manifested by either:Pathological abnormalities or Markers of kidney damage (including abnormalities in the composition of the blood or urine or abnormalities in imaging tests). Lab Interpretation Abnormal (test code = 27165-8) [facility] CenterUrinalysis2020-[facility] 23:39:00 Test Item Value Reference Range Interpretation Comments APPEARANCE (test code = Hazy Clear A 1449539790) COLOR (test code = Orly Yellow A 5465820396) PH (test code = 4.8-8.0 4230567448) SP GRAVITY (test code = 1.003-1.030 H 4994681339) GLU U QUAL (test code = Normal Normal 5589307000) BLOOD (test code = 2+ Negative A 9592162079) KETONES (test code = Negative Negative 4890444078) PROTEIN (test code = 100 mg/dL Negative A 2887-8) UROBILIN (test code = Normal Normal 5067749272) BILIRUBIN (test code = Negative Negative 7530531838) NITRITE (test code = Negative Negative 8357467030) LEUK NATHANIEL (test code = 500/uL Negative A 8878957848) RBC/HPF (test code = See_Comment H [Autom ated message] 3239155966) The system Centrl generated this result transmit matthew reference range : 0 - 3 HPF. The refe rence range was not u sed to interpret th is result as normal/abnormal . WBC/HPF (test code = See_Comment H [Autom ated message] 0526127007) The system Centrl generated this result transmit matthew reference range : 0 - 5 HPF. The refe rence range was not u sed to interpret th is result as normal/abnormal . BACTERIA (test code = Many Negative A 5742829049) ASCORBIC ACID (test code Negative = 4083621505) Lab Interpretation (test Abnormal code = 94757-1) [facility] Center[facility] ([facility] NOW RAPID TESTING)2019-08-22 22:58:00 Test Item Value Reference Range Interpretation Comments SARS-CoV-2 Rapid ID NOW Not Detected Not Detected (test code = 33585-8) ELIZA (test code = ELIZA) ID NOW COVID-19 Assay is an isothermal nucleic acid amplification test intended for the qualitative detection of nucleic acid from SARS-CoV-2 viral RNA in nasopharyngeal (MARINE GEOLOGIST) specimens. It is used under Emergency Use Authorization (EUA) by FDA. The limit of detection (LOD) of the assay is 125 Genome Equivalents/mL. A positive result is indicative of the presence of SARS-CoV-2 RNA. ?Clinical correlation with patient history and other diagnostic information is necessary to determine patient infection status. A negative (Not Detected) result does not preclude SARS-CoV-2 infection. In patients with clinical symptoms and other tests that are consistent with SARS-CoV-2 infection, negative results should be treated as presumptive negative and a new specimen should be tested with alternative PCR molecular test. Invalid: Please collect a new specimen for repeat patient testing if clinically indicated. Lab Interpretation Normal (test code = 54344-7) [facility] Center[facility] [id number] 22:33:37 No intracranial proximal large vessel occlusion. No significant extracranial stenosis. EXAMINATION: ?CT STROKE ANGIOGRAM HEAD, CT STROKE ANGIOGRAM NECK HISTORY: Acute Stroke Rad: please obtain POCT creatinine prior to CTAhead/neck TECHNIQUE: CT angiography of the brain was performed and reviewed in multiple planes.Two dimensional multiplanar reformatted images were generated and submittedto PACS. ?3-D rendering was performed with physician participation andsupervision.CT angiography of the neck was performed using 1.25 mm thick axial slicesand reviewed in multiple planes. Two and three dimensional multiplanarreformatted images were generated and submitted to PACS. ?3-D rendering wasperformed with physician participation and supervision. ? A total of 100 mL Omnipaque ?was injected intravenously. ? COMPARISON: None. FINDINGS: CTA of the [facility] reveals no intracranial proximal large vesselocclusion. Atherosclerosis of the intracranial internal carotid arteriesand left V4 segment with mild narrowing. No CT-identifiable aneurysm ispresent. ?Conventional angiography is more sensitive for the detection ofsmall aneurysms. CTA of the neck demonstrates that the origins of the great vessels arewidely ?patent. Conventional arch anatomy. There is no significantextracranial stenosis. ?0%stenosis of the cervical internal carotidarteries by NASCET criteria. ?No aneurysm is seen. Mild degenerative changes of the spine. 7 mm calcified right thyroid lobenodule. Temporomandibular joint degeneration. [facility], Radiant Results Inft User - 08/22/2019 5:34 PM CDTEXAMINATION: CT STROKE ANGIOGRAM HEAD, CT STROKE ANGIOGRAM NECKHISTORY: Acute Stroke Rad: please obtain POCT creatinine prior to CTAhea d/neckTECHNIQUE:CT angiography of the brain was performed and reviewed in multiple planes.Two dimensional multiplanar reformatted images were generated and submittedto PACS. 3-D rendering was performed with physician participation andsupervision.CT angiography of the neck was performed using 1.25 mm thick axial slicesand reviewed in multiple planes. Two and three dimensional multiplanarreformatted images were generated and submitted to PACS. 3-D rendering wasperformed with physician participation and supervision. A total of 100 mL Omnipaque was injected intravenously. COMPARISON: None.FINDINGS: CTA of the [facility] reveals no intracranial proximal large vesselocclusion. Atherosclerosisof the intracranial internal carotid arteriesand left V4 segment with mild narrowing. No CT-identifiable aneurysm ispresent. Conventional angiography is more sensitive for the detection ofsmall aneurysms.CTA of the neck demonstrates that the origins of the great vessels arewidely patent. Conventional arch anatomy. There is no significantextracranial stenosis. 0% stenosis of the cervical internal carotidarteries by NASCET criteria. No aneurysm is seen.Mild degenerative changes of the spine. 7 mm calcified right thyroid lobenodule. Temporomandibular joint degeneration.IMPRESSIONNo intracranial proximal large vessel occlusion.No significant extracranial stenosis.[facility] [id number] 22:33:37 No intracranial proximal large vessel occlusion. No significant extracranial stenosis. EXAMINATION: ?CT STROKE ANGIOGRAM HEAD, CT STROKE ANGIOGRAM NECK HISTORY: Acute Stroke Rad: please obtain POCT creatinine prior to CTAhead/neck TECHNIQUE: CT angiography of the brain was performed and reviewed in multiple planes.Two dimensional multiplanar reformatted images were generated and submittedto PACS. ?3-D rendering was performed with physician participation andsupervision.CT angiography of the neck was performed using 1.25 mm thick axial slicesand reviewed in multiple planes. Two and three dimensional multiplanarreformatted images were generated and submitted to PACS. ?3-D rendering wasperformed with physician participation and supervision. ? A total of 100 mL Omnipaque ?was injected intravenously. ? COMPARISON: None. FINDINGS: CTA of the [facility] reveals no intracranial proximal large vesselocclusion. Atherosclerosis of the intracranial internal carotid arteriesand left V4 segment with mild narrowing. No CT-identifiable aneurysm ispresent. ?Conventional angiography is more sensitive for the detection ofsmall aneurysms. CTA of the neck demonstrates that the origins of the great vessels arewidely ?patent. Conventional arch anatomy. There is no significantextracranial stenosis. ?0%stenosis of the cervical internal carotidarteries by NASCET criteria. ?No aneurysm is seen. Mild degenerative changes of the spine. 7 mm calcified right thyroid lobenodule. Temporomandibular joint degeneration. [facility], Radiant Results Inft User - 08/22/2019 5:34 PM CDTEXAMINATION: CT STROKE ANGIOGRAM HEAD, CT STROKE ANGIOGRAM NECKHISTORY: Acute Stroke Rad: please obtain POCT creatinine prior to CTAhea d/neckTECHNIQUE:CT angiography of the brain was performed and reviewed in multiple planes.Two dimensional multiplanar reformatted images were generated and submittedto PACS. 3-D rendering was performed with physician participation andsupervision.CT angiography of the neck was performed using 1.25 mm thick axial slicesand reviewed in multiple planes. Two and three dimensional multiplanarreformatted images were generated and submitted to PACS. 3-D rendering wasperformed with physician participation and supervision. A total of 100 mL Omnipaque was injected intravenously. COMPARISON: None.FINDINGS: CTA of the [facility] reveals no intracranial proximal large vesselocclusion. Atherosclerosisof the intracranial internal carotid arteriesand left V4 segment with mild narrowing. No CT-identifiable aneurysm ispresent. Conventional angiography is more sensitive for the detection ofsmall aneurysms.CTA of the neck demonstrates that the origins of the great vessels arewidely patent. Conventional arch anatomy. There is no significantextracranial stenosis. 0% stenosis of the cervical internal carotidarteries by NASCET criteria. No aneurysm is seen.Mild degenerative changes of the spine. 7 mm calcified right thyroid lobenodule. Temporomandibular joint degeneration.IMPRESSIONNo intracranial proximal large vessel occlusion.No significant extracranial stenosis.[facility] CenterC[facility] 1 [id number] 22:24:51 Findings and Impression: Suboptimal inspiratory volumes resulting inbronchovascular crowding and subsegmental atelectasis. Lungs are otherwiseclear. No pleural effusion or pneumothorax. Heart size is normal. No acuteosseous abnormality.PORTABLE CHEST RADIOGRAPH History: stroke Comparison: 01/03/2015 TECHNIQUE: AP view of the chest. [facility], Radiant Results Inft User - 08/22/2019 5:25 PM CDTPORTABLE CHEST RADIOGRAPHHistory: stroke Comparison: 01/03/2015TECHNIQUE: AP view of the chest.IMPRESSIONFindings and Impression: Suboptimal inspiratory volumes resulting inbronchovascular crowding and subsegmental atelectasis. Lungs are otherwiseclear. No pleural effusion or pneumothorax. Heart size is normal. No acuteosseous abnormality.[facility] Stroke [id number] 22:11:00 Test Item Value Reference Range Interpretation Comments TROPONIN I (test 0.010 ng/mL See_Comment [Automated code = 3872576410) message] The system which generated this result transmitted reference range : <=0.034. The reference range was not used to interpret this result as normal/abnormal . ELIZA (test code = Equal or Less than ELIZA) 0.034 ng/ml---Normal ?Note: Cardiac troponin begins to rise 3-4 hours after the onset of ischemia. Repeat in 4-6 hours if the sample was drawn within 3-4 hours of the onset of the symptom and found normal. Between 0.035 and 0.120 ng/mL--- Borderline. Questionable myocardial injury or necrosis ? ?Note: Serial measurement may be necessary to confirm or exclude the diagnosis of myocardial injury or necrosis; Clinical correlation (symptoms, EKGs, imaging studies, and others) required; Repeat in 4-6 hours if clinically indicated. ? Equal or Higher than 0.121 ng/mL---Abnormal. Myocardial Injury or Necrosis Likely ? Biotin has been reported to cause a negative bias, interpret results relative to patient's use of biotin. ? Lab Interpretation Normal (test code = 39646-2) [facility] (NA, K, CL, CO2, Glucose, BUN, Creatinine, CA) - ED Stroke [id number] 21:59:00 Test Item Value Reference Range Interpretation Comments NA (test code = 133 mmol/L 135-145 L 3689699589) K (test code = 3.6 mmol/L 3.5-5 8623660081) CL (test code = 102 mmol/L 98-108 1852592819) CO2 TOTAL (test code = 17 mmol/L 23-31 L 9534482738) AGAP (test code = 2-16 0909642300) BUN (test code = 24 mg/dL 7-23 H 0476026551) GLUCOSE (test code = 117 mg/dL 70-110 H 5048611115) CREATININE (test code = 1.91 mg/dL 0.5-1.04 H 0839939107) CALCIUM (test code = 8.8 mg/dL 8.6-10.6 3624829755) eGFR Calculation mL/min/1.73m2 (Non-) (test code = 8847126144) eGFR Calculation mL/min/1.73m2 () (test code = 7579099746) ELIZA (test code = ELIZA) Association of Glomerular Filtration Rate (GFR) and Staging of Kidney Disease* + --+ --+ ------+| GFR (mL/min/1.73 m2) ?| With Kidney Damage ?| ?Without Kidney Damage+ --------+ --------+ +| ?>90 ?| ?Stage one ?| ? Normal ?+ ---+ ---+ -------+| ?60-89 ?| ?Stage two ?| ? Decreased GFR ? + --+ --+ ------+| ?30-59 ?| ?Stage three ?| ? Stage three ? + --+ --+ ------+| ?15-29 ?| ?Stage four ? | ? Stage four ?+ ---+ ---+ -------+| ?<15 (or dialysis) ? ?| ?Stage five ? | ? Stage five ?+ ---+ ---+ -------+ *Each stage assumes the associated GFR level has been in effect for at least three months. ?Stages 1 to 5, with or without kidney disease, indicate chronic kidney disease. Notes: Determination of stages one and two (with eGFR >59mL/min/1.73 m2) requires estimation of kidney damage for at least three months as defined by structural or functional abnormalities of the kidney, manifested by either:Pathological abnormalities or Markers of kidney damage (including abnormalities in the composition of the blood or urine or abnormalities in imaging tests). Lab Interpretation Abnormal (test code = 84608-9) [facility] CenterCT [facility] WO [id number] 21:58:[address]CT STROKE HEAD WO CONTRAST HISTORY: Female 63 years Stroke suspected, focal neuro deficit, < 6 hrs COMPARISON: None TECHNIQUE: Routine CT head without contrast FINDINGS: The ventricles and cerebral sulci are normal in caliber and configuration.No hydrocephalus, midline shift or pathological extra-axial fluidcollection is present. The basal cisterns are unremarkable. No acute intracranial hemorrhage or mass effect is present. The galdamez-whitematter differentiation is preserved. No parenchymal attenuation abnormalityis present. The calvarium and skull base are unremarkable. The mastoid air cells andvisualized paranasal air sinuses are clear. [facility], Radiant Results Inft User - 08/22/2019 4:59 PM CDTCT STROKE HEAD WO CONTRASTHISTORY: Female 63 years Stroke suspected, focal neuro deficit, < 6 hrs COMPARISON: NoneTECHNIQUE: Routine CT head without contrastFINDINGS:The ventricles and cerebral sulci are normal in caliber and configuration.No hydrocephalus, midline shift or pathological extra- axial fluidcollection is present. The basal cisterns are unremarkable.No acute intracranialhemorrhage or mass effect is present. The galdamez-whitematter differentiation is preserved. No parenchymal attenuation abnormalityis present.The calvarium and skull base are unremarkable. The mastoid air cells andvisualized paranasal air sinuses are clear.IMPRESSIONNormal CT headUnThe [facility] Health [facility] CampusProthrombin Time / INR - ED Stroke [id number] 21:57:00 Test Item Value Reference Range Interpretation Comments PROTIME PATIENT (test See_Comment H [Auto mated message] code = 5964-2) The system [employer] generated this result transmitted ref erence range: 10.1 - 1 2.6 Seconds. The reference range was not used to int erpret this result as normal/abnormal . INR (test code = 6301-6) Nor mal INR <1.1; Warfarin Therap eutic range 2.0 to 3. 0 or 2.5 to 3.5, dep ending upon the indica tions. Lab Interpretation (test Abnormal code = 65035-4) [facility] CenteraPTT - [facility] Stroke [id number] 21:57:00 Test Item Value Reference Range Interpretation Comments APTT Patient (test code = See_Comment [ Automated message] 3173-2) The system [employer] generated this result transmitted ref erence range: 26 - 36 Seconds. The re ference range was not u sed to interpret this result as normal/abnor mal. Lab Interpretation (test Normal code = 66912-5) [facility] CenterProfile / Hemogram - ED Stroke [id number] 21:50:00 Test Item Value Reference Range Interpretation Comments WBC (test code = 6690-2) See_Comment H [A utomated message] The system [employer] generated this result transmit matthew reference range : 4.30 - 11.10 10*3/?L. The reference range was not used to interpret this result as normal/abnormal . RBC (test code = 789-8) See_Comment L [Au tomated message] The system [employer] generated this result transmit matthew reference range : 3.93 - 5.25 10* 6/?L. The reference r marietta was not used to interpret this result as normal/abnormal . HGB (test code = 718-7) 11.4 g/dL 11.6-15 L HCT (test code = 4544-3) 33.2 % 35.7-45.2 L MCH (test code = 785-6) 35.1 pg 25.9-32.8 H MCV (test code = 787-2) 102.2 fL 80.6-95.5 H MCHC (test code = 786-4) 34.3 g/dL 31.6-35.1 PLT (test code = 777-3) See_Comment L [Au tomated message] The system [employer] generated this result transmit matthew reference range : 166 - 358 10*3/?L. The reference range was not used to interpret this result as normal/abnormal . MPV (test code = 9.5 fL 9.5-12.9 96050-9) RDW-CV (test code = 13.2 % 12-15.5 788-0) RDW-SD (test code = 49.5 fL 39-49.9 64436-2) NRBC x10^3 (test code = <0.01 See_Comment [Au tomated message] [id number]) The system [employer] generated this result transmit matthew reference range : 10*3/?L. The reference range was not used to interpret this result as normal/abnormal . NRBC/100 WBC (test code See_Comment [Au tomated message] = [id number]) The system [employer] generated this result transmit matthew reference range : 0.0 - 10.0 /100 WBC s. The reference r marietta was not used to interpret this result as normal/abnormal . IPF % (test code = 5613762109) Lab Interpretation (test Abnormal code = 24935-6) [facility]"
[2021-02-17] MEDS ORDERED: FLUORESCEIN SODIUM 1 MG/WRAP ONE (11:58)
[2021-02-17] MEDS ORDERED: TETRACAINE HCL 0.5% 4ML OPTH ONE (11:59)
[2021-02-17] MEDS ORDERED: TOBRAMYCIN SULF 0.3% OPTH OINT ONE (12:27)
--- NOTE | 2021-02-17 12:40 | RAD REPORT ---
EXAM DESCRIPTION: CT - CTHCSPWOC - 02/17/2021 12:25 pm CLINICAL HISTORY: Trauma, head and neck injury. PAIN COMPARISON: [id number]-[id number] dated 04/17/2013; [id number]-WO dated 12/18/2010; CP-WDYMT-NAAH ICAL-WO dated 05/18/2008 TECHNIQUE: Axial 5 mm thick images of the head were obtained. Axial 2 mm thick images of the cervical spine were obtained with sagittal and coronal reconstruction images generated and reviewed. All CT scans are performed using dose optimization technique as appropriate and may include automated exposure control or mA/KV adjustment according to patient size. FINDINGS: CT HEAD WITHOUT CONTRAST: No acute hemorrhage, hydrocephalus or extra-axial collection is identified.No areas of brain edema or midline shift. The paranasal sinuses and mastoids are clear.The calvarium is intact. CT CERVICAL SPINE WITHOUT CONTRAST: Approximately 3 millimeters of anterolisthesis of C3 on C4 which is new since 12/18/2010 but favored chronic and related to underlying degenerative changes. Trace retrolisthesis of C4 on C5.No preverteb ral soft tissues swelling is identified. IMPRESSION: No acute intracranial or cervical spine findings.
--- NOTE | 2021-02-17 12:43 | RAD REPORT ---
EXAM DESCRIPTION: CT - CTFB CLINICAL HISTORY: Trauma;Swelling;Pain COMPARISON: CT HEAD BRAIN WWO CONTRAST dated 01/05/2011; Head C Spine Mpr Wo Con dated 02/17/2021 TECHNIQUE: Axial 2 mm thick images of the face were obtained with sagittal and coronal reconstructio n images. All CT scans are performed using dose optimization technique as appropriate and may include automated exposure control or mA/KV adjustment according to patient size. FINDINGS: No acute facial bone fracture is seen.The mandible is intact. The globes and orbital contents are grossly unremarkable.The paranasal sinuses and mastoids are clear . IMPRESSION: Negative for facial bone fracture.
--- NOTE | 2021-02-17 13:30 | EDPHYS ---
Physician Documentation [facility] Name: Domitila Huertas Age: 65 yrs Sex: Female : 1955 Arrival Date: 02/17/2021 Time: 10:52 Bed 15 Private MD: Sandy Gonzalez ED Physician Dallas Meyer HPI: 02/17 12:23 This 65 yrs old Female presents to ER via Ambulatory with complaints of Eye toni Injury. Historical: - Allergies: 11:46 adhesive tape; iw 11:46 amitriptyline HCl; iw 11:46 Azithromycin; iw 11:46 Demerol; iw 11:46 Erythromycin; iw 11:46 erythromycin base; iw 11:46 GABAPENTIN; iw 11:46 Levofloxacin; iw 11:46 Trazodone; iw 11:46 venlafaxine HCl; iw 11:46 Neurontin; iw 11:46 Lyrica; iw 11:52 adhesive tape; tw2 11:52 amitriptyline HCl; tw2 11:52 Azithromycin; tw2 11:52 Demerol; tw2 11:52 Erythromycin; tw2 11:52 erythromycin base; tw2 11:52 GABAPENTIN; tw2 11:52 Levofloxacin; tw2 11:52 Trazodone; tw2 11:52 venlafaxine HCl; tw2 - Home Meds: 11:52 Abilify 15 mg oral tab 1 tab once daily [Active]; Equetro 300 mg Oral CM12 1 cap 3 tw2 times per day [Active]; Cymbalta 60 mg oral cpDR 1 cap once daily [Active]; Austedo 12 mg oral tab 1 tab 2 times per day [Active]; levothyroxine 150 mcg oral cap 1 cap once daily [Active]; alendronate 70 mg/75 mL oral soln 75 mL once wkly [Active]; aspirin 81 mg Oral TbEC 1 tab once daily [Active]; atorvastatin 10 mg oral tab 1 tab once daily [Active]; losartan 100 mg oral tab 1 tab once daily [Active]; Nifedipine ER Oral 90 mg daily [Active]; oxycodone-acetaminophen 7.5-325 mg Oral tab 1 tab every 6 hours [Active]; tizanidine 4 mg Oral tab 1 tab nightly [Active]; Topamax 100 mg oral tab 1 tab [Active]; donepezil 10 mg oral tab 1 tab once daily [Active]; memantine 10 mg oral tab 1 tab 2 times per day [Active]; primidone 50 mg Oral tab 5 tabs 4 times per day [Active]; famotidine 20 mg Oral tab 1 tab once daily [Active]; sodium chloride 1 mg miscellaneous TbSO twice a day [Active]; Vitamin D3 125 mcg (5,000 unit) oral tab [Active]; Restasis 0.05 % ophthalmic (eye) dpet 1 drop every 12 hours [Active]; epinastine 0.05 % ophthalmic (eye) drop 1 drop 2 times per day [Active]; Super B Complex-Vitamin C oral tab [Active]; Centrum oral [Active]; Profemin [Active]; magnesium oxide 500 mg Oral cap [Active]; Iron CR Oral [Active]; - PMHx: 11:46 COPD; iw - Immunization history:: Client reports receiving the 2nd dose of the Covid vaccine, Adult Immunizations Last tetanus immunization: up to date < 5 years ago 06/2017. Pneumococcal vaccine is up to date, Flu vaccine is up to date. - Social history:: Smoking status: Patient/guardian denies using tobacco, the patient reports quitting approximately 50 years ago, Smoking status: . ROS: 12:34 Constitutional: Negative for fever, chills, and weight loss, ENT: Negative for injury, toni pain, and discharge, Neck: Negative for injury, pain, and swelling, Cardiovascular: Negative for chest pain, palpitations, and edema, Respiratory: Negative for shortness of breath, cough, wheezing, and pleuritic chest pain, Abdomen/GI: Negative for abdominal pain, nausea, vomiting, diarrhea, and constipation, Back: Negative for injury and pain, : Negative for injury, bleeding, discharge, and swelling, MS/Extremity: Negative for injury and deformity, Skin: Negative for injury, rash, and discoloration, Neuro: Negative for headache, weakness, numbness, tingling, and seizure, Psych: Negative for depression, anxiety, suicide ideation, homicidal ideation, and hallucinations, Allergy/Immunology: Negative for hives, rash, and allergies, Endocrine: Negative for neck swelling, polydipsia, polyuria, polyphagia, and marked weight changes, Hematologic/Lymphatic: Negative for swollen nodes, abnormal bleeding, and unusual bruising. 12:34 Eyes: Positive for injury or acute deformity, pain, redness, of the right upper eyelid, right outer canthus, outer aspect of conjuctiva of right eye, inner aspect of conjuctiva of right eye, right inner canthus and right lower eyelid. Exam: 12:34 Constitutional: This is a well developed, well nourished patient who is awake, alert, toni and in no acute distress. ENT: Nares patent. No nasal discharge, no septal abnormalities noted. Tympanic membranes are normal and external auditory canals are clear. Oropharynx with no redness, swelling, or masses, exudates, or evidence of obstruction, uvula midline. Mucous membranes moist. Neck: Trachea midline, no thyromegaly or masses palpated, and no cervical lymphadenopathy. Supple, full range of motion without nuchal rigidity, or vertebral point tenderness. No Meningismus. Chest/axilla: Normal chest wall appearance and motion. Nontender with no deformity. No lesions are appreciated. Cardiovascular: Regular rate and rhythm with a normal S1 and S2. No gallops, murmurs, or rubs. Normal PMI, no JVD. No pulse deficits. Respiratory: Lungs have equal breath sounds bilaterally, clear to auscultation and percussion. No rales, rhonchi or wheezes noted. No increased work of breathing, no retractions or nasal flaring. Abdomen/GI: Soft, non-tender, with normal bowel sounds. No distension or tympany. No guarding or rebound. No evidence of tenderness throughout. Back: No spinal tenderness. No costovertebral tenderness. Full range of motion. Skin: Warm, dry with normal turgor. Normal color with no rashes, no lesions, and no evidence of cellulitis. MS/ Extremity: Pulses equal, no cyanosis. Neurovascular intact. Full, normal range of motion. Neuro: Awake and alert, GCS 15, oriented to person, place, time, and situation. Cranial nerves II-XII grossly intact. Motor strength 5/5 in all extremities. Sensory grossly intact. Cerebellar exam normal. Normal gait. Psych: Awake, alert, with orientation to person, place and time. Behavior, mood, and affect are within normal limits. 12:34 Head/face: Noted is contusion, ecchymosis, swelling, that is mild, of the right eye. 12:34 Eyes: Periorbital structures: swelling, that is mild, on the right upper eyelid, medial canthus of right eye, lateral canthus of right eye and right lower eyelid, Pupils: equal, round, and reactive to light and accomodation, Extraocular movements: intact throughout, Conjunctiva: injected, in the right eye, Corneas: are normal, no acute changes, abrasion, is not appreciated, a fluorescein strip employed to appreciate the findings, Sclera: injected , with msedial and lateral evan, no hyphema. Vital Signs: 11:43 BP 156 / 97; Resp 16; Temp 98.7; Pulse Ox 100% on R/A; Weight 67.13 kg; Height 5 ft. 4 iw in. (162.56 cm); Pain 7/10; 11:44 BP 156 / 97; Pulse 80; Resp 17; Temp 98.7(O); Pulse Ox 100% on 2 lpm NC; tw2 12:45 BP 148 / 81; Pulse 95; Resp 19; Pulse Ox 100% on 2 lpm NC; tw2 11:43 Body Mass Index 25.40 (67.13 kg, 162.56 cm) iw 11:44 pt moved from pts own portable oxygen to ER room 15 oxygen at 2L tw2 MDM: 11:39 Patient medically screened. [facility] 13:30 Differential diagnosis: Corneal abrasion of Foreign body in Data reviewed: vital signs, [facility] nurses notes, lab test result(s), radiologic studies, CT scan. Data interpreted: quality assurance monitor final: rate is 95 beats/min, rhythm is regular, Pulse oximetry: on room air is 100 %. Counseling: I had a detailed discussion with the patient and/or guardian regarding: the historical points, exam findings, and any diagnostic results supporting the discharge/admit diagnosis, lab results, radiology results, the need for outpatient follow up, for definitive care, an opthalmologist, a family practitioner. 02/17 12:04 Order name: CT Head C Spine; Complete Time: 13:29 [facility] 02/17 12:04 Order name: CT Facial Bones W/O Con: atten orbits; Complete Time: 13:29 [facility] Administered Medications: 12:15 Drug: Tetracaine Drops 0.5 % 1 drops {Note: by Dr. Meyer.} Route: Ophthalmic; Site: tw2 right eye; 12:15 Drug: Fluorescein Strip 1 strip {Note: by Dr. Meyer.} Route: Ophthalmic; Site: right tw2 eye; 12:51 Drug: Tobrex (tobramycin) Ointment 0.3 % 1 application Route: Ophthalmic; Site: right tw2 eye; Disposition Summary: 02/17/21 13:29 Discharge Ordered Location: Home toni Problem: new toni Symptoms: have improved toni Condition: Stable toni Diagnosis - Fall on same level, unspecified toni - Contusion of eyeball and orbital tissues, right eye - right subconjunctival toni hemorrhage Followup: toni - With: - When: 2 - 3 days - Reason: Recheck today's complaints, Continuance of care, Re-evaluation by your physician Followup: toni - With: - When: 2 - 3 days - Reason: Recheck today's complaints, Re-evaluation by your physician Discharge Instructions: - Discharge Summary Sheet toni - Eye Contusion toni - Fall Prevention in the Home, Adult toni - Subconjunctival Hemorrhage toni - Fall Prevention in the Home, Adult, [id number] toni - Eye Contusion, [id number] toni Forms: - Medication Reconciliation Form toni - Thank You Letter toni - Antibiotic Education toni - Prescription Opioid Use toni Prescriptions: - Tobrex 0.3 % Ophthalmic ointment - apply 1 inch ribbon by OPHTHALMIC route 3 times per day; 3.5 gram; Refills: 0, toni Product Selection Permitted - Motrin IB 200 mg Oral Tablet - take 2 tablet by ORAL route every 6 hours As needed as needed with food; 30 toni tablet; Refills: 0, Product Selection Permitted Signatures: Dispatcher [employer] Dallas Green MD MD cha Williams, Irene, RN RN Renate Samuels RN RN tw2 Corrections: (The following items were deleted from the chart) 12: 11:52 PMHx: corrective hand sx; 12: 11:52 PMHx: Hypertension; 11:52 PMHx: COPD;
--- NOTE | 2021-02-17 13:30 | ER ---
Nurse's Notes [facility] Name: Domitila Huertas Age: 65 yrs Sex: Female : 1955 Arrival Date: 02/17/2021 Time: 10:52 Bed 15 Private MD: Sandy Gonzalez Diagnosis: Fall on same level, unspecified;Contusion of eyeball and orbital tissues, right eye-right subconjunctival hemorrhage Presentation: 02/17 11:43 Chief complaint: Patient states: tripped and fell yesterday, her right eye hit the iw latch of a gate and now her vision is blurry and eye is red, bruising around eye. Coronavirus screen: At this time, the client does not indicate any symptoms associated with coronavirus-19. Ebola Screen: Patient negative for fever greater than or equal to 101.5 degrees Fahrenheit, and additional compatible Ebola Virus Disease symptoms Patient denies exposure to infectious person. Patient denies travel to an Ebola-affected area in the 21 days before illness onset. No symptoms or risks identified at this time. Mechanism of Injury: Fall. The patient denies any loss of vision. Initial Sepsis Screen: Does the patient meet any 2 criteria? No. Patient's initial sepsis screen is negative. Does the patient have a suspected source of infection? No. Patient's initial sepsis screen is negative. Risk Assessment: Do you want to hurt yourself or someone else? Patient reports no desire to harm self or others. Onset of symptoms was February 16, 2021. 11:43 Method Of Arrival: Ambulatory iw 11:43 Acuity: IRENE 3 iw Historical: - Allergies: 11:46 adhesive tape; iw 11:46 amitriptyline HCl; iw 11:46 Azithromycin; iw 11:46 Demerol; iw 11:46 Erythromycin; iw 11:46 erythromycin base; iw 11:46 GABAPENTIN; iw 11:46 Levofloxacin; iw 11:46 Trazodone; iw 11:46 venlafaxine HCl; iw 11:46 Neurontin; iw 11:46 Lyrica; iw 11:52 adhesive tape; tw2 11:52 amitriptyline HCl; tw2 11:52 Azithromycin; tw2 11:52 Demerol; tw2 11:52 Erythromycin; tw2 11:52 erythromycin base; tw2 11:52 GABAPENTIN; tw2 11:52 Levofloxacin; tw2 11:52 Trazodone; tw2 11:52 venlafaxine HCl; tw2 - Home Meds: 11:52 Abilify 15 mg oral tab 1 tab once daily [Active]; Equetro 300 mg Oral CM12 1 cap 3 tw2 times per day [Active]; Cymbalta 60 mg oral cpDR 1 cap once daily [Active]; Austedo 12 mg oral tab 1 tab 2 times per day [Active]; levothyroxine 150 mcg oral cap 1 cap once daily [Active]; alendronate 70 mg/75 mL oral soln 75 mL once wkly [Active]; aspirin 81 mg Oral TbEC 1 tab once daily [Active]; atorvastatin 10 mg oral tab 1 tab once daily [Active]; losartan 100 mg oral tab 1 tab once daily [Active]; Nifedipine ER Oral 90 mg daily [Active]; oxycodone-acetaminophen 7.5-325 mg Oral tab 1 tab every 6 hours [Active]; tizanidine 4 mg Oral tab 1 tab nightly [Active]; Topamax 100 mg oral tab 1 tab [Active]; donepezil 10 mg oral tab 1 tab once daily [Active]; memantine 10 mg oral tab 1 tab 2 times per day [Active]; primidone 50 mg Oral tab 5 tabs 4 times per day [Active]; famotidine 20 mg Oral tab 1 tab once daily [Active]; sodium chloride 1 mg miscellaneous TbSO twice a day [Active]; Vitamin D3 125 mcg (5,000 unit) oral tab [Active]; Restasis 0.05 % ophthalmic (eye) dpet 1 drop every 12 hours [Active]; epinastine 0.05 % ophthalmic (eye) drop 1 drop 2 times per day [Active]; Super B Complex-Vitamin C oral tab [Active]; Centrum oral [Active]; Profemin [Active]; magnesium oxide 500 mg Oral cap [Active]; Iron CR Oral [Active]; - PMHx: 11:46 COPD; iw - Immunization history:: Client reports receiving the 2nd dose of the Covid vaccine, Adult Immunizations Last tetanus immunization: up to date < 5 years ago 06/2017. Pneumococcal vaccine is up to date, Flu vaccine is up to date. - Social history:: Smoking status: Patient/guardian denies using tobacco, the patient reports quitting approximately 50 years ago, Smoking status: . Screenin:38 Abuse screen: Denies threats or abuse. Nutritional screening: No deficits noted. tw2 Tuberculosis screening: No symptoms or risk factors identified. Fall Risk Secondary diagnosis (15 points) impaired mobility, Ambulatory Aid- Crutches/Cane/Walker (15 pts). Assessment: 11:36 General: Appears in no apparent distress. well groomed, Behavior is calm, cooperative, tw2 appropriate for age. Pain: Complains of pain in right eye. Neuro: Level of Consciousness is awake, alert, obeys commands, Oriented to person, place, time, situation. Cardiovascular: Patient's skin is warm and dry. Respiratory: Airway is patent Respiratory effort is even, unlabored, Respiratory pattern is regular, symmetrical. GI: No signs and/or symptoms were reported involving the gastrointestinal system. EENT: Eyes redness noted. Sclera/Cornea are reddened in right upper eyelid, outer aspect of conjuctiva of right eye, iris of right eye and inner aspect of conjuctiva of right eye. 12:46 Reassessment: Patient appears in no apparent distress at this time. No changes from tw2 previously documented assessment. Patient and/or family updated on plan of care and expected duration. Pain level reassessed. Patient is alert, oriented x 3, equal unlabored respirations, skin warm/dry/pink. 13:44 Reassessment: Patient appears in no apparent distress at this time. No changes from tw2 previously documented assessment. Patient and/or family updated on plan of care and expected duration. Pain level reassessed. Patient is alert, oriented x 3, equal unlabored respirations, skin warm/dry/pink. Vital Signs: 11:43 BP 156 / 97; Resp 16; Temp 98.7; Pulse Ox 100% on R/A; Weight 67.13 kg; Height 5 ft. 4 iw in. (162.56 cm); Pain 7/10; 11:44 BP 156 / 97; Pulse 80; Resp 17; Temp 98.7(O); Pulse Ox 100% on 2 lpm NC; tw2 12:45 BP 148 / 81; Pulse 95; Resp 19; Pulse Ox 100% on 2 lpm NC; tw2 11:43 Body Mass Index 25.40 (67.13 kg, 162.56 cm) iw 11:44 pt moved from pts own portable oxygen to ER room 15 oxygen at 2L tw2 ED Course: 10:52 Patient arrived in ED. am2 10:52 Sandy Gonzalez MD is Private Physician. am2 11:36 Bed in low position. Call light in reach. Side rails up X 1. Adult w/ patient. Pulse ox tw2 on. NIBP on. Warm blanket given. 11:38 Renate Samuels, RN is Primary Nurse. tw2 11:38 Arm band placed on. tw2 11:39 Dallas Meyer MD is Attending Physician. toni 11:46 Triage completed. iw 12:25 CT Head C Spine In Process Unspecified. EDMS 12:25 CT Facial Bones W/O Con: atten orbits In Process Unspecified. EDMS 13:29 Sandy Gonzalez MD is Referral Physician. toni 13:29 Hollis Park MD is Referral Physician. toni 13:43 No provider procedures requiring assistance completed. Patient did not have IV access tw2 during this emergency room visit. Administered Medications: 12:15 Drug: Tetracaine Drops 0.5 % 1 drops {Note: by Dr. Meyer.} Route: Ophthalmic; Site: tw2 right eye; 12:15 Drug: Fluorescein Strip 1 strip {Note: by Dr. Meyer.} Route: Ophthalmic; Site: right tw2 eye; 12:51 Drug: Tobrex (tobramycin) Ointment 0.3 % 1 application Route: Ophthalmic; Site: right tw2 eye; Outcome: 13:29 Discharge ordered by . [facility] 13:43 Discharged to home via wheelchair, with significant other. tw2 13:43 Condition: stable 13:43 Discharge instructions given to patient, significant other, Instructed on discharge instructions, follow up and referral plans. medication usage, safety practices, Demonstrated understanding of instructions, follow-up care, medications, Prescriptions given X 2. 13:44 Patient left the ED. tw2 Signatures: Dispatcher [employer] EDMS Dallas Meyer MD MD cha Williams, Irene RN RN iw Renate Samuels RN RN tw2 Domitila Sorenson am2 Corrections: (The following items were deleted from the chart) 12:09 11:52 PMHx: corrective hand sx; tw2 tw2 12:09 11:52 PMHx: Hypertension; tw2 tw2 12:09 11:52 PMHx: COPD;
[2021-02-17 13:48] VITALS: TEMP 98.7; O2SAT 100
[2021-02-17 13:51] VITALS: BP 148/81
== END 2021-02-17 13:44 | disposition home or self-care (01) ==
LOC: ER 10:51
DX: H11.31 Conjunctival hemorrhage, right eye (principal); W18.30XA Fall on same level, unspecified, initial encounter; Z88.1 Allergy status to other antibiotic agents; Z88.3 Allergy status to other anti-infective agents; Z88.5 Allergy status to narcotic agent; Z88.8 Allergy status to other drugs, medicaments and biological substances; Z91.048 Other nonmedicinal substance allergy status
CPT/HCPCS: 70450; 70486; 72125; 76377; 99284

== ENCOUNTER 2021-03-05 10:33 | Emergency (ER) | payer OTHER ==
--- OUTSIDE RECORDS SUMMARY | 2021-03-05 10:39 | XMS REPORT | Continuity of Care Document ---
:1955 Author Organization [facility] t Address [address] [place] [address] Dr. [address]. [address] [place] [address] Care Team Providers Name Role Phone SULLIVAN, LEONARD Primary Care Physician Unavailable PATRICE Attending Clinician Unavailable DENISE Attending Clinician Unavailable Noy AVELAR Attending Clinician Luigi TRAN Attending Clinician Monika HAILE Attending Clinician MONIKA Attending Clinician Unavailable DEL Attending Clinician Unavailable PAUL Attending Clinician Unavailable [...] (BMI 6-10 ity of 30-39.9) 30-39.9) 00:00: [place] [address] Medical Branch Urinary Urinary Disease Active 2020-0 Univers tract tract 6-10 ity of infection, [place], [place] site [place] site not 00 Medica l specified specified Bran ch Stroke Stroke Disease Active 2020-0 Univers 6-09 ity of 00:00: [place] [address] Medical Branch Primary Primary Disease Active Univers hypothyroi hypothyroi 4-11 it y of dism dism 00:00: [place] [address] Medical Branch Distal Distal Disease Active 2014-03 [...] Active Univers Tape allergy ity of TAPE [place] [facility] amitript drug Active Univers yline allergy ity of [place] [facility] E-Mycin drug Active Univers allergy ity of [place] [facility] Effexor drug Active Univers allergy ity of [place] [facility] Levaquin drug Active Univers allergy ity of [place] [facility] Lyrica drug Active Univers CAPS allergy ity of [place] [facility] Neuronti drug Active Univers n allergy ity of [place] [facility] trazodon drug Active Univers e allergy ity of [place] [facility] Zithroma drug Active Univers x PACK allergy ity of [place] [facility] Social History Social Habit Start Date Stop Date Quantity Comments Source Sex Assigned At Universit y of [facility] Exposure to Unable to assess Univers ity of SARS-CoV-2 (event) [facility] Cigarettes smoked 2018-01-11 2018-01-11 Univers ity of current (pack per 00:00:00 00:00:00 [facility] ) - Reported Branch Cigarette 2018-01-11 2018-01-11 University of pack-years 00:00:00 00:00:00 [facility] Alcohol Comment 2015-01-04 2015-01-04 social drinker, Univ ersity of 00:00:00 00:00:00 1-2 drinks per [facility] Smoking Status Start Date Stop Date Source Former smoker 2018-01-11 00:00:00 2018[facility] Medications Ordered Filled Start Stop Current Ordering Indication Dosage Frequency Signature Comments Components Source Medication Medication Date Date Medication? Clinician (SIG) Name Name Trimethopri Trimethopri 2019-0 2020- No Juliana [address] [facility] 8-06 02-01 [place] [facility] - 00:[facility]: [facility] 00 :[facility] Omeprazole Omeprazole 2019-0 Yes Juliana [address] [facility] 6-22 [place] [facility] - 00:00: [facility] 00 l [facility] ent Clinics Symbicort Symbicort 2020-0 2020- No Juliana [address] 6-22 12-18 [facility] - 00:00: 00:00 [facility] 00 :00 [facility] aspirin 81 2020-0 Yes 81mg Take 81 mg U nivers mg chewable 6-12 by mouth ity of tablet 22:08: daily. [address] LACTOBACILL 2020-0 Yes Take by Un [facility] US 6-12 mouth. ity of ACIDOPHILUS 22:08: [place] (PROBIOTIC 40 Medical ORAL) [facility] CETIRIZINE 2019-0 Yes Take by Uni vers HCL (ZYRTEC 6-12 mouth as ity of ORAL) 22:08: needed. [address] metoprolol 2019-0 Yes 25mg Take 25 mg U nivers tartrate 6-12 by mouth. ity of (LOPRESSOR) 22:08: [place] 25 mg 40 Medical tablet Branch DULoxetine 2020-0 Yes 60mg Take 60 mg U nivers (CYMBALTA) 6-12 by mouth. ity of 60 mg 22:08: [place] capsule 40 Medical Branch ferrous 2020-0 Yes 325mg Take 325 Unive rs sulfate 325 6-12 mg by ity of mg (65 mg 22:08: mouth. [place] iron) 40 Medical tablet Branch Dexlansopra 2020-0 Yes 60mg Take 60 mg Univers zole 6-12 by mouth. ity of (DEXILANT) 22:08: [place] 60 mg 40 Medical capsule Branch albuterol 2020-0 Yes 2.5mg Inhale 2.5 U nivers (PROVENTIL) 6-12 mg. ity of 2.5 mg /3 22:08: [place] mL (0.083 40 Medical %) Branch nebulizer solution carBAMazepi 2020-0 Yes 300mg Take 300 U nivers ne 6-12 mg by ity of (EQUETRO) 22:08: mouth. [place] 300 mg 12 40 Medical hr capsule Branch oxyCODONE-a 2020-0 Yes 1{tbl} Take 1 [facility] cetaminophe 6-12 tablet by ity of n 22:08: mouth. [place] (PERCOCET) 40 Medical 7.5-325 mg Branch per tablet memantine-d 2020-0 Yes Take by [facility] onepezil 6-12 mouth. ity of (NAMZARIC) 22:08: [place] 28-10 mg 40 Medical CSpX Branch Magnesium 2020-0 Yes 250mg Take 250 Uni vers Oxide 250 6-12 mg by ity of mg Tab 22:08: mouth. [place] 40 Medical Branch B 2020-0 Yes Take by Univers Complex-Fol 6-12 mouth. ity of ic Acid 22:08: [place] (BALANCED 40 Medical B-100) 0.4 Branch mg Tab aspirin 81 2020-0 Yes 81mg Take 81 mg U nivers mg chewable 6-12 by mouth ity of tablet 22:08: daily. [place] 40 Medical Branch LACTOBACILL 2020-0 Yes Take by [facility] US 6-12 mouth. ity of ACIDOPHILUS 22:08: [place] (PROBIOTIC 40 Medical ORAL) Branch CETIRIZINE 2020-0 Yes Take by Uni vers HCL (ZYRTEC 6-12 mouth as ity of ORAL) 22:08: needed. [place] 40 Medical Branch metoprolol 2020-0 Yes 25mg Take 25 mg U nivers tartrate 6-12 by mouth. ity of (LOPRESSOR) 22:08: [place] 25 mg 40 Medical tablet Branch DULoxetine 2020-0 Yes 60mg Take 60 mg U nivers (CYMBALTA) 6-12 by mouth. ity of 60 mg 22:08: [place] capsule 40 Medical Branch ferrous 2020-0 Yes 325mg Take 325 Unive rs sulfate 325 6-12 mg by ity of mg (65 mg 22:08: mouth. [place] iron) 40 Medical tablet Branch Dexlansopra 2020-0 Yes 60mg Take 60 mg Univers zole 6-12 by mouth. ity of (DEXILANT) 22:08: [place] 60 mg 40 Medical capsule Branch albuterol 2020-0 Yes 2.5mg Inhale 2.5 U nivers (PROVENTIL) 6-12 mg. ity of 2.5 mg /3 22:08: [place] mL (0.083 40 Medical %) Branch nebulizer solution carBAMazepi 2020-0 Yes 300mg Take 300 U nivers ne 6-12 mg by ity of (EQUETRO) 22:08: mouth. [place] 300 mg 12 40 Medical hr capsule Branch oxyCODONE-a 2020-0 Yes 1{tbl} Take 1 [facility] cetaminophe 6-12 tablet by ity of n 22:08: mouth. [place] (PERCOCET) 40 Medical 7.5-325 mg Branch per tablet memantine-d 2020-0 Yes Take by [facility] [place] onepezil 6-12 mouth. ity of (NAMZARIC) 22:08: [place] 28-10 mg 40 Medical CSpX Branch Magnesium 2020-0 Yes 250mg Take 250 Uni vers Oxide 250 6-12 mg by ity of mg Tab 22:08: mouth. [place] 40 Medical Branch B 2020-0 Yes Take by Univers Complex-Fol 6-12 mouth. ity of ic Acid 22:08: [place] (BALANCED 40 Medical B-100) 0.4 Branch mg Tab aspirin 81 2020-0 Yes 81mg Take 81 mg U nivers mg chewable 6-12 by mouth ity of tablet 22:08: daily. [place] 40 Medical Branch LACTOBACILL 2020-0 Yes Take by Un [facility] US 6-12 mouth. ity of ACIDOPHILUS 22:08: [place] (PROBIOTIC 40 Medical ORAL) Branch CETIRIZINE 2020-0 Yes Take by Uni vers HCL (ZYRTEC 6-12 mouth as ity of ORAL) 22:08: needed. [place] 40 Medical Branch metoprolol 2020-0 Yes 25mg Take 25 mg U nivers tartrate 6-12 by mouth. ity of (LOPRESSOR) 22:08: [place] 25 mg 40 Medical tablet Branch DULoxetine 2020-0 Yes 60mg Take 60 mg U nivers (CYMBALTA) 6-12 by mouth. ity of 60 mg 22:08: [place] capsule 40 Medical Branch ferrous 2020-0 Yes 325mg Take 325 Unive rs sulfate 325 6-12 mg by ity of mg (65 mg 22:08: mouth. [place] iron) 40 Medical tablet Branch Dexlansopra 2020-0 Yes 60mg Take 60 mg Univers zole 6-12 by mouth. ity of (DEXILANT) 22:08: [place] 60 mg 40 Medical capsule Branch albuterol 2020-0 Yes 2.5mg Inhale 2.5 U nivers (PROVENTIL) 6-12 mg. ity of 2.5 mg /3 22:08: [place] mL (0.083 40 Medical %) Branch nebulizer solution carBAMazepi 2019-0 Yes 300mg Take 300 U nivers ne 6-12 mg by ity of (EQUETRO) 22:08: mouth. [place] 300 mg 12 40 Medical hr capsule Branch oxyCODONE-a 2020-0 Yes 1{tbl} Take 1 [place] cetaminophe 6-12 tablet by ity of n 22:08: mouth. [place] (PERCOCET) 40 Medical 7.5-325 mg Branch per tablet memantine-d 2020-0 Yes Take by [place] onepezil 6-12 mouth. ity of (NAMZARIC) 22:08: [place] 28-10 mg 40 Medical CSpX Branch Magnesium 2020-0 Yes 250mg Take 250 Uni vers Oxide 250 6-12 mg by ity of mg Tab 22:08: mouth. [place] 40 Medical Branch B 2020-0 Yes Take by Univers Complex-Fol 6-12 mouth. ity of ic Acid 22:08: [place] (BALANCED 40 Medical B-100) 0.4 Branch mg [...] 08/25/19 at 0900, Until Discontinu ed, Routine
anthropology faculty member approving Restricted medication : HOSBLUECLC memantine [...] Discontinu ed, Routine cephALEXin 2020-0 2020- No [id number] 500mg Take 1 Univers 500 mg 08-24 capsule by ity of capsule 00:00: 04:59 mouth 4 [place] 00 :00 ([facility]) Medical times Branch daily for 7 days. cephALEXin 2020-0 2020- No [id number] 500mg Take 1 Univers 500 mg 08-24 capsule by ity of capsule 00:00: 04:59 mouth 4 [place] 00 :[address] ([facility]) Medical times Branch daily for 7 days. cephALEXin 2020-0 2020- No [id number] 500mg Take 1 Univers 500 mg 08-24 capsule by ity of capsule 00:00: 04:59 mouth 4 [place] 00 :00 ([facility]) Medical times Branch daily for 7 days. [...] 08-23 Oral, ity of (FLEXERIL) 21:24: Q8HPRN, [facility] mg 47 Starting Medi dane [facility] 08/24/19 at 1624, Until Discontinu ed, Routine, Muscle Spasms, q8hrs prn spasm KCL 2020-0 2020- No 40meq 40 mEq, Univers (KLOR-CON 08-23-11 Oral, ity of M20) tablet 20:00: 20:54 ONCE, 1 [place] 40 mEq 00 :00 dose, [facility] Medical 08/24/19 at Branch 1500, Routine oxyCODONE-a 2020-0 Yes 1{tbl} 1 tablet, [facility] cetaminophe 08-23 Oral, ity of n 17:26: Q6HPRN, [place] (PERCOCET) 52 Starting Medic al 5-325 mg [facility] per tablet 08/24/19 at 1 tablet 1226, Until Discontinu ed, Routine, Pain (scale 7-10) acetaminoph 2020-0 Yes 650mg 650 mg, [facility] en 08-22 Oral, ity of (TYLENOL) 21:45: Q4HPRN, [place] tablet 650 00 Starting Medic al mg [facility] 08/23/19 at 1645, Until Discontinu ed, Routine, Pain (scale 1-3), Temp > 38.5 C ipratropium 2019-0 Yes 3mL 3 mL, Unive rs -albuterol 08-22 Inhalation ity of (DUONEB) 17:00: , QID, [place] 0.5 mg-3 00 First dose Medic al mg(2.5 mg on [facility] base)/3 mL 08/23/19 at nebulizer 1200, solution 3 Until mL Discontinu ed, Routine furosemide 2019-0 2020- No 40mg 40 mg, Univ ers (LASIX) 08-22 06-10 Slow IV ity of injection 16:30: 16:29 Push, [place] 40 mg 00 :00 ONCE, 1 Medical dose, [facility] 08/23/19 at 1130, Routine ketorolac 2020-0 2020- No 30mg 30 mg, Unive rs (TORADOL) 08-22 06-10 Intramuscu ity of injection 16:00: 15:33 lar, ONCE, [place] 30 mg 00 :00 1 dose, Medical [facility] 08/23/19 at 1100, Routine
anthropology faculty member approving Restricted medication : SAMIR RUVALCABA cefTRIAXone 2020-0 Yes 1000mg 1,000 mg, Univers (ROCEPHIN) 6-10 IV ity of 1,000 mg in 14:00: Piggyback, [place] NaCl 0.9% 00 Q24H ABX, Medic al (NS) 50 mL First dose [facility] MINI-BAG on Wed08/23/19 at 0900, Until Discontinu [...] First dose [place] mg 00 on [facility] 08/22/19 at Branch 2100, Until Discontinu ed, Routine NaCl 0.9% 2020-0 2020- No 1000mL at 100 Uni vers (NS) IV 08-22 06-10 mL/hr, IV ity of infusion 01:15: 12:54 Infusion, [place] 1,000 mL 00 :46 CONTINUOUS Medic al , Starting Branch [facility] 08/22/19 at 2015, Until Wed08/23/19 at 0754, Routine metoprolol 2020-0 Yes 25mg 25 mg, Unive rs tartrate 6-10 Oral, BID, ity o f (LOPRESSOR) 01:00: First dose [place] tablet 25 00 on [facility] mg 08/22/19 at [facility] 1999, Until Discontinu ed, Routine enalapril 2020-0 Yes 5mg 5 mg, Univers (VASOTEC) 6-10 Oral, BID, ity of tablet 5 mg 01:00: First dose [place] 00 on [facility] 08/22/19 at [facility] 1999, Until Discontinu ed, Routine aspirin 2020-0 2020- No 325mg 325 mg, Unive rs tablet 325 08-21 06-09 Oral, ity of mg 23:15: 22:31 ONCE, 1 [place] 00 :00 dose, [facility] 08/22/19 at [facility] 1815, STAT iohexol 2020-0 2020- No 100mL 100 mL, Unive rs (OMNIPAQUE 08-21 06-09 Intravenou it y of 350 22:00: 21:29 s, ONCE, 1 [place] BULK-100 00 :00 dose, [facility] Medica l mL) 08/22/19 at [facility] injection 1700, 100 mL Routine NaCl 0.9% 2020-0 Yes 5mL 5 mL, Slow Un de[facility] (NS) 6-09 IV Push, ity of injection 5 21:39: PRN - [place] mL 24 [facility], Branch Starting [facility] 08/22/19 at 1639, Until Discontinu ed, 10 mL NaCl 0.9% 2020-0 Yes 5mL 5 mL, Slow [place] [facility] (NS) 6-09 IV Push, ity of injection 5 21:31: PRN - [place] mL 20 [facility], Branch Starting [facility] 08/22/19 at 1631, Until Discontinu ed, 10 [...] CAPSULE ity of Oral Oral 00:00: DAILY [place] Capsule Capsule 00 Physici ans Ingrezza 40 Ingrezza 40 Yes 2 QD TAKE 2 Univers MG Oral MG Oral 6-07 CAPSULE ity of Capsule Capsule 00:00: DAILY [place] Physici ans QUEtiapine QUEtiapine 0 Yes .5 [...] CAPSULE ity of Capsule Capsule 00:00: DAILY [place] Physici ans Topiramate Topiramate 0 Yes 3 QD TAKE 3 Univers 50 MG Oral 50 MG Oral 6-07 TABLET i ty of Tablet Tablet 00:00: DAILY [place] 00 Physici ans Sodium Sodium 2018-0 Yes [...] ne 03-23 ity of (SYNTHROID) 00:00: 00:00 [place] 112 mcg 00 :00 Medical tablet Branch ziprasidone 2015-03 Yes TAKE ONE [facility] (GEODON) 80 0-27 CAPSULE BY it y of mg capsule 00:00: MOUTH EVERY Medical MORNING Branch ziprasidone 2015-03 Yes TAKE ONE [place] [facility] (GEODON) 80 0-27 CAPSULE BY it y of mg capsule 00:00: MOUTH [place] EVERY Medical MORNING Branch ziprasidone 2015-03 Yes TAKE ONE [facility] (GEODON) 80 0-27 CAPSULE BY it y of mg capsule 00:00: MOUTH [place] EVERY Medical MORNING Branch oxyCODONE-a 2015-03 2020- No TK 1 T PO Univers cetaminophe 017 -12 Q 8 H ity of n 00:00: 00:00 [place] (PERCOCET) 00 :00 Medical 10-325 mg Branch [...] 100 mcg 00 MORNING. Medical tablet Branch [facility] 2015-03 Yes INHALE 1 Univers [...] capsule 00:00: MOUTH AT [place] 00 [facility] Medical Branch bromfenac 2014-03 Yes Univers (BROMDAY) [...] mouth ity of capsule 00:00: 00:00 daily. [place] 00 :00 Medical Branch enalapril 2014-03 Yes [...] one 9-21 ity of (SPIRONOLAC 00:00: [place] [facility]) 25 mg 00 Medical tablet Branch Levothyroxi Levothyroxi Yes Juliana [address] [facility] ne Sodium ne Sodium Frank on an [facility] - empty Memoria stomach in l the Outpati morning ent Clinics Vitamin D-3 Vitamin D-3 Yes Juliana as [facility] directed [facility] Clinics Amitiza Amitiza Yes Juliana [address] [facility] [place] with food [facility] Outpat[facility] ent Clinics Ferrous Ferrous Yes Juliana TAKE ONE [facility] Sulfate Sulfate Frank TABLET [place] - THREE Memoria TIMES l DAILY Outpati ent Clinics DuoNeb DuoNeb Yes Juliana as [facility] directed [facility] Outpat[facility] Clinics Quetiapine Quetiapine Yes Juliana [address] [facility] Fumarate Fumarate Frank [place] - Memoria l Outpati ent Clinics Geodon Geodon Yes Juliana 1 capsule [facility] [place] with food [facility] Clinics Augmentin Augmentin Yes Juliana [address] [facility] Clinics Topamax Topamax Yes Juliana [address] [facility] Nucynta Nucynta Yes Juliana [address] [facility] [place] [facility] Acetaminoph Acetaminoph Yes Juliana [address] en en [place] as needed [facility] Outpat[facility] ent Clinics Sodium Sodium Yes Juliana as [facility] Chloride Chloride Frank directed [facility] Clinics Soma Soma Yes Juliana [address] [facility] [place] as needed [facility] Clin[facility] Ingrezza Ingrezza Yes Juliana [address] [facility]ics Topamax Topamax Yes Juliana [address] [facility] Ziprasidone Ziprasidone Yes [place] [address] HCl HCl Frank with food [facility] - [facility] Outpat[facility] Clinics Flonase Flonase Yes Juliana [address] [facility] each [facility] - nostril Memoria l Outpati ent Clinics Lasix Lasix Yes Juliana [address] [facility] [facility] [place] [facility] Clinics Klor-Con Klor-Con Yes Juliana [address] M10 M10 [place] with food [facility] - [facility] Outpat[facility] ent Clinics Zofran Zofran Yes Juliana [address] [facility] Clinics Pramipexole Pramipexole Yes Juliana [address] Dihydrochlo Dihydrochlo [place] before [facility] - ride ride bedtime Memoria l Outpati ent Clinics Metoprolol Metoprolol Yes Juliana take [address] [facility] Succinate Succinate Frank tablet by [facility] - ER ER mouth Memoria every day l Outpati ent Clinics [place] Yes Juliana [address] [facility] [facility] as needed [facility] Alendronate Alendronate Yes Juliana [address] [facility] [facility] [place] [facility] - ferol ferol Memoria l [facility] Myrbetriq Myrbetriq Yes Juliana [address] [facility] [place] [facility] Simethicone Simethicone Yes Juliana [address] [facility] [place] after [facility] - meals and Memoria at bedtime l as needed [facility] Breo Breo Yes Juliana [address] [facility] [address] Ellipta Ellipta [place] [facility] Aspirin Aspirin Yes Juliana [address] Adult Low Adult Low [place] [facility] - Dose Dose Memoria l [facility] Bumetanide Bumetanide Yes Juliana TAKE [address] [facility] [place] TABLET BY [facility] - MOUTH Memoria EVERY DAY l [facility] Zyrtec Zyrtec Yes Juliana [address] [facility] Allergy Allergy [place] [facility] Clopidogrel Clopidogrel Yes Juliana [address] Bisulfate Bisulfate [place] [facility] - Memoria l [facility] Magnesium Magnesium Yes Juliana as [facility] Oxide Oxide [place] directed [facility] - Memoria l [facility] Alendronate Alendronate Yes Juliana TAKE [address] [facility] [facility] Sodium Sodium Frank TABLET BY Danielle kes - MOUTH ONCE Memoria A WEEK l [facility] Atorvastati Atorvastati Yes Juliana [address] [facility] [facility] n Calcium n Calcium [place] [facility] - Memoria l [facility] Cymbalta Cymbalta Yes Juliana [address] [place] [facility] ProAir HFA ProAir HFA Yes Juliana [address] [facility] [place] needed [facility] Singulair Singulair Yes Juliaan [address] [facility] [place] in the [facility] - evening Memoria l [facility] Zantac Zantac Yes Juliana [address] [facility] [place] at bedtime [facility] Outpat[facility] Clinics Macrobid Macrobid Yes Juliana [address] [place] with food [facility] Clinics Donepezil Donepezil Yes Juliana [address] HCl HCl Frank at bedtime [facility] Out[facility] Clinics Tizanidine Tizanidine Yes Juliana [address] HCl HCl Frank as needed [facility] Memantine Memantine Yes Juliana [address] HCl HCl Frank [facility] Equetro Equetro Yes Juliana [address] [facility] [facility] Ziprasidone Ziprasidone Yes Juliana [address] HCl HCl Frank with food [facility] Clinics Losartan Losartan Yes Juliana TAKE [address] [facility] Potassium Potassium [place] TABLET BY [facility] - MOUTH Memoria EVERY DAY l Outpati ent Clinics Immunizations Ordered Filled Immunization Date Status Comments [facility] Immunization Name Name Afluria single dose Afluria single dose 2018-12-[address] [facility] - 00:[facility]00 [facility] Influenza Virus 2015-01-05 Completed Universit y of Vaccine Quad IM 3+ 00:00:00 [facility] Influenza Virus 2015-01-05 Completed Universit y of Vaccine Quad IM 3+ 00:00:00 [facility] Influenza Virus 2015-01-05 Completed Universit y of Vaccine Quad IM 3+ 00:00:00 [facility] Vital Signs Vital Name Observation Time Observation Value Comments Source Heart rate 2019-08-25 78 /min [facility] 21:18:00 [facility] Respiratory rate 2019-08-25 20 /min [facility] 21:18:00 [facility] Oxygen saturation 2019-08-25 98 /min [facility] in Arterial blood 21:18:00 [facility] by Pulse oximetry Branch Systolic blood 2019-08-25 126 mm[Hg] University of pressure 19:58:00 [facility] Diastolic blood 2019-08-25 70 mm[Hg] [place] o f pressure 19:58:00 [facility] Body temperature 2019-08-25 36.72 Daysi [facility] 19:58:00 [facility] Body weight 2019-08-24 83.19 kg [facility] 08:00:00 [facility] BMI 2019-08-24 30.52 kg/m2 [facility] 08:00:00 [facility] Body height 2019-08-22 165.1 cm [facility] 21:30:00 [facility] BP Systolic 2018-08-19 146 mm[Hg] Location: [facility] 08:50:00 Position: [place] Physician s Sitting BP Diastolic 2018-08-19 91 mm[Hg] Location: [facility] 08:50:00 Position: [place] Physician s Sitting Height 2018-08-19 64 [in_us] [facility] 08:50:00 [place] Physician s Weight 2018-08-19 201 [lb_av] [facility] 08:50:00 [place] Physician s Body Mass Index 2018-08-19 34.5 kg/m2 University o f Calculated 08:50:00 [place] Physician s Heart Rate 2018-08-19 73 /min Location: L [facility] 08:50:00 Brachial [place] Physician s Artery; Procedures Procedure Date / Time Performing Clinician Source Performed BASIC METABOLIC PANEL 2019-08-25 14:14[facility]00 [facility] CL, CO2, Medical Branch GLUCOSE, BUN, CREATININE, CA) [place] MODIFIED BARIUM 2019-08-24 15:27:17 Cristiane Emerson [facility] SWALLOW [facility] Branch BASIC METABOLIC PANEL 2019-08-24 08:05:00 [facility] ([facility], K, CL, CO2, Medical Branch GLUCOSE, BUN, CREATININE, CA) CBC WITH DIFFERENTIAL 2019-08-24 08:05:00 Cristiane Emerson [facility] MR BRAIN WO CONTRAST 2019-08-23 19:43:18 Samir Ruvalcaba [facility] ECHO ROUTINE W/DOPPLER 2019-08-23 13:25:51 Sara Frank [facility] COLOR [facility] BASIC METABOLIC PANEL 2019-08-23 13:14:00 Cristiane Emerson [facility] (NA, K, CL, CO2, Medical Branch GLUCOSE, BUN, CREATININE, CA) LIPID PANEL 2019-08-23 13:14:00 Sara Frank [place] [facility] ([id number])(TOTAL Medical Branch CHOLESTEROL, TRIGLYCERIDES, HDL) CBC WITH DIFFERENTIAL 2019-08-23 13:13:00 Cristiane Emerson [facility] URINALYSIS 2019-08-22 23:18:00 Taylor Meyers [facility] URINE CULTURE 2019-08-22 23:18:00 Ki [facility] COVID-19 (ID NOW RAPID 2019-08-22 22:23:00 Taylor Meyers [facility] TESTING) Medical Branch XR CHEST 1 VW 2019-08-22 22:00:33 Taylor Meyers [facility] CT STROKE ANGIOGRAM 2019-08-22 21:59:[address] [facility] HEAD Medical Branch CT STROKE ANGIOGRAM 2019-08-22 21:59:[address] [facility] NECK [facility] Branch CT STROKE HEAD WO 2019-08-22 21:49:36 Taylor Meyers [facility] Center CONTRAST [facility] TROPONIN I 2019-08-22 21:44:00 Taylor Meyers [facility] BASIC METABOLIC PANEL 2019-08-22 21:44:00 Tayolr Meyers [facility] (NA, K, CL, CO2, Medical Branch GLUCOSE, BUN, CREATININE, CA) PROFILE / HEMOGRAM 2019-08-22 21:44:00 Taylor Meyers [facility] PROTHROMBIN TIME / INR 2019-08-22 21:44:00 Taylor Meyers [facility] ACTIVATED PARTIAL 2019-08-22 21:44:00 Taylor Meyers [facility] THRMPLAS REBECCA [facility] [N] 30 Day Event 2018-08-19 00:00:00 [facility] Monitor Recording Physicians History of Back Surgery [facility] Physicians History of Foot Surgery [facility] Physicians Plan of Care Planned Activity Planned Date Details Comments Source Diagnostic Test 2018-08-19 [N] [address] [facility] Pending 00:00:00 Monitor Recording Physicians [code = [N] 30 Day Event Monitor Recording] Encounters Start End Encounter Admission Attending Care Care Encounter Source Date/Time Date/Time Type Type Clinicians Facility Department ID 2021-02-21 2021-02-21 Outpatient [facility] [id number] [address] [place] [address] 00:00:00 00:00:00 KEENAN [facility] [facility] 2021-02-17 2021-02-17 ambulatory [facility] [id number] [facility] 2021-02-03 2021-02-03 ambulatory [facility] [id number] [facility] 2021-01-24 2021-01-24 ambulatory [facility] [id number] [facility] 2021-01-21 2021-01-21 ambulatory [facility] [id number] [facility] 2021-01-20 2021-01-20 ambulatory [facility] [id number] [facility] 2021-01-15 2021-01-15 ambulatory [facility] [id number] [facility] 2020-12-27 2020-12-27 Outpatient [facility] [id number] [facility] 2020-12-27 2020-12-27 Outpatient [facility] [id number] [facility] 2020-12-24 2020-12-24 Outpatient [facility] [id number] [facility] 2020-12-19 2020-12-19 Outpatient [facility] [id number] [facility] 2020-12-06 2020-12-06 Outpatient [facility] [id number] [facility] 2020-11-28 2020-11-28 Outpatient [facility] [id number] [facility] 2020-09-06 2020-09-06 Outpatient DENISE, [facility] [id number] [place] 00:00:00 00:00:00 MANUEL [address] 2020-09-06 2020-09-06 Outpatient DENISE, [facility] [id number] [place] 00:00:00 00:00:00 MANUEL [address] 2020-07-29 2020-07-29 Outpatient PATRICE, [facility] [id number] [place] 00:00:00 00:00:00 KEENAN [address] 2020-07-10 2020-07-10 Outpatient [facility] [id number] [facility] 2020-03-19 2020-03-19 Outpatient [facility] [id number] [facility] 2020-03-04 2020-03-04 Outpatient [facility] [id number] [facility] 2020-02-14 2020-02-14 Outpatient [facility] [id number] [facility] 2020-02-12 2020-02-12 Outpatient [facility] [id number] [facility] 2020-01-29 2020-01-29 Outpatient [facility] [id number] [facility] 2020-01-05 2020-01-05 Outpatient [facility] [id number] [facility] 2019-12-05 2019-12-05 Outpatient [facility] [id number] [facility] 2019-10-19 2019-10-19 [facility] [id number] 10:00:00 10:00:00 t Specialty/U Danielle kes - Specialty rology Memori a /Urology Clinic l Clinic Outpati ent Clinics 2019-09-21 2019-09-21 [facility] [id number] 13:30:00 13:30:00 t Specialty/U Danielle kes - Specialty rology Memori a /[facility]rology Clinic [facility] 2019-09-04 2019-09-04 [facility] [id number] 10:00:00 10:00:00 t [employer] [facility] 2019-08-28 2019-08-28 Transition Daryl Villafuerte [id number] 00:00:00 00:00:00 of Care Janeth Baker [id number] [place] [id number] [facility] 2019-08-28 2019-08-28 Transition Daryl Villafuerte [id number] [facility] 00:00:00 00:00:00 of Care Janeth Baker [id number] [id number] [id number] [facility] [address] 2019-08-22 2019-08-25 [facility] Taylor Meyers [facility] [id number] Univers 16:30:44 17:08:00 Encounter Sara Frank [facility] [id number] [id number] [id number] [facility] 110 Branch (CLC) 2019-08-22 2019-08-25 Outpatient X [facility] [id number] Univers 16:30:44 17:08:00 ity of [facility] 2019-08-02 2019-08-02 [facility] [id number] 13:00:00 13:00:00 t [employer] [facility] Outpati ent Clinics 2019-07-28 2019-07-28 [facility] [id number] 12:02:00 12:02:00 t [employer] [facility] Medicine Outpati ent Clinics 2019-07-28 2019-07-28 Outpatient PATRICE [facility] [id number] [place] 00:00:00 00:00:00 KEENAN [address] 2019-07-10 2019-07-10 [facility] [id number] 08:17:00 08:17:00 t [employer] [facility] Medicine Outpati ent Clinics 2019-07-07 2019-07-07 [facility] [id number] 16:00:00 16:00:00 t [employer] [facility] Medicine Outpati ent Clinics 2019-06-28 2019-06-28 [facility] [id number] 09:00:00 09:00:00 t [employer] [facility] Medicine Outpati ent Clinics 2019-06-13 2019-06-13 [facility] [id number] 10:36:00 10:36:00 t [employer] [facility] Medicine Outpati ent Clinics 2019-05-25 2019-05-25 [facility] [id number] 09:40:00 09:40:00 t [email or web address] [facility] Medicine Outpati ent Clinics 2019-04-27 2019-04-27 [facility] [id number] 13:17:00 13:17:00 t [email or web address] [facility] Medicine Outpati ent Clinics 2019-01-19 2019-01-19 [facility] [id number] 17:19:00 17:19:00 t [email or web address] [facility] l Medicine Outpati ent Clinics 2018-12-09 2018-12-09 [facility] [id number] 09:30:00 09:30:00 t [place] [employer] [facility] l Medicine Outpati ent Clinics 2018-12-08 2018-12-08 [facility] [id number] 15:00:00 15:00:00 t [place] Luke s - Drive [facility] Medicine l Medicine Outpati ent Clinics 2018-11-18 2018-11-18 [facility] [id number] 15:26:00 15:26:00 t [place] [employer] Ally s - Drive [facility] Medicine Outpati ent Clinics 2018-08-19 2018-08-19 Appointmen JIMMIE MATHIS [facility] - [id number] [facility] 09:30:00 09:30:00 t; PANDA MATHIS, BAYRON [place] ity [facility] Physici ans 2018-06-28 2018-06-28 [facility] [id number] 09:14:00 09:14:00 t [place] [employer] s - Drive [facility] Medicine Medicine Outpati ent Clinics 2018-06-24 2018-06-24 [facility] [id number] 13:20:00 13:20:00 t [place] [employer] Ally s - Drive [facility] Medicine Medicine Outpati ent Clinics 2018-04-21 2018-04-21 [facility] [id number] 10:06:00 10:06:00 t [place] [employer] Ally s - Drive [facility] l Medicine Outpati ent Clinics 2018-03-24 2018-03-24 [facility] [id number] 16:36:00 16:36:00 t [place] [employer] s - Drive [facility] Medicine Outpati ent Clinics 2018-03-24 2018-03-24 [facility] [id number] 10:30:00 10:30:00 t [place] [employer] Ally s - Drive [facility] Medicine l Medicine Outpati ent Clinics 2017-12-23 2017-12-23 Outpatient STLMLC [facility]LMLC [id number] [facility] 00[facility]:00 [facility] l Outpati ent Clinics 2017-12-20 2017-12-20 [facility] [id number] 16:12:00 16:12:[address] Luke [address] - Drive [facility] Outpati ent Clinics 2017-12-16 2017-12-16 [facility] [id number] 15:01:00 15:01:00 [place] [facility] Outpati ent Clinics 2017-10-01 2017-10-01 [facility] [id number] 10:09:00 10:09:00 [place] [facility] Outpati ent Clinics 2017-08-26 2017-08-26 Appointina MILLER, JIMMIE UTP [id number] Univers 11:00:00 11:00:00 t; JENI MILLER [facility] 2017-08-02 2017-08-02 [facility] [id number] 09:45:00 09:45:00 t [facility] s [facility] 2017-06-10 2017-06-10 AppointJIMMIE [place] UTP [id number] Univers 10:00:00 10:00:00 t; PAUL JENIVIMAL pelaez [facility] ans 2017-04-01 2017-04-01 AppointJIMMIE [place] UTP [id number] Univers 10:15:00 10:15:00 t; JESENIA QURESHI it y of [place], M.D. [place] M.D. Physici ans 2017-02-15 2017-02-15 AppointJIMMIE [place] UTP [id number] Univers 14:30:00 14:30:00 t; PAUL JENIVIMAL pelaez [facility] ans 2016-12-17 2016-12-17 Appointina QURESHI, JIMMIE UTP [id number] Univers 10:00:00 10:00:00 t; JESENIA QURESHI it y of [place], M.D. [place] M.D. Physici ans 2016-10-22 2016-10-22 Appointina QURESHI, JIMMIE UTP [id number] Univers 09:00:00 09:00:00 t; JESENIA QURESHI it y of [place], M.D. [place] M.D. Physici ans 2016-10-05 2016-10-05 Appointina QURESHI, JIMMIE UTP [id number] Univers 11:00:00 11:00:00 t; TITUS, JESENIA, it y of Areli [facility] Phys[facility] ans 2016-10-01 2016-10-01 Appointmen JIMMIE MILLER UTP [id number] Univers 11:45:00 11:45:00 t; JENI MILLER of [facility] Physici ans 2016-09-21 2016-09-21 Appointmen TITUS, UTP UTP [id number] Univers 13:00:00 13:00:00 t; TEUNIS, JESENIA, it y of Areli BA [facility] Physic ans 2016-09-03 2016-09-03 Appointmen JIMMIE QURESHI UTP [id number] Univers 11:15:00 11:15:00 t; TEUNTOO, JESENIA, it y of Areli BA [facility] Physic ans Results Test Description Test Time Test Comments Results Result Comments Source BASIC METABOLIC PANEL (NA, K, CL, CO2, GLUCOSE, BUN, 2019-08 14:48:00 CREATININE, CA) Test Item Value Reference Range Interpretation Comme nts NA (test code = 2466700210) 135 mmol/L 135-145 K (test code = 3315937159) 3.3 mmol/L 3.5-5 L CL (test code = 6407143970) 109 mmol/L 98-108 H CO2 TOTAL (test code = 7442163645) 17 mmol/L 23-31 L AGAP (test code = 5831725846) 2-16 BUN (test code = 2192567857) 40 mg/dL 7-23 H GLUCOSE (test code = 9726930063) 161 mg/dL 70-110 H CREATININE (test code = 2.11 mg/dL 0.5-1.04 H 1257449956) CALCIUM (test code = 6965253314) 8.5 mg/dL 8.6-10.6 L eGFR Calculation (Non- mL/min/1.73m2 [place]) (test code = 4525943574) eGFR Calculation ( mL/min/1.73m2 [place]) (test code = 2120900659) ELIZA (test code = ELIZA) Association of [...] tests). Lab Interpretation (test code = Abnormal 81324-0) [facility], (AMAURY)2019-08-24 16:21:54 There was no aspiration demonstrated. Minor [...] mechanisms are intact. No laryngeal aspirations werenoted. [facility], Radiant Results Inft User - 08/24/2019 11:23 [...] barium swallow. Please refer to the speechpathology report.[facility] WITH DIFFERENTIAL 2019-08-24 08:53:00 Test Item Value [...] RDW-SD (test code = 49.5 fL 39-49.9 71382-8) RDW-CV (test code = 13.5 % 12-15.5 788-0) PLT (test code = See_Comment L [Automated 777-3) message] The system which generated this result transmit matthew reference range : 166 - 358 10*3/ ?L. The reference range was not u sed to interpret th is result as normal/abnormal . MPV (test code = 9.9 fL 9.5-12.9 22700-6) NRBC/100 WBC (test See_Comment [Automat ed code = 1193491017) message] The system which generated this result transmit matthew reference range : 0.0 - 10.0 /100 WBCs. The reference range was not used to interpret this result as normal/abnormal . NRBC x10^3 (test code <0.01 See_Comment [Auto mated = 9217218321) message] The system which generated this result transmit matthew reference range : 10*3/?L. The reference range was not used to interpret this result as normal/abnormal . GRAN MAT (NEUT) % 90.6 % (test code = 770-8) IMM GRAN % (test code 0.80 % = 4181724111) LYMPH % (test code = 1.8 % 736-9) MONO % (test code = 6.6 % 5905-5) EOS % (test code = 0.0 % 713-8) BASO % (test code = 0.2 % 706-2) GRAN MAT x10^3(ANC) 13.15 10*3/uL 1.88-7.09 H (test code = 2530369360) IMM GRAN x10^3 (test 0.11 10*3/uL 0-0.06 H code = 2009995462) LYMPH x10^3 (test code 0.26 10*3/uL 1.32-3.29 [...] . Lab Interpretation Abnormal (test code = 68263-0) [facility] [place] [facility] METABOLIC PANEL (NA, K, CL, CO2, GLUCOSE, BUN, CREATININE, CA)2019-08-24 08:31:00 Test Item Value Reference Range Interpretation Comments NA (test code = 132 mmol/L 135-145 L 8766465631) K (test code = 3.4 mmol/L 3.5-5 L 1712085883) CL (test code = 104 mmol/L 98-108 0692268091) CO2 TOTAL (test code = 17 mmol/L 23-31 L 8243981133) AGAP (test code = 2-16 2607752196) BUN (test code = 41 mg/dL 7-23 H 4420562135) GLUCOSE (test code = 124 mg/dL 70-110 H 1697724771) CREATININE (test code = 2.31 mg/dL 0.5-1.04 H 7121031680) CALCIUM (test code = 8.4 mg/dL 8.6-10.6 L 8870347417) eGFR Calculation mL/min/1.73m2 (Non-) (test code = 6895106354) eGFR Calculation mL/min/1.73m2 () (test code = 1907028317) ELIZA (test code = ELIZA) Association of [...] tests). Lab Interpretation Abnormal (test code = 82373-3) [facility] BRAIN WO [id number] 21:07:31 No acute intracranial findings such as acute ischemia or intracranialhemorrhage. Preliminary Report Dictated by Resident: Lewis Xiao I, Nakul Vasquez MD., have reviewed this study and agree [...] reviewed this study and agree with the abovereport.[facility] WITH [id number] 13:56:00 Test Item Value Reference Range Interpretation [...] (test code = 51.8 fL 39-49.9 H 40460-7) RDW-CV (test code = 13.4 % 12-15.5 788-0) PLT (test code = See_Comment L [Automated 777-3) message] The system which generated this result transmit matthew reference range : 166 - 358 10*3/ ?L. The reference range was not u sed to interpret th is result as normal/abnormal . MPV (test code = 9.5 fL 9.5-12.9 35237-4) NRBC/100 WBC (test See_Comment [Automat ed code = 7220636772) message] The system which generated this result transmit matthew reference range : 0.0 - 10.0 /100 WBCs. The reference range was not used to interpret this result as normal/abnormal . NRBC x10^3 (test code <0.01 See_Comment [Auto mated = 4816107021) message] The system which generated this result transmit matthew reference range : 10*3/?L. The reference range was not used to interpret this result as normal/abnormal . GRAN MAT (NEUT) % 84.9 % (test code = 770-8) IMM GRAN % (test code 6.00 % = 3712947833) LYMPH % (test code = 2.2 % 736-9) MONO % (test code = 5.4 % 5905-5) EOS % (test code = 1.3 % 713-8) BASO % (test code = 0.2 % 706-2) GRAN MAT x10^3(ANC) 14.63 10*3/uL 1.88-7.09 H (test code = 2984785657) IMM GRAN x10^3 (test 1.03 10*3/uL 0-0.06 H code = 8013598073) LYMPH x10^3 (test code 0.38 10*3/uL 1.32-3.29 L = 731-0) MONO x10^3 (test code 0.93 10*3/uL 0.33-0.92 H = 742-7) EOS x10^3 (test code = 0.22 10*3/uL 0.03-0.39 711-2) BASO x10^3 (test code 0.04 10*3/uL 0.01-0.07 = 704-7) BANDS (test code = Increased A 8418625458) DOHLE BODIES (test Present A code = 7792-5) TOXIC CHANGES (test Present A code = 803-7) GIANT PLATELETS (test Present See_Comment A [Auto mated code = 5908-9) message] The system which generated this result transmit matthew reference range : (none). The reference range was not used to interpret this result as normal/abnormal . Lab Interpretation Abnormal (test code = 24380-3) [facility] LIPID PANEL (86089)(TOTAL CHOLESTEROL, TRIGLYCERIDES, HDL)2019-08-23 13:40:00 Test Item Value Reference Range Interpretation Comments CHOL (test code = 84 mg/dL 120-200 L 5152694718) HDL (test code = 24 mg/dL >50 L 1703056540) HDLC RATIO (test code = See_Comment [Au tomated message] 5993039926) The system [employer] generated this result transmit matthew reference range : <=4.5. The refe rence range was not u sed to interpret th is result as normal/abnormal . TRIG (test code = 173 mg/dL 30-170 H 7877264732) LDL CHOL (test code = 25 mg/dL See_Comment [Auto mated message] 40469-8) The system [employer] generated this result transmit matthew reference range : <=160. The refe rence range was not u sed to interpret th is result as normal/abnormal . VLDL (test code = 35 mg/dL 5-60 5095145817) Lab Interpretation (test Abnormal code = 02441-6) [facility] [place] [facility] METABOLIC PANEL (NA, K, CL, CO2, GLUCOSE, BUN, CREATININE, CA)2019-08-23 13:40:00 Test Item Value Reference Range Interpretation Comments NA (test code = 135 mmol/L 135-145 8583679216) K (test code = 3.6 mmol/L 3.5-5 5502814450) CL (test code = 106 mmol/L 98-108 1941997295) CO2 TOTAL (test code = 19 mmol/L 23-31 L 7929148186) AGAP (test code = 2-16 5038873149) BUN (test code = 29 mg/dL 7-23 H 6622665081) GLUCOSE (test code = 133 mg/dL 70-110 H 2826967621) CREATININE (test code = 2.25 mg/dL 0.5-1.04 H 3798475579) CALCIUM (test code = 8.1 mg/dL 8.6-10.6 L 9706648161) eGFR Calculation mL/min/1.73m2 (Non-) (test code = 0029772103) eGFR Calculation mL/min/1.73m2 () (test code = 5711503593) ELIZA (test code = ELIZA) Association of [...] tests). Lab Interpretation Abnormal (test code = 66607-9) [facility] 23:39:00 Test Item Value Reference Range Interpretation Comments APPEARANCE (test code = Hazy Clear A 2845417495) COLOR (test code = Orly Yellow A 1795153955) PH (test code = 4.8-8.0 3881852777) SP GRAVITY (test code = 1.003-1.030 H 3360564722) GLU U QUAL (test code = Normal Normal 0044894960) BLOOD (test code = 2+ Negative A 6098419962) KETONES (test code = Negative Negative 0140532752) PROTEIN (test code = 100 mg/dL Negative A 2887-8) UROBILIN (test code = Normal Normal 3152794156) BILIRUBIN (test code = Negative Negative 8966116581) NITRITE (test code = Negative Negative 8345331717) LEUK NATHANIEL (test code = 500/uL Negative A 0222590437) RBC/HPF (test code = See_Comment H [Autom ated message] 9554892985) The system [employer] generated this result transmit matthew reference range : 0 - 3 HPF. The refe rence range was not u sed to interpret th is result as normal/abnormal . WBC/HPF (test code = See_Comment H [Autom ated message] 6593396675) The system [employer] generated this result transmit matthew reference range : 0 - 5 HPF. The refe rence range was not u sed to interpret th is result as normal/abnormal . BACTERIA (test code = Many Negative A 2956496926) ASCORBIC ACID (test code Negative = 5789428521) Lab Interpretation (test Abnormal code = 71892-6) [facility] (ID NOW RAPID TESTING)2019-08-22 22:58:00 Test Item Value Reference Range Interpretation Comments SARS-CoV-2 Rapid ID NOW Not Detected Not Detected (test code = 35668-5) ELIZA (test code = ELIZA) ID NOW COVID-19 Assay is an isothermal nucleic acid amplification test intended for the qualitative detection of nucleic acid from SARS-CoV-2 viral RNA in nasopharyngeal (VENUE ATTENDANT) specimens. It is used under Emergency Use [...] indicated. Lab Interpretation Normal (test code = 61470-5) [facility] STR[facility]KE ANGIO[facility] [id number] 22:33:37 No intracranial proximal large vessel occlusion. [...] ? COMPARISON: None. FINDINGS: CTA of the [place] reveals no intracranial proximal large [...] calcified right thyroid lobenodule. Temporomandibular joint degeneration. [facility], Radiant Results Inft User - 08/22/2019 5:34 [...] injected intravenously. COMPARISON: None.FINDINGS: CTA of the [place] reveals no intracranial proximal large [...] intracranial proximal large vessel occlusion.No significant extracranial stenosis.[facility] STROKE ANGIOGRAM [id number] 22:33:37 No intracranial proximal large vessel occlusion. [...] ? COMPARISON: None. FINDINGS: CTA of the [place] reveals no intracranial proximal large [...] calcified right thyroid lobenodule. Temporomandibular joint degeneration. [facility], Radiant Results Inft User - 08/22/2019 5:34 [...] injected intravenously. COMPARISON: None.FINDINGS: CTA of the [place] reveals no intracranial proximal large [...] intracranial proximal large vessel occlusion.No significant extracranial stenosis.[facility] 1 [id number] 22:24:51 Findings and Impression: Suboptimal inspiratory volumes resulting inbronchovascular crowding and subsegmental atelectasis. Lungs are otherwiseclear. No pleural effusion or pneumothorax. Heart size is normal. No acuteosseous abnormality.PORTABLE CHEST RADIOGRAPH History: stroke Comparison: 01/03/2015 TECHNIQUE: AP view of the chest. [facility], Radiant Results Inft User - 08/22/2019 5:25 PM CDTPORTABLE CHEST RADIOGRAPHHistory: stroke Comparison: 01/03/2015TECHNIQUE: AP view of the chest.IMPRESSIONFindings and Impression: Suboptimal inspiratory volumes resulting inbronchovascular crowding and subsegmental atelectasis. Lungs are otherwiseclear. No pleural effusion or pneumothorax. Heart size is normal. No acuteosseous abnormality.[facility] I - ED Stroke [id number] 22:11:00 Test Item Value Reference Range Interpretation Comments TROPONIN I (test 0.010 ng/mL See_Comment [Automated code = 9087416167) message] The system which generated this result [...] ? Lab Interpretation Normal (test code = 56372-9) [facility] (NA, K, CL, CO2, Glucose, BUN, Creatinine, CA) - ED Stroke [id number] 21:59:00 Test Item Value Reference Range Interpretation Comments NA (test code = 133 mmol/L 135-145 L 3672075504) K (test code = 3.6 mmol/L 3.5-5 8530869413) CL (test code = 102 mmol/L 98-108 8166255275) CO2 TOTAL (test code = 17 mmol/L 23-31 L 1560845794) AGAP (test code = 2-16 0149739378) BUN (test code = 24 mg/dL 7-23 H 3798999548) GLUCOSE (test code = 117 mg/dL 70-110 H 1057048627) CREATININE (test code = 1.91 mg/dL 0.5-1.04 H 8539419162) CALCIUM (test code = 8.8 mg/dL 8.6-10.6 2795575250) eGFR Calculation mL/min/1.73m2 (Non-) (test code = 6153395588) eGFR Calculation mL/min/1.73m2 () (test code = 7100228321) ELIZA (test code = ELIZA) Association of [...] tests). Lab Interpretation Abnormal (test code = 59505-6) [facility] [facility] [id number] 21:58:[address] headCT STROKE HEAD WO [...] cells andvisualized paranasal air sinuses are clear. [facility], Radiant Results Inft User - 08/22/2019 4:59 [...] andvisualized paranasal air sinuses are clear.IMPRESSIONNormal CT headUnCHRISTUS [facility] MarshallProthrombin Time / INR - ED Stroke [id number] 21:57:00 Test Item Value Reference Range Interpretation Comments PROTIME PATIENT (test See_Comment H [Auto mated message] code = 5964-2) The system [employer] generated this result transmitted ref erence range: 10.1 - 1 2.6 Seconds. The reference range was not used to int erpret this result as normal/abnormal . INR (test code = 6301-6) Nor mal INR <1.1; Warfarin Therap eutic range 2.0 to 3. 0 or 2.5 to 3.5, dep ending upon the indica tions. Lab Interpretation (test Abnormal code = 11326-7) [facility] - [facility] Stroke [id number] 21:57:00 Test Item Value Reference Range Interpretation Comments APTT Patient (test code = See_Comment [ Automated message] 3173-2) The system [employer] generated this result transmitted ref erence range: 26 - 36 Seconds. The re ference range was not u sed to interpret this result as normal/abnor mal. Lab Interpretation (test Normal code = 48736-2) [facility] Stroke [id number] 21:50:00 Test Item Value Reference Range Interpretation Comments WBC (test code = 6690-2) See_Comment H [A utomated message] The system [employer] generated this result transmit matthew reference range : 4.30 - 11.10 10*3/?L. The reference range was not used to interpret this result as normal/abnormal . RBC (test code = 789-8) See_Comment L [Au tomated message] The system [employer] generated this result transmit matthew reference range [...] See_Comment L [Au tomated message] The system [facility] generated this result transmit matthew reference range : 166 - 358 10*3/?L. The reference range was not used to interpret this result as normal/abnormal . MPV (test code = 9.5 fL 9.5-12.9 87229-9) RDW-CV (test code = 13.2 % 12-15.5 788-0) RDW-SD (test code = 49.5 fL 39-49.9 66856-7) NRBC x10^3 (test code = <0.01 See_Comment [Au tomated message] [id number]) The system [facility] generated this result transmit matthew reference range : 10*3/?L. The reference range was not used to interpret this result as normal/abnormal . NRBC/100 WBC (test code See_Comment [Au tomated message] = [id number]) The system [facility] generated this result transmit matthew reference range : 0.0 - 10.0 /100 WBC s. The reference r marietta was not used to interpret this result as normal/abnormal . IPF % (test code = 6402121769) Lab Interpretation (test Abnormal code = 54264-3) [facility]"
--- NOTE | 2021-03-05 11:35 | RAD REPORT ---
EXAM DESCRIPTION: CT - CTHCSPWOC - 03/05/2021 11:16 am CLINICAL HISTORY: Trauma, head and neck injury. PAIN COMPARISON: Head C Spine Mpr Wo Con dated 02/17/2021; WF-[id number]-[id number]-WO dated 04/17/2013; CT-SPINE-C ERVICAL-WO dated 12/18/2010; DW-TOJSF-ZOGMKAPI-WO dated 05/18/2008 TECHNIQUE: Axial 5 mm thick images of the head were obtained. Axial 2 mm thick images of the cervical spine were obtained with sagittal and coronal reconstruction images generated and reviewed. All CT scans are performed using dose optimization technique as appropriate and may include automated exposure control or mA/KV adjustment according to patient size. FINDINGS: CT HEAD WITHOUT CONTRAST: No acute hemorrhage, hydrocephalus or extra-axial collection is identified.No areas of brain edema or midline shift. The paranasal sinuses and mastoids are clear.The calvarium is intact. CT CERVICAL SPINE WITHOUT CONTRAST: No fracture or subluxation.Midcervical moderate degenerative changes are present with 3 mm degenerati ve anterolisthesis of C3 on C4.No prevertebral soft tissues swelling is identified. IMPRESSION: No acute intracranial or cervical spine findings. Moderate midcervical degenerative spondylosis.
--- NOTE | 2021-03-05 11:44 | RAD REPORT ---
EXAM DESCRIPTION: RAD - Clavicle Right - 03/05/2021 11:20 am CLINICAL HISTORY: PAIN COMPARISON: No comparisons FINDINGS: Lywr-ia-ivobtcdf osteoarthritis affects the AC joint. No acute fracture or dislocation.
--- NOTE | 2021-03-05 11:46 | RAD REPORT ---
EXAM DESCRIPTION: RAD - Shoulder Right 2 View - 03/05/2021 11:20 am CLINICAL HISTORY: PAIN COMPARISON: No comparisons FINDINGS: Mild AC joint degenerative changes are present. Laterally downsloping acromion process is evident. No acute fracture or dislocation.
--- NOTE | 2021-03-05 12:27 | EDPHYS ---
Physician Documentation [facility] Name: Domitila Huertas Age: 65 yrs Sex: Female : 1955 Arrival Date: 03/05/2021 Time: 10:37 Bed 20 Private MD: Sandy Gonzalez ED Physician Brian Jackson HPI: 03/05 11:01 This 65 yrs old Female presents to ER via Ambulatory with complaints of Fall Injury. kdr 11:01 Details of fall: The patient fell from an upright position, while walking. Onset: The kdr symptoms/episode began/occurred suddenly, just prior to arrival. Associated injuries: The patient sustained injury to the head, contusion, pain, tenderness. Severity of symptoms: At their worst the symptoms were mild, in the emergency department the symptoms are unchanged. The patient has not experienced similar symptoms in the past. The patient has not recently seen a physician. States that she was walking and tripped knocking a board in such a way that hit her in the head as it was falling. She fell to the ground from standing position. She states she hit her head but did not get knocked out. Now she complains of head pain neck pain and right lateral shoulder pain. She has no injury to her pelvis or below her umbilicus. Historical: - Allergies: 10:53 adhesive tape; jh5 10:53 amitriptyline HCl; jh5 10:53 Azithromycin; jh5 10:53 Demerol; jh5 10:53 Erythromycin; jh5 10:53 erythromycin base; jh5 10:53 GABAPENTIN; jh5 10:53 Levofloxacin; jh5 10:53 Lyrica; jh5 10:53 Neurontin; jh5 10:53 Trazodone; jh5 10:53 venlafaxine HCl; jh5 - Immunization history:: Adult Immunizations up to date. - Social history:: Smoking status: Patient/guardian denies using tobacco. ROS: 11:01 Constitutional: Negative for fever, chills, and weight loss, Eyes: Negative for injury, kdr pain, redness, and discharge, Neck: Negative for injury, pain, and swelling, Cardiovascular: Negative for chest pain, palpitations, and edema, Respiratory: Negative for shortness of breath, cough, wheezing, and pleuritic chest pain, Abdomen/GI: Negative for abdominal pain, nausea, vomiting, diarrhea, and constipation, Back: Negative for injury and pain, : Negative for injury, bleeding, discharge, and swelling, MS/Extremity: Negative for injury and deformity, Skin: Negative for injury, rash, and discoloration, Neuro: Negative for headache, weakness, numbness, tingling, and seizure activity. Psych: Negative for depression, anxiety, suicide ideation, homicidal ideation, and hallucinations, Allergy/Immunology: Negative for hives, rash, and allergies, Endocrine: Negative for neck swelling, polydipsia, polyuria, polyphagia, and marked weight changes, Hematologic/Lymphatic: Negative for swollen nodes, abnormal bleeding, and unusual bruising. 11:01 MS/extremity: Positive for decreased range of motion, pain, of the right clavicle, anterior aspect of right shoulder and posterior aspect of right shoulder. Exam: 11:01 Constitutional: This is a well developed, well nourished patient who is awake, alert, kdr and in no acute distress. Head/Face: Normocephalic, atraumatic. Eyes: Pupils equal round and reactive to light, extra-ocular motions intact. Lids and lashes normal. Conjunctiva and sclera are non-icteric and not injected. Cornea within normal limits. Periorbital areas with no swelling, redness, or edema. Neck: Trachea midline, no thyromegaly or masses palpated, and no cervical lymphadenopathy. Supple, full range of motion without nuchal rigidity, or vertebral point tenderness. No Meningismus. Chest/axilla: Normal chest wall appearance and motion. Nontender with no deformity. No lesions are appreciated. Cardiovascular: Regular rate and rhythm with a normal S1 and S2. No gallops, murmurs, or rubs. Normal PMI, no JVD. No pulse deficits. Respiratory: Lungs have equal breath sounds bilaterally, clear to auscultation and percussion. No rales, rhonchi or wheezes noted. No increased work of breathing, no retractions or nasal flaring. Abdomen/GI: Soft, non-tender, with normal bowel sounds. No distension or tympany. No guarding or rebound. No evidence of tenderness throughout. Back: No spinal tenderness. No costovertebral tenderness. Full range of motion. Skin: Warm, dry with normal turgor. Normal color with no rashes, no lesions, and no evidence of cellulitis. Neuro: Awake and alert, GCS 15, oriented to person, place, time, and situation. Cranial nerves II-XII grossly intact. Motor strength 5/5 in all extremities. Sensory grossly intact. Cerebellar exam normal. Normal gait. Psych: Awake, alert, with orientation to person, place and time. Behavior, mood, and affect are within normal limits. 11:01 Neck: External neck: C-spine: ROM/movement: is normal, Lymph nodes: no appreciated lymphadenopathy. 11:01 Back: vertebral tenderness, is not appreciated. Vital Signs: 10:51 BP 131 / 87; Pulse 67; Resp 16; Temp 97.5; Pulse Ox 100% ; Weight 86.18 kg; Height 5 jh5 ft. 10 in. (177.80 cm); 10:51 Body Mass Index 27.26 (86.18 kg, 177.80 cm) jh5 MDM: 11:01 Data reviewed: vital signs, nurses notes, lab test result(s), radiologic studies. kdr Counseling: I had a detailed discussion with the patient and/or guardian regarding: the historical points, exam findings, and any diagnostic results supporting the discharge/admit diagnosis, lab results, radiology results, the need for outpatient follow up. 12:26 Patient medically screened. kdr 03/05 10:58 Order name: CT Head C Spine; Complete Time: 12:12 kdr 03/05 10:58 Order name: Shoulder Right (2 View) XRAY; Complete Time: 12:12 kdr 03/05 10:58 Order name: Clavicle Right XRAY; Complete Time: 12:12 kdr Administered Medications: No medications were administered Disposition Summary: 03/05/21 12:26 Discharge Ordered Location: Home kdr Problem: new kdr Symptoms: have improved kdr Condition: Stable kdr Diagnosis - Unspecified injury of head, initial encounter kdr - Pain in right shoulder kdr Followup: kdr - With: Sandy Gonzalez MD - When: 2 - 3 days - Reason: If symptoms return, Recheck today's complaints, Continuance of care, Re-evaluation by your physician Discharge Instructions: - Discharge Summary Sheet kdr - General Headache Without Cause kdr - Musculoskeletal Pain kdr - Shoulder Pain, Xqni-[id number] kdr - Head Injury, Adult, [id number] kdr Forms: - Medication Reconciliation Form kdr - Thank You Letter kdr Signatures: Dispatcher [employer] EDGA Renetta, Brian, MD MD kdr Judith Carranza RN RN jh5
--- NOTE | 2021-03-05 12:27 | ER ---
Nurse's Notes [facility] Name: Domitila Huertas Age: 65 yrs Sex: Female : 1955 Arrival Date: 03/05/2021 Time: 10:37 Bed 20 Private MD: Sandy Gonzalez Diagnosis: Unspecified injury of head, initial encounter;Pain in right shoulder Presentation: 03/05 10:51 Chief complaint: Patient states: Pt was hit in head by a board, fell back and hit her [facility] head this morning. States her head and right shoulder blade hurts. Pt denies blood thinners. Pt recalls all events. Pt ambulates with tip tester limp, not new. Coronavirus screen: Vaccine status: Patient reports receiving the 2nd dose of the covid vaccine. At this time, the client does not indicate any symptoms associated with coronavirus-19. Ebola Screen: Patient negative for fever greater than or equal to 101.5 degrees Fahrenheit, and additional compatible Ebola Virus Disease symptoms Patient denies exposure to infectious person. Patient denies travel to an Ebola-affected area in the 21 days before illness onset. Initial Sepsis Screen: Does the patient meet any 2 criteria? No. Patient's initial sepsis screen is negative. Does the patient have a suspected source of infection? No. Patient's initial sepsis screen is negative. Risk Assessment: Do you want to hurt yourself or someone else? Patient reports no desire to harm self or others. Onset of symptoms was March 05, 2021. 10:51 Method Of Arrival: Ambulatory [facility] 10:51 Acuity: IRENE 3 jh5 Triage Assessment: 10:55 General: Appears in no apparent distress. well groomed, well developed, well nourished, 5 Behavior is calm, cooperative, appropriate for age. Pain: Complains of pain in back, right clavicle and anterior aspect of right upper chest. Historical: - Allergies: 10:53 adhesive tape; 5 10:53 amitriptyline HCl; 5 10:53 Azithromycin; 5 10:53 Demerol; 5 10:53 Erythromycin; 5 10:53 erythromycin base; 5 10:53 GABAPENTIN; 5 10:53 Levofloxacin; 5 10:53 Lyrica; 5 10:53 Neurontin; 5 10:53 Trazodone; jh5 10:53 venlafaxine HCl; 5 - Immunization history:: Adult Immunizations up to date. - Social history:: Smoking status: Patient/guardian denies using tobacco. Screenin:55 Abuse screen: Denies threats or abuse. Denies injuries from another. Nutritional [facility] screening: No deficits noted. Tuberculosis screening: No symptoms or risk factors identified. Fall Risk Fall in past 12 months (25 points). Vital Signs: 10:51 BP 131 / 87; Pulse 67; Resp 16; Temp 97.5; Pulse Ox 100% ; Weight 86.18 kg; Height 5 [facility] ft. 10 in. (177.80 cm); 10:51 Body Mass Index 27.26 (86.18 kg, 177.80 cm) [facility] ED Course: 10:37 Patient arrived in ED. mr 10:37 Sandy Gonzlaez MD is Private Physician. mr 10:43 Judith Carranza, RN is Primary Nurse. [facility] 10:44 Brian Jackson MD is Attending Physician. kdr 10:53 Triage completed. [facility] 10:55 Arm band placed on right wrist. jh5 10:55 Patient has correct armband on for positive identification. Bed in low position. Call [facility] light in reach. Side rails up X 1. 10:55 No provider procedures requiring assistance completed. jh5 11:16 CT Head C Spine In Process Unspecified. EDMS 11:20 Shoulder Right (2 View) XRAY In Process Unspecified. EDMS 11:20 Clavicle Right XRAY In Process Unspecified. EDMS 12:25 Sandy Gonzalez MD is Referral Physician. kdr 12:37 Patient did not have IV access during this emergency room visit. [facility] Administered Medications: No medications were administered Outcome: 12:26 Discharge ordered by . kdr 12:36 Discharged to home ambulatory, with family. 5 12:36 Condition: good 12:36 Discharge instructions given to patient, family, Instructed on discharge instructions, follow up and referral plans. medication usage, safety practices, Demonstrated understanding of 12:37 Patient left the ED. [facility] Signatures: Dispatcher [employer] EDMS Brian Jackson MD MD [facility] StricklandLisette mr Judith Carranza, RN RN [facility]
[2021-03-05] MEDS ORDERED: ACETAMINOPHEN 325 MG TABLET ONE (12:33)
[2021-03-05 12:42] VITALS: BP 131/87; TEMP 97.5; O2SAT 100
== END 2021-03-05 12:37 | disposition home or self-care (01) ==
LOC: ER 10:33
DX: S00.83XA Contusion of other part of head, initial encounter (principal); W01.198A Fall on same level from slipping, tripping and stumbling with subsequent striking against other object, initial encounter; Y93.01 Activity, walking, marching and hiking; Z88.3 Allergy status to other anti-infective agents; Z88.5 Allergy status to narcotic agent; Z88.8 Allergy status to other drugs, medicaments and biological substances; Z91.048 Other nonmedicinal substance allergy status
CPT/HCPCS: 70450; 72125; 99283

== ENCOUNTER 2023-01-21 07:52 | Day surgery (SDC) | payer OTHER ==
[2023-01-21 08:19] LABS: Absolute Lymphocytes (CBC) 0.9 K/uL (0.7-4.9); Hematocrit 34.7 % (36.0-45.0); Lymphocytes % 10.2 % (15.3-44.8); MCV 100.6 fL (80-100); MPV 7.5 fL (7.6-11.3); Platelets 262 thou/uL (152-406); RBC Red Blood Cell Count 3.45 M/uL (3.86-4.86)
[2023-01-21 08:23] LABS: Protime INR 0.92
[2023-01-21] MEDS ORDERED: Ringers Lactate 1,000 ML IV ONE (08:24)
[2023-01-21 08:50] VITALS: O2SAT 100
[2023-01-21] MEDS ORDERED: propofoL 200 MG/20 ML VIAL IV ONE (09:53)
[2023-01-21] MEDS ORDERED: LIDOCAINE 1% MPF 5 ML VIAL ONE (09:53)
[2023-01-21 10:49] VITALS: BP 132/87; TEMP 97.7
--- NOTE | 2023-01-23 14:33 | EKG ---
Test Date: 2023-01-18 Test Time: 11:14:31 Veterinary Dentist: PHILIP MEASUREMENT RESULTS: Intervals: Rate: 58 ND: 168 QRSD: 88 QT: 450 QTc: 441 [place]: P: 65 ND: 168 QRS: -38 T: 29 INTERPRETIVE STATEMENTS: Sinus bradycardia Left axis deviation Abnormal ECG Compared to ECG 12/23/2021 11:55:06 Left-axis deviation now present Sinus rhythm no longer present Myocardial infarct finding no longer present Prolonged QT interval no longer present Electronically Signed On 01-23-23 14:17:52 BATTERY FILLER by Dale Roger
== END 2023-01-21 10:37 | disposition home or self-care (01) ==
LOC: OR 07:52
PROVIDERS: ATTEND Internal Medicine Gastroenterology
PROC: 0DB88ZX Excision of Small Intestine, Via Natural or Artificial Opening Endoscopic, Diagnostic (ICD-10-PCS; 2023-01-21)
PROC: 0DB78ZX Excision of Stomach, Pylorus, Via Natural or Artificial Opening Endoscopic, Diagnostic (ICD-10-PCS; 2023-01-21)
PROC: 0DB28ZX Excision of Middle Esophagus, Via Natural or Artificial Opening Endoscopic, Diagnostic (ICD-10-PCS; 2023-01-21)
PROC: 0DB38ZX Excision of Lower Esophagus, Via Natural or Artificial Opening Endoscopic, Diagnostic (ICD-10-PCS; 2023-01-21)
PROC: 0DB88ZX Excision of Small Intestine, Via Natural or Artificial Opening Endoscopic, Diagnostic (ICD-10-PCS; 2023-01-21)
PROC: 0DB78ZX Excision of Stomach, Pylorus, Via Natural or Artificial Opening Endoscopic, Diagnostic (ICD-10-PCS; 2023-01-21)
PROC: 0DB28ZX Excision of Middle Esophagus, Via Natural or Artificial Opening Endoscopic, Diagnostic (ICD-10-PCS; 2023-01-21)
PROC: 0DB38ZX Excision of Lower Esophagus, Via Natural or Artificial Opening Endoscopic, Diagnostic (ICD-10-PCS; principal; 2023-01-21 10:00)
DX: K22.9 Disease of esophagus, unspecified (principal); R13.10 Dysphagia, unspecified; R11.0 Nausea; K29.50 Unspecified chronic gastritis without bleeding; K59.1 Functional diarrhea; K44.9 Diaphragmatic hernia without obstruction or gangrene; K21.9 Gastro-esophageal reflux disease without esophagitis; Z79.82 Long term (current) use of aspirin
CPT/HCPCS: 43239 ×2; 93005; 85025; 80048; 36415; 88312; 85610; 88305; 85730; J2704; J2001; J7120

== ENCOUNTER 2024-04-27 19:17 | Emergency (ER) | payer OTHER ==
--- NOTE | 2024-04-27 20:10 | EDPHYS ---
Physician Documentation [facility] Name: Domitila Huertas Age: 68 yrs Sex: Female : 1955 Arrival Date: 04/27/2024 Time: 19:17 Bed IW10 Private MD: ED Physician Ric Peralta HPI: 04/27 19:58 This 68 yrs old Female presents to ER via Unassigned with complaints of Low sp4 Back Pain, Weakness, Pt wants to be check for DM. 20:09 Patient left from the waiting area prior to MD examination. sp4 MDM: 20:00 Medical Screening Exam initiated sp4 Administered Medications: No medications were administered Disposition Summary: 04/27/24 20:09 Eloped Notes: Disposition: before being seen by provider sp4 Reason: (see nurse's notes) sp4 Diagnosis - Low back pain sp4 Followup: sp4 - With: Private Physician - When: As needed - Reason: Signatures: Ric Peralta MD MD sp4
--- NOTE | 2024-04-27 20:10 | ER ---
Nurse's Notes [facility] Name: Domitila Huertas Age: 68 yrs Sex: Female : 1955 Arrival Date: 04/27/2024 Time: 19:17 Bed IW10 [facility] MD: Diagnosis: Low back pain Assessment: 04/27 20:05 Reassessment: pt not in lobby. iw ED Course: 19:20 Patient arrived in ED. jj6 19:58 Ric Peralta MD is Attending Physician. sp4 Administered Medications: No medications were administered Outcome: 20:16 Patient left the ED. Signatures: Meg Madden RN RN Jane Pandey jj6 Ric Peralta MD MD sp4
== END 2024-04-27 20:16 | disposition left against medical advice (07) ==
LOC: ER 19:17
DX: Z02.9 Encounter for administrative examinations, unspecified (principal)